=== PATIENT | male | born 1980 | race Caucasian/White ===

== ENCOUNTER → 2016-10-23 | Outpatient (CLI) | payer MEDICARE, MEDICAID | LOC: OD 11:17 | PROVIDERS: ATTEND Preventive Medicine Undersea and Hyperbaric Medicine | DX: L97.522 Non-pressure chronic ulcer of other part of left foot with fat layer exposed (principal) ==

== ENCOUNTER → 2016-12-29 | Outpatient (CLI) | payer MEDICARE, MEDICAID | LOC: OD 16:25 | PROVIDERS: ATTEND Preventive Medicine Undersea and Hyperbaric Medicine | DX: E10.621 Type 1 diabetes mellitus with foot ulcer (principal); L97.522 Non-pressure chronic ulcer of other part of left foot with fat layer exposed ==

== ENCOUNTER → 2017-01-15 | Outpatient (CLI) | payer MEDICARE, MEDICAID ==
--- NOTE | 2017-01-15 14:25 | RADIOLOGY REPORT (SQ) ---
EXAM DESCRIPTION: MRI LT LOWER EXTREMITY COMBO COMPLETED DATE/TIME: 01/15/2017 1:55 pm REASON FOR STUDY: NON-PRS CHRONIC ULCER OTH PRT LEFT FOOT W FAT LAYER EXPOSED (L97.522) L97.522 NON -PRS CHRONIC ULCER OTH PRT LEFT FOOT W FAT LAYER COMPARISON: None. TECHNIQUE: Multiplanar imaging of the left foot to include T1-weighted, postcontrast T1-weighted, an d T2-weighted images. CONTRAST TYPE AND DOSE: 20 ML Prohance. RENAL FUNCTION: GFR > 60. LIMITATIONS: None. FINDINGS: BONE MARROW: No marrow signal alteration. Specifically no marrow replacement or marrow ed maddison. No evidence for osteomyelitis. No cortical break through. SOFT TISSUES: Skin ulcer at the level of the medial cuneiform 1st metatarsal joint. There is adjacen t inflammation superficial to the flexor tendon. No organized gas fluid collection. OTHER: No other significant finding. IMPRESSION: Cellulitis. No evidence of osteomyelitis. TECHNICAL DOCUMENTATION: JOB ID: [id number] [employer]- All Rights Reserved
== END ==
LOC: RAD 12:34
PROVIDERS: ATTEND Preventive Medicine Undersea and Hyperbaric Medicine
DX: L97.522 Non-pressure chronic ulcer of other part of left foot with fat layer exposed (principal)
CPT/HCPCS: 73720; A9576

== ENCOUNTER → 2018-04-08 | Outpatient (CLI) | payer MEDICARE, MEDICAID ==
--- NOTE | 2018-04-08 11:23 | RADIOLOGY REPORT (SQ) ---
EXAM DESCRIPTION: LUMBAR SPINE COMPLETE COMPLETED DATE/TIME: 04/08/2018 11:08 am REASON FOR STUDY: LOW BACK PAIN M54.5 LOW BACK PAIN COMPARISON: None. NUMBER OF VIEWS: Five views including obliques. TECHNIQUE: AP, lateral, oblique, and sacral radiographic images acquired of the lumbar spine. LIMITATIONS: None. FINDINGS: MINERALIZATION: Normal. SEGMENTATION: Normal. No transitional anatomy. ALIGNMENT: Normal. VERTEBRAE: Maintained height. No fracture or worrisome bone lesion. DISCS: Preserved height. No significant osteophytes or end plate irregularity. POSTERIOR ELEMENTS: Pedicles and facets are intact. No pars defect or posterior arch defects. Mild b ilateral facet arthropathy at L4-5 and L5-S1. HARDWARE: None in the spine. PARASPINAL SOFT TISSUES: Normal. PELVIS: Intact as visualized. No fractures or worrisome bone lesions. SI joints intact. OTHER: No other significant finding. IMPRESSION: Mild bilateral facet arthropathy at L4-5 and L5-S1 TECHNICAL DOCUMENTATION: JOB ID: [id number] [employer]- All Rights Reserved Reading location - IP/workstation name: [email or web address]
== END ==
LOC: OD 10:41
PROVIDERS: ATTEND Nurse Practitioner Family
DX: M54.5 Low back pain (principal)
CPT/HCPCS: 72110

== ENCOUNTER → 2018-09-13 | Outpatient (CLI) | payer MEDICARE, MEDICAID ==
[2018-09-13 15:18] LABS: ABSOLUTE BASOPHILS # (AUTO) 0.1 10^3/uL (0.0-0.2); ABSOLUTE EOSINOPHILS # (AUTO) 0.2 10^3/uL (0.0-0.6); ABSOLUTE LYMPHOCYTES (AUTO) 1.7 10^3/uL (0.5-4.7); ABSOLUTE MONOCYTES (AUTO) 0.7 10^3/uL (0.1-1.4); ABSOLUTE NEUT (AUTO) 6.7 10^3/uL (1.7-8.2); BASOPHILS % (AUTO) 0.7 % (0-2); EOSINOPHILS % (AUTO) 1.8 % (0-6); HEMATOCRIT 39.8 % (37.9-51.0); HEMOGLOBIN 13.8 g/dL (13.5-17.0); LYMPHOCYTES % (AUTO) 18.2 % (13-45); MEAN CORPUSCULAR HEMOGLOBIN 29.6 pg (27.0-33.4); MEAN CORPUSCULAR HGB CONC 34.6 g/dL (32.0-36.0); MEAN CORPUSCULAR VOLUME 85 fl (80-97); MONOCYTES % (AUTO) 7.2 % (3-13); PLATELET COUNT 249 10^3/uL (150-450); RED BLOOD COUNT 4.66 10^6/uL (4.35-5.55); RED CELL DISTRIBUTION WIDTH 12.9 % (11.5-14.0); SEGMENTED NEUTROPHILS % (AUTO) 72.1 % (42-78); TOTAL CELLS COUNTED % (AUTO) 100 %; WHITE BLOOD COUNT 9.3 10^3/uL (4.0-10.5)
--- NOTE | 2018-09-13 15:33 | RADIOLOGY REPORT (SQ) ---
EXAM DESCRIPTION: FOOT LEFT COMPLETE COMPLETED DATE/TIME: 09/13/2018 2:58 pm REASON FOR STUDY: NON-PRS CHRONIC ULCER OTH PRT LEFT FOOT W FAT LAYER EXPOSED L97.522 NON-PRS CHRON IC ULCER OTH PRT LEFT FOOT W FAT LAYER E11.621 TYPE 2 DIABETES MELLITUS WITH FOOT ULCER COMPARISON: 12/29/2016. NUMBER OF VIEWS: Three views. TECHNIQUE: AP, lateral and oblique without weight bearing radiographic images acquired of the left f oot. LIMITATIONS: None. FINDINGS: MINERALIZATION: Normal. BONES: No acute fracture or dislocation. No worrisome bone lesions. No significant osteophytes. JOINTS: No erosions. No thu-articular osteopenia. No chondrocalcinosis. SOFT TISSUES: Medial and dorsal soft tissue swelling. No foreign body. No calcifications. OTHER: No other significant finding. IMPRESSION: SOFT TISSUE SWELLING. NO FOREIGN BODY. NO SIGNIFICANT BONY FINDINGS. TECHNICAL DOCUMENTATION: JOB ID: [id number] [employer]- All Rights Reserved Reading location - IP/workstation name: [email or web address]
[2018-09-13 15:36] LABS: ALANINE AMINOTRANSFERASE 46 U/L (21-72); ALBUMIN 3.8 g/dL (3.5-5.0); ALKALINE PHOSPHATASE 112 U/L (38-126); ANION GAP 8 (5-19); ASPARTATE AMINO TRANSFERASE 35 U/L (17-59); BILIRUBIN,DIRECT 0.1 mg/dL (0.0-0.4); BILIRUBIN,TOTAL 0.4 mg/dL (0.2-1.3); BLOOD UREA NITROGEN 23 mg/dL (7-20); C-REACTIVE PROTEIN 5.8 mg/L (<10.0); CALCIUM 9.3 mg/dL (8.4-10.2); CARBON DIOXIDE 27 mmol/L (22-30); CHLORIDE 102 mmol/L (98-107); GLUCOSE 241 mg/dL (75-110); POTASSIUM 4.8 mmol/L (3.6-5.0); SODIUM 137.3 mmol/L (137-145); TOTAL PROTEIN 6.2 g/dL (6.3-8.2)
[2018-09-13 15:55] LABS: ERYTHROCYTE SEDIMENTATION RATE 26 mm/hr (0-15)
== END ==
LOC: WC 14:28
PROVIDERS: ATTEND Preventive Medicine Undersea and Hyperbaric Medicine
DX: E11.621 Type 2 diabetes mellitus with foot ulcer (principal); L97.522 Non-pressure chronic ulcer of other part of left foot with fat layer exposed
CPT/HCPCS: 36415; 80053; 83036; 85025; 85652; 86140

== ENCOUNTER → 2018-09-16 | Outpatient (CLI) | payer MEDICARE, MEDICAID ==
--- NOTE | 2018-09-16 08:19 | RADIOLOGY REPORT (SQ) ---
EXAM DESCRIPTION: CHEST PA/LATERAL COMPLETED DATE/TIME: 09/16/2018 7:49 am REASON FOR STUDY: SHORTNESS OF BREATH COMPARISON: 12/06/2015 EXAM PARAMETERS: NUMBER OF VIEWS: two views TECHNIQUE: Digital Frontal and Lateral radiographic views of the chest acquired. RADIATION DOSE: NA LIMITATIONS: none FINDINGS: LUNGS AND PLEURA: Mild prominence of the interstitial markings in the lungs may be on the basis of edema or infiltrates. Linear subsegmental densities at the left lung base may be represent atelectasis or scar. Stable finding since the prior examination with slight increase. No pneumothor ax or pleural effusion. MEDIASTINUM AND HILAR STRUCTURES: No masses or contour abnormalities. HEART AND VASCULAR STRUCTURES: Heart normal size. No evidence for failure. BONES: No acute findings. HARDWARE: None in the chest. OTHER: No other significant finding. IMPRESSION: 1. Mild prominence of the interstitial markings in the lungs, may be on the basis of ed maddison or infiltrate. Correlation with history suggested. 2. Linear subsegmental densities at the left lung base, may represent scar or atelectasis. Stable f inding since the previous examination with slight increase. TECHNICAL DOCUMENTATION: JOB ID: [id number] [employer]- All Rights Reserved Reading location - IP/workstation name: [email or web address]
== END ==
LOC: OD 07:35
PROVIDERS: ATTEND Nurse Practitioner Family
DX: J98.4 Other disorders of lung (principal); R06.02 Shortness of breath
CPT/HCPCS: 71046

== ENCOUNTER → 2018-10-14 | Outpatient (CLI) | payer MEDICARE, MEDICAID ==
[2018-10-14 15:45] LABS: ABSOLUTE BASOPHILS # (AUTO) 0.1 10^3/uL (0.0-0.2); ABSOLUTE EOSINOPHILS # (AUTO) 0.2 10^3/uL (0.0-0.6); ABSOLUTE LYMPHOCYTES (AUTO) 1.7 10^3/uL (0.5-4.7); ABSOLUTE MONOCYTES (AUTO) 0.7 10^3/uL (0.1-1.4); ABSOLUTE NEUT (AUTO) 5.5 10^3/uL (1.7-8.2); BASOPHILS % (AUTO) 0.8 % (0-2); EOSINOPHILS % (AUTO) 2.1 % (0-6); HEMATOCRIT 34.7 % (37.9-51.0); HEMOGLOBIN 12.1 g/dL (13.5-17.0); LYMPHOCYTES % (AUTO) 20.9 % (13-45); MEAN CORPUSCULAR HEMOGLOBIN 29.4 pg (27.0-33.4); MEAN CORPUSCULAR HGB CONC 34.8 g/dL (32.0-36.0); MEAN CORPUSCULAR VOLUME 84 fl (80-97); MONOCYTES % (AUTO) 8.9 % (3-13); PLATELET COUNT 275 10^3/uL (150-450); RED BLOOD COUNT 4.11 10^6/uL (4.35-5.55); RED CELL DISTRIBUTION WIDTH 13.3 % (11.5-14.0); SEGMENTED NEUTROPHILS % (AUTO) 67.3 % (42-78); TOTAL CELLS COUNTED % (AUTO) 100 %; WHITE BLOOD COUNT 8.1 10^3/uL (4.0-10.5)
[2018-10-14 16:09] LABS: ALANINE AMINOTRANSFERASE 41 U/L (21-72); ALBUMIN 3.5 g/dL (3.5-5.0); ALKALINE PHOSPHATASE 104 U/L (38-126); ANION GAP 6 (5-19); ASPARTATE AMINO TRANSFERASE 25 U/L (17-59); BILIRUBIN,DIRECT 0.2 mg/dL (0.0-0.4); BILIRUBIN,TOTAL 0.3 mg/dL (0.2-1.3); BLOOD UREA NITROGEN 22 mg/dL (7-20); CALCIUM 9.2 mg/dL (8.4-10.2); CARBON DIOXIDE 30 mmol/L (22-30); CHLORIDE 101 mmol/L (98-107); GLUCOSE 262 mg/dL (75-110); POTASSIUM 4.8 mmol/L (3.6-5.0); SODIUM 137.3 mmol/L (137-145); TOTAL PROTEIN 6.4 g/dL (6.3-8.2)
[2018-10-14 16:12] LABS: C-REACTIVE PROTEIN < 5.0 mg/L (<10.0)
[2018-10-14 16:20] LABS: ERYTHROCYTE SEDIMENTATION RATE 40 mm/hr (0-15)
== END ==
LOC: OD 15:03
PROVIDERS: ATTEND Preventive Medicine Undersea and Hyperbaric Medicine
DX: L97.522 Non-pressure chronic ulcer of other part of left foot with fat layer exposed (principal)
CPT/HCPCS: 36415; 80053; 85025; 85652; 86140

== ENCOUNTER → 2018-11-04 | Outpatient (CLI) | payer MEDICARE, MEDICAID ==
--- NOTE | 2018-11-04 16:31 | RADIOLOGY REPORT (SQ) ---
EXAM DESCRIPTION: FOOT LEFT COMPLETE COMPLETED DATE/TIME: 11/04/2018 3:43 pm REASON FOR STUDY: NON-PRS CHRONIC ULCER OTH PRT LEFT FOOT W FAT LAYER EXPOSED L97.522 NON-PRS CHRON IC ULCER OTH PRT LEFT FOOT W FAT LAYER COMPARISON: None. NUMBER OF VIEWS: Three views. TECHNIQUE: AP, lateral and oblique radiographic images acquired of the left foot. LIMITATIONS: Boot artifact FINDINGS: MINERALIZATION: Normal. BONES: No fracture dislocation. No bone destruction is seen. JOINTS: No effusions. SOFT TISSUES: No soft tissue swelling. No foreign body. OTHER: No other significant finding. IMPRESSION: There is no evidence of osteomyelitis. TECHNICAL DOCUMENTATION: JOB ID: [id number] [employer]- All Rights Reserved Reading location - IP/workstation name: [email or web address]
== END ==
LOC: WC 15:26
PROVIDERS: ATTEND Preventive Medicine Undersea and Hyperbaric Medicine
DX: L97.522 Non-pressure chronic ulcer of other part of left foot with fat layer exposed (principal)

== ENCOUNTER 2018-11-23 07:59 | Emergency (ER) | payer MEDICARE, MEDICAID ==
[2018-11-23 10:01] LABS: ABSOLUTE BASOPHILS # (AUTO) 0.1 10^3/uL (0.0-0.2); ABSOLUTE EOSINOPHILS # (AUTO) 0.3 10^3/uL (0.0-0.6); ABSOLUTE LYMPHOCYTES (AUTO) 1.5 10^3/uL (0.5-4.7); ABSOLUTE MONOCYTES (AUTO) 0.9 10^3/uL (0.1-1.4); ABSOLUTE NEUT (AUTO) 6.6 10^3/uL (1.7-8.2); BASOPHILS % (AUTO) 0.9 % (0-2); EOSINOPHILS % (AUTO) 2.9 % (0-6); HEMATOCRIT 36.2 % (37.9-51.0); HEMOGLOBIN 12.3 g/dL (13.5-17.0); LYMPHOCYTES % (AUTO) 16.1 % (13-45); MEAN CORPUSCULAR HEMOGLOBIN 28.3 pg (27.0-33.4); MEAN CORPUSCULAR VOLUME 83 fl (80-97); MONOCYTES % (AUTO) 9.2 % (3-13); PLATELET COUNT 300 10^3/uL (150-450); RED BLOOD COUNT 4.35 10^6/uL (4.35-5.55); RED CELL DISTRIBUTION WIDTH 13.9 % (11.5-14.0); SEGMENTED NEUTROPHILS % (AUTO) 70.9 % (42-78); TOTAL CELLS COUNTED % (AUTO) 100 %; WHITE BLOOD COUNT 9.4 10^3/uL (4.0-10.5)
[2018-11-23] MEDS ORDERED: FUROSEMIDE INJ/PF 40 MG/4 ML SDV IV ONE (10:09)
--- NOTE | 2018-11-23 10:15 | EKG REPORT ---
SEVERITY:- BORDERLINE ECG - SINUS TACHYCARDIA BORDERLINE T ABNORMALITIES, INFERIOR LEADS : Confirmed by: Herminia Cardoza MD 23-Nov-2018 10:14:32
[2018-11-23 10:23] LABS: APPEARANCE,URINE CLEAR; BILIRUBIN,URINE NEGATIVE (NEGATIVE); COLOR,URINE YELLOW; GLUCOSE, URINE >=500 mg/dL (NEGATIVE); KETONES,URINE NEGATIVE (NEGATIVE); LEUKOCYTE ESTERASE,URINE NEGATIVE (NEGATIVE); NITRITE,URINE NEGATIVE (NEGATIVE); PROTEIN,URINE 100 mg/dL (NEGATIVE); URINE SPECIFIC GRAVITY 1.012; UROBILINOGEN,URINE NEGATIVE mg/dL (<2.0)
--- NOTE | 2018-11-23 10:30 | RADIOLOGY REPORT (SQ) ---
EXAM DESCRIPTION: CHEST SINGLE VIEW COMPLETED DATE/TIME: 11/23/2018 10:21 am REASON FOR STUDY: SOB COMPARISON: 09/16/2018. EXAM PARAMETERS: NUMBER OF VIEWS: One view. TECHNIQUE: Single frontal radiographic view of the chest acquired. RADIATION DOSE: NA LIMITATIONS: None. FINDINGS: LUNGS AND PLEURA: No opacities, masses or pneumothorax. No pleural effusion. MEDIASTINUM AND HILAR STRUCTURES: No masses. Contour normal. HEART AND VASCULAR STRUCTURES: Heart upper limits of normal in size. Normal vasculature. BONES: No acute findings. HARDWARE: None in the chest. OTHER: No other significant finding. IMPRESSION: NO ACUTE RADIOGRAPHIC FINDING IN THE CHEST. TECHNICAL DOCUMENTATION: JOB ID: [id number] [employer]- All Rights Reserved Reading location - IP/workstation name: [email or web address]
[2018-11-23 10:37] LABS: ALANINE AMINOTRANSFERASE 39 U/L (21-72); ALBUMIN 3.2 g/dL (3.5-5.0); ALKALINE PHOSPHATASE 91 U/L (38-126); ANION GAP 5 (5-19); ASPARTATE AMINO TRANSFERASE 25 U/L (17-59); BILIRUBIN,DIRECT 0.3 mg/dL (0.0-0.4); BILIRUBIN,TOTAL 0.4 mg/dL (0.2-1.3); BLOOD UREA NITROGEN 22 mg/dL (7-20); CALCIUM 9.1 mg/dL (8.4-10.2); CARBON DIOXIDE 29 mmol/L (22-30); CHLORIDE 104 mmol/L (98-107); CREATINE KINASE 215 U/L (55-170); GLUCOSE 184 mg/dL (75-110); POTASSIUM 4.4 mmol/L (3.6-5.0); SODIUM 138.1 mmol/L (137-145); TOTAL PROTEIN 6.3 g/dL (6.3-8.2)
[2018-11-23 10:49] LABS: TROPONIN I 0.02 ng/mL
[2018-11-23] MEDS ORDERED: LIDOCAINE 2% VISCOUS SOLN 20 ML UDCUP PO ONE (14:34)
[2018-11-23] MEDS ORDERED: MAG HYDROX/AL HYDROX/SIMETH SUSP 30 ML UDCUP PO ONE (14:34)
--- NOTE | 2018-11-23 16:03 | ER Document Report ---
Entered by DEBO KERNS SCRIBE 11/23/18 1026 Acting as scribe for:TREVA MAYO MD ED General - General Chief Complaint: Shortness Of Breath Stated Complaint: SHORTNESS OF BREATH Time Seen by Provider: 11/23/18 09:44 Mode of Arrival: Ambulatory Information source: Patient Notes: 38-year-old male who presents to the emergency department today with complaints of a "60 pound weight gain in the last 2 months". Patient states that he had been on 20 mg of Lasix once a day and when he noticed a weight gain, talked to his performance consultant who doubled the dosage to 40 mg of Lasix once a day. Patient states he has not noticed much change despite increasing his Lasix. TRAVEL OUTSIDE OF THE [place] IN LAST 30 DAYS: No - HPI Onset: Other - x2 months - Related Data Allergies/Adverse Reactions: No Known Allergies Allergy (Verified 11/23/18 08:04) Past Medical History - General Information source: Patient - Social History Smoking Status: Former Smoker Cigarette use (# per day): No Frequency of alcohol use: Rare Drug Abuse: None Family History: Reviewed & Not Pertinent Patient has suicidal ideation: No Patient has homicidal ideation: No - Past Medical History Cardiac Medical History: Reports: Hx Hypercholesterolemia, Hx Hypertension Pulmonary Medical History: Reports: Hx Pneumonia Neurological Medical History: Reports: Hx Migraine Endocrine Medical History: Reports: Hx Diabetes Mellitus Type 1 GI Medical History: Reports: Hx Gastroesophageal Reflux Disease Psychiatric Medical History: Reports: Hx Depression Past Surgical History: Reports: Hx Orthopedic Surgery - left foot surgery from wound - Immunizations Hx Diphtheria, Pertussis, Tetanus Vaccination: Yes - 2006 Physical Exam - Vital signs Vitals: Temp Pulse Resp BP Pulse Ox 98.4 F 116 H 24 H 176/79 H 98 11/23/18 08:06 11/23/18 08:06 11/23/18 08:06 11/23/18 08:06 11/23/18 08:06 - Notes Notes: Physical Exam: General: Alert, appears well. HEENT: Normocephalic. Atraumatic. PERRL. Extraocular movements intact. Oropharynx clear. Neck: Supple. Non-tender. Respiratory: No respiratory distress. Clear and equal breath sounds bilaterally. Cardiovascular: Regular rate and rhythm. Abdominal: Obese, pitting edema of the scrotal area and lower abdominal pannus. No distension. Normal Bowel Sounds. Back: Non-tender. No deformity or step off. Extremities: Moves all four extremities. Upper extremities: Normal inspection. Normal ROM. Lower extremities: Surgical boot with wound dressing to lower left extremity. RLE has 2+ pitting edema. Neurological: Normal cognition. AAOx4. Normal speech. Psychological: Normal affect. Normal Mood. Skin: Warm. Dry. Redness across lower abdomen and scrotal area. Course - Re-evaluation Re-evalutation: 11/23/18 13:07 At this point the patient has urinated about 750 mL's. He states he feels like he could go again. He states his breathing feels fine. He was sound asleep consistent with a history of sleep apnea. His room air oxygen saturation runs 90%, and he is quite comfortable at that level. Of concern, his creatinine today is 1.43, on 10/14/2018 it was 1.35, on 09/13/2018 is 1.13. BUN is unchanged on those visits. He has not been back to see Dr. Washington in quite some time according to the patient. 11/23/18 18:10 Patient did have heartburn symptoms a little earlier this afternoon, he was given a GI cocktail and it resolved his symptoms almost immediately. He was allowed to walk without oxygen, his pulse actually went down, but his pulse ox dropped also. The PCT entered the values that were found during the walk and after sitting back down. I believe her initial oxygen saturation she recorded at 100% is an air, as I watched him for quite some time with a good waveform in the room and on the monitors from outside the room and he never went above 92% on room air. I suspect he was around 90-92% when he started his walk, did drop to 88% during the walk and returned to 90% when he sat down. Heart rate actually went down somewhat while he was walking. 11/23/18 21:17 Patient is over in the CT scanner at this time. I checked on him earlier and found him sound asleep snoring and appearing very much like he is in obstructive sleep apnea patient. When I woke him up, he told me he had urinated at least another liter. He also reported he could not tell any difference in his breathing after the nebulizer treatment, so I doubt reactive airways is part of his problem. - Vital Signs Vital signs: Temp Pulse Resp BP Pulse Ox 98.4 F 116 H 24 H 174/90 H 87 L 11/23/18 08:06 11/23/18 08:06 11/23/18 18:07 11/23/18 18:07 11/23/18 18:07 - Laboratory Result Diagrams: 11/23/18 09:43 11/23/18 09:43 Laboratory results interpreted by me: 11/23/18 11/23/18 11/23/18 09:43 09:43 09:43 Hgb 12.3 L Hct 36.2 L D-Dimer BUN 22 H Creatinine 1.43 H Est GFR (Non-Af Amer) 55 L Glucose 184 H POC Glucose Creatine Kinase 215 H NT-Pro-B Natriuret Pep 232 H Albumin 3.2 L Urine Protein Urine Glucose (UA) Urine Blood 11/23/18 11/23/18 11/23/18 09:43 18:20 19:07 Hgb Hct D-Dimer 1.36 H BUN Creatinine Est GFR (Non-Af Amer) Glucose POC Glucose 154 H Creatine Kinase NT-Pro-B Natriuret Pep Albumin Urine Protein 100 H Urine Glucose (UA) >=500 H Urine Blood MODERATE H - Diagnostic Test Radiology reviewed: Image reviewed, Reports reviewed - Chest x-ray does not show an acute process. CTA chest does not show any acute abnormalities. - EKG Interpretation by Me EKG shows normal: Sinus rhythm, [place], Intervals, QRS Complexes. abnormal: ST-T Waves - Borderline inferior T abnormalities Rate: Tachycardia - 106 When compared to previous EKG there are: No significant change Discharge - Discharge Clinical Impression: Body fluid retention, Obstructive sleep apnea, IDDM (insulin dependent diabetes mellitus) Hypertension Qualifiers: Hypertension type: essential hypertension Qualified Code(s): I10 - Essential (primary) hypertension Dyspnea Qualifiers: Dyspnea type: unspecified Qualified Code(s): R06.00 - Dyspnea, unspecified Condition: Stable Disposition: HOME, SELF-CARE Additional Instructions: Your fluid retention is probably due to your decreased kidney function, and consuming too much sodium in your diet. Your lab work today does show that your kidney function has been deteriorating over the past several months. Your exam suggest that you do have obstructive sleep apnea. There was no evidence of congestive heart failure, pulmonary edema, blood clots, or reactive airways disease today. You should continue your regular medications. Elevate your feet frequently to help reduce the swelling. Try to eliminate sodium from your diet. You should drink plenty of water this evening to help clear the contrast dye from your system. Follow-up with your primary care provider and ask her to refer you to a kidney specialist. RETURN TO THE EMERGENCY ROOM IF ANY NEW OR WORSENING SYMPTOMS. Scribe Attestation: 11/23/18 10:57 I personally performed the services described in the documentation, reviewed and edited the documentation which was dictated to the scribe in my presence, and it accurately records my words and actions. I personally performed the services described in the documentation, reviewed and edited the documentation which was dictated to the scribe in my presence, and it accurately records my words and actions.
[2018-11-23 17:57] LABS: ARTERIAL BLOOD BASE EXCESS -1.3 mmol/L; ARTERIAL BLOOD FIO2 ROOM AIR; ARTERIAL BLOOD H2CO3 1.14 mmol/L (1.05-1.35); ARTERIAL BLOOD O2 SATURATION 96.5 % (94-98); ARTERIAL BLOOD PCO2 37.8 mmHg (35-45); ARTERIAL BLOOD PO2 85.3 mmHg (80-100); ARTERIAL BLOOD TOTAL CO2 24.2 mmol/L (23-27)
[2018-11-23] MEDS ORDERED: IPRATROPIUM/ALBUTEROL 0.5-2.5 MG/3 ML AMPUL NEB ONE (18:09)
--- NOTE | 2018-11-23 22:17 | RADIOLOGY REPORT (SQ) ---
EXAM DESCRIPTION: CLINICAL HISTORY: 38 years, Male, Dyspnea, hypoxemia, elevated d-dimer COMPARISON: Chest x-ray from today TECHNIQUE: Axial images through the chest were performed after the administration of intravenous contrast using a pulmonary embolus protocol. MIPS were performed. This exam was performed according to our departmental dose-optimization program which includes use of Automated Exposure Control, adjustment of the mA and/or kV according to patient size and/or use of iterative reconstruction technique. FINDINGS: No evidence for pulmonary hypertension or central pulmonary embolus. Suboptimal evaluation of the peripheral vessels. Aorta is unremarkable. Small mediastinal lymph nodes. Mild enlargement of the left ventricle of the heart. No evidence for pericardial effusion. Small hiatal hernia. Minimal atelectatic changes in the left lower lobe. No definite infiltrate. There is motion artifact. Limited images of the upper abdomen are unremarkable. IMPRESSION: 1. No evidence for pulmonary hypertension or central PE. Peripheral vessels not optimally evaluated due to motion artifact. 2. Nonspecific small mediastinal lymph nodes statistically more likely benign. 3. Mild enlargement of the left ventricle of the heart. Aorta is not dilated. 4. Question minimal atelectasis left lower lobe. Motion artifact. No significant infiltrate. 5. Small hiatal hernia.
[2018-11-23 23:00] VITALS: BP 165/78
== END 2018-11-23 23:17 | disposition home or self-care (01) ==
LOC: ER 07:59
DX: R60.9 Edema, unspecified (principal); Z79.899 Other long term (current) drug therapy; G47.33 Obstructive sleep apnea (adult) (pediatric); R00.0 Tachycardia, unspecified; R63.5 Abnormal weight gain; R06.02 Shortness of breath; I10 Essential (primary) hypertension; E10.9 Type 1 diabetes mellitus without complications; Z87.891 Personal history of nicotine dependence
CPT/HCPCS: 93005; 94640; 99285; 96374; 36415; 82962; 82803; 82550; 83735; 85025; 80053; 81001; 84484; 85379; 83880; 71045; 71275; 93010; 36600; J1940; J3490; A9270; J7620

== ENCOUNTER → 2018-12-02 | Outpatient (CLI) | payer MEDICARE, MEDICAID ==
--- NOTE | 2018-12-02 20:02 | XCELERA REPORT ---
[address] [address] Transthoracic Echocardiogram Report Name: PEE DOUGHERTY Age: 38 yrs Gender: Male : 1980 Patient Status: Outpatient Patient Location: RAD Study Date: 12/02/2018 11:09 AM Height: 72 in Weight: 314 lb BSA: 2.6 m2 Reason For Study: SHORTNESS OF BREATH Ordering Physician: ROGERS SEYMOUR Performed By: Alexis Sebastian Interpretation Summary Very poor images obtained hellen in apical views, and no apical 2 chamber view obtained. Unable to dx biplane LVEF. probably normal with no LV enlargement. Moderate asymmetric hypertrophy. PW 18 mm IVS 13 mm. AV probably 3 cusps, sl thickened no and no AR. Mod Mitral annular calcification,no MS, mild MR, mild LA enlargement. RH poorly visualized, RV appears enlarged, No TR sampled, unable to derive RVSP to r/o pulm hypertension. MMode/2D Measurements & Calculations RVDd: 3.9 cm LVIDd: 4.9 cm FS: 35.5 % Ao root diam: 2.9 cm IVSd: 0.96 cm LVIDs: 3.2 cm EDV(Teich): 112.5 ml LVPWd: 1.2 cm ESV(Teich): 39.6 ml Ao root area: 6.8 cm2 LA dimension: 4.2 cm EF(Teich): 64.7 % Doppler Measurements & Calculations MV E max candido: MV P1/2t max candido: Ao V2 max: LV V1 max P.9 cm/sec 163.7 cm/sec 169.7 cm/sec 6.5 mmHg MV P1/2t: 58.0 msec Ao max PG: LV V1 max: MVA(P1/2t): 3.8 cm2 11.5 mmHg 127.8 cm/sec MV dec slope: 826.1 cm/sec2 MV dec time: 0.18 sec PA V2 max: MV P1/2t-pr_phl: 126.1 cm/sec 58.0 msec PA max P.4 mmHg Left Ventricle The left ventricle is grossly normal size. There is moderate concentric left ventricular hypertrophy. There is moderate asymmetric left ventricular hypertrophy. IVS 13 mm PW 18mm. The left ventricular ejection fraction is normal. no Biplane LVEF. Doppler measurements suggest normal left ventricular diastolic function. Regional wall motion abnormalities cannot be excluded due to limited visualization. Poor apical 4 chamber view, no biplane LVEF done. apical 2 chamber view not obtained only apical long axis view, Incomplete LV segmental analysis and LVEFV probably normal, with no LV enlargement. There is no thrombus. Right Ventricle The right ventricle is moderately dilated. Atria The right atrium is normal. The left atrium is mildly dilated. Interarterial septum not well visualized and not well dopplered. Cannot comment on ASD/PFO presence. Mitral Valve The mitral valve leaflets are sclerotic and show some degree of functional abnormality. There is moderate mitral annular calcification. There is no evidence of mitral valve prolapse. There is no mitral valve stenosis. There is a mild amount of mitral regurgitation. Aortic Valve The aortic valve is trileaflet. The aortic valve opens well. Cannot exclude aortic valvular vegetation. There is no aortic valve stenosis. No aortic regurgitation is present. Tricuspid Valve The tricuspid valve is not well visualized, but is grossly normal. There is a mild amount of tricuspid regurgitation. Pulmonic Valve The pulmonic valve is not well visualized. There is a mild amount of pulmonic regurgitation. Great Vessels The aortic root is not well visualized. Effusions Minimal pericardial effusion. I WMSI = 1.00 % Normal = 100 Segments Size X - Cannot 2 - 4 - 1-2 small Interpret 1 - Normal Hypokinetic 3 - AkineticDyskinetic 3-5 moderate 5 - 6-14 large Aneurysmal 15-16 diffuse : ROGERS SEYMOUR > Luis E Gibson
== END ==
LOC: RAD 10:36
PROVIDERS: ATTEND Nurse Practitioner Family
DX: R06.02 Shortness of breath (principal)
CPT/HCPCS: 93306

== ENCOUNTER → 2018-12-13 | Outpatient (CLI) | payer MEDICARE, MEDICAID ==
--- NOTE | 2018-12-13 16:43 | RADIOLOGY REPORT (SQ) ---
EXAM DESCRIPTION: FOOT LEFT COMPLETE COMPLETED DATE/TIME: 12/13/2018 4:20 pm REASON FOR STUDY: NON-PRESSURE CHRONIC ULCER OF LEFT CALF W FAT LAYER EXPOSED L97.222 NON-PRESSURE CHRONIC ULCER OF LEFT CALF W FAT LAYER COMPARISON: 11/04/2018 NUMBER OF VIEWS: Three views. TECHNIQUE: AP, lateral and oblique radiographic images acquired of the left foot. LIMITATIONS: None. FINDINGS: MINERALIZATION: Normal. BONES: Stable post surgical changes mid distal fourth toe. Sclerotic changes distal interphalangeal joint of the left great toe, stable findings. There are new lucent changes at the distal phalanx gr eat toe since the prior study. No acute fracture. JOINTS: No effusions. SOFT TISSUES: Interval removal of cast slight dressing. Replacement with external bandage dressing. Soft tissue swelling has decreased except at the great toe where there has been an increase in swel ling. OTHER: No other significant finding. IMPRESSION: 1. Soft tissue swelling has decreased except at the great toe where the has been an inc rease in swelling. 2. Since the prior study dated 11/04/2018, new finding of lucent areas at the distal interphalangeal j oint of the great toe. Diffuse sclerotic appearance to the distal phalanx of the great toe, stable f inding. These findings raise the question of possible osteomyelitis. TECHNICAL DOCUMENTATION: JOB ID: [id number] [employer]- All Rights Reserved Reading location - IP/workstation name: [email or web address]
== END ==
LOC: WC 15:52
PROVIDERS: ATTEND Preventive Medicine Undersea and Hyperbaric Medicine
DX: L97.222 Non-pressure chronic ulcer of left calf with fat layer exposed (principal)

== ENCOUNTER → 2018-12-30 | Outpatient (CLI) | payer MEDICARE, MEDICAID ==
--- NOTE | 2018-12-30 09:01 | RADIOLOGY REPORT (SQ) ---
EXAM DESCRIPTION: CT ABD/PELVIS NO ORAL OR IV COMPLETED DATE/TIME: 12/30/2018 8:06 am REASON FOR STUDY: LYMPHEDEMA, NEC (I89.0) I89.0 LYMPHEDEMA, NOT ELSEWHERE CLASSIFIED R60.9 EDEMA, UNSPECIFIED COMPARISON: None. TECHNIQUE: CT scan of the abdomen and pelvis performed without intravenous or oral contrast. Images reviewed with lung, soft tissue, and bone windows. Reconstructed coronal and sagittal MPR images revi ewed. All images stored on PACS. All CT scanners at this facility use dose modulation, iterative reconstruction, and/or weight based d osing when appropriate to reduce radiation dose to as low as reasonably achievable (ALARA). [facility]: Dose Right [facility]: CareDose [facility]: Dose Right [facility]: Teradose 4D [facility]: Smart [employer] RADIATION DOSE: CT Rad equipment meets quality standard of care and radiation dose reduction techniq ues were employed. CTDIvol: 29.3 mGy. DLP: 1666 mGy-cm.mGy. LIMITATIONS: None. FINDINGS: LOWER CHEST: Atelectasis or infiltrate left base increased since the recent CT scan the est on 11/23/2018. NON-CONTRASTED LIVER, SPLEEN, ADRENALS: Evaluation limited by lack of IV contrast. No identified sign ificant masses. PANCREAS: No masses. No peripancreatic inflammatory changes. GALLBLADDER: No identified stones by CT criteria. No inflammatory changes to suggest cholecystitis. RIGHT KIDNEY AND URETER: No suspicious masses. Assessment limited by lack of IV contrast. No signif icant calcifications. No hydronephrosis or hydroureter. LEFT KIDNEY AND URETER: No suspicious masses. Assessment limited by lack of IV contrast. No signifi cant calcifications. No hydronephrosis or hydroureter. AORTA AND RETROPERITONEUM: No aneurysm. No retroperitoneal masses or adenopathy. BOWEL AND PERITONEAL CAVITY: No obvious masses or inflammatory changes. No free fluid. APPENDIX: Normal. PELVIS, BLADDER, AND ABDOMINAL WALL:Extensive circumferential cutaneous edema lower anterior abdomina l wall and posteriorly. BONES: No significant findings. OTHER: Symmetrical bilateral calcification of the vas deferens. IMPRESSION: Extensive circumferential cutaneous edema lower anterior abdominal wall and posteriorly. Incidental finding of symmetrical bilateral calcification of the vas deferens. Etiology unclear. May be seen with diabetes. COMMENT: Quality ID # [id number]: Final reports with documentation of one or more dose reduction techniques (e.g., Automated exposure control, adjustment of the mA and/or kV according to patient size, use of iterative reconstruction technique) TECHNICAL DOCUMENTATION: JOB ID: [id number] [employer]- All Rights Reserved Reading location - IP/workstation name: [email or web address]
--- NOTE | 2018-12-30 11:12 | RADIOLOGY REPORT (SQ) ---
EXAM DESCRIPTION: VENOUS BILATERAL LOWER COMPLETED DATE/TIME: 12/30/2018 10:59 am REASON FOR STUDY: EDEMA I89.0 LYMPHEDEMA, NOT ELSEWHERE CLASSIFIED R60.9 EDEMA, UNSPECIFIED COMPARISON: None. TECHNIQUE: Dynamic and static monge scale and color images acquired of both lower extremity venous sy stems. Selected spectral images acquired with additional compression and augmentation maneuvers. Imag es stored on PACS. LIMITATIONS: Body habitus. FINDINGS: RIGHT LEG COMMON FEMORAL AND FEMORAL: Normal phasicity, compression and augmentation. No visualized echogenic m aterial on monge scale. No defects on color images. POPLITEAL: Normal compression and augmentation. No visualized echogenic material on monge scale. No de fects on color images. CALF VESSELS: Normal compression and augmentation. No visualized echogenic material on monge scale. No defects on color image. GSV AND SSV: Normal compression. No visualized echogenic material on monge scale. No defects on color images. ANY DEEP VENOUS INSUFFICIENCY: Not evaluated. ANY EVIDENCE OF POPLITEAL CYST: No. OTHER: No other significant finding. LEFT LEG COMMON FEMORAL AND FEMORAL: Normal phasicity, compression and augmentation. No visualized echogenic m aterial on monge scale. No defects on color images. POPLITEAL: Normal compression and augmentation. No visualized echogenic material on monge scale. No de fects on color images. CALF VESSELS: Normal compression and augmentation. No visualized echogenic material on monge scale. No defects on color images. GSV AND SSV: Normal compression. No visualized echogenic material on monge scale. No defects on color images. ANY DEEP VENOUS INSUFFICIENCY: Not evaluated. ANY EVIDENCE POPLITEAL CYST: No. OTHER: No other significant finding. IMPRESSION: NO EVIDENCE DVT OR SVT IN EITHER LEG. TECHNICAL DOCUMENTATION: JOB ID: [id number] [employer]- All Rights Reserved Reading location - IP/workstation name: [email or web address]
== END ==
LOC: RAD 07:47
PROVIDERS: ATTEND Nurse Practitioner Family
DX: I89.0 Lymphedema, not elsewhere classified (principal); R60.9 Edema, unspecified
CPT/HCPCS: 74176; 93970

== ENCOUNTER → 2019-02-17 | Outpatient (CLI) | payer MEDICARE, MEDICAID ==
[2019-02-17 13:28] LABS: ABSOLUTE BASOPHILS # (AUTO) 0.1 10^3/uL (0.0-0.2); ABSOLUTE EOSINOPHILS # (AUTO) 0.3 10^3/uL (0.0-0.6); ABSOLUTE LYMPHOCYTES (AUTO) 1.1 10^3/uL (0.5-4.7); ABSOLUTE MONOCYTES (AUTO) 0.5 10^3/uL (0.1-1.4); ABSOLUTE NEUT (AUTO) 6.6 10^3/uL (1.7-8.2); EOSINOPHILS % (AUTO) 3.6 % (0-6); HEMATOCRIT 30.9 % (37.9-51.0); HEMOGLOBIN 10.2 g/dL (13.5-17.0); LYMPHOCYTES % (AUTO) 13.4 % (13-45); MEAN CORPUSCULAR HEMOGLOBIN 26.1 pg (27.0-33.4); MEAN CORPUSCULAR HGB CONC 32.9 g/dL (32.0-36.0); MEAN CORPUSCULAR VOLUME 79 fl (80-97); MONOCYTES % (AUTO) 5.6 % (3-13); PLATELET COUNT 423 10^3/uL (150-450); RED CELL DISTRIBUTION WIDTH 15.6 % (11.5-14.0); SEGMENTED NEUTROPHILS % (AUTO) 76.4 % (42-78); TOTAL CELLS COUNTED % (AUTO) 100 %; WHITE BLOOD COUNT 8.6 10^3/uL (4.0-10.5)
[2019-02-17 13:59] LABS: ALANINE AMINOTRANSFERASE 29 U/L (21-72); ALBUMIN 3.1 g/dL (3.5-5.0); ALKALINE PHOSPHATASE 145 U/L (38-126); ANION GAP 6 (5-19); ASPARTATE AMINO TRANSFERASE 23 U/L (17-59); BILIRUBIN,DIRECT 0.2 mg/dL (0.0-0.4); BILIRUBIN,TOTAL 0.3 mg/dL (0.2-1.3); BLOOD UREA NITROGEN 21 mg/dL (7-20); C-REACTIVE PROTEIN 36.5 mg/L (<10.0); CALCIUM 8.6 mg/dL (8.4-10.2); CARBON DIOXIDE 29 mmol/L (22-30); CHLORIDE 103 mmol/L (98-107); GLUCOSE 192 mg/dL (75-110); SODIUM 137.7 mmol/L (137-145); TOTAL PROTEIN 6.3 g/dL (6.3-8.2)
--- NOTE | 2019-02-17 14:03 | RADIOLOGY REPORT (SQ) ---
EXAM DESCRIPTION: FOOT LEFT COMPLETE COMPLETED DATE/TIME: 02/17/2019 1:50 pm REASON FOR STUDY: NON-PRS CHRONIC ULCER OTH PRT LEFT FOOT W FAT LAYER EXPOSED E11.621 TYPE 2 DIABET ES MELLITUS WITH FOOT ULCER L97.522 NON-PRS CHRONIC ULCER OTH PRT LEFT FOOT W FAT LAYER L97.512 NO N-PRS CHRONIC ULCER OTH PRT RIGHT FOOT W FAT LAYER COMPARISON: None. NUMBER OF VIEWS: Three views. TECHNIQUE: AP, lateral and oblique without weight bearing radiographic images acquired of the left f oot. LIMITATIONS: None. FINDINGS: MINERALIZATION: Normal. BONES: No acute fracture or dislocation. No worrisome bone lesions. No significant osteophytes. JOINTS: No erosions. No thu-articular osteopenia. No chondrocalcinosis. SOFT TISSUES: There is diffuse soft tissue swelling. OTHER: No other significant finding. IMPRESSION: Soft tissue swelling. No conventional radiographic evidence of osteomyelitis. TECHNICAL DOCUMENTATION: JOB ID: [id number] [employer]- All Rights Reserved Reading location - IP/workstation name: [email or web address]
--- NOTE | 2019-02-17 14:04 | RADIOLOGY REPORT (SQ) ---
EXAM DESCRIPTION: FOOT RIGHT COMPLETE COMPLETED DATE/TIME: 02/17/2019 1:50 pm REASON FOR STUDY: NON-PRS CHRONIC ULCER OTH PRT RIGHT FOOT W FAT LAYER EXPOSED E11.621 TYPE 2 DIABE TRACEE MELLITUS WITH FOOT ULCER L97.522 NON-PRS CHRONIC ULCER OTH PRT LEFT FOOT W FAT LAYER L97.512 N ON-PRS CHRONIC ULCER OTH PRT RIGHT FOOT W FAT LAYER COMPARISON: None. NUMBER OF VIEWS: Three views. TECHNIQUE: AP, lateral and oblique radiographic images acquired of the right foot. LIMITATIONS: None. FINDINGS: MINERALIZATION: Normal. BONES: There is a fracture of the navicular bone. This is probably chronic with probable secondary a vascular necrosis. There is widening of the joint space between the navicular and cuboid. There is no conventional radiographic evidence of osteomyelitis. JOINTS: No effusions. SOFT TISSUES: There is diffuse soft tissue swelling. OTHER: No other significant finding. IMPRESSION: 1. 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 There is a fracture of the navicu lar bone which appears chronic. Clinical correlation is needed. 2. Diffuse soft tissue swelling. No conventional radiographic evidence of osteomyelitis. TECHNICAL DOCUMENTATION: JOB ID: [id number] [employer]- All Rights Reserved Reading location - IP/workstation name: [email or web address]
[2019-02-17 14:08] LABS: ERYTHROCYTE SEDIMENTATION RATE 94 mm/hr (0-15)
== END ==
LOC: WC 12:58
PROVIDERS: ATTEND Preventive Medicine Undersea and Hyperbaric Medicine
DX: E11.621 Type 2 diabetes mellitus with foot ulcer (principal); L97.522 Non-pressure chronic ulcer of other part of left foot with fat layer exposed; L97.512 Non-pressure chronic ulcer of other part of right foot with fat layer exposed; M84.474D Pathological fracture, right foot, subsequent encounter for fracture with routine healing
CPT/HCPCS: 36415; 80053; 83036; 85025; 85652; 86140

== ENCOUNTER → 2019-07-25 | Outpatient (CLI) | payer MEDICARE, MEDICAID ==
--- NOTE | 2019-07-25 18:26 | RADIOLOGY REPORT (SQ) ---
EXAM DESCRIPTION: VENOUS UNILATERAL LOWER COMPLETED DATE/TIME: 07/25/2019 6:02 pm REASON FOR STUDY: RLE PAIN M79.604 PAIN IN RIGHT LEG COMPARISON: None. TECHNIQUE: Dynamic and static monge scale and color images acquired of the right leg venous system. S elected spectral images acquired with additional compression and augmentation maneuvers. The contrala teral common femoral vein and saphenofemoral junction were also imaged. Images stored on PACS. LIMITATIONS: None. FINDINGS: COMMON FEMORAL: Normal phasicity, compression and augmentation. No visualized echogenic ma terial on monge scale. No defects on color images. FEMORAL: Normal compression and augmentation. No visualized echogenic material on monge scale. No defe cts on color images. POPLITEAL: Normal compression, augmentation. No visualized echogenic material on monge scale. No defec ts on color images. CALF VESSELS: Normal compression, augmentation. No visualized echogenic material on monge scale. No de fects on color images. GSV and SSV: Normal compression, augmentation. No visualized echogenic material on monge scale. No def ects on color images. ANY DEEP VENOUS INSUFFICIENCY: Not evaluated. ANY EVIDENCE OF POPLITEAL CYST: No. OTHER: No other significant finding. CONTRALATERAL COMMON FEMORAL VEIN AND SAPHENOFEMORAL JUNCTION: Normal phasicity, compression and augmentation. No visualized echogenic material on monge scale. No de fects on color images. IMPRESSION: NO EVIDENCE DVT OR SVT IN THE RIGHT LEG. TECHNICAL DOCUMENTATION: JOB ID: [id number] [employer]- All Rights Reserved Reading location - IP/workstation name: [email or web address]
== END ==
LOC: SP 16:07
PROVIDERS: ATTEND Physician Assistant
DX: M79.604 Pain in right leg (principal)
CPT/HCPCS: 93971

== ENCOUNTER 2019-08-10 17:30 | Inpatient (IN) | payer MEDICARE, MEDICAID ==
[2019-08-10] MEDS ORDERED: NORMAL SALINE 1000 ML 1,000 ML IV ONE (17:40)
[2019-08-10] MEDS ORDERED: PANTOPRAZOLE SODIUM 40 MG VIAL IV ONE (17:40)
[2019-08-10] MEDS ORDERED: ONDANSETRON HCL INJ/PF 4 MG/2 ML SDV IV ONE ×2 (17:40→21:20)
[2019-08-10] MEDS ORDERED: MORPHINE SULFATE 10 MG/ML INJ IV ONE ×2 (17:41→21:20)
[2019-08-10 17:55] LABS: VENOUS BLOOD BASE EXCESS 0.2 mmol/L; VENOUS BLOOD HCO3 26.3 mmol/L (20-32); VENOUS BLOOD PCO2 48.2 mmHg (35-63); VENOUS BLOOD PH 7.36 (7.30-7.42)
[2019-08-10 18:08] LABS: ALBUMIN 3.8 g/dL (3.5-5.0); ALKALINE PHOSPHATASE 164 U/L (38-126); ANION GAP 13 (5-19); ASPARTATE AMINO TRANSFERASE 41 U/L (17-59); BILIRUBIN,DIRECT 0.2 mg/dL (0.0-0.4); BILIRUBIN,TOTAL 0.8 mg/dL (0.2-1.3); BLOOD UREA NITROGEN 22 mg/dL (7-20); CALCIUM 9.4 mg/dL (8.4-10.2); CARBON DIOXIDE 27 mmol/L (22-30); CHLORIDE 94 mmol/L (98-107); GLUCOSE 242 mg/dL (75-110); POTASSIUM 4.5 mmol/L (3.6-5.0); TOTAL PROTEIN 6.8 g/dL (6.3-8.2)
[2019-08-10 18:10] LABS: ALCOHOL < 10 mg/dL (NONE DETECTED)
[2019-08-10 18:11] LABS: INTERNATIONAL RATION (INR) 0.91; PARTIAL THROMBOPLASTIN TIME 24.7 SEC (23.5-35.8); PROTHROMBIN TIME 12.3 SEC (11.4-15.4)
[2019-08-10 18:17] LABS: HEMATOCRIT 40.9 % (37.9-51.0); HEMOGLOBIN 13.9 g/dL (13.5-17.0); MEAN CORPUSCULAR HEMOGLOBIN 28.9 pg (27.0-33.4); MEAN CORPUSCULAR HGB CONC 33.9 g/dL (32.0-36.0); MEAN CORPUSCULAR VOLUME 85 fl (80-97); PLATELET COUNT 280 10^3/uL (150-450); RED BLOOD COUNT 4.81 10^6/uL (4.35-5.55); RED CELL DISTRIBUTION WIDTH 14.2 % (11.5-14.0); WHITE BLOOD COUNT 19.7 10^3/uL (4.0-10.5)
--- NOTE | 2019-08-10 18:20 | RADIOLOGY REPORT (SQ) ---
EXAM DESCRIPTION: CHEST SINGLE VIEW COMPLETED DATE/TIME: 08/10/2019 6:05 pm REASON FOR STUDY: altered mental status COMPARISON: None. NUMBER OF VIEWS: One view. TECHNIQUE: Single frontal radiographic view of the chest acquired. LIMITATIONS: None. FINDINGS: LUNGS AND PLEURA: Low lung volumes accentuate markings. Even allowing for this, however, there appears to be mild vascular congestion. MEDIASTINUM AND HILAR STRUCTURES: Upper mediastinal widening, likely related to low lung volumes and portable technique. PA and lateral chest films would help to better evaluate. HEART AND VASCULAR STRUCTURES: Heart size accentuated, again likely due to low lung volumes. BONES: No acute findings. HARDWARE: None in the chest. OTHER: No other significant finding. IMPRESSION: 1. Limited by portable technique and low lung volumes. Consider further evaluation with PA and later al chest films if possible. There is upper mediastinal widening which is suspected to be artifact. Mild vascular congestion. TECHNICAL DOCUMENTATION: JOB ID: [id number] [employer]- All Rights Reserved Reading location - IP/workstation name: [email or web address]
[2019-08-10 18:31] LABS: APPEARANCE,URINE CLEAR; BILIRUBIN,URINE NEGATIVE (NEGATIVE); COLOR,URINE YELLOW; GLUCOSE, URINE >=500 mg/dL (NEGATIVE); KETONES,URINE TRACE mg/dL (NEGATIVE); LEUKOCYTE ESTERASE,URINE NEGATIVE (NEGATIVE); NITRITE,URINE NEGATIVE (NEGATIVE); PROTEIN,URINE >=500 mg/dL (NEGATIVE); URINE SPECIFIC GRAVITY 1.022; UROBILINOGEN,URINE NEGATIVE mg/dL (<2.0)
[2019-08-10] MEDS ORDERED: LABETALOL HCL INJ 20 MG/4 ML DISP.SYRIN IV ONE (18:33)
--- NOTE | 2019-08-10 18:40 | EKG REPORT ---
SEVERITY:- ABNORMAL ECG - SINUS TACHYCARDIA ABNORMAL T, CONSIDER ISCHEMIA, INFERIOR LEADS BORDERLINE PROLONGED QT INTERVAL : Confirmed by: Luis E Gibson MD 10-Aug-2019 18:39:08
[2019-08-10 18:41] LABS: URINE AMPHETAMINES SCREEN NEGATIVE; URINE BARBITURATES SCREEN NEGATIVE; URINE BENZODIAZEPINES SCREEN NEGATIVE; URINE COCAINE SCREEN NEGATIVE; URINE MARIJUANA (THC) SCREEN NEGATIVE; URINE METHADONE SCREEN NEGATIVE; URINE PHENCYCLIDINE SCREEN NEGATIVE
[2019-08-10 18:47] LABS: ABSOLUTE MONOCYTES # (MANUAL) 0.6 10^3/uL (0.1-1.4); BAND NEUTROPHILS % (MANUAL) 1 % (3-5); BASOPHILS % (MANUAL) 0 % (0-2); EOSINOPHILS % (MANUAL) 0 % (0-6); LYMPHOCYTES % (MANUAL) 5 % (13-45); MONOCYTES % (MANUAL) 3 % (3-13); SEGMENTED NEUTROPHILS % (MAN) 91 % (42-78); TOTAL CELLS COUNTED 100
[2019-08-10 18:48] LABS: ANISOCYTOSIS SLIGHT; PLATELET COMMENT ADEQUATE
--- NOTE | 2019-08-10 19:12 | ER Document Report ---
ED General - General Chief Complaint: GI Bleeding Stated Complaint: POSSIBLE GI BLEED Time Seen by Provider: 08/10/19 17:38 Primary Care Provider: AUDREY BRIDGES PA-C [Primary Care Provider] - Follow up as needed TRAVEL OUTSIDE OF THE [place] IN LAST 30 DAYS: No - HPI Notes: Patient is a 39-year-old male brought into the emergency department for evaluation by EMS. History was eventually pieced together via EMS and . Patient's states that at around 630 this morning he had an episode of emesis, had a headache. It is not abnormal for him to have headaches with emesis. She states she left for work, they texted back and forth. Later on in the day, the patient was not responding to text. [id number] was sent to check on him. At that point he was found nude, laying on the couch, with multiple episodes of emesis. At that point, a second family member was called, then EMS was called. According to , the patient has had a similar episode in the past, was diagnosed with a TIA. He spent several weeks at [facility] in April with this diagnosis. - Related Data Allergies/Adverse Reactions: No Known Allergies Allergy (Verified 08/10/19 18:53) Home Medications: cymbalta, prevacid, ferrous sulfate, lipitor, metoprolol, sildenafil, losartan, lyrica, lasix Past Medical History - General Information source: Relative - Social History Smoking Status: Never Smoker Chew tobacco use (# tins/day): No Frequency of alcohol use: Rare Drug Abuse: None Family History: Reviewed & Not Pertinent Patient has suicidal ideation: No Patient has homicidal ideation: No - Past Medical History Cardiac Medical History: Reports: Hx Hypercholesterolemia, Hx Hypertension Denies: Hx Heart Attack Pulmonary Medical History: Reports: Hx Pneumonia Denies: Hx Asthma Neurological Medical History: Reports: Hx Migraine, Other - TIA. Denies: Hx Cerebrovascular Accident, Hx Seizures Endocrine Medical History: Reports: Hx Diabetes Mellitus Type 1 Renal/ Medical History: Denies: Hx Peritoneal Dialysis GI Medical History: Reports: Hx Gastroesophageal Reflux Disease - Hematemesis in the past, but no ulcer on EGD performed in April 2019. Denies: Hx Hepatitis, Hx Hiatal Hernia, Hx Ulcer Psychiatric Medical History: Reports: Hx Depression Infectious Medical History: Denies: Hx Hepatitis Past Surgical History: Reports: Hx Orthopedic Surgery - left foot surgery from wound. Denies: Hx Open Heart Surgery, Hx Pacemaker - Immunizations Hx Diphtheria, Pertussis, Tetanus Vaccination: Yes - 2006 Review of Systems - Review of Systems -: Yes ROS unobtainable due to patient's medical condition Physical Exam - Vital signs Vitals: Pulse Ox 99 08/10/19 17:30 - Notes Notes: This is a 39-year-old male who appears his stated age. He is moderately distressed, agitated. GCS 11. He will open his eyes in response to pain, he is confused. Patient moves all 4 extremities spontaneously, but will not follow commands. Vital signs reviewed, please refer to chart. Head is normocephalic, atraumatic. Pupils equal round, reactive to light. Neck is supple without meningismus. Heart is regular rate and rhythm. Lungs are clear to auscultation bilaterally. Abdomen is obese, moderately tender in the suprapubic region without rebound or guarding. Extremities without cyanosis, clubbing. Posterior calves are nontender. Peripheral pulses are equal. Skin is warm and dry. Patient is drowsy. No gross facial asymmetry. He moves all 4 extremities spontaneously. Sensation appears to be intact to all 4 extremities. He will not follow commands for further neurological evaluation. Course - Re-evaluation Re-evalutation: 08/10/19 19:12 Patient presents emergency department for evaluation. He was brought in here for altered mental status. Laboratory investigations were obtained. He did have large brown emesis which was found to be heme positive. His rectal, performed by myself, was negative for occult blood. He was given IV Protonix. He was given IV fluids. He had laboratory investigations as ordered. Type and screen and coags were ordered as well. Blackmon catheter was placed. He had a large amount of urine output. Eventually, his came to the department. She reports that this was similar to his TIA in the past. Given this information, CT scan of the head was ordered. Patient is currently stable. His blood pressure was markedly elevated upon arrival, likely secondary to not being able to keep down his metoprolol. He was treated with IV labetalol. His heart rate is currently 98, his blood pressure currently 168/100, which is an improvement. We will continue to monitor. 08/10/19 23:39 Patient remained stable but still altered throughout the course of his stay. I did go back and evaluate the patient multiple times. His blood pressure is much more controlled at this time. He is not had any further emesis. Serial abdominal exams were mildly tender but nonsurgical. CT scan of the abdomen pelvis was ordered as well as a result. CT scan revealed left lower lobe infi ltrate. He was already covered with cefepime, given IV fluids. Again I spoke at length with . She states this is very similar to the presentation that he had back in April, for which she stayed in [facility] for several weeks. She states that no clear answer was found at that point either. I spoke with Dr. Tam in regards to this admission. He requested that we obtain records from [facility], consent was obtained from the . This was faxed along to [facility]. Patient will be admitted for further care. - Vital Signs Vital signs: Temp Pulse Resp BP Pulse Ox 97.8 F 16 130/66 H 100 08/10/19 23:01 08/10/19 23:01 08/10/19 23:01 08/10/19 23:01 - Laboratory Result Diagrams: 08/10/19 17:30 08/10/19 17:30 Laboratory results interpreted by me: 08/10/19 08/10/19 08/10/19 17:30 17:30 17:36 WBC 19.7 H RDW 14.2 H Seg Neuts % (Manual) 91 H Band Neutrophils % 1 L Lymphocytes % (Manual) 5 L Abs Neuts (Manual) 18.1 H Sodium 134.1 L Chloride 94 L BUN 22 H Glucose 242 H POC Glucose Lactic Acid 2.4 H Alkaline Phosphatase 164 H Urine Protein Urine Glucose (UA) Urine Ketones Urine Blood 08/10/19 08/10/19 17:37 18:01 WBC RDW Seg Neuts % (Manual) Band Neutrophils % Lymphocytes % (Manual) Abs Neuts (Manual) Sodium Chloride BUN Glucose POC Glucose 251 H Lactic Acid Alkaline Phosphatase Urine Protein >=500 H Urine Glucose (UA) >=500 H Urine Ketones TRACE H Urine Blood SMALL H - Diagnostic Test Radiology reviewed: Image reviewed, Reports reviewed Radiology results interpreted by me: 08/10/19 23:40 Chest X-Ray 08/10/19 17:39 IMPRESSION: 1. Limited by portable technique and low lung volumes. Consider further evaluation with PA and lateral chest films if possible. There is upper mediastinal widening which is suspected to be artifact. Mild vascular congestion. Head CT 08/10/19 18:31 IMPRESSION: NORMAL BRAIN CT WITHOUT CONTRAST. EVIDENCE OF ACUTE STROKE: NO. Abdomen/Pelvis CT 08/10/19 21:22 IMPRESSION: Alveolar infiltrate in the left lower lobe concerning for pneumonia No acute intra-abdominal abnormality is identified. - EKG Interpretation by Me Additional EKG results interpreted by me: 08/10/19 19:13 Sinus tachycardia with rate 111 bpm. Normal axis. Borderline prolonged QT interval. Nonspecific ST changes, including some inferior T wave inversions. No acute ST changes concerning for acute infarction. No significant change compared to prior study of November 23, 2018. Discharge - Discharge Clinical Impression: Altered mental status Sepsis Qualifiers: Sepsis type: sepsis due to unspecified organism Sepsis acute organ dysfunction status: with acute organ dysfunction Pneumonia Qualifiers: Laterality: left Lung location: lower lobe of lung Hematemesis Qualifiers: Nausea presence: with nausea Qualified Code(s): K92.0 - Hematemesis Condition: Stable Disposition: ADMITTED INPATIENT Admitting Provider: Yonatan (Hospitalist) Unit Admitted: IMCU Referrals: AUDREY BRIDGES PA-C [Primary Care Provider] - Follow up as needed
--- NOTE | 2019-08-10 19:43 | RADIOLOGY REPORT (SQ) ---
EXAM DESCRIPTION: CT HEAD WITHOUT COMPLETED DATE/TIME: 08/10/2019 7:33 pm REASON FOR STUDY: altered mental status COMPARISON: None. TECHNIQUE: Axial images acquired through the brain without intravenous contrast. Images reviewed wi th bone, brain and subdural windows. Additional sagittal and coronal reconstructions were generated. Images stored on PACS. All CT scanners at this facility use dose modulation, iterative reconstruction, and/or weight based d osing when appropriate to reduce radiation dose to as low as reasonably achievable (ALARA). [facility]: Dose Right [facility]: CareDose [facility]: Dose Right [facility]: Teradose 4D [facility]: Smart Sports[employer]edge RADIATION DOSE: CT Rad equipment meets quality standard of care and radiation dose reduction techniq ues were employed. CTDIvol: 55.2 mGy. DLP: 1167 mGy-cm. mGy. LIMITATIONS: None. FINDINGS: VENTRICLES: Normal size and contour. CEREBRUM: No masses. No hemorrhage. No midline shift. No evidence for acute infarction. Normal gra y/white matter differentiation. No areas of low density in the white matter. CEREBELLUM: No masses. No hemorrhage. No alteration of density. No evidence for acute infarction. EXTRAAXIAL SPACES: No fluid collections. No masses. ORBITS AND GLOBE: No intra- or extraconal masses. Normal contour of globe without masses. CALVARIUM: No fracture. PARANASAL SINUSES: No fluid or mucosal thickening. SOFT TISSUES: No mass or hematoma. OTHER: No other significant finding. IMPRESSION: NORMAL BRAIN CT WITHOUT CONTRAST. EVIDENCE OF ACUTE STROKE: NO. COMMENT: Quality ID # [id number]: Final reports with documentation of one or more dose reduction techniques (e.g., Automated exposure control, adjustment of the mA and/or kV according to patient size, use of iterative reconstruction technique) TECHNICAL DOCUMENTATION: JOB ID: [id number] [employer]- All Rights Reserved Reading location - IP/workstation name: [email or web address]
[2019-08-10 21:05] LABS: A TYPE INFLUENZA AG NEGATIVE (NEGATIVE); B INFLUENZA AG NEGATIVE (NEGATIVE)
[2019-08-10] MEDS ORDERED: CEFEPIME 2 GM/D5W RTU 2 GM/50 ML RTUPB IV ONE (21:21)
--- NOTE | 2019-08-10 22:56 | RADIOLOGY REPORT (SQ) ---
EXAM DESCRIPTION: CT ABDOMEN PELVIS WITHOUT IV CONTRAST COMPLETED DATE/TME: 08/10/2019 21:22 CLINICAL HISTORY: 39 years Male Altered mental status, abdominal pain and tenderness COMPARISON: None. TECHNIQUE: Contiguous axial images obtained through the abdomen and pelvis without IV contrast. Reformatted images obtained. This exam was performed according to our department optimization program which includes automated exposure control, adjustment of the mA and/or kv according to patient size and/or use of iterative reconstruction technique. FINDINGS: Patchy alveolar infiltrate in the left lower lobe concerning for pneumonia. The liver appears unremarkable. The spleen and pancreas appear unremarkable. No adrenal masses. The kidneys appear unremarkable. No hydronephrosis or definite ureteral calculi. The gallbladder is visualized. No aneurysmal dilatation of the aorta. No bowel obstruction. Unremarkable appendix. Skin thickening and stranding over the patient's pannus. Blackmon catheter in the decompressed urinary bladder. No free pelvic fluid. IMPRESSION: Alveolar infiltrate in the left lower lobe concerning for pneumonia No acute intra-abdominal abnormality is identified.
[2019-08-10] MEDS: NORMAL SALINE 1000 ML 1,000 ML IV PRN ×2 (23:19→23:52)
[2019-08-10] MEDS ORDERED: IPRATROPIUM/ALBUTEROL 0.5-2.5 MG/3 ML AMPUL NEB PRN (23:45)
[2019-08-10] MEDS ORDERED: DEXTROSE 50%-WATER 25 GM/50 ML DISP.SYRIN IV PRN ×2 (23:45)
[2019-08-10] MEDS ORDERED: DEXTROSE 40% GEL 15 GM TUBE PO PRN ×2 (23:45)
[2019-08-10] MEDS ORDERED: GLUCAGON,HUMAN RECOMB 1 MG INJ IM PRN (23:45)
[2019-08-10] MEDS ORDERED: ACETAMINOPHEN 325 MG TABLET PO PRN (23:45)
[2019-08-10] MEDS ORDERED: VANCOMYCIN HCL 0 MG in DEXTROSE 5%-WATER 250 ML IV NR (23:45)
[2019-08-10] MEDS ORDERED: VANCOMYCIN HCL INJ 1000 MG VIAL IV PRN (23:52)
[2019-08-11] MEDS ORDERED: VANCOMYCIN HCL 1,500 MG in DEXTROSE 5%-WATER 250 ML IV ONE (00:30)
[2019-08-11] MEDS: FLUTICASONE NASAL SPRAY 50 MCG/SPRY 120 SPRAY/16 GM NASL SCH ×3 (00:49→22:05)
[2019-08-11] MEDS: IPRATROPIUM/ALBUTEROL 0.5-2.5 MG/3 ML AMPUL NEB SCH ×4 (00:50→16:50)
[2019-08-11] MEDS ORDERED: LORAZEPAM INJ 2 MG/1 ML VIAL IV ONE (03:22)
--- NOTE | 2019-08-11 05:18 | PDOC H&P ---
History of Present Illness Admission Date/PCP: 08/11/19 00:25 AUDREY BRIDGES PA-C Patient complains of: Confusion History of Present Illness: PEE DOUGHERTY is a 39 year old male with history of diabetes, Charcot right foot, morbid obesity, obstructive sleep apnea, benzodiazepine and Lyrica dependent anxiety and restless legs. Patient's history of present illness is obtained by the record as he is unable to provide history. Presents with hematemesis and bizarre behavior with confusion. He had a similar presentation to [facility]. Records pending. He is otherwise found to have hypertensive urgency, pneumonia by CT but without fever or nuchal rigidity. He receives antihypertensive regiment, empiric antibiotics and morphine for combative behavior. He is referred to the hospitalist for admission. Past Medical History Cardiac Medical History: Reports: Hyperlipidema, Hypertension Denies: Myocardial Infarction Pulmonary Medical History: Reports: Pneumonia Denies: Asthma Neurological Medical History: Reports: Migraine, Other - TIA Denies: Seizures Endocrine Medical History: Reports: Diabetes Mellitus Type 1 GI Medical History: Reports: Gastroesophageal Reflux Disease - Hematemesis in the past, but no ulcer on EGD performed in April 2019 Denies: Hepatitis, Hiatal Hernia Psychiatric Medical History: Reports: Depression, General Anxiety Disorder Hematology: Denies: Anemia, Sickle Cell Disease Past Surgical History Past Surgical History: Reports: Orthopedic Surgery - left foot surgery from wound Denies: Pacemaker Social History Information Source: Emergency Med Personnel, [facility] Records Lives with: Family Smoking Status: Never Smoker Electronic Cigarette use?: No Frequency of Alcohol Use: None Hx Recreational Drug Use: No Hx Prescription Drug Abuse: No - Advance Directive Resuscitation Status: Full Code Family History Family History: Other - Unobtainable Parental Family History Reviewed: No - Unobtainable Children Family History Reviewed: No - Unobtainable Sibling(s) Family History Reviewed.: No - Unobtainable Medication/Allergy Home Medications: Gabapentin [Neurontin 300 mg Capsule] 300 mg PO DAILY 12/20/12 Insulin Aspart [Novolog Insulin (Aspart) 100 unit/mL] 0 unit SUBCUT .SLD SCALE 12/20/12 Tamsulosin HCl [Flomax 0.4 mg Cap.sr] 0.4 mg PO PCSUPPER #30 cap.sr.24h 09/10/15 Alprazolam [Xanax 0.5 mg Tablet] 0.5 mg PO Q6HP PRN 04/03/16 Esomeprazole Mag Trihydrate [Nexium] 22.3 mg PO DAILY 04/03/16 Hydrochlorothiazide [Hydrodiuril 12.5 mg Capsule] 12.5 mg PO QAM 04/03/16 Insulin Glargine,Hum.rec.anlog [Lantus] 55 unit SQ DAILY 04/03/16 Pregabalin [Lyrica 50 mg Capsule] 1 cap PO DAILY 04/03/16 Sertraline HCl 25 mg PO DAILY 04/03/16 Allergies/Adverse Reactions: No Known Allergies Allergy (Verified 08/10/19 18:53) Review of Systems ROS unobtainable: Due to mental status - Unobtainable Physical Exam Vital Signs: Temp Pulse Resp BP Pulse Ox 97.6 F 12 183/84 H 100 08/10/19 23:31 08/11/19 04:12 08/11/19 04:12 08/11/19 03:01 Intake & Output 08/09/19 08/10/19 08/11/19 11:59 11:59 11:59 Intake Total 2849 Output Total 1470 Balance 1379 Weight 130.5 kg General appearance: PRESENT: disheveled, mild distress, morbidly obese, well- developed, well-nourished Head exam: PRESENT: atraumatic, normocephalic Eye exam: PRESENT: conjunctiva pink, EOMI, PERRLA. ABSENT: scleral icterus Ear exam: PRESENT: normal external ear exam Mouth exam: PRESENT: dry mucosa, other - Dried blood about the mouth Neck exam: ABSENT: carotid bruit, JVD, lymphadenopathy, thyromegaly Respiratory exam: PRESENT: accessory muscle use, prolonged expiratory phas, retraction, rhonchi, symmetrical Cardiovascular exam: PRESENT: RRR. ABSENT: diastolic murmur, rubs, systolic murmur Pulses: PRESENT: normal dorsalis pedis pul Vascular exam: PRESENT: normal capillary refill GI/Abdominal exam: PRESENT: normal bowel sounds, soft. ABSENT: distended, guarding, mass, organolmegaly, rebound, tenderness Rectal exam: PRESENT: deferred Extremities exam: PRESENT: full ROM, other - Right foot Charcot deformity no erythema or ulcer. ABSENT: calf tenderness, clubbing, pedal edema Neurological exam: PRESENT: alert, altered, awake, oriented to person, CN II-XII grossly intact. ABSENT: motor sensory deficit Psychiatric exam: PRESENT: agitated, unusual affect Skin exam: PRESENT: dry, intact, warm. ABSENT: cyanosis, rash Results Laboratory Results: 08/10/19 17:30 08/10/19 17:30 08/10/19 08/10/19 08/10/19 17:30 17:30 17:30 WBC 19.7 H RBC 4.81 Hgb 13.9 Hct 40.9 MCV 85 MCH 28.9 MCHC 33.9 RDW 14.2 H Plt Count 280 Seg Neutrophils % Not Reportable VBG pH 7.36 VBG pCO2 48.2 VBG HCO3 26.3 VBG Base Excess 0.2 Sodium 134.1 L Potassium 4.5 Chloride 94 L Carbon Dioxide 27 Anion Gap 13 BUN 22 H Creatinine 1.17 Est GFR ( Amer) > 60 Glucose 242 H Lactic Acid Calcium 9.4 Magnesium 1.7 Total Bilirubin 0.8 AST 41 Alkaline Phosphatase 164 H Total Protein 6.8 Albumin 3.8 Urine Color Urine Appearance Urine pH Ur Specific [place] Urine Protein Urine Glucose (UA) Urine Ketones Urine Blood Urine Nitrite Ur Leukocyte Esterase Urine WBC (Auto) Urine RBC (Auto) Blood Type Antibody Screen 08/10/19 08/10/19 08/10/19 17:30 17:36 18:01 WBC RBC Hgb Hct MCV MCH MCHC RDW Plt Count Seg Neutrophils % VBG pH VBG pCO2 VBG HCO3 VBG Base Excess Sodium Potassium Chloride Carbon Dioxide Anion Gap BUN Creatinine Est GFR ( Amer) Glucose Lactic Acid 2.4 H Calcium Magnesium Total Bilirubin AST Alkaline Phosphatase Total Protein Albumin Urine Color YELLOW Urine Appearance CLEAR Urine pH 7.0 Ur Specific [place] 1.022 Urine Protein >=500 H Urine Glucose (UA) >=500 H Urine Ketones TRACE H Urine Blood SMALL H Urine Nitrite NEGATIVE Ur Leukocyte Esterase NEGATIVE Urine WBC (Auto) 3 Urine RBC (Auto) 11 Blood Type O POSITIVE Antibody Screen NEGATIVE 08/11/19 00:10 WBC RBC Hgb Hct MCV MCH MCHC RDW Plt Count Seg Neutrophils % VBG pH VBG pCO2 VBG HCO3 VBG Base Excess Sodium Potassium Chloride Carbon Dioxide Anion Gap BUN Creatinine Est GFR ( Amer) Glucose Lactic Acid 1.0 Calcium Magnesium Total Bilirubin AST Alkaline Phosphatase Total Protein Albumin Urine Color Urine Appearance Urine pH Ur Specific [place] Urine Protein Urine Glucose (UA) Urine Ketones Urine Blood Urine Nitrite Ur Leukocyte Esterase Urine WBC (Auto) Urine RBC (Auto) Blood Type Antibody Screen Impressions: Chest X-Ray 08/10/19 17:39 IMPRESSION: 1. Limited by portable technique and low lung volumes. Consider further evaluation with PA and lateral chest films if possible. There is upper mediastinal widening which is suspected to be artifact. Mild vascular congestion. Head CT 08/10/19 18:31 IMPRESSION: NORMAL BRAIN CT WITHOUT CONTRAST. EVIDENCE OF ACUTE STROKE: NO. Abdomen/Pelvis CT 08/10/19 21:22 IMPRESSION: Alveolar infiltrate in the left lower lobe concerning for pneumonia No acute intra-abdominal abnormality is identified. Assessment and Plan - Diagnosis (1) Upper GI bleed Is this a current diagnosis for this admission?: Yes Plan: Normal hemoglobin, no coagulopathy, IV Protonix, follow-up CBC, surgical consult for possible endoscopy (2) Encephalopathy acute Is this a current diagnosis for this admission?: Yes Plan: Occurring similarly on previous hospitalizations. Likely secondary to be nzodiazepine or Lyrica withdrawal, supportive care follow-up medical records from [facility]. (3) Obstructive sleep apnea Is this a current diagnosis for this admission?: Yes Plan: BiPAP (4) Pneumonia Qualifiers: Laterality: left Lung location: lower lobe of lung Is this a current diagnosis for this admission?: Yes Plan: Empiric antibiotics, follow-up CBC and blood culture (5) IDDM (insulin dependent diabetes mellitus) Is this a current diagnosis for this admission?: Yes Plan: Humalog sliding scale every 6 hours - Time Time Spent with patient: 35 or more minutes - Inpatient Certification Medical Necessity: Need Close Monitoring Due to Risk of Patient Decompensation
[2019-08-11 06:10] LABS: ABSOLUTE LYMPHOCYTES (AUTO) 1.1 10^3/uL (0.5-4.7); ABSOLUTE MONOCYTES (AUTO) 0.9 10^3/uL (0.1-1.4); BASOPHILS % (AUTO) 0.2 % (0-2); EOSINOPHILS % (AUTO) 0.2 % (0-6); HEMATOCRIT 37.1 % (37.9-51.0); HEMOGLOBIN 12.6 g/dL (13.5-17.0); LYMPHOCYTES % (AUTO) 9.1 % (13-45); MEAN CORPUSCULAR HEMOGLOBIN 29.1 pg (27.0-33.4); MEAN CORPUSCULAR VOLUME 86 fl (80-97); MONOCYTES % (AUTO) 7.3 % (3-13); PLATELET COUNT 260 10^3/uL (150-450); RED BLOOD COUNT 4.32 10^6/uL (4.35-5.55); RED CELL DISTRIBUTION WIDTH 14.5 % (11.5-14.0); SEGMENTED NEUTROPHILS % (AUTO) 83.2 % (42-78); TOTAL CELLS COUNTED % (AUTO) 100 %
[2019-08-11] MEDS: HEPARIN SOD (PORCINE) 5,000 UNIT/ML 1 ML VIAL SUBCUT SCH ×3 (06:31→22:52)
[2019-08-11 06:32] LABS: ANION GAP 10 (5-19); BLOOD UREA NITROGEN 19 mg/dL (7-20); CALCIUM 8.3 mg/dL (8.4-10.2); CARBON DIOXIDE 26 mmol/L (22-30); CHLORIDE 100 mmol/L (98-107); GLUCOSE 241 mg/dL (75-110)
[2019-08-11] MEDS: INSULIN LISPRO 100 UNIT/ML 3 ML VIAL SUBCUT SCH ×3 (08:47→17:32)
[2019-08-11] MEDS ORDERED: PANTOPRAZOLE SODIUM 40 MG VIAL IV ONE (09:15)
[2019-08-11] MEDS ORDERED: PHARMACY COMMUNICATION ORDER MC SCH (09:45)
[2019-08-11] MEDS: VANCOMYCIN HCL 1,250 MG in DEXTROSE 5%-WATER 250 ML IV SCH ×2 (09:45→18:51)
[2019-08-11] MEDS: NORMAL SALINE 100 ML with PANTOPRAZOLE SODIUM 80 MG IV PRN ×4 (10:06→18:51)
[2019-08-11] MEDS ORDERED: LORAZEPAM 0.5 MG TABLET PO PRN (12:09)
[2019-08-11] MEDS ORDERED: METOCLOPRAMIDE HCL ORAL SOLN 10 MG/10 ML UDCUP PO ONE (12:30)
[2019-08-11] MEDS ORDERED: LIDOCAINE 2% VISCOUS SOLN 15 ML UDCUP PO ONE (12:30)
[2019-08-11] MEDS ORDERED: MAG HYDROX/AL HYDROX/SIMETH SUSP 30 ML UDCUP PO ONE (12:30)
[2019-08-11] MEDS: GABAPENTIN 300 MG CAPSULE PO SCH (13:01)
[2019-08-11] MEDS ORDERED: INFLUENZA QUAD (6MOS+) 2019-20 VAC 0.5 ML SYR IM ONE (18:15)
--- NOTE | 2019-08-11 19:03 | PDOC PROGRESS REPORT ---
Subjective Progress Note for:: 08/11/19 Subjective:: PEE DOUGHERTY is a 39 year old male with history of diabetes, Charcot right foot, morbid obesity, obstructive sleep apnea, benzodiazepine and Lyrica dependent anxiety and restless legs. Patient's history of present illness is obtained by the record as he is unable to provide history. Presents with hematemesis and bizarre behavior with confusion. He had a similar presentation to [facility]. Records pending. He is otherwise found to have hypertensive urgency, pneumonia by CT but without fever or nuchal rigidity. He receives antihypertensive regiment, empiric antibiotics and morphine for combative behavior. He is referred to the hospitalist for admission. 08/11/2019. Saw patient twice in ED today and one episode of vomiting, I was told that the patient keeps moaning and expressing pain but unfortunately does not communicate much, when I went to examine patient he was quieter, alert, unfortunately does not communicate much, his responses very unintelligible. No baseline history available. Patient does follow command. Moves all extremiti es, moves his neck in all planes without any apparent distress, neck is supple and there is no rigidity. Patient was started on a GI cocktail however he refused to take it. Reason For Visit: AMS HTN URGENCY [facility] DEP PNEUMONIA Physical Exam Vital Signs: Temp Pulse Resp BP Pulse Ox 98.3 F 114 H 20 166/65 H 93 08/11/19 18:14 08/11/19 18:14 08/11/19 18:14 08/11/19 18:14 08/11/19 18:14 Intake & Output 08/10/19 08/11/19 08/12/19 06:59 06:59 06:59 Intake Total 2849 338 Output Total 1470 Balance 1379 338 Weight 130.5 kg 128 kg General appearance: PRESENT: morbidly obese, other - Moaning. Head exam: PRESENT: atraumatic, normocephalic Neck exam: PRESENT: full ROM. ABSENT: carotid bruit, JVD, lymphadenopathy, thyromegaly Respiratory exam: PRESENT: clear to auscultation aleja. ABSENT: rales, rhonchi, wheezes Cardiovascular exam: PRESENT: RRR. ABSENT: diastolic murmur, rubs, systolic murmur GI/Abdominal exam: PRESENT: normal bowel sounds, soft. ABSENT: distended, guarding, mass, organolmegaly, rebound, tenderness Neurological exam: PRESENT: alert, altered, awake, CN II-XII grossly intact, other - Patient follows command unfortunately his communication is not inte lligible. No baseline available.. ABSENT: motor sensory deficit Results Laboratory Results: 08/11/19 06:02 08/11/19 06:02 08/10/19 08/11/19 08/11/19 17:36 00:10 06:02 WBC 12.0 H RBC 4.32 L Hgb 12.6 L Hct 37.1 L MCV 86 MCH 29.1 MCHC 34.0 RDW 14.5 H Plt Count 260 Seg Neutrophils % 83.2 H Sodium Potassium Chloride Carbon Dioxide Anion Gap BUN Creatinine Est GFR ( Amer) Glucose Lactic Acid 2.4 H 1.0 Calcium Ammonia 08/11/19 08/11/19 08/11/19 06:02 15:57 16:24 WBC RBC Hgb Hct MCV MCH MCHC RDW Plt Count Seg Neutrophils % Sodium 135.5 L Potassium 4.0 Chloride 100 Carbon Dioxide 26 Anion Gap 10 BUN 19 Creatinine 1.09 Est GFR ( Amer) > 60 Glucose 241 H Lactic Acid Calcium 8.3 L Ammonia Cancelled < 8.7 L Impressions: Chest X-Ray 08/10/19 17:39 IMPRESSION: 1. Limited by portable technique and low lung volumes. Consider further evaluation with PA and lateral chest films if possible. There is upper mediastinal widening which is suspected to be artifact. Mild vascular congestion. Head CT 08/10/19 18:31 IMPRESSION: NORMAL BRAIN CT WITHOUT CONTRAST. EVIDENCE OF ACUTE STROKE: NO. Abdomen/Pelvis CT 08/10/19 21:22 IMPRESSION: Alveolar infiltrate in the left lower lobe concerning for pneumonia No acute intra-abdominal abnormality is identified. Assessment and Plan - Diagnosis (1) Encephalopathy acute Is this a current diagnosis for this admission?: Yes Plan: Similar to previous evaluation. Likely due to Likely secondary to benzodiazepine or Lyrica withdrawal. Continue supportive measures. Monitor, monitor for seizure, fall, aspiration precautions. (2) IDDM (insulin dependent diabetes mellitus) Is this a current diagnosis for this admission?: Yes Plan: Diabetic diet. Basal, prandial, correctional insulin. Accu-Chek. Hypoglycemic protocol. (3) Obstructive sleep apnea Is this a current diagnosis for this admission?: Yes Plan: Nocturnal CPAP. (4) Pneumonia Qualifiers: Laterality: left Lung location: lower lobe of lung Is this a current diagnosis for this admission?: Yes Plan: Empiric IV antibiotics. Sputum and blood culture. (5) Upper GI bleed Is this a current diagnosis for this admission?: Yes Plan: Normal hemoglobin, no coagulopathy, IV Protonix. Monitor H&H. Surgery consult for possible endoscopy.
--- NOTE | 2019-08-11 20:38 | PDOC CONSULTATION ---
Consultation Consult Date: 08/11/19 Provider Consulted: EVA STARKEY Consult reason:: EGD History of Present Illness Admission Date/PCP: 08/11/19 00:25 AUDREY BRIDGES PA-C History of Present Illness: PEE DOUGHERTY is a 39 year old male diabetic admitted yesterday for episodes of vomiting coffee-ground material positive for Hemoccult and also for change in mental status. Apparently patient had the same episode in April when he was admitted to [facility] according to his who is at bedside. Unfortunately patient in the time noted to have CVA the patient and MRI of the brain. Also had esophagitis and gastritis on endoscopy. Past Medical History Cardiac Medical History: Reports: Hyperlipidema, Hypertension Denies: Myocardial Infarction Pulmonary Medical History: Reports: Pneumonia Denies: Asthma Neurological Medical History: Reports: Migraine, Other - TIA Denies: Seizures Endocrine Medical History: Reports: Diabetes Mellitus Type 1 GI Medical History: Reports: Gastroesophageal Reflux Disease - Hematemesis in the past, but no ulcer on EGD performed in April 2019 Denies: Hepatitis, Hiatal Hernia Psychiatric Medical History: Reports: Depression, General Anxiety Disorder Hematology: Denies: Anemia, Sickle Cell Disease Past Surgical History Past Surgical History: Reports: Orthopedic Surgery - left foot surgery from wound Denies: Pacemaker Social History Lives with: Family Smoking Status: Unknown if Ever Smoked Electronic Cigarette use?: No Frequency of Alcohol Use: None Hx Recreational Drug Use: No Drugs: None Hx Prescription Drug Abuse: No - Advance Directive Resuscitation Status: Full Code Family History Family History: Other - Unobtainable Parental Family History Reviewed: Yes Children Family History Reviewed: No Sibling(s) Family History Reviewed.: No Medication/Allergy Home Medications: Pregabalin [Lyrica 50 mg Capsule] 1 cap PO DAILY 04/03/16 Atorvastatin Calcium [Lipitor 40 mg Tablet] 40 mg PO QHS 08/11/19 Duloxetine HCl [Cymbalta] 60 mg PO DAILY 08/11/19 Hydroxyzine HCl [Atarax 25 mg Tablet] 1 tab PO BIDP PRN 08/11/19 Lansoprazole 30 mg PO DAILY 08/11/19 Metoprolol Tartrate [Lopressor 100 mg Tablet] 100 mg PO Q12 08/11/19 Allergies/Adverse Reactions: No Known Allergies Allergy (Verified 08/10/19 18:53) Review of Systems ROS unobtainable: Due to mental status Physical Exam Vital Signs: Temp Pulse Resp BP Pulse Ox 98.3 F 114 H 20 166/65 H 93 08/11/19 18:14 08/11/19 18:14 08/11/19 18:14 08/11/19 18:14 08/11/19 18:14 Intake & Output 08/10/19 08/11/19 08/12/19 06:59 06:59 06:59 Intake Total 2849 338 Output Total 1470 Balance 1379 338 Weight 130.5 kg 128 kg Exam: Patient is nonresponsive and noncommunicative. Patient is just turning his head and side to side with his eyes closed and unable to respond when his name is called. His is at the bedside when I examined the patient and she could not even get any word from her . His abdomen is soft and nontender. Results Laboratory Results: 08/11/19 06:02 08/11/19 06:02 08/11/19 08/11/19 08/11/19 00:10 06:02 06:02 WBC 12.0 H RBC 4.32 L Hgb 12.6 L Hct 37.1 L MCV 86 MCH 29.1 MCHC 34.0 RDW 14.5 H Plt Count 260 Seg Neutrophils % 83.2 H Sodium 135.5 L Potassium 4.0 Chloride 100 Carbon Dioxide 26 Anion Gap 10 BUN 19 Creatinine 1.09 Est GFR ( Amer) > 60 Glucose 241 H Lactic Acid 1.0 Calcium 8.3 L Ammonia 08/11/19 08/11/19 15:57 16:24 WBC RBC Hgb Hct MCV MCH MCHC RDW Plt Count Seg Neutrophils % Sodium Potassium Chloride Carbon Dioxide Anion Gap BUN Creatinine Est GFR ( Amer) Glucose Lactic Acid Calcium Ammonia Cancelled < 8.7 L Impressions: Chest X-Ray 08/10/19 17:39 IMPRESSION: 1. Limited by portable technique and low lung volumes. Consider further evaluation with PA and lateral chest films if possible. There is upper mediastinal widening which is suspected to be artifact. Mild vascular conge stion. Head CT 08/10/19 18:31 IMPRESSION: NORMAL BRAIN CT WITHOUT CONTRAST. EVIDENCE OF ACUTE STROKE: NO. Abdomen/Pelvis CT 08/10/19 21:22 IMPRESSION: Alveolar infiltrate in the left lower lobe concerning for pneumonia No acute intra-abdominal abnormality is identified. Assessment & Plan - Diagnosis (1) Altered mental status Is this a current diagnosis for this admission?: Yes (2) Encephalopathy acute Is this a current diagnosis for this admission?: Yes (3) Hematemesis Qualifiers: Nausea presence: with nausea Qualified Code(s): K92.0 - Hematemesis Is this a current diagnosis for this admission?: Yes (4) IDDM (insulin dependent diabetes mellitus) Is this a current diagnosis for this admission?: Yes - Time Time Spent: 30 to 50 Minutes - Plan Summary Plan Summary: 39-year-old diabetic male with episodes of vomiting coffee-ground material positive for Hemoccult was admitted yesterday for altered mental status. His hemoglobin has been stable since yesterday around 12. He is not taking any anticoagulant other than baby aspirin. He remains unresponsive. Plans: At present since his hemoglobin is stable and not a good candidate to have any procedure done, we would like to hold off doing any EGD at this time. Continue monitoring H&H and antiulcer regimen Call us when patient is suitable for endoscopy.
[2019-08-11] MEDS: CEFTRIAXONE 1 GM/D5W RTU 1 GM/50 ML RTUPB IV SCH (22:04)
[2019-08-11] MEDS ORDERED: INSULIN REG, HUMAN 100 UNIT/ML 3 ML VIAL (PYX) IV ONE (22:45)
[2019-08-11] MEDS: HYDRALAZINE HCL INJ/PF 20 MG/1 ML SDV IV PRN (22:53)
[2019-08-12] MEDS: IPRATROPIUM/ALBUTEROL 0.5-2.5 MG/3 ML AMPUL NEB SCH ×3 (00:46→15:39)
[2019-08-12] MEDS: VANCOMYCIN HCL 1,250 MG in DEXTROSE 5%-WATER 250 ML IV SCH ×2 (02:46→12:00)
[2019-08-12] MEDS: HYDRALAZINE HCL INJ/PF 20 MG/1 ML SDV IV PRN (05:04)
[2019-08-12 05:21] LABS: ALBUMIN 3.4 g/dL (3.5-5.0); ALKALINE PHOSPHATASE 133 U/L (38-126); ANION GAP 10 (5-19); ASPARTATE AMINO TRANSFERASE 33 U/L (17-59); BILIRUBIN,DIRECT 0.2 mg/dL (0.0-0.4); BILIRUBIN,TOTAL 0.7 mg/dL (0.2-1.3); BLOOD UREA NITROGEN 17 mg/dL (7-20); CALCIUM 8.6 mg/dL (8.4-10.2); CARBON DIOXIDE 25 mmol/L (22-30); CHLORIDE 101 mmol/L (98-107); GLUCOSE 234 mg/dL (75-110); POTASSIUM 3.9 mmol/L (3.6-5.0); TOTAL PROTEIN 6.6 g/dL (6.3-8.2)
[2019-08-12 05:27] LABS: ABSOLUTE BASOPHILS # (AUTO) 0.1 10^3/uL (0.0-0.2); ABSOLUTE EOSINOPHILS # (AUTO) 0.1 10^3/uL (0.0-0.6); ABSOLUTE LYMPHOCYTES (AUTO) 1.2 10^3/uL (0.5-4.7); ABSOLUTE MONOCYTES (AUTO) 0.8 10^3/uL (0.1-1.4); ABSOLUTE NEUT (AUTO) 7.7 10^3/uL (1.7-8.2); BASOPHILS % (AUTO) 0.8 % (0-2); EOSINOPHILS % (AUTO) 0.5 % (0-6); HEMATOCRIT 38.2 % (37.9-51.0); HEMOGLOBIN 13.3 g/dL (13.5-17.0); MEAN CORPUSCULAR HEMOGLOBIN 29.9 pg (27.0-33.4); MEAN CORPUSCULAR HGB CONC 34.8 g/dL (32.0-36.0); MEAN CORPUSCULAR VOLUME 86 fl (80-97); MONOCYTES % (AUTO) 8.4 % (3-13); PLATELET COUNT 260 10^3/uL (150-450); RED BLOOD COUNT 4.45 10^6/uL (4.35-5.55); RED CELL DISTRIBUTION WIDTH 14.6 % (11.5-14.0); SEGMENTED NEUTROPHILS % (AUTO) 78.3 % (42-78); TOTAL CELLS COUNTED % (AUTO) 100 %; WHITE BLOOD COUNT 9.9 10^3/uL (4.0-10.5)
[2019-08-12] MEDS: HEPARIN SOD (PORCINE) 5,000 UNIT/ML 1 ML VIAL SUBCUT SCH ×3 (05:50→22:46)
[2019-08-12] MEDS: NORMAL SALINE 100 ML with PANTOPRAZOLE SODIUM 80 MG IV PRN ×2 (05:50)
[2019-08-12] MEDS ORDERED: (PENDING PHARMACY ID) (Hydroxyzine Hcl [Atarax 25 Mg Tablet] 1 TAB) PO PRN (07:29)
[2019-08-12] MEDS ORDERED: HYDROXYZINE HCL 10 MG TABLET PO PRN (07:48)
--- NOTE | 2019-08-12 09:50 | PDOC PROGRESS REPORT ---
Subjective Progress Note for:: 08/12/19 Subjective:: 39 year old male with history of diabetes, Charcot right foot, morbid obesity, obstructive sleep apnea, benzodiazepine and Lyrica dependent anxiety and restless legs. Patient's history of present illness is obtained by the record as he is unable to provide history. Presents with hematemesis and bizarre behavior with confusion. He had a similar presentation to [facility]. Records pending. He is otherwise found to have hypertensive urgency, pneumonia by CT but without fever or nuchal rigidity. He receives antihypertensive regiment, empiric antibiotics and morphine for combative behavior. He is referred to the hospitalist for admission. 08/11/2019. Saw patient twice in ED today and one episode of vomiting, I was told that the patient keeps moaning and expressing pain but unfortunately does not communicate much, when I went to examine patient he was quieter, alert, unfortunately does not communicate much, his responses very unintelligible. No baseline history available. Patient does follow command. Moves all extremities, moves his neck in all planes without any apparent distress, neck is supple and there is no rigidity. Patient was started on a GI cocktail however he refused to take it. [id number] male with multiple medical problems admitted for altered mental status. This morning is alert and awake oriented able to drink the liquids without any problem. CT head was negative. No focal neurologic deficits present. Surgical consult was done for hematemesis conservative management is recommended. Hemoglobin 13.3 stable. Reason For Visit: AMS HTN URGENCY [place] DIABETES BENZO DEP PNEUMONIA Physical Exam Vital Signs: Temp Pulse Resp BP Pulse Ox 98.3 F 119 H 18 154/67 H 97 08/12/19 07:34 08/12/19 07:34 08/12/19 07:34 08/12/19 07:34 08/12/19 07:34 Intake & Output 08/11/19 08/12/19 08/13/19 06:59 06:59 06:59 Intake Total 2849 988 Output Total 1470 850 Balance 1379 138 Weight 130.5 kg 127.7 kg General appearance: PRESENT: no acute distress, morbidly obese Head exam: PRESENT: atraumatic Eye exam: PRESENT: PERRLA Mouth exam: PRESENT: dry mucosa Teeth exam: PRESENT: poor dentation Neck exam: ABSENT: carotid bruit, JVD, lymphadenopathy, thyromegaly Respiratory exam: PRESENT: decreased breath sounds Cardiovascular exam: PRESENT: RRR. ABSENT: diastolic murmur, rubs, systolic murmur Vascular exam: PRESENT: normal capillary refill GI/Abdominal exam: PRESENT: normal bowel sounds, soft. ABSENT: distended, guarding, mass, organolmegaly, rebound, tenderness Rectal exam: PRESENT: deferred Extremities exam: PRESENT: full ROM. ABSENT: calf tenderness, clubbing, pedal edema Neurological exam: PRESENT: alert, awake, oriented to person, oriented to place, oriented to time, oriented to situation, CN II-XII grossly intact. ABSENT: motor sensory deficit Psychiatric exam: PRESENT: appropriate affect, normal mood. ABSENT: homicidal ideation, suicidal ideation Results Laboratory Results: 08/12/19 04:21 08/12/19 04:21 08/11/19 08/11/19 08/12/19 15:57 16:24 04:21 WBC 9.9 RBC 4.45 Hgb 13.3 L Hct 38.2 MCV 86 MCH 29.9 MCHC 34.8 RDW 14.6 H Plt Count 260 Seg Neutrophils % 78.3 H Sodium Potassium Chloride Carbon Dioxide Anion Gap BUN Creatinine Est GFR ( Amer) Glucose Calcium Magnesium Total Bilirubin AST Alkaline Phosphatase Ammonia Cancelled < 8.7 L Total Protein Albumin 08/12/19 04:21 WBC RBC Hgb Hct MCV MCH MCHC RDW Plt Count Seg Neutrophils % Sodium 135.8 L Potassium 3.9 Chloride 101 Carbon Dioxide 25 Anion Gap 10 BUN 17 Creatinine 1.15 Est GFR ( Amer) > 60 Glucose 234 H Calcium 8.6 Magnesium 2.2 Total Bilirubin 0.7 AST 33 Alkaline Phosphatase 133 H Ammonia Total Protein 6.6 Albumin 3.4 L 08/10/19 17:36 Blood Blood Culture (PCR) - Final Staphylococcus Species 08/10/19 18:01 Blackmon Catheter Urine Culture - Final NO GROWTH 2 DAYS Impressions: Chest X-Ray 08/10/19 17:39 IMPRESSION: 1. Limited by portable technique and low lung volumes. Consider further evaluation with PA and lateral chest films if possible. There is upper mediastinal widening which is suspected to be artifact. Mild vascular congestion. Head CT 08/10/19 18:31 IMPRESSION: NORMAL BRAIN CT WITHOUT CONTRAST. EVIDENCE OF ACUTE STROKE: NO. Abdomen/Pelvis CT 08/10/19 21:22 IMPRESSION: Alveolar infiltrate in the left lower lobe concerning for pneumonia No acute intra-abdominal abnormality is identified. Assessment and Plan - Diagnosis (1) Altered mental status Is this a current diagnosis for this admission?: Yes Plan: Occurring similarly on previous hospitalizations. Likely secondary to benzodiazepine or Lyrica withdrawal, supportive care follow-up medical records from [facility]. 08/12/2019 patient was admitted for altered mental status which was resolved. Most likely secondary to medication overdose. on exam this Morning alert awake communicating well following the commands. Focal neurological deficits. (2) IDDM (insulin dependent diabetes mellitus) Is this a current diagnosis for this admission?: Yes Plan: Humalog sliding scale every 6 hours 08/12/2019-plan is to change blood sugar monitoring to before meals and at bedtime. To restart on diabetic diet. Diet exercise weight loss lifestyle modifications discussed with the patient. (3) Obstructive sleep apnea Is this a current diagnosis for this admission?: Yes Plan: BiPAP 08/12/2019-patient has history of obstructive sleep apnea secondary to morbid o besity. Plan is to continue BiPAP during sleep. (4) Pneumonia Qualifiers: Laterality: left Lung location: lower lobe of lung Is this a current diagnosis for this admission?: Yes Plan: Empiric antibiotics, follow-up CBC and blood culture 08/12/2019-chest x-ray indicated left lower lobe pneumonia presently on ceftriaxone and vancomycin. Blood cultures are pending. Plan is to continue the present management at this time. (5) Hematemesis Qualifiers: Nausea presence: with nausea Qualified Code(s): K92.0 - Hematemesis Is this a current diagnosis for this admission?: Yes Plan: IV Protonix, 08/12/2019-patient came in with complaints of hematemesis hemoglobin is 13.3 surgical consult was done recommendation is conservative management at this time. (6) Morbid obesity with BMI of 40.0-44.9, adult Is this a current diagnosis for this admission?: No Plan: 08/12/2019-patient's BMI is more than 41 diet exercise weight loss lifestyle modifications discussed with the patient. dietery consult will be requested.
[2019-08-12] MEDS ORDERED: GLUCAGON,HUMAN RECOMB 1 MG INJ IM PRN (09:53)
[2019-08-12] MEDS ORDERED: DEXTROSE 50%-WATER 25 GM/50 ML DISP.SYRIN IV PRN ×2 (09:53)
[2019-08-12] MEDS ORDERED: DEXTROSE 40% GEL 15 GM TUBE PO PRN ×2 (09:53)
[2019-08-12] MEDS ORDERED: (PENDING PHARMACY ID) (Lansoprazole [Lansoprazole] 30 MG) PO SCH (10:00)
[2019-08-12] MEDS: INSULIN LISPRO 100 UNIT/ML 3 ML VIAL SUBCUT SCH (10:24)
[2019-08-12] MEDS: LOSARTAN POTASSIUM 50 MG TABLET PO SCH (10:31)
[2019-08-12] MEDS: GABAPENTIN 300 MG CAPSULE PO SCH (10:31)
[2019-08-12] MEDS: ASPIRIN 81 MG TABLET, ENT COATED PO SCH (10:31)
[2019-08-12] MEDS: METOPROLOL TARTRATE 100 MG TABLET PO SCH ×2 (10:32→22:45)
[2019-08-12] MEDS: FLUTICASONE NASAL SPRAY 50 MCG/SPRY 120 SPRAY/16 GM NASL SCH ×2 (10:32→22:49)
[2019-08-12] MEDS: DULOXETINE HCL 30 MG CAPSULE.DR PO SCH (10:32)
[2019-08-12] MEDS: PANTOPRAZOLE SODIUM 40 MG TABLET.DR PO SCH (10:32)
[2019-08-12] MEDS: PREGABALIN 50 MG CAPSULE PO SCH (10:32)
[2019-08-12 10:39] LABS: VANCOMYCIN,TROUGH 20.1 ug/mL (5.0-20.0)
[2019-08-12] MEDS: INSULIN REG, HUMAN 100 UNIT/ML 3 ML VIAL (PYX) SUBCUT SCH ×3 (11:59→22:48)
[2019-08-12] MEDS: VANCOMYCIN HCL 1,500 MG in DEXTROSE 5%-WATER 250 ML IV SCH (14:17)
[2019-08-12] MEDS ORDERED: ATORVASTATIN CALCIUM 40 MG TABLET PO SCH (22:00)
[2019-08-12] MEDS: CEFTRIAXONE 1 GM/D5W RTU 1 GM/50 ML RTUPB IV SCH (22:48)
[2019-08-13] MEDS: IPRATROPIUM/ALBUTEROL 0.5-2.5 MG/3 ML AMPUL NEB SCH ×2 (00:54→07:53)
[2019-08-13] MEDS: VANCOMYCIN HCL 1,500 MG in DEXTROSE 5%-WATER 250 ML IV SCH (02:02)
[2019-08-13 05:28] LABS: ABSOLUTE BASOPHILS # (AUTO) 0.1 10^3/uL (0.0-0.2); ABSOLUTE EOSINOPHILS # (AUTO) 0.1 10^3/uL (0.0-0.6); ABSOLUTE LYMPHOCYTES (AUTO) 1.2 10^3/uL (0.5-4.7); ABSOLUTE NEUT (AUTO) 9.3 10^3/uL (1.7-8.2); BASOPHILS % (AUTO) 0.8 % (0-2); EOSINOPHILS % (AUTO) 1.2 % (0-6); HEMATOCRIT 38.5 % (37.9-51.0); HEMOGLOBIN 13.2 g/dL (13.5-17.0); LYMPHOCYTES % (AUTO) 10.5 % (13-45); MEAN CORPUSCULAR HEMOGLOBIN 29.3 pg (27.0-33.4); MEAN CORPUSCULAR HGB CONC 34.2 g/dL (32.0-36.0); MEAN CORPUSCULAR VOLUME 86 fl (80-97); MONOCYTES % (AUTO) 8.3 % (3-13); PLATELET COUNT 276 10^3/uL (150-450); RED CELL DISTRIBUTION WIDTH 14.5 % (11.5-14.0); SEGMENTED NEUTROPHILS % (AUTO) 79.2 % (42-78); TOTAL CELLS COUNTED % (AUTO) 100 %; WHITE BLOOD COUNT 11.8 10^3/uL (4.0-10.5)
[2019-08-13] MEDS: HEPARIN SOD (PORCINE) 5,000 UNIT/ML 1 ML VIAL SUBCUT SCH (05:45)
[2019-08-13 05:50] LABS: ALBUMIN 3.2 g/dL (3.5-5.0); ALKALINE PHOSPHATASE 135 U/L (38-126); ANION GAP 8 (5-19); ASPARTATE AMINO TRANSFERASE 29 U/L (17-59); BILIRUBIN,DIRECT 0.2 mg/dL (0.0-0.4); BILIRUBIN,TOTAL 0.6 mg/dL (0.2-1.3); BLOOD UREA NITROGEN 18 mg/dL (7-20); CALCIUM 8.8 mg/dL (8.4-10.2); CARBON DIOXIDE 26 mmol/L (22-30); CHLORIDE 100 mmol/L (98-107); GLUCOSE 213 mg/dL (75-110); POTASSIUM 4.3 mmol/L (3.6-5.0); TOTAL PROTEIN 6.1 g/dL (6.3-8.2)
[2019-08-13] MEDS: INSULIN REG, HUMAN 100 UNIT/ML 3 ML VIAL (PYX) SUBCUT SCH (08:27)
[2019-08-13] MEDS: ASPIRIN 81 MG TABLET, ENT COATED PO SCH (09:35)
[2019-08-13] MEDS: LOSARTAN POTASSIUM 50 MG TABLET PO SCH (09:35)
[2019-08-13] MEDS: DULOXETINE HCL 30 MG CAPSULE.DR PO SCH (09:35)
[2019-08-13] MEDS: FLUTICASONE NASAL SPRAY 50 MCG/SPRY 120 SPRAY/16 GM NASL SCH (09:36)
[2019-08-13] MEDS: PREGABALIN 50 MG CAPSULE PO SCH (09:36)
[2019-08-13] MEDS: METOPROLOL TARTRATE 100 MG TABLET PO SCH (09:36)
[2019-08-13] MEDS: GABAPENTIN 300 MG CAPSULE PO SCH (09:36)
[2019-08-13] MEDS: PANTOPRAZOLE SODIUM 40 MG TABLET.DR PO SCH (09:36)
[2019-08-13 10:24] VITALS: BP 180/84
--- NOTE | 2019-08-13 11:19 | PDOC DISCHARGE SUMMARY ---
Impression - Admit/DC Date/PCP Admission Date/Primary Care Provider: 08/11/19 00:25 AUDREY BRIDGES PA-C Discharge Date: 08/13/19 - Discharge Diagnosis (1) Altered mental status Is this a current diagnosis for this admission?: Yes (2) IDDM (insulin dependent diabetes mellitus) Is this a current diagnosis for this admission?: Yes (3) Obstructive sleep apnea Is this a current diagnosis for this admission?: Yes (4) Pneumonia Is this a current diagnosis for this admission?: Yes (5) Hematemesis Is this a current diagnosis for this admission?: Yes (6) Morbid obesity with BMI of 40.0-44.9, adult Is this a current diagnosis for this admission?: No - Additional Information Resuscitation Status: Full Code Discharge Diet: Diabetic Discharge Activity: Activity As Tolerated Referrals: AUDREY BRIDGES PA-C [Primary Care Provider] - Follow up as needed Home Medications: Pregabalin [Lyrica 50 mg Capsule] 1 cap PO DAILY 04/03/16 Aspirin [Adult Low Dose Aspirin EC] 81 mg PO DAILY 08/11/19 Duloxetine HCl [Cymbalta] 60 mg PO DAILY 08/11/19 Hydroxyzine HCl [Atarax 25 mg Tablet] 1 tab PO BIDP PRN 08/11/19 Lansoprazole 30 mg PO DAILY 08/11/19 Metoprolol Tartrate [Lopressor 100 mg Tablet] 100 mg PO Q12 08/11/19 Insulin Aspart [Novolog Flexpen] 10 unit SUBCUT AC 08/12/19 Insulin Aspart [Novolog] 0 units PUMP .CONTINUOUS 08/12/19 Insulin Degludec [Tresiba Flextouch U-100] 75 unit SQ DAILY 08/12/19 Atorvastatin Calcium [Lipitor 40 mg Tablet] 40 mg PO QHS tablet 08/13/19 Fluticasone Propionate [Flonase Nasal Pep 50 Mcg/Pep 16 gm] 2 spray NASL Q12 spray.pump 08/13/19 Gabapentin [Neurontin 300 mg Capsule] 300 mg PO DAILY capsule 08/13/19 Insulin Regular, Human [Humulin R (Reg) Insulin 100 unit/mL] 0 - 12 unit SUBCUT ACHS unit 08/13/19 Losartan Potassium [Cozaar 50 mg Tablet] 50 mg PO DAILY tablet 08/13/19 History of Present Illiness History of Present Illness: PEE DOUGHERTY is a 39 year old male 39 year old male with history of diabetes, Charcot right foot, morbid obesity, obstructive sleep apnea, benzodiazepine and Lyrica dependent anxiety and restless legs. Patient's history of present illness is obtained by the record as he is unable to provide history. Presents with hematemesis and bizarre behavior with confusion. He had a similar presentation to [facility]. Records pending. He is otherwise found to have hypertensive urgency, pneumonia by CT but without fever or nuchal rigidity. He receives antihypertensive regiment, empiric antibiotics and morphine for combative behavior. He is referred to the hospitalist for admission. Hospital Course Hospital Course: 39 year old male with history of diabetes, Charcot right foot, morbid obesity, obstructive sleep apnea, benzodiazepine and Lyrica dependent anxiety and restless legs. Patient's history of present illness is obtained by the record as he is unable to provide history. Presents with hematemesis and bizarre behavior with confusion. He had a similar presentation to [facility]. Records pending. He is otherwise found to have hypertensive urgency, pneumonia by CT but without fever or nuchal rigidity. He receives antihypertensive regiment, empiric antibiotics and morphine for combative behavior. He is referred to the hospitalist for admission. 08/11/2019. Saw patient twice in ED today and one episode of vomiting, I was told that the patient keeps moaning and expressing pain but unfortunately does not communicate much, when I went to examine patient he was quieter, alert, unfortunately does not communicate much, his responses very unintelligible. No baseline history available. Patient does follow command. Moves all extremities, moves his neck in all planes without any apparent distress, neck is supple and there is no rigidity. Patient was started on a GI cocktail however he refused to take it. 08/12/[id number] male with multiple medical problems admitted for altered mental status. This morning is alert and awake oriented able to drink the liquids without any problem. CT head was negative. No focal neurologic deficits present. Surgical consult was done for hematemesis conservative management is recommended. Hemoglobin 13.3 stable. 08/13/2019 on examination this morning comfortably in the bed communicating well. Not in distress. Alert awake communicating well. Labs came back okay. Patient is expressing desire to go home today. Denies any abdominal pains nausea vomiting's. Hemoglobin is stable. Patient is strongly advised to follow-up with c.o.d. clerk in [place] in 1 week time and also with primary care physician in few days time. Patient agreed and verbalized response. No acute events during the hospital stay. CT head was negative. Physical Exam Vital Signs: Temp Pulse Resp BP Pulse Ox 97.8 F 82 18 180/84 H 95 08/13/19 10:23 08/13/19 10:23 08/13/19 10:23 08/13/19 10:23 08/13/19 10:23 Intake & Output 08/12/19 08/13/19 08/14/19 06:59 06:59 06:59 Intake Total 988 1072 320 Output Total 850 1800 475 Balance 138 -728 -155 Weight 127.7 kg 127.4 kg General appearance: PRESENT: no acute distress, morbidly obese Head exam: PRESENT: atraumatic Eye exam: PRESENT: PERRLA Ear exam: PRESENT: normal external ear exam Mouth exam: PRESENT: moist Teeth exam: PRESENT: poor dentation Neck exam: ABSENT: carotid bruit, JVD, lymphadenopathy, thyromegaly Respiratory exam: PRESENT: clear to auscultation aleja. ABSENT: rales, rhonchi, wheezes Cardiovascular exam: PRESENT: RRR. ABSENT: diastolic murmur, rubs, systolic murmur GI/Abdominal exam: PRESENT: normal bowel sounds, soft. ABSENT: distended, guarding, mass, organolmegaly, rebound, tenderness Neurological exam: PRESENT: alert, awake, oriented to person, oriented to place, oriented to time, oriented to situation, CN II-XII grossly intact. ABSENT: motor sensory deficit Psychiatric exam: PRESENT: appropriate affect, normal mood. ABSENT: homicidal ideation, suicidal ideation Skin exam: PRESENT: dry, intact, warm. ABSENT: cyanosis, rash Results Laboratory Results: WBC 11.8 10^3/uL (4.0-10.5) H 08/13/19 04:43 RBC 4.50 10^6/uL (4.35-5.55) 08/13/19 04:43 Hgb 13.2 g/dL (13.5-17.0) L 08/13/19 04:43 Hct 38.5 % (37.9-51.0) 08/13/19 04:43 MCV 86 fl (80-97) 08/13/19 04:43 MCH 29.3 pg (27.0-33.4) 08/13/19 04:43 MCHC 34.2 g/dL (32.0-36.0) 08/13/19 04:43 RDW 14.5 % (11.5-14.0) H 08/13/19 04:43 Plt Count 276 10^3/uL (150-450) 08/13/19 04:43 Lymph % (Auto) 10.5 % (13-45) L 08/13/19 04:43 [place] % (Auto) 8.3 % (3-13) 08/13/19 04:43 Eos % (Auto) 1.2 % (0-6) 08/13/19 04:43 Baso % (Auto) 0.8 % (0-2) 08/13/19 04:43 Absolute Neuts (auto) 9.3 10^3/uL (1.7-8.2) H 08/13/19 04:43 Absolute Lymphs (auto) 1.2 10^3/uL (0.5-4.7) 08/13/19 04:43 Absolute Monos (auto) 1.0 10^3/uL (0.1-1.4) 08/13/19 04:43 Absolute Eos (auto) 0.1 10^3/uL (0.0-0.6) 08/13/19 04:43 Absolute Basos (auto) 0.1 10^3/uL (0.0-0.2) 08/13/19 04:43 Total Counted 100 08/10/19 17:30 Seg Neutrophils % 79.2 % (42-78) H 08/13/19 04:43 Seg Neuts % (Manual) 91 % (42-78) H 08/10/19 17:30 Band Neutrophils % 1 % (3-5) L 08/10/19 17:30 Lymphocytes % (Manual) 5 % (13-45) L 08/10/19 17:30 Monocytes % (Manual) 3 % (3-13) 08/10/19 17:30 Eosinophils % (Manual) 0 % (0-6) 08/10/19 17:30 Basophils % (Manual) 0 % (0-2) 08/10/19 17:30 Abs Neuts (Manual) 18.1 10^3/uL (1.7-8.2) H 08/10/19 17:30 Abs Lymphs (Manual) 1.0 10^3/uL (0.5-4.7) 08/10/19 17:30 Abs Monocytes (Manual) 0.6 10^3/uL (0.1-1.4) 08/10/19 17:30 Absolute Eos (Manual) 0.0 10^3/uL (0.0-0.6) 08/10/19 17:30 Abs Basophils (Manual) 0.0 10^3/uL (0.0-0.2) 08/10/19 17:30 Platelet Comment ADEQUATE 08/10/19 17:30 Anisocytosis SLIGHT 08/10/19 17:30 PT 12.3 SEC (11.4-15.4) 08/10/19 17:30 INR 0.91 08/10/19 17:30 APTT 24.7 SEC (23.5-35.8) 08/10/19 17:30 VBG pH 7.36 (7.30-7.42) 08/10/19 17:30 VBG pCO2 48.2 mmHg (35-63) 08/10/19 17:30 VBG HCO3 26.3 mmol/L (20-32) 08/10/19 17:30 VBG Base Excess 0.2 mmol/L 08/10/19 17:30 Sodium 134.3 mmol/L (137-145) L 08/13/19 04:43 Potassium 4.3 mmol/L (3.6-5.0) 08/13/19 04:43 Chloride 100 mmol/L (98-107) 08/13/19 04:43 Carbon Dioxide 26 mmol/L (22-30) 08/13/19 04:43 Anion Gap 8 (5-19) 08/13/19 04:43 BUN 18 mg/dL (7-20) 08/13/19 04:43 Creatinine 1.15 mg/dL (0.52-1.25) 08/13/19 04:43 Est GFR ( Amer) > 60 (>60) 08/13/19 04:43 Est GFR (MDRD) Non-Af > 60 (>60) 08/13/19 04:43 Glucose 213 mg/dL (75-110) H 08/13/19 04:43 POC Glucose 200 mg/dL (70-110) H 08/13/19 07:41 Hemoglobin A1c % 10.1 % (4.7-6.0) H 08/13/19 04:43 Lactic Acid 1.0 mmol/L (0.7-2.1) 08/11/19 00:10 Calcium 8.8 mg/dL (8.4-10.2) 08/13/19 04:43 Magnesium 2.1 mg/dL (1.6-2.3) 08/13/19 04:43 Total Bilirubin 0.6 mg/dL (0.2-1.3) 08/13/19 04:43 Direct Bilirubin 0.2 mg/dL (0.0-0.4) 08/13/19 04:43 Neonat Total Bilirubin Not Reportable 08/13/19 04:43 Neonat Direct Bilirubin Not Reportable 08/13/19 04:43 Neonat Indirect Bili Not Reportable 08/13/19 04:43 AST 29 U/L (17-59) 08/13/19 04:43 ALT 26 U/L (<50) 08/13/19 04:43 Alkaline Phosphatase 135 U/L (38-126) H 08/13/19 04:43 Ammonia < 8.7 umol/L (9-33) L 08/11/19 16:24 Total Protein 6.1 g/dL (6.3-8.2) L 08/13/19 04:43 Albumin 3.2 g/dL (3.5-5.0) L 08/13/19 04:43 Urine Color YELLOW 08/10/19 18:01 Urine Appearance CLEAR 08/10/19 18:01 Urine pH 7.0 (5.0-9.0) 08/10/19 18:01 Ur Specific [place] 1.022 08/10/19 18:01 Urine Protein >=500 mg/dL (NEGATIVE) H 08/10/19 18:01 Urine Glucose (UA) >=500 mg/dL (NEGATIVE) H 08/10/19 18:01 Urine Ketones TRACE mg/dL (NEGATIVE) H 08/10/19 18:01 Urine Blood SMALL (NEGATIVE) H 08/10/19 18:01 Urine Nitrite NEGATIVE (NEGATIVE) 08/10/19 18:01 Urine Bilirubin NEGATIVE (NEGATIVE) 08/10/19 18:01 Urine Urobilinogen NEGATIVE mg/dL (<2.0) 08/10/19 18:01 Ur Leukocyte Esterase NEGATIVE (NEGATIVE) 08/10/19 18:01 Urine WBC (Auto) 3 /HPF 08/10/19 18:01 Urine RBC (Auto) 11 /HPF 08/10/19 18:01 U Hyaline Cast (Auto) 3 /LPF 08/10/19 18:01 Urine Mucus (Auto) RARE /LPF 08/10/19 18:01 Urine Ascorbic Acid NEGATIVE (NEGATIVE) 08/10/19 18:01 POC Gastric Occult Bld POSITIVE (NEGATIVE) 08/10/19 18:00 POC Stool Occult Blood NEGATIVE (NEGATIVE) 08/10/19 17:52 Time Trough Drawn 1000 08/12/19 10:00 Vancomycin Trough 20.1 ug/mL (5.0-20.0) H 08/12/19 10:00 Urine Opiates Screen NEGATIVE 08/10/19 18:01 Urine Methadone Screen NEGATIVE 08/10/19 18:01 Ur Barbiturates Screen NEGATIVE 08/10/19 18:01 Ur Phencyclidine Scrn NEGATIVE 08/10/19 18:01 Ur Amphetamines Screen NEGATIVE 08/10/19 18:01 U Benzodiazepines Scrn NEGATIVE 08/10/19 18:01 Urine Cocaine Screen NEGATIVE 08/10/19 18:01 U Marijuana (THC) Screen NEGATIVE 08/10/19 18:01 Serum Alcohol < 10 mg/dL (NONE DETECTED) 08/10/19 17:30 Influenza A (Rapid) NEGATIVE (NEGATIVE) 08/10/19 20:35 Influenza B (Rapid) NEGATIVE (NEGATIVE) 08/10/19 20:35 Blood Type O POSITIVE 08/10/19 17:30 Antibody Screen NEGATIVE 08/10/19 17:30 Impressions: Chest X-Ray 08/10/19 17:39 IMPRESSION: 1. Limited by portable technique and low lung volumes. Consider further evaluation with PA and lateral chest films if possible. There is upper mediastinal widening which is suspected to be artifact. Mild vascular congestion. Head CT 08/10/19 18:31 IMPRESSION: NORMAL BRAIN CT WITHOUT CONTRAST. EVIDENCE OF ACUTE STROKE: NO. Abdomen/Pelvis CT 08/10/19 21:22 IMPRESSION: Alveolar infiltrate in the left lower lobe concerning for pneumonia No acute intra-abdominal abnormality is identified. Plan Plan of Treatment: Plan is to discharge him today and advised him to follow-up with primary care physician in 5 to 7 days and also with his c.o.d. clerk for better management of blood sugars in 1 week time. Patient agreed and verbalized response. Diet exercise weight loss lifestyle modifications discussed with the patient. Time Spent: Greater than 30 Minutes Stroke Is this a Stroke Patient?: No Acute Heart Failure - Is this a Heart Failure Patient?: No
== END 2019-08-13 10:31 | disposition home or self-care (01) | DRG 91 ==
LOC: ER 17:30 → EH 08-11 00:25 → 3N 08-11 18:02
PROVIDERS: ADMIT Internal Medicine; ATTEND Internal Medicine
DX: G92 Toxic encephalopathy (principal); J18.9 Pneumonia, unspecified organism; R40.2122 Coma scale, eyes open, to pain, at arrival to emergency department; R40.2312 Coma scale, best motor response, none, at arrival to emergency department; F13.239 Sedative, hypnotic or anxiolytic dependence with withdrawal, unspecified; K92.0 Hematemesis; Z68.41 Body mass index [BMI] 40.0-44.9, adult; F13.20 Sedative, hypnotic or anxiolytic dependence, uncomplicated; T42.4X5A Adverse effect of benzodiazepines, initial encounter; I16.0 Hypertensive urgency; E10.9 Type 1 diabetes mellitus without complications; F41.1 Generalized anxiety disorder; G47.33 Obstructive sleep apnea (adult) (pediatric); G25.81 Restless legs syndrome; E66.01 Morbid (severe) obesity due to excess calories; Z79.82 Long term (current) use of aspirin; Z79.4 Long term (current) use of insulin; Z79.899 Other long term (current) drug therapy; Z86.73 Personal history of transient ischemic attack (TIA), and cerebral infarction without residual deficits; E78.5 Hyperlipidemia, unspecified; Z23 Encounter for immunization
CPT/HCPCS: 36415; 51702; 70450; 71045; 74176; 80048; 80053; 80202; 80307; 81001; 82140; 82565; 82803; 82962; 83036; 83605; 83735; 85025; 85610; 85730; 86850; 86900; 86901; 87040; 87077; 87086; 87150; 87186; 87804; 90686; 93005; 93010; 94660; 96361; 96365; 96366; 96367; 96375; 96376; 99285; C9113; J0360; J0692; J0696; J1644; J1815; J2060; J2270; J2405; J3370; J3490; J7030; J7050; J7060; J7620

== ENCOUNTER 2019-08-15 18:23 | Emergency (ER) | payer MEDICARE, MEDICAID ==
[2019-08-15] MEDS ORDERED: NORMAL SALINE 1000 ML 1,000 ML IV ONE (19:06)
[2019-08-15] MEDS ORDERED: ONDANSETRON HCL INJ/PF 4 MG/2 ML SDV IV ONE (19:06)
--- NOTE | 2019-08-15 19:09 | ER Document Report ---
ED Medical Screen (RME) - General Chief Complaint: Headache Stated Complaint: HEADACHE/NAUSEA Time Seen by Provider: 08/15/19 18:58 Primary Care Provider: AUDREY BRIDGES PA-C [Primary Care Provider] - Follow up as needed Mode of Arrival: Wheelchair Information source: Patient Notes: 39-year-old male patient presented to the emergency department chief complaint of headache and altered mental status. Patient was discharged in this facility just a few days ago for similar symptoms. Nursing staff who is familiar with the patient states that he is actually improved from when he was admitted a few days ago however he still seems to be having some mental fogginess. He denies any fevers. Patient reports onset of headache approximately 90 minutes prior to arrival, he states it was in a somewhat abrupt onset however he states this is typical for his usual migraines. He is reports associated nausea, vomiting, light sensitivity and noise sensitivity. Exam: Patient appears sleepy, he is answering all questions appropriately, no slurred speech noted. I have greeted and performed a rapid initial assessment of this patient. A comprehensive ED assessment and evaluation of the patient, analysis of test results and completion of the medical decision making process will be conducted by additional ED providers. I have specifically instructed the patient or fam rgiffin members with the patient to immediately return to any nursing staff should anything change in the patient's condition or with their chief complaint. TRAVEL OUTSIDE OF THE [place] IN LAST 30 DAYS: No - Related Data Allergies/Adverse Reactions: No Known Allergies Allergy (Verified 08/10/19 18:53) Past Medical History - Past Medical History Cardiac Medical History: Reports: Hx Hypercholesterolemia, Hx Hypertension Denies: Hx Heart Attack Pulmonary Medical History: Reports: Hx Pneumonia Denies: Hx Asthma Neurological Medical History: Reports: Hx Migraine. Denies: Hx Cerebrovascular Accident, Hx Seizures Endocrine Medical History: Reports: Hx Diabetes Mellitus Type 1 Renal/ Medical History: Denies: Hx Peritoneal Dialysis GI Medical History: Reports: Hx Gastroesophageal Reflux Disease - Hematemesis in the past, but no ulcer on EGD performed in April 2019. Denies: Hx Hepatitis, Hx Hiatal Hernia, Hx Ulcer Psychiatric Medical History: Reports: Hx Depression Infectious Medical History: Denies: Hx Hepatitis Past Surgical History: Reports: Hx Orthopedic Surgery - left foot surgery from wound. Denies: Hx Open Heart Surgery, Hx Pacemaker - Immunizations Hx Diphtheria, Pertussis, Tetanus Vaccination: Yes - 2006 Physical Exam - Vital signs Vitals: Temp Pulse Resp BP Pulse Ox 97.4 F 79 16 172/93 H 94 08/15/19 19:02 08/15/19 19:02 08/15/19 19:02 08/15/19 19:02 08/15/19 19:02 Course - Vital Signs Vital signs: Temp Pulse Resp BP Pulse Ox 97.4 F 79 16 172/93 H 94 08/15/19 19:02 08/15/19 19:02 08/15/19 19:02 08/15/19 19:02 08/15/19 19:02 Doctor's Discharge - Discharge Referrals: AUDREY BRIDGES PA-C [Primary Care Provider] - Follow up as needed
--- NOTE | 2019-08-15 19:36 | RADIOLOGY REPORT (SQ) ---
EXAM DESCRIPTION: CT HEAD WITHOUT COMPLETED DATE/TIME: 08/15/2019 7:23 pm REASON FOR STUDY: mental confusion COMPARISON: None. TECHNIQUE: Axial images acquired through the brain without intravenous contrast. Images reviewed wi th bone, brain and subdural windows. Images stored on PACS. All CT scanners at this facility use dose modulation, iterative reconstruction, and/or weight based d osing when appropriate to reduce radiation dose to as low as reasonably achievable (ALARA). [facility]: Dose Right [facility]: CareDose [facility]: Dose Right [facility]: Teradose 4D [facility]: Qu[place]by RADIATION DOSE: CT Rad equipment meets quality standard of care and radiation dose reduction techniq ues were employed. CTDIvol: 53.2 mGy. DLP: 964 mGy-cm. mGy. LIMITATIONS: None. FINDINGS: VENTRICLES: Normal size and contour. CEREBRUM: No masses. No hemorrhage. No midline shift. No evidence for acute infarction. Normal gra y/white matter differentiation. No areas of low density in the white matter. CEREBELLUM: No masses. No hemorrhage. No alteration of density. No evidence for acute infarction. EXTRAAXIAL SPACES: No fluid collections. No masses. ORBITS AND GLOBE: No intra- or extraconal masses. Normal contour of globe without masses. CALVARIUM: No fracture. PARANASAL SINUSES: No fluid or mucosal thickening. SOFT TISSUES: No mass or hematoma. OTHER: No other significant finding. IMPRESSION: NORMAL BRAIN CT WITHOUT CONTRAST. EVIDENCE OF ACUTE STROKE: NO. COMMENT: Quality ID # [id number]: Final reports with documentation of one or more dose reduction techniques (e.g., Automated exposure control, adjustment of the mA and/or kV according to patient size, use of iterative reconstruction technique) TECHNICAL DOCUMENTATION: JOB ID: [id number] [employer]- All Rights Reserved Reading location - IP/workstation name: [email or web address]
[2019-08-15 20:05] LABS: ABSOLUTE BASOPHILS # (AUTO) 0.1 10^3/uL (0.0-0.2); ABSOLUTE EOSINOPHILS # (AUTO) 0.2 10^3/uL (0.0-0.6); ABSOLUTE MONOCYTES (AUTO) 0.7 10^3/uL (0.1-1.4); ABSOLUTE NEUT (AUTO) 8.1 10^3/uL (1.7-8.2); BASOPHILS % (AUTO) 0.7 % (0-2); EOSINOPHILS % (AUTO) 1.8 % (0-6); HEMATOCRIT 40.2 % (37.9-51.0); LYMPHOCYTES % (AUTO) 10.1 % (13-45); MEAN CORPUSCULAR HEMOGLOBIN 29.8 pg (27.0-33.4); MEAN CORPUSCULAR HGB CONC 34.8 g/dL (32.0-36.0); MEAN CORPUSCULAR VOLUME 86 fl (80-97); MONOCYTES % (AUTO) 7.4 % (3-13); PLATELET COUNT 282 10^3/uL (150-450); RED CELL DISTRIBUTION WIDTH 14.5 % (11.5-14.0); TOTAL CELLS COUNTED % (AUTO) 100 %; WHITE BLOOD COUNT 10.1 10^3/uL (4.0-10.5)
[2019-08-15 20:29] LABS: ALBUMIN 3.6 g/dL (3.5-5.0); ALKALINE PHOSPHATASE 147 U/L (38-126); ANION GAP 9 (5-19); ASPARTATE AMINO TRANSFERASE 27 U/L (17-59); BILIRUBIN,DIRECT 0.3 mg/dL (0.0-0.4); BILIRUBIN,TOTAL 0.6 mg/dL (0.2-1.3); BLOOD UREA NITROGEN 21 mg/dL (7-20); CALCIUM 9.3 mg/dL (8.4-10.2); CARBON DIOXIDE 30 mmol/L (22-30); CHLORIDE 97 mmol/L (98-107); GLUCOSE 273 mg/dL (75-110); POTASSIUM 4.2 mmol/L (3.6-5.0); TOTAL PROTEIN 6.8 g/dL (6.3-8.2)
--- NOTE | 2019-08-15 20:39 | ER Document Report ---
ED General - General Chief Complaint: Headache <24 hrs old Stated Complaint: HEADACHE/NAUSEA Time Seen by Provider: 08/15/19 18:58 Primary Care Provider: AUDREY BRIDGES PA-C [Primary Care Provider] - Follow up as needed Mode of Arrival: Wheelchair TRAVEL OUTSIDE OF THE [place] IN LAST 30 DAYS: No - HPI Patient complains to provider of: facial numbness Onset: This morning Onset/Duration: Gradual Quality of pain: Achy Severity: Moderate Pain Level: 1 Context: 39 year old right handed male arrives with with concerns over mental status changes and facial weakness. He has a h/o CVA in 04/2019 with hospital and rehab stay at [facility] for about 3 weeks. Recently (08/10) admitted here with diagnosis of altered mental status, htn encephalopathy and pneumonia. He has DM and [place]. Charcot joints in both feet and chronic headaches as well. was at work and concerned over facial weakness. No fever and no focal weakness. Associated symptoms: Headache - Related Data Allergies/Adverse Reactions: No Known Allergies Allergy (Verified 08/10/19 18:53) Home Medications: no change since d/c 4 days ago from this facility. Past Medical History - General Information source: Patient - Social History Smoking Status: Unknown if Ever Smoked Chew tobacco use (# tins/day): No Frequency of alcohol use: None Drug Abuse: None Family History: Other - Unobtainable Patient has suicidal ideation: No Patient has homicidal ideation: No - Past Medical History Cardiac Medical History: Reports: Hx Hypercholesterolemia, Hx Hypertension Denies: Hx Heart Attack Pulmonary Medical History: Reports: Hx Pneumonia Denies: Hx Asthma Neurological Medical History: Reports: Hx Migraine. Denies: Hx Cerebrovascular Accident, Hx Seizures Endocrine Medical History: Reports: Hx Diabetes Mellitus Type 1 Renal/ Medical History: Denies: Hx Peritoneal Dialysis GI Medical History: Reports: Hx Gastroesophageal Reflux Disease - Hematemesis in the past, but no ulcer on EGD performed in April 2019. Denies: Hx Hepatitis, Hx Hiatal Hernia, Hx Ulcer Psychiatric Medical History: Reports: Hx Depression Infectious Medical History: Denies: Hx Hepatitis Past Surgical History: Reports: Hx Orthopedic Surgery - left foot surgery from wound. Denies: Hx Open Heart Surgery, Hx Pacemaker - Immunizations Hx Diphtheria, Pertussis, Tetanus Vaccination: Yes - 2006 Review of Systems - Review of Systems Constitutional: No symptoms reported EENT: No symptoms reported Cardiovascular: No symptoms reported Respiratory: No symptoms reported Gastrointestinal: No symptoms reported Genitourinary: No symptoms reported Male Genitourinary: No symptoms reported Musculoskeletal: No symptoms reported Skin: No symptoms reported Hematologic/Lymphatic: No symptoms reported Neurological/Psychological: No symptoms reported Physical Exam - Vital signs Vitals: Temp Pulse Resp BP Pulse Ox 97.4 F 79 16 172/93 H 94 08/15/19 19:02 08/15/19 19:02 08/15/19 19:02 08/15/19 19:02 08/15/19 19:02 Interpretation: Normal - General General appearance: Appears well, Alert - HEENT Head: Normocephalic, Atraumatic Eyes: Normal Pupils: PERRL - Respiratory Respiratory status: No respiratory distress Chest status: Nontender Breath sounds: Normal Chest palpation: Normal - Cardiovascular Rhythm: Regular Heart sounds: Normal auscultation Murmur: No - Abdominal Inspection: Normal Distension: No distension Bowel sounds: Normal Tenderness: Nontender Organomegaly: No organomegaly - Back Back: Normal, Nontender - Extremities General upper extremity: Normal inspection, Nontender, Normal color, Normal ROM, Normal temperature General lower extremity: Normal inspection, Nontender, Normal color, Normal ROM, Normal temperature, Normal weight bearing. No: Shania's sign - Neurological Neuro grossly intact: Yes Cognition: Normal Orientation: AAOx4 [place] Coma Scale Eye Opening: Spontaneous [place] Coma Scale Verbal: Oriented [place] Coma Scale Motor: Obeys Commands Vienna Coma Scale Total: 15 Speech: Normal Motor strength normal: LUE, RUE, LLE, RLE Sensory: Normal - Psychological Associated symptoms: Normal affect, Normal mood - Skin Skin Temperature: Warm Skin Moisture: Dry Skin Color: Normal Course - Re-evaluation Re-evalutation: 08/16/19 01:47 Complex gentlaman wiht multiple medical problems. Facial numbness earlier but no speech difficulty or focal weakness. Headache a bit which is not unusual for him. No rash or tick bite. No chest pain and no sob. No fever. Ct and MRI were done here as he had a somewhat simlar presentation at [facility] in 04/28 and that chart is reviewed. At that time he had a subcortical parietal infarct diagnosed by MRI. He had pretty much completely recovered from that. Mobility is limited by Charcot feet and morbid obesity. Lives with [place] and htn, dm. A bit dry here, but treated with IVF. I see no reason for admission at this time. Reviewed studies with pt and and they expressed understanding regarding results and follow up. - Vital Signs Vital signs: Temp Pulse Resp BP Pulse Ox 97.4 F 79 14 185/108 H 96 08/15/19 19:02 08/15/19 19:02 08/16/19 01:01 08/16/19 01:01 08/16/19 01:01 - Laboratory Result Diagrams: 08/15/19 19:47 08/15/19 19:47 Laboratory results interpreted by me: 08/15/19 08/15/19 08/15/19 19:47 19:47 23:45 RDW 14.5 H Lymph % (Auto) 10.1 L Seg Neutrophils % 80.0 H Sodium 135.5 L Chloride 97 L BUN 21 H Creatinine 1.46 H Est GFR (MDRD) Non-Af 53 L Glucose 273 H Alkaline Phosphatase 147 H Urine Protein >=500 H Urine Glucose (UA) >=500 H Urine Ketones 20 H Urine Blood SMALL H - Diagnostic Test Radiology reviewed: Reports reviewed Critical Care Note - Critical Care Note Total time excluding time spent on procedures (mins): 30 Discharge - Discharge Clinical Impression: Obstructive sleep apnea, Dehydration Headache Qualifiers: Headache type: unspecified Headache chronicity pattern: acute headache Intractability: not intractable Qualified Code(s): R51 - Headache Condition: Good Disposition: HOME, SELF-CARE Instructions: Headache ([facility]), Antinausea Medication ([facility]) Additional Instructions: Your blood pressure was elevated here. Be sure and have it rechecked. Take your medicines as directed. Call your doctor today to arrange follow up. Please return here for any problems or any concerns. Forms: Elevated Blood Pressure Referrals: AUDREY BRIDGES PA-C [Primary Care Provider] - Follow up as needed
--- NOTE | 2019-08-15 21:57 | RADIOLOGY REPORT (SQ) ---
EXAM DESCRIPTION: [facility]: MR BRAIN WITHOUT IV CONTRAST CLINICAL HISTORY: 39 years Male; ? CVA TECHNIQUE: Routine noncontrast MRI brain protocol COMPARISON: CT 08/15/2019 FINDINGS: Motion artifact somewhat degrades the quality of this exam. No diffusion restriction. Varela matter, white matter, ventricles, and cisterns are normal. No midline shift or mass-effect. No hemosiderin deposition. Calvarial marrow is normal. Chronic mucosal thickening is again noted in the right maxillary sinus. No sinus air-fluid levels. No mastoid effusion. The Normal flow-voids are seen in the major intracranial arteries. IMPRESSION: 1. No acute infarct or other acute intracranial findings.
[2019-08-15] MEDS ORDERED: LABETALOL HCL INJ 20 MG/4 ML DISP.SYRIN IV ONE (22:48)
[2019-08-15] MEDS ORDERED: ASPIRIN 325 MG TABLET, ENT COATED PO ONE (22:56)
[2019-08-16 00:01] LABS: APPEARANCE,URINE CLEAR; BILIRUBIN,URINE NEGATIVE (NEGATIVE); COLOR,URINE YELLOW; GLUCOSE, URINE >=500 mg/dL (NEGATIVE); KETONES,URINE 20 mg/dL (NEGATIVE); LEUKOCYTE ESTERASE,URINE NEGATIVE (NEGATIVE); NITRITE,URINE NEGATIVE (NEGATIVE); PROTEIN,URINE >=500 mg/dL (NEGATIVE); URINE SPECIFIC GRAVITY 1.018; UROBILINOGEN,URINE NEGATIVE mg/dL (<2.0)
[2019-08-16 01:57] VITALS: BP 196/97
== END 2019-08-16 02:09 | disposition home or self-care (01) ==
LOC: ER 18:23
DX: R51 Headache (principal); E86.0 Dehydration; G47.33 Obstructive sleep apnea (adult) (pediatric); R20.0 Anesthesia of skin; E10.9 Type 1 diabetes mellitus without complications; I10 Essential (primary) hypertension; E66.01 Morbid (severe) obesity due to excess calories; A52.16 Charcot's arthropathy (tabetic); Z86.73 Personal history of transient ischemic attack (TIA), and cerebral infarction without residual deficits
CPT/HCPCS: 99291; 96361; 96374; 96375; 36415; 87040; 83605; 85025; 86140; 80053; 81001; 70551; 70450; A9270; J3490; J2405; J7030

== ENCOUNTER 2019-12-20 19:30 | Inpatient (IN) | payer MEDICARE, MEDICAID ==
--- NOTE | 2019-12-20 22:25 | ER Document Report ---
ED General - General Chief Complaint: Other Stated Complaint: FEVER Time Seen by Provider: 12/20/19 20:05 Primary Care Provider: RADHA SALAMANCA DPM [Primary Care Provider] - Follow up as needed TRAVEL OUTSIDE OF THE [place] IN LAST 30 DAYS: No - HPI Notes: Chief complaint: Fever HPI: 39-year-old male with history of hypertension, diabetes mellitus type I on insulin and chronic wound infection of left foot being followed by Dr. Cole Salamanca has been referred here for evaluation for low-grade fever. Random blood sugar was 340 this morning by fingerstick at home. Patient's primary physician told him that he is at increased risk of COVID and recommended that he get COVID test in the ED. He is also concerned that the fever could potentially be coming from the chronic wound infection of the left foot. Patient has been going to wound care with this. Currently not on any antibiotics. He was scheduled for an MRI tomorrow but this was canceled because of the fever. He has chronically diminished sensation of both feet due to diabetic peripheral neuropathy. Patient says he is been in relative isolation at home for several weeks and he has had no known exposure to COVID. He does have some intermittent nonproductive cough. He denies any disturbance of his sense of taste or smell. He has had no travel outside the area. - Related Data Allergies/Adverse Reactions: No Known Allergies Allergy (Verified 12/20/19 20:11) Home Medications: atorovastatin, gabapentin, furosemide, losartan, metoprolol, carafate, hydralizine, spitin. Past Medical History - General Information source: Patient, [facility] Records - Social History Smoking Status: Never Smoker Frequency of alcohol use: None Drug Abuse: None Family History: Other - Unobtainable Patient has homicidal ideation: No - Past Medical History Cardiac Medical History: Reports: Hx Hypercholesterolemia, Hx Hypertension Denies: Hx Heart Attack Pulmonary Medical History: Reports: Hx Pneumonia Denies: Hx Asthma Neurological Medical History: Reports: Hx Migraine. Denies: Hx Cerebrovascular Accident, Hx Seizures Endocrine Medical History: Reports: Hx Diabetes Mellitus Type 1 Renal/ Medical History: Denies: Hx Peritoneal Dialysis GI Medical History: Reports: Hx Gastroesophageal Reflux Disease - Hematemesis in the past, but no ulcer on EGD performed in April 2019. Denies: Hx Hepatitis, Hx Hiatal Hernia, Hx Ulcer Psychiatric Medical History: Reports: Hx Depression Infectious Medical History: Denies: Hx Hepatitis Past Surgical History: Reports: Hx Orthopedic Surgery - left foot surgery from wound. Denies: Hx Open Heart Surgery, Hx Pacemaker - Immunizations Hx Diphtheria, Pertussis, Tetanus Vaccination: Yes - 2006 Review of Systems - Review of Systems Notes: Constitutional: As per HPI. HENT: Negative for sore throat. Eyes: Negative for visual changes. Cardiovascular: Negative for chest pain. Respiratory: As per HPI. No dyspnea reported. Gastrointestinal: Negative for abdominal pain, vomiting or diarrhea. Genitourinary: Negative for dysuria. Musculoskeletal: Negative for back pain. Skin: Negative for rash. Neurological: Negative for headaches, focal weakness. Chronic peripheral neuropathy of both lower extremities. 10 point ROS negative except as marked above and in HPI. Physical Exam - Vital signs Vitals: Temp Pulse Resp BP Pulse Ox 99.1 F 86 18 134/67 H 100 12/20/19 19:40 12/20/19 19:40 12/20/19 19:40 12/20/19 19:40 12/20/19 19:40 - Notes Notes: Remote Exam Using Telemedicine System for COVID-19 risk mitigation GENERAL: Well-developed well-nourished appearing in no acute distress. Does not appear toxic. SKIN: no rashes. HEAD: Normocephalic atraumatic. EYES: PERRL. EOMI. Conjunctivae and sclerae clear. NOSE: CLEAR. MOUTH: Moist mucosa. Good dentition. No stridor or edema. No drooling. NECK: Full ROM. No visible masses or thyromegaly. No JVD. BACK: Symmetrical. CHEST: Respirations unlabored. Expands symmetrical. ABDOMEN: Non-distended. GENITALIA: Deferred. EXTREMITIES: Patient has a bulky splint on the left lower leg and foot applied at wound care. NEUROLOGICAL: GCS 15. Alert and oriented x3. Fluent speech. Cranial nerves II through XII intact. Motor and cerebellar normal. PSYCHIATRIC: Appropriate affect. Course - Re-evaluation Re-evalutation: 12/21/19 01:55 Patient has a diabetic foot infection. His blood sugars are somewhat elevated but he is not in DKA. Telephone consultation with Dr. Hill from surgery. He requests that we admit patient to medicine and he will consult for further surgical management. Patient is received IV Zosyn. Case discussed with on-call hospitalist Dr. Victor Hugo Keys who is excepted for admission. - Vital Signs Vital signs: Temp Pulse Resp BP Pulse Ox 99.7 F 101 H 20 145/59 H 94 12/20/19 22:26 12/20/19 22:26 12/20/19 22:26 12/20/19 22:26 12/20/19 22:26 - Laboratory Result Diagrams: 12/20/19 23:46 12/20/19 23:46 Laboratory results interpreted by me: 12/20/19 12/20/19 12/20/19 22:18 23:16 23:46 WBC 13.8 H RBC 3.77 L Hgb 10.9 L Hct 31.5 L RDW 14.1 H Lymph % (Auto) 6.1 L Absolute Neuts (auto) 11.9 H Seg Neutrophils % 85.8 H Sodium BUN Creatinine Est GFR ( Amer) Est GFR (MDRD) Non-Af Glucose POC Glucose 245 H Alkaline Phosphatase Albumin Urine Protein 100 H Urine Glucose (UA) >=1000 H 12/20/19 23:46 WBC RBC Hgb Hct RDW Lymph % (Auto) Absolute Neuts (auto) Seg Neutrophils % Sodium 130.0 L BUN 29 H Creatinine 1.75 H Est GFR ( Amer) 52 L Est GFR (MDRD) Non-Af 43 L Glucose 267 H POC Glucose Alkaline Phosphatase 203 H Albumin 3.2 L Urine Protein Urine Glucose (UA) Discharge - Discharge Clinical Impression: Diabetic foot infection, Diabetes mellitus type 1, Diabetic peripheral salma ropathy Condition: Fair Disposition: ADMITTED INPATIENT Admitting Provider: Massimo (Hospitalist) Referrals: RADHA SALAMANCA DPM [Primary Care Provider] - Follow up as needed
--- NOTE | 2019-12-20 23:09 | RADIOLOGY REPORT (SQ) ---
EXAM DESCRIPTION: XR FOOT 3 OR MORE VIEWS COMPLETED DATE/TME: 12/20/2019 22:12 CLINICAL HISTORY: 39 years, Male, wound, fever COMPARISON: 02/17/2019 left foot NUMBER OF VIEWS: 3 TECHNIQUE: 3 views left foot LIMITATIONS: None. FINDINGS: Extensive soft tissue swelling along the medial aspect of the foot with soft tissue gas which could reflect abscess and/or gas-forming organism. No david bony destructive process or acute fracture. Osteopenia. Degenerative changes of the foot. Vascular calcifications. IMPRESSION: Extensive soft tissue swelling and soft tissue gas medially. No radiographic evidence for acute osseous abnormality. copyright 2010 [employer]- All Rights Reserved
--- NOTE | 2019-12-20 23:12 | RADIOLOGY REPORT (SQ) ---
EXAM DESCRIPTION: AP portable view of the chest CLINICAL HISTORY: 39 years Male, cough, fever COMPARISON: Portable view of the chest 08/10/2019 FINDINGS: Lungs: Lung volumes and aeration have improved when compared to the previous examination. No focal consolidation. No pneumothorax or pleural effusion. Mediastinum: Heart size is enlarged. The mediastinum is widened. This is improved when compared to the previous exam. Bones: Osseous structures are normal. IMPRESSION: Overall improvement in lung volumes and aeration. No pneumonia or edema.
[2019-12-20 23:16] LABS: APPEARANCE,URINE CLEAR; COLOR,URINE YELLOW
[2019-12-20 23:17] LABS: BILIRUBIN,URINE NEGATIVE (NEGATIVE); GLUCOSE, URINE >=1000 mg/dL (NEGATIVE); KETONES,URINE NEGATIVE (NEGATIVE); PROTEIN,URINE 100 mg/dL (NEGATIVE); URINE SPECIFIC GRAVITY 1.016; UROBILINOGEN,URINE NEGATIVE mg/dL (<2.0)
[2019-12-20 23:18] LABS: BACTERIA,URINE TRACE /HPF
[2019-12-20 23:52] LABS: A TYPE INFLUENZA AG NEGATIVE (NEGATIVE); B INFLUENZA AG NEGATIVE (NEGATIVE)
[2019-12-21 00:03] LABS: ABSOLUTE LYMPHOCYTES (AUTO) 0.8 10^3/uL (0.5-4.7); ABSOLUTE NEUT (AUTO) 11.9 10^3/uL (1.7-8.2); BASOPHILS % (AUTO) 0.3 % (0-2); EOSINOPHILS % (AUTO) 0.3 % (0-6); HEMATOCRIT 31.5 % (37.9-51.0); HEMOGLOBIN 10.9 g/dL (13.5-17.0); LYMPHOCYTES % (AUTO) 6.1 % (13-45); MEAN CORPUSCULAR HEMOGLOBIN 28.9 pg (27.0-33.4); MEAN CORPUSCULAR HGB CONC 34.6 g/dL (32.0-36.0); MEAN CORPUSCULAR VOLUME 84 fl (80-97); MONOCYTES % (AUTO) 7.5 % (3-13); PLATELET COUNT 300 10^3/uL (150-450); RED BLOOD COUNT 3.77 10^6/uL (4.35-5.55); RED CELL DISTRIBUTION WIDTH 14.1 % (11.5-14.0); SEGMENTED NEUTROPHILS % (AUTO) 85.8 % (42-78); TOTAL CELLS COUNTED % (AUTO) 100 %; WHITE BLOOD COUNT 13.8 10^3/uL (4.0-10.5)
[2019-12-21 00:15] LABS: ALBUMIN 3.2 g/dL (3.5-5.0); ALKALINE PHOSPHATASE 203 U/L (38-126); ANION GAP 7 (5-19); ASPARTATE AMINO TRANSFERASE 26 U/L (17-59); BILIRUBIN,DIRECT 0.2 mg/dL (0.0-0.4); BILIRUBIN,TOTAL 0.9 mg/dL (0.2-1.3); BLOOD UREA NITROGEN 29 mg/dL (7-20); CALCIUM 8.8 mg/dL (8.4-10.2); CARBON DIOXIDE 25 mmol/L (22-30); CHLORIDE 98 mmol/L (98-107); GLUCOSE 267 mg/dL (75-110); POTASSIUM 4.3 mmol/L (3.6-5.0); TOTAL PROTEIN 6.4 g/dL (6.3-8.2)
[2019-12-21] MEDS ORDERED: PIPERACILLIN/TAZOBACTAM 3.375 GM VIAL IV ONE ×2 (01:01→05:42)
[2019-12-21] MEDS ORDERED: MAGNESIUM HYDROXIDE SUSP 30 ML UDCUP PO PRN (03:09)
[2019-12-21] MEDS ORDERED: PROMETHAZINE HCL INJ 25 MG/1 ML VIAL IV PRN (03:09)
[2019-12-21] MEDS ORDERED: GLUCAGON,HUMAN RECOMB 1 MG INJ IM PRN (03:15)
[2019-12-21] MEDS ORDERED: DEXTROSE 50%-WATER 25 GM/50 ML DISP.SYRIN IV PRN (03:15)
[2019-12-21] MEDS ORDERED: DEXTROSE 40% GEL 15 GM TUBE PO PRN ×2 (03:15)
[2019-12-21] MEDS ORDERED: GUAIFENESIN SYRP 200 MG/10 ML UDC PO PRN (03:16)
[2019-12-21] MEDS ORDERED: LORAZEPAM INJ 2 MG/1 ML VIAL IV PRN (03:16)
[2019-12-21] MEDS ORDERED: ACETAMINOPHEN 650 MG SUPP.RECT PR PRN (03:16)
[2019-12-21] MEDS ORDERED: MORPHINE SULFATE 10 MG/ML INJ IV PRN ×3 (03:16)
[2019-12-21] MEDS ORDERED: VANCOMYCIN HCL INJ 1000 MG VIAL INJ PRN (04:35)
[2019-12-21] MEDS ORDERED: VANCOMYCIN HCL 2,000 MG in DEXTROSE 5%-WATER 500 ML IV ONE (04:45)
[2019-12-21] MEDS ORDERED: PIPERACILLIN/TAZOBACTAM 3.375 GM VIAL IV PRN (05:30)
[2019-12-21] MEDS ORDERED: VANCOMYCIN HCL INJ 1000 MG VIAL ONE (05:42)
[2019-12-21] MEDS ORDERED: PIPERACILLIN SODIUM/TAZOBACTAM 3.375 GM in NORMAL SALINE 100 ML IV SCH (06:00)
--- NOTE | 2019-12-21 06:14 | PDOC H&P ---
History of Present Illness Admission Date/PCP: 12/21/19 02:20 RADHA SALAMANCA DPM Patient complains of: Fever History of Present Illness: PEE DOUGHERTY is a 39 year old male who presented to the emergency room with a 3 day history of fever. He admits a persistent low-grade fever at home for the last 3 days and being instructed by Dr. Salamanca from the wound care clinic to come the emergency room for further evaluation. His fever has been accompanied by intermittent moderate nausea. He further admits a chronic left foot nonpressure ulcer/wound which is being managed at the wound care clinic. He denies other associated or accompanying signs and symptoms. He has not identified any aggravating or ameliorating factors for his low-grade fever. He admits prior similar episodes related to wound infections. In the emergency room he was found to have a modestly elevated white blood count with a foot x-ray showing soft tissues of the medial aspect of the left foot with swelling and possible gas formation. Patient was started on empiric antibiotic therapy in the emergency room and the emergency room physician consulted with the general surgeon Dr. Hill who requested that the hospitalist service admit the patient and consult him for care. Patient was subsequently admitted to the hospital for further evaluation and treatment. Blood and wound cultures are pending. Past Medical History Cardiac Medical History: Reports: Hyperlipidema, Hypertension, Peripheral Vascular Disease Denies: Atrial Fibrillation, Coronary Artery Disease, DVT, Myocardial Infarction, Pulmonary Embolism Pulmonary Medical History: Reports: Pneumonia Denies: Asthma, Chronic Obstructive Pulmonary Disease (COPD) EENT Medical History: Denies: Cataracts, Ears - Hearing aids Neurological Medical History: Reports: Ischemic CVA, Migraine, Other - Diabetic peripheral neuropathy Denies: Hemorrhagic CVA, Seizures Endocrine Medical History: Reports: Diabetes Mellitus Type 1, Obesity Denies: Hyperthyroidism, Hypothyroidism Renal/ Medical History: Reports: Chronic Kidney Disease Denies: Nephrolithiasis Malignancy Medical History: Reports: None GI Medical History: Reports: Gastroesophageal Reflux Disease, Other - Upper GI hemorrhage Denies: Cirrhosis, Crohn's Disease, Hepatitis, Hiatal Hernia, Ulcerative Colitis Musculoskeltal Medical History: Reports: Other - Charcot foot bilaterally Denies: Arthritis, Gout Skin Medical History: Reports: Other - Lymphedema of the bilateral lower extremities Denies: Eczema, Psoriasis Psychiatric Medical History: Reports: Depression Denies: Alcohol Dependency, Substance Abuse, Tobacco Dependency Traumatic Medical History: Reports: None Hematology: Denies: Anemia, Bleeding Tendencies Infectious Medical History: Reports: None Past Surgical History Past Surgical History: Reports: Orthopedic Surgery - left foot surgery for wound care, Other - EGD Social History Information Source: Patient Lives with: Spouse/Significant other Smoking Status: Never Smoker Electronic Cigarette use?: No Frequency of Alcohol Use: None Hx Recreational Drug Use: No Drugs: None Hx Prescription Drug Abuse: No - Advance Directive Resuscitation Status: Full Code Surrogate healthcare decision maker:: Leah Swain Family History Family History: DM - Grandmother with type 2 diabetes, Hypertension - Father. denies: CAD, Malignancy Parental Family History Reviewed: Yes Children Family History Reviewed: No Sibling(s) Family History Reviewed.: Yes Medication/Allergy Home Medications: Pregabalin [Lyrica 50 mg Capsule] 1 cap PO DAILY 04/03/16 Aspirin [Adult Low Dose Aspirin EC] 81 mg PO DAILY 08/11/19 Duloxetine HCl [Cymbalta] 60 mg PO DAILY 08/11/19 Hydroxyzine HCl [Atarax 25 mg Tablet] 1 tab PO BIDP PRN 08/11/19 Lansoprazole 30 mg PO DAILY 08/11/19 Metoprolol Tartrate [Lopressor 100 mg Tablet] 100 mg PO Q12 08/11/19 Insulin Aspart [Novolog Flexpen] 10 unit SUBCUT AC 08/12/19 Insulin Aspart [Novolog] 0 units PUMP .CONTINUOUS 08/12/19 Insulin Degludec [Tresiba Flextouch U-100] 75 unit SQ DAILY 08/12/19 Atorvastatin Calcium [Lipitor 40 mg Tablet] 40 mg PO QHS tablet 08/13/19 Fluticasone Propionate [Flonase Nasal [place] 50 Mcg/[place] 16 gm] 2 spray NASL Q12 spray.pump 08/13/19 Gabapentin [Neurontin 300 mg Capsule] 300 mg PO DAILY capsule 08/13/19 Insulin Regular, Human [Humulin R (Reg) Insulin 100 unit/mL] 0 - 12 unit SUBCUT ACHS unit 08/13/19 Losartan Potassium [Cozaar 50 mg Tablet] 50 mg PO DAILY tablet 08/13/19 Allergies/Adverse Reactions: No Known Allergies Allergy (Verified 12/20/19 20:11) Review of Systems Constitutional: PRESENT: as per HPI, fever(s) - Low-grade. ABSENT: chills Eyes: ABSENT: visual disturbances, other - Eye pain Ears: ABSENT: hearing changes, other - Ear pain Nose, Mouth, and Throat: ABSENT: headache(s), sore throat Cardiovascular: ABSENT: chest pain, palpitations Respiratory: PRESENT: cough - Occasional. ABSENT: dyspnea Gastrointestinal: ABSENT: abdominal pain, constipation, diarrhea, nausea, vomiting Genitourinary: ABSENT: dysuria, hematuria Musculoskeletal: PRESENT: other - Bilateral Charcot foot. ABSENT: back pain, joint swelling Integumentary: PRESENT: as per HPI, wounds - Chronic left foot wound. ABSENT: pruritus, rash Neurological: PRESENT: other - Decreased sensation bilateral lower extremities secondary to diabetic peripheral neuropathy. ABSENT: confusion, convulsions, focal weakness, memory loss Psychiatric: ABSENT: anxiety, depression Endocrine: ABSENT: cold intolerance, heat intolerance, polydipsia, polyphagia, polyuria Hematologic/Lymphatic: ABSENT: easy bleeding, easy bruising Allergic/Immunologic: ABSENT: seasonal rhinorrhea Physical Exam Vital Signs: Temp Pulse Resp BP Pulse Ox 98.6 F 97 20 147/69 H 95 12/21/19 02:21 12/21/19 02:21 12/21/19 02:21 12/21/19 02:21 12/21/19 02:21 Intake & Output 12/19/19 12/20/19 12/21/19 23:59 23:59 23:59 Weight 136.078 kg General appearance: PRESENT: no acute distress, cooperative Head exam: PRESENT: atraumatic, normocephalic Eye exam: PRESENT: conjunctiva pink. ABSENT: conjunctival injection, scleral icterus Ear exam: PRESENT: normal external ear exam. ABSENT: bleeding, drainage Mouth exam: PRESENT: dry mucosa, neck supple Neck exam: ABSENT: thyromegaly, tracheal deviation Respiratory exam: PRESENT: clear to auscultation aleja, symmetrical, unlabored Cardiovascular exam: PRESENT: RRR. ABSENT: clicks, gallop, rubs Pulses: PRESENT: normal carotid pulses, normal radial pulses Vascular exam: PRESENT: normal capillary refill. ABSENT: pallor GI/Abdominal exam: PRESENT: normal bowel sounds, soft Rectal exam: PRESENT: deferred Extremities exam: PRESENT: pedal edema - Bilateral, +2 edema - 2+ pretibial edema bilaterally, other - Left lower leg and foot in a wound dressing which is not removed for examination.. ABSENT: joint swelling Musculoskeletal exam: PRESENT: other - Bilateral Charcot foot deformity. ABSENT: deformity, dislocation Neurological exam: PRESENT: alert, oriented to person, oriented to place, oriented to time, oriented to situation, CN II-XII grossly intact, motor sensory deficit - Decreased light touch and superficial pain sensation of the bilateral lower extremities Psychiatric exam: PRESENT: appropriate affect, normal mood Skin exam: PRESENT: dry, warm, other - Left foot wound currently in surgical dressings. ABSENT: jaundice, rash, urticaria Results Laboratory Results: 12/20/19 23:46 12/20/19 23:46 12/20/19 12/20/19 12/20/19 22:18 23:46 23:46 WBC 13.8 H RBC 3.77 L Hgb 10.9 L Hct 31.5 L MCV 84 MCH 28.9 MCHC 34.6 RDW 14.1 H Plt Count 300 Seg Neutrophils % 85.8 H Sodium 130.0 L Potassium 4.3 Chloride 98 Carbon Dioxide 25 Anion Gap 7 BUN 29 H Creatinine 1.75 H Est GFR ( Amer) 52 L Glucose 267 H Lactic Acid Calcium 8.8 Magnesium 2.0 Total Bilirubin 0.9 AST 26 Alkaline Phosphatase 203 H Total Protein 6.4 Albumin 3.2 L Urine Color YELLOW Urine Appearance CLEAR Urine pH 5.0 Ur Specific [place] 1.016 Urine Protein 100 H Urine Glucose (UA) >=1000 H Urine Ketones NEGATIVE Urine Blood NEGATIVE 12/20/19 23:46 WBC RBC Hgb Hct MCV MCH MCHC RDW Plt Count Seg Neutrophils % Sodium Potassium Chloride Carbon Dioxide Anion Gap BUN Creatinine Est GFR ( Amer) Glucose Lactic Acid 0.7 Calcium Magnesium Total Bilirubin AST Alkaline Phosphatase Total Protein Albumin Urine Color Urine Appearance Urine pH Ur Specific [place] Urine Protein Urine Glucose (UA) Urine Ketones Urine Blood Impressions: Chest X-Ray 12/20/19 22:11 IMPRESSION: Overall improvement in lung volumes and aeration. No pneumonia or edema. Foot X-Ray 12/20/19 22:12 IMPRESSION: Extensive soft tissue swelling and soft tissue gas medially. No radiographic evidence for acute osseous abnormality. copyright 2010 [employer]- All Rights Reserved Assessment and Plan - Diagnosis (1) Gas gangrene Is this a current diagnosis for this admission?: Yes (2) Diabetic foot ulcer Qualifiers: Diabetic foot ulcer location: midfoot Diabetes mellitus type: type 1 Laterality: left Non-pressure ulcer stage: unspecified non-pressure ulcer stage Qualified Code(s): E10.621 - Type 1 diabetes mellitus with foot ulcer; L97.429 - Non-pressure chronic ulcer of left heel and midfoot with unspecified severity Is this a current diagnosis for this admission?: Yes (3) Type 1 diabetes mellitus with morbid obesity Is this a current diagnosis for this admission?: Yes (4) Leukocytosis Qualifiers: Leukocytosis type: unspecified Qualified Code(s): D72.829 - Elevated white blood cell count, unspecified Is this a current diagnosis for this admission?: Yes (5) Morbid obesity with BMI of 40.0-44.9, adult Is this a current diagnosis for this admission?: Yes - Plan Summary Summary: Patient will be admitted to the medical floor where he received routine supportive and symptomatic cares. He will be started on IV vancomycin in addition to the IV Zosyn which he received in the emergency room. Blood and wound cultures are pending. Dr. Hill will be consulted for surgical management per his specific request. Patient will receive morphine sulfate 2 to 4 mg IV every 2 hours as needed for pain control using a sliding pain scale for dosing. Patient received Ativan 1 mg IV every 4 hours as needed for anxiety or restlessness. Before meals and at bedtime Accu-Cheks to be performed with sliding scale insulin used for hyperglycemia and a hypoglycemic protocol in place. Patient will be continued on his usual medications from home as appropriate as soon as his medication list has been verified and reconciled. - Time Time Spent with patient: 15-24 minutes Medications reviewed and adjusted accordingly: Yes Anticipated discharge: Acute Rehab - Inpatient Certification Based on my medical assessment, after consideration of the patient's comorbidities, presenting symptoms, or acuity I expect that the services needed warrant INPATIENT care.: Yes I certify that my determination is in accordance with my understanding of Medicare's requirements for reasonable and necessary INPATIENT services [42 CFR 412.3e].: Yes Medical Necessity: Failure to Improve With Outpatient Therapy, Significant Comorbidiites Make Outpatient Treatment Too Risky, Need Close Monitoring Due to Risk of Patient Decompensation, Need for IV Antibiotics, Need for Surgery
[2019-12-21] MEDS: HEPARIN SOD (PORCINE) 5,000 UNIT/ML 1 ML VIAL SUBCUT SCH ×3 (06:36→22:10)
[2019-12-21] MEDS: DOCUSATE SODIUM 100 MG CAPSULE PO SCH ×2 (09:42→17:01)
[2019-12-21] MEDS: PIPERACILLIN SODIUM/TAZOBACTAM 3.375 GM in NORMAL SALINE 100 ML IV SCH ×3 (09:42→20:14)
[2019-12-21] MEDS: RINGERS SOLUTION,LACTATED 1,000 ML IV PRN (09:42)
[2019-12-21] MEDS ORDERED: FAMOTIDINE 20 MG TABLET PO SCH (10:00)
[2019-12-21] MEDS ORDERED: (PENDING PHARMACY ID) (Hydroxyzine Hcl [Atarax 25 Mg Tablet] 1 TAB) PO PRN (10:36)
--- NOTE | 2019-12-21 10:40 | PDOC CONSULTATION ---
Consultation Consult Date: 12/21/19 Provider Consulted: SURGICAL SURGICALIST Consult reason:: Diabetic foot infection History of Present Illness Admission Date/PCP: 12/21/19 02:20 RADHA VELEZ DPM Patient complains of: Left foot pain History of Present Illness: PEE DOUGHERTY is a 39 year old male seen in consultation at the request of the hospitalist service. This patient is an uncontrolled type I diabetic with a long history of a Charcot foot. The patient has seen a specialist at [facility] for his Charcot foot, where he refused surgical intervention. The patient has been seeing the wound care clinic. They have been caring for his large proximal midfoot plantar ulcer on the left. The patient reports increasing redness, swelling, and pain over the last several days involving his left foot. He rates his pain as 6 out of 10. It is throbbing in nature. It does not radiate. The patient denies chest pain, shortness of breath, nausea, vomiting, headache, dizz iness, orthostasis. He has reported subjective fevers and chills. Past Medical History Cardiac Medical History: Reports: Hyperlipidema, Hypertension, Peripheral Vascular Disease Denies: Atrial Fibrillation, Coronary Artery Disease, DVT, Myocardial Infarction, Pulmonary Embolism Pulmonary Medical History: Reports: Pneumonia Denies: Asthma, Chronic Obstructive Pulmonary Disease (COPD) EENT Medical History: Denies: Cataracts, Ears - Hearing aids Neurological Medical History: Reports: Ischemic CVA, Migraine, Other - Diabetic peripheral neuropathy Denies: Hemorrhagic CVA, Seizures Endocrine Medical History: Reports: Diabetes Mellitus Type 1, Obesity, Other - Episodes of DKA Denies: Hyperthyroidism, Hypothyroidism Renal/ Medical History: Reports: Chronic Kidney Disease Denies: Nephrolithiasis Malignancy Medical History: Reports: None GI Medical History: Reports: Gastroesophageal Reflux Disease, Other - Upper GI hemorrhage Denies: Cirrhosis, Crohn's Disease, Hepatitis, Hiatal Hernia, Peptic Ulcer Disease, Ulcerative Colitis Musculoskeltal Medical History: Reports: Other - Charcot foot bilaterally Denies: Arthritis, Gout Skin Medical History: Reports: Other - Lymphedema of the bilateral lower extremities Denies: Eczema, Psoriasis Psychiatric Medical History: Reports: Depression Denies: Alcohol Dependency, Substance Abuse, Tobacco Dependency Traumatic Medical History: Reports: None Hematology: Denies: Anemia, Sickle Cell Disease, Bleeding Tendencies Infectious Medical History: Reports: None Past Surgical History Past Surgical History: Reports: Orthopedic Surgery - left foot surgery for wound care, Other - EGD Denies: Pacemaker Social History Lives with: Spouse/Significant other Smoking Status: Never Smoker Electronic Cigarette use?: No Frequency of Alcohol Use: None Hx Recreational Drug Use: No Drugs: None Hx Prescription Drug Abuse: No - Advance Directive Resuscitation Status: Full Code Family History Family History: DM - Grandmother with type 2 diabetes, Hypertension - Father. denies: CAD, Malignancy Parental Family History Reviewed: Yes Children Family History Reviewed: Yes Sibling(s) Family History Reviewed.: Yes Medication/Allergy Home Medications: Aspirin [Adult Low Dose Aspirin EC] 81 mg PO DAILY 08/11/19 Duloxetine HCl [Cymbalta] 60 mg PO DAILY 08/11/19 Hydroxyzine HCl [Atarax 25 mg Tablet] 1 tab PO BIDP PRN 08/11/19 Metoprolol Tartrate [Lopressor 100 mg Tablet] 100 mg PO Q12 08/11/19 Insulin Aspart [Novolog Flexpen] 16 unit SUBCUT AC 08/12/19 Insulin Aspart [Novolog] 0 units PUMP .CONTINUOUS 08/12/19 Insulin Degludec [Tresiba Flextouch U-100] 94 unit SQ DAILY 08/12/19 Atorvastatin Calcium [Lipitor 40 mg Tablet] 40 mg PO QHS tablet 08/13/19 Famotidine [Pepcid 20 mg Tablet] 20 mg PO DAILY 12/21/19 Furosemide [Lasix 40 mg Tablet] 40 mg PO DAILY 12/21/19 Gabapentin [Neurontin 300 mg Capsule] 300 mg PO TID 12/21/19 Hydralazine HCl [Apresoline 50 mg Tablet] 50 mg PO TID 12/21/19 Ibuprofen [Advil Liqui-Gels] 400 mg PO BIDP PRN 12/21/19 Losartan Potassium [Cozaar 50 mg Tablet] 25 mg PO DAILY 12/21/19 Allergies/Adverse Reactions: No Known Allergies Allergy (Verified 12/20/19 20:11) Review of Systems Constitutional: PRESENT: chills, fatigue, fever(s). ABSENT: anorexia, headache(s), weakness Eyes: ABSENT: visual disturbances Ears: ABSENT: hearing changes Nose, Mouth, and Throat: ABSENT: sore throat Cardiovascular: ABSENT: chest pain Respiratory: ABSENT: cough, dyspnea Gastrointestinal: ABSENT: abdominal pain Genitourinary: ABSENT: dysuria Musculoskeletal: ABSENT: back pain Integumentary: PRESENT: erythema Neurological: PRESENT: other - Diabetic neuropathy of bilateral feet Psychiatric: ABSENT: anxiety, depression Endocrine: ABSENT: cold intolerance, heat intolerance Hematologic/Lymphatic: ABSENT: easy bleeding, easy bruising Physical Exam Vital Signs: Temp Pulse Resp BP Pulse Ox 97.9 F 112 H 18 166/65 H 92 12/21/19 07:12 12/21/19 07:12 12/21/19 07:12 12/21/19 07:12 12/21/19 07:12 Intake & Output 12/20/19 12/21/19 12/22/19 06:59 06:59 06:59 Intake Total 500 Balance 500 Weight 39.2 kg General appearance: PRESENT: no acute distress, disheveled Head exam: PRESENT: atraumatic, normocephalic Eye exam: PRESENT: EOMI, PERRLA. ABSENT: scleral icterus Mouth exam: PRESENT: moist, neck supple Neck exam: ABSENT: meningismus, tenderness, thyromegaly, tracheal deviation Respiratory exam: PRESENT: unlabored. ABSENT: tachypnea, wheezes Cardiovascular exam: PRESENT: tachycardia - mild Vascular exam: PRESENT: normal capillary refill GI/Abdominal exam: PRESENT: soft. ABSENT: distended, tenderness Rectal exam: PRESENT: deferred Extremities exam: ABSENT: clubbing Musculoskeletal exam: PRESENT: deformity - Charcot foot bilaterally Neurological exam: PRESENT: alert, awake, oriented to person, oriented to place, oriented to time, oriented to situation, CN II-XII grossly intact. ABSENT: motor sensory deficit Psychiatric exam: ABSENT: agitated, anxious Focused psych exam: ABSENT: delusional Skin exam: PRESENT: erythema. ABSENT: cyanosis, jaundice Results Laboratory Results: 12/20/19 23:46 12/20/19 23:46 12/20/19 12/20/19 12/20/19 22:18 23:46 23:46 WBC 13.8 H RBC 3.77 L Hgb 10.9 L Hct 31.5 L MCV 84 MCH 28.9 MCHC 34.6 RDW 14.1 H Plt Count 300 Seg Neutrophils % 85.8 H Sodium 130.0 L Potassium 4.3 Chloride 98 Carbon Dioxide 25 Anion Gap 7 BUN 29 H Creatinine 1.75 H Est GFR ( Amer) 52 L Glucose 267 H Lactic Acid Calcium 8.8 Magnesium 2.0 Total Bilirubin 0.9 AST 26 Alkaline Phosphatase 203 H Total Protein 6.4 Albumin 3.2 L Urine Color YELLOW Urine Appearance CLEAR Urine pH 5.0 Ur Specific [place] 1.016 Urine Protein 100 H Urine Glucose (UA) >=1000 H Urine Ketones NEGATIVE Urine Blood NEGATIVE 12/20/19 23:46 WBC RBC Hgb Hct MCV MCH MCHC RDW Plt Count Seg Neutrophils % Sodium Potassium Chloride Carbon Dioxide Anion Gap BUN Creatinine Est GFR ( Amer) Glucose Lactic Acid 0.7 Calcium Magnesium Total Bilirubin AST Alkaline Phosphatase Total Protein Albumin Urine Color Urine Appearance Urine pH Ur Specific [place] Urine Protein Urine Glucose (UA) Urine Ketones Urine Blood Impressions: Chest X-Ray 12/20/19 22:11 IMPRESSION: Overall improvement in lung volumes and aeration. No pneumonia or edema. Foot X-Ray 12/20/19 22:12 IMPRESSION: Extensive soft tissue swelling and soft tissue gas medially. No radiographic evidence for acute osseous abnormality. copyright 2010 [employer]- All Rights Reserved Assessment & Plan - Diagnosis (1) Charcot foot due to diabetes mellitus Is this a current diagnosis for this admission?: Yes (2) Diabetic foot infection Is this a current diagnosis for this admission?: Yes - Plan Summary Plan Summary: This is a 39-year-old male with a longstanding history of Charcot foot. The patient has increasing redness, swelling, and pain of the left foot. The patient has a leukocytosis, and physical exam evidence of ongoing infection. The patient's wound is located in the proximal plantar midfoot. He has severe Charcot deformity. I believe he has ongoing, deep-seated infection. Clinically, I do not believe that his foot is salvageable. I have recommended below-knee amputation, but the patient has refused. I do not believe that his Charcot foot is reconstructable in its current state (and Charcot foot reconstruction is not offered at [facility]). The patient wishes to speak with his Charcot technical support specialist at [facility]. I have relayed this to the patient's attending physician personally. Surgery will sign off at this time, as we have nothing further to offer. If the patient changes his mind, and wishes to undergo below-knee amputation, please renotify us and we will be happy to assist.
[2019-12-21] MEDS ORDERED: HYDROXYZINE HCL 10 MG TABLET PO PRN (10:45)
[2019-12-21] MEDS ORDERED: INSULIN ASPART 16 UNIT SUBCUT SCH (11:00)
[2019-12-21 11:12] LABS: ANION GAP 12 (5-19); BLOOD UREA NITROGEN 29 mg/dL (7-20); CARBON DIOXIDE 22 mmol/L (22-30); CHLORIDE 99 mmol/L (98-107); GLUCOSE 304 mg/dL (75-110); POTASSIUM 4.6 mmol/L (3.6-5.0)
[2019-12-21] MEDS: HYDRALAZINE HCL INJ/PF 20 MG/1 ML SDV IV PRN (11:24)
[2019-12-21] MEDS: DULOXETINE HCL 30 MG CAPSULE.DR PO SCH (13:17)
[2019-12-21] MEDS: HYDRALAZINE HCL 50 MG TABLET PO SCH ×2 (14:00→22:11)
[2019-12-21] MEDS: GABAPENTIN 300 MG CAPSULE PO SCH ×2 (14:00→22:11)
--- NOTE | 2019-12-21 16:12 | Progress Note ---
Provider Note Provider Note: Dr. Hill recommended amputation. Patient declined. I discussed with Dr. Hill over the phone. I called Dr. Jairo warren from [facility] who discussed with their orthopedic surgery service and declined the transfer. He requested that the patient is evaluated by orthopedic surgery at [facility] . I spoke with Dr. Pham over the phone who graciously will come see the patient either later today or tomorrow morning. Continue current antibiotics.
[2019-12-21] MEDS: INSULIN LISPRO 100 UNIT/ML 3 ML VIAL SUBCUT SCH (17:01)
[2019-12-21] MEDS ORDERED: VANCOMYCIN HCL INJ 1000 MG VIAL IV SCH (18:00)
[2019-12-21] MEDS: METOPROLOL TARTRATE 100 MG TABLET PO SCH (22:11)
[2019-12-21] MEDS: ATORVASTATIN CALCIUM 40 MG TABLET PO SCH (22:11)
[2019-12-21] MEDS: VANCOMYCIN HCL 1,500 MG in DEXTROSE 5%-WATER 250 ML IV SCH (22:11)
[2019-12-22] MEDS: PIPERACILLIN SODIUM/TAZOBACTAM 3.375 GM in NORMAL SALINE 100 ML IV SCH ×4 (02:32→20:49)
[2019-12-22] MEDS: HYDRALAZINE HCL INJ/PF 20 MG/1 ML SDV IV PRN (03:55)
[2019-12-22] MEDS: HYDRALAZINE HCL 50 MG TABLET PO SCH ×3 (05:01→21:27)
[2019-12-22] MEDS: HEPARIN SOD (PORCINE) 5,000 UNIT/ML 1 ML VIAL SUBCUT SCH ×3 (05:01→21:28)
[2019-12-22] MEDS: GABAPENTIN 300 MG CAPSULE PO SCH ×3 (05:02→21:27)
[2019-12-22] MEDS: RINGERS SOLUTION,LACTATED 1,000 ML IV PRN (06:24)
[2019-12-22 06:49] LABS: HEMATOCRIT 29.7 % (37.9-51.0); HEMOGLOBIN 10.5 g/dL (13.5-17.0); MEAN CORPUSCULAR HEMOGLOBIN 29.8 pg (27.0-33.4); MEAN CORPUSCULAR HGB CONC 35.2 g/dL (32.0-36.0); MEAN CORPUSCULAR VOLUME 85 fl (80-97); PLATELET COUNT 327 10^3/uL (150-450); RED BLOOD COUNT 3.51 10^6/uL (4.35-5.55); RED CELL DISTRIBUTION WIDTH 14.3 % (11.5-14.0); WHITE BLOOD COUNT 10.9 10^3/uL (4.0-10.5)
[2019-12-22 07:14] LABS: ANION GAP 11 (5-19); BLOOD UREA NITROGEN 33 mg/dL (7-20); CALCIUM 8.6 mg/dL (8.4-10.2); CARBON DIOXIDE 23 mmol/L (22-30); CHLORIDE 100 mmol/L (98-107); GLUCOSE 326 mg/dL (75-110); POTASSIUM 4.3 mmol/L (3.6-5.0)
[2019-12-22] MEDS: INSULIN LISPRO 100 UNIT/ML 3 ML VIAL SUBCUT SCH ×3 (08:22→16:48)
[2019-12-22] MEDS: VANCOMYCIN HCL 1,500 MG in DEXTROSE 5%-WATER 250 ML IV SCH ×2 (09:46→21:27)
[2019-12-22] MEDS: METOPROLOL TARTRATE 100 MG TABLET PO SCH ×2 (09:48→21:27)
[2019-12-22] MEDS: ASPIRIN 81 MG TABLET, ENT COATED PO SCH ×2 (09:49→13:49)
--- NOTE | 2019-12-22 09:49 | PDOC CONSULTATION ---
Consultation Consult Date: 12/22/19 Attending physician:: ANITRA BLAKE Provider Consulted: DANISH JEFF Consult reason:: Infected diabetic, Charcot foot: Amputation versus limb salvage History of Present Illness Admission Date/PCP: 12/21/19 02:20 BYRON SALAMANCA DPM Patient complains of: Infected diabetic Charcot foot History of Present Illness: PEE DOUGHERTY is a 39 year old male admitted to the hospitalist service with an infected, diabetic Charcot foot. The patient has a long history of diabetic, Charcot foot. He states that he was evaluated 2 years ago at [facility] for possible surgical treatment of the Charcot foot. He states that surgery was not pursued at that time due to his poorly controlled diabetes. He has been treated for this problem by a cutter first at [facility]: Byron Salamanca D.P.M. The patient reports that he has been experiencing increasing swelling, drainage, and erythema in the midfoot region for several weeks. His understanding is that his cutter first had wanted to obtain vascular studies and an MRI of the foot. He was sent to the emergency room at [facility] by his general medical doctor due to a worsening infection and signs of progressive septicemia. Patient was evaluated yesterday by Dr. Hill who recommended amputation. The patient did not wish to pursue amputation of the extremity and requested a second opinion evaluation. Past Medical History Cardiac Medical History: Reports: Hyperlipidema, Hypertension, Peripheral Vascular Disease Denies: Atrial Fibrillation, Coronary Artery Disease, DVT, Myocardial Infarction, Pulmonary Embolism Pulmonary Medical History: Reports: Pneumonia Denies: Asthma, Chronic Obstructive Pulmonary Disease (COPD) EENT Medical History: Denies: Cataracts, Ears - Hearing aids Neurological Medical History: Reports: Ischemic CVA, Migraine, Other - Diabetic peripheral neuropathy Denies: Hemorrhagic CVA, Seizures Endocrine Medical History: Reports: Diabetes Mellitus Type 1, Obesity, Other - Episodes of DKA Denies: Hyperthyroidism, Hypothyroidism Renal/ Medical History: Reports: Chronic Kidney Disease Denies: Nephrolithiasis Malignancy Medical History: Reports: None GI Medical History: Reports: Gastroesophageal Reflux Disease, Other - Upper GI hemorrhage Denies: Cirrhosis, Crohn's Disease, Hepatitis, Hiatal Hernia, Peptic Ulcer Disease, Ulcerative Colitis Musculoskeltal Medical History: Reports: Other - Charcot foot bilaterally Denies: Arthritis, Gout Skin Medical History: Reports: Other - Lymphedema of the bilateral lower extre mities Denies: Eczema, Psoriasis Psychiatric Medical History: Reports: Depression Denies: Alcohol Dependency, Substance Abuse, Tobacco Dependency Traumatic Medical History: Reports: None Hematology: Denies: Anemia, Sickle Cell Disease, Bleeding Tendencies Infectious Medical History: Reports: None Past Surgical History Past Surgical History: Reports: Orthopedic Surgery - left foot surgery for wound care, Other - EGD Denies: Pacemaker Social History Lives with: Spouse/Significant other Smoking Status: Never Smoker Electronic Cigarette use?: No Frequency of Alcohol Use: None Hx Recreational Drug Use: No Drugs: None Hx Prescription Drug Abuse: No - Advance Directive Resuscitation Status: Full Code Family History Family History: DM - Grandmother with type 2 diabetes, Hypertension - Father. denies: CAD, Malignancy Parental Family History Reviewed: Yes Children Family History Reviewed: No Sibling(s) Family History Reviewed.: No Medication/Allergy Home Medications: Aspirin [Adult Low Dose Aspirin EC] 81 mg PO DAILY 08/11/19 Duloxetine HCl [Cymbalta] 60 mg PO DAILY 08/11/19 Hydroxyzine HCl [Atarax 25 mg Tablet] 1 tab PO BIDP PRN 08/11/19 Metoprolol Tartrate [Lopressor 100 mg Tablet] 100 mg PO Q12 08/11/19 Insulin Aspart [Novolog Flexpen] 16 unit SUBCUT AC 08/12/19 Insulin Aspart [Novolog] 0 units PUMP .CONTINUOUS 08/12/19 Insulin Degludec [Tresiba Flextouch U-100] 94 unit SQ DAILY 08/12/19 Atorvastatin Calcium [Lipitor 40 mg Tablet] 40 mg PO QHS tablet 08/13/19 Famotidine [Pepcid 20 mg Tablet] 20 mg PO DAILY 12/21/19 Furosemide [Lasix 40 mg Tablet] 40 mg PO DAILY 12/21/19 Gabapentin [Neurontin 300 mg Capsule] 300 mg PO TID 12/21/19 Hydralazine HCl [Apresoline 50 mg Tablet] 50 mg PO TID 12/21/19 Ibuprofen [Advil Liqui-Gels] 400 mg PO BIDP PRN 12/21/19 Losartan Potassium [Cozaar 50 mg Tablet] 25 mg PO DAILY 12/21/19 Allergies/Adverse Reactions: No Known Allergies Allergy (Verified 12/20/19 20:11) Review of Systems Constitutional: PRESENT: chills, fatigue, fever(s) Eyes: ABSENT: as per HPI, visual disturbances, other Ears: ABSENT: as per HPI, hearing changes, other Nose, Mouth, and Throat: ABSENT: as per HPI, headache(s), mouth pain, sore throat, vertigo, other Cardiovascular: ABSENT: as per HPI, chest pain, dyspnea on exertion, edema, orthropnea, palpitations, other Respiratory: PRESENT: cough Gastrointestinal: ABSENT: as per HPI, abdominal pain, bloating, coffee ground emesis, constipation, diarrhea, dysphagia, heartburn, hematemesis, hematochezia, melena, nausea, vomiting, other Genitourinary: ABSENT: as per HPI, difficulty urinating, dysuria, hematuria, nocturia, other Musculoskeletal: PRESENT: as per HPI Neurological: PRESENT: as per HPI Psychiatric: PRESENT: depression Endocrine: PRESENT: as per HPI Physical Exam Vital Signs: Temp Pulse Resp BP Pulse Ox 98.2 F 97 24 H 146/69 H 95 12/22/19 07:30 12/22/19 07:30 12/22/19 07:30 12/22/19 07:30 12/22/19 07:30 Intake & Output 12/21/19 12/22/19 12/23/19 06:59 06:59 06:59 Intake Total 2150 Output Total 2275 Balance -125 Weight 39.2 kg 139 kg General appearance: PRESENT: no acute distress Head exam: PRESENT: atraumatic, normocephalic Eye exam: PRESENT: conjunctiva pink, EOMI, PERRLA. ABSENT: scleral icterus Neck exam: PRESENT: full ROM Respiratory exam: PRESENT: unlabored Cardiovascular exam: PRESENT: RRR Pulses: PRESENT: +2 pedal pulses bilateral Rectal exam: PRESENT: deferred Musculoskeletal exam: PRESENT: other - Examination of the left foot: There is a large 8 x 8 cm soft tissue abscess on the medial aspect of the midfoot. There is a draining ulceration at the inferior border of this abscess which is draining brown fluid. There is a clinical Charcot foot deformity with loss of the arch of the foot. The tendo Achilles is contracted with poor passive do rsiflexion of the foot. Vascular flow to the foot appears reasonable with normal pulses in the popliteal fossa and 2+ DP and PT pulses present. Sensation on both the dorsal and plantar aspect of the foot is poor. Neurological exam: PRESENT: alert, awake, oriented to person, oriented to place, oriented to time, oriented to situation, CN II-XII grossly intact. ABSENT: mot or sensory deficit Psychiatric exam: PRESENT: appropriate affect, normal mood. ABSENT: homicidal ideation, suicidal ideation Results Laboratory Results: 12/22/19 06:38 12/22/19 06:38 12/21/19 12/21/19 12/22/19 10:27 14:55 06:38 WBC 10.9 H RBC 3.51 L Hgb 10.5 L Hct 29.7 L MCV 85 MCH 29.8 MCHC 35.2 RDW 14.3 H Plt Count 327 Sodium 133.4 L Potassium 4.6 Chloride 99 Carbon Dioxide 22 Anion Gap 12 BUN 29 H Creatinine 1.59 H Est GFR ( Amer) 59 L Glucose 304 H Calcium 9.0 Magnesium C-Reactive Protein 383.2 H 12/22/19 06:38 WBC RBC Hgb Hct MCV MCH MCHC RDW Plt Count Sodium 133.8 L Potassium 4.3 Chloride 100 Carbon Dioxide 23 Anion Gap 11 BUN 33 H Creatinine 1.79 H Est GFR ( Amer) 51 L Glucose 326 H Calcium 8.6 Magnesium 2.1 C-Reactive Protein Impressions: Chest X-Ray 12/20/19 22:11 IMPRESSION: Overall improvement in lung volumes and aeration. No pneumonia or edema. Foot X-Ray 12/20/19 22:12 IMPRESSION: Extensive soft tissue swelling and soft tissue gas medially. No radiographic evidence for acute osseous abnormality. copyright 2010 [employer]- All Rights Reserved Status: Image reviewed by me - Radiographs of the left foot were independently reviewed. There is no evidence of osteomyelitis. There is no significance bone destruction evident. Assessment & Plan - Diagnosis (1) Charcot foot due to diabetes mellitus Is this a current diagnosis for this admission?: Yes (2) Diabetic foot infection Is this a current diagnosis for this admission?: Yes - Plan Summary Plan Summary: The patient has a significant infection of the midfoot associated with diabetic arthropathy and Charcot foot. We have had a long discussion regarding treatment alternatives. Dr. Hill had recommended a below-knee amputation. I have discussed with the patient that this is certainly a reasonable option for treatment of this problem. I have discussed with the patient that long-term he will almost certainly require an amputation of the foot. At the present time, however; the patient may be a candidate for limb salvage with aggressive specialized treatment by a foot surgeon with specialty in diabetic arthropathy and Charcot foot. This conclusion is based on the clinically well-maintained vascularity of the foot which may be able to support wound healing following aggressive debridement. I discussed with the patient that he would require aggressive debridement of the foot and long-term wound care. I also discussed with the patient that even in a specialized center, he may require an amputation of the extremity based on surgical findings at the time of debridement. In addition, we have discussed that despite aggressive debridement and wound care, he still may end up with an amputation if the debrided wound fails to heal effectively. Following this david discussion of treatment options I asked the patient if he would prefer amputation as definitive treatment or transfer to a tertiary center for care with a diabetic behavior management specialist. His response was that he wished to discuss these alternatives with his .
[2019-12-22] MEDS: DOCUSATE SODIUM 100 MG CAPSULE PO SCH ×2 (09:52→17:01)
[2019-12-22] MEDS: DULOXETINE HCL 30 MG CAPSULE.DR PO SCH (09:52)
[2019-12-22] MEDS: FAMOTIDINE 20 MG TABLET PO SCH (09:52)
[2019-12-22] MEDS ORDERED: LOSARTAN POTASSIUM 50 MG TABLET PO SCH (10:00)
[2019-12-22] MEDS ORDERED: INSULIN DEGLUDEC SUBCUT SCH (10:00)
--- NOTE | 2019-12-22 11:45 | PDOC PROGRESS REPORT ---
Subjective Progress Note for:: 12/22/19 Subjective:: Patient complains of: Fever History of Present Illness: PEE DOUGHERTY is a 39 year old male who presented to the emergency room with a 3 day history of fever. He admits a persistent low-grade fever at home for the l ast 3 days and being instructed by Dr. Salamanca from the wound care clinic to come the emergency room for further evaluation. His fever has been accompanied by intermittent moderate nausea. He further admits a chronic left foot nonpressure ulcer/wound which is being managed at the wound care clinic. He denies other associated or accompanying signs and symptoms. He has not identified any aggravating or ameliorating factors for his low-grade fever. He admits prior similar episodes related to wound infections. In the emergency room he was found to have a modestly elevated white blood count with a foot x-ray showing soft tissues of the medial aspect of the left foot with swelling and possible gas formation. Patient was started on empiric antibiotic therapy in the emergency room and the emergency room physician consulted with the general surgeon Dr. Hill who requested that the hospitalist service admit the patient and consult him for care. Patient was subsequently admitted to the hospital for further evaluation and treatment. Blood and wound cultures are pending. Interval history: 12/22/2019: Patient was seen and examined. His white count improved. He is tolerating diet. He was evaluated by Dr. Hill and Dr. Pham. Patient was offered the option of amputation versus transfer to [facility]. He is asking to discuss with his before making a decision. Reason For Visit: DIABETIC FOOT INJECTION,DIABETES MELLITUS TYPE 1, Physical Exam Vital Signs: Temp Pulse Resp BP Pulse Ox 98.2 F 97 24 H 146/69 H 95 12/22/19 07:30 12/22/19 07:30 12/22/19 07:30 12/22/19 07:30 12/22/19 07:30 Intake & Output 12/21/19 12/22/19 12/23/19 06:59 06:59 06:59 Intake Total 2150 100 Output Total 2275 Balance -125 100 Weight 86 lb 6.739 oz 306 lb 7.08 oz General appearance: PRESENT: no acute distress, cooperative, morbidly obese Eye exam: PRESENT: EOMI, PERRLA Mouth exam: PRESENT: neck supple, tongue midline Neck exam: ABSENT: meningismus, tenderness, tracheostomy Respiratory exam: PRESENT: clear to auscultation aleja. ABSENT: accessory muscle use Cardiovascular exam: PRESENT: RRR, +S1, +S2 GI/Abdominal exam: PRESENT: normal bowel sounds. ABSENT: tenderness Rectal exam: PRESENT: deferred Extremities exam: PRESENT: +2 edema, other - Left Charcot foot Neurological exam: PRESENT: alert, awake, oriented to person, oriented to place, oriented to time, oriented to situation Psychiatric exam: PRESENT: appropriate affect, normal mood Results Laboratory Results: 12/22/19 06:38 12/22/19 06:38 12/21/19 12/22/19 12/22/19 14:55 06:38 06:38 WBC 10.9 H RBC 3.51 L Hgb 10.5 L Hct 29.7 L MCV 85 MCH 29.8 MCHC 35.2 RDW 14.3 H Plt Count 327 Sodium 133.8 L Potassium 4.3 Chloride 100 Carbon Dioxide 23 Anion Gap 11 BUN 33 H Creatinine 1.79 H Est GFR ( Amer) 51 L Glucose 326 H Calcium 8.6 Magnesium 2.1 C-Reactive Protein 383.2 H 12/21/19 01:50 Foot - Diabetic Ulcer Gram Stain - Final Impressions: Chest X-Ray 12/20/19 22:11 IMPRESSION: Overall improvement in lung volumes and aeration. No pneumonia or edema. Foot X-Ray 12/20/19 22:12 IMPRESSION: Extensive soft tissue swelling and soft tissue gas medially. No radiographic evidence for acute osseous abnormality. copyright 2010 [employer]- All Rights Reserved Assessment and Plan - Diagnosis (1) Diabetic foot infection Is this a current diagnosis for this admission?: Yes Plan: Continue current antibiotics. Appreciate evaluation from Dr. Hill and Dr. Pham. Patient is deciding whether to go ahead with amputation versus transfer to [facility]. (2) Gas gangrene Is this a current diagnosis for this admission?: Yes Plan: Antibiotics as above. (3) Leukocytosis Qualifiers: Leukocytosis type: unspecified Qualified Code(s): D72.829 - Elevated white blood cell count, unspecified Is this a current diagnosis for this admission?: Yes Plan: Improved (4) Type 1 diabetes mellitus with morbid obesity Is this a current diagnosis for this admission?: Yes Plan: Continue current insulin regimen. Monitor glucose levels. (5) Morbid obesity with BMI of 40.0-44.9, adult Is this a current diagnosis for this admission?: Yes Plan: Patient was counseled - Plan Summary Summary: Patient will be admitted to the medical floor where he received routine supportive and symptomatic cares. He will be started on IV vancomycin in addition to the IV Zosyn which he received in the emergency room. Blood and wound cultures are pending. Dr. Hill will be consulted for surgical management per his specific request. Patient will receive morphine sulfate 2 to 4 mg IV every 2 hours as needed for pain control using a sliding pain scale for dosing. Patient received Ativan 1 mg IV every 4 hours as needed for anxiety or restlessness. Before meals and at bedtime Accu-Cheks to be performed with sliding scale insulin used for hyperglycemia and a hypoglycemic protocol in place. Patient will be continued on his usual medications from home as appropriate as soon as his medication list has been verified and reconciled.
[2019-12-22] MEDS: NORMAL SALINE 1000 ML 1,000 ML IV PRN (13:50)
--- NOTE | 2019-12-22 14:28 | RADIOLOGY REPORT (SQ) ---
EXAM DESCRIPTION: MRI LT LOWER EXTREMITY COMBO IMAGES COMPLETED DATE/TIME: 12/22/2019 2:09 pm REASON FOR STUDY: foot infection COMPARISON: None. TECHNIQUE: Multiplanar imaging of the left forefoot to include T1-weighted, postcontrast T1-weighted , and T2-weighted images. CONTRAST TYPE AND DOSE: 15 mL Prohance. RENAL FUNCTION: Not indicated. ACR Type II contrast agent associated with few, if any, unconfounded cases of NSF LIMITATIONS: Excessive motion. FINDINGS: BONE MARROW: Normal. No cortical breakthrough. SOFT TISSUES: No soft tissue abscess or swelling. OTHER: Soft tissue mass along the plantar aspect base of the 1st metatarsal. Gas within the soft tis sues. IMPRESSION: NO EVIDENCE FOR OSTEOMYELITIS. TECHNICAL DOCUMENTATION: JOB ID: [id number] 2010 [employer]- All Rights Reserved Reading location - IP/workstation name: [email or web address]
[2019-12-22] MEDS: ACETAMINOPHEN 325 MG TABLET PO PRN (16:47)
[2019-12-22] MEDS: ATORVASTATIN CALCIUM 40 MG TABLET PO SCH (21:27)
[2019-12-23] MEDS: PIPERACILLIN SODIUM/TAZOBACTAM 3.375 GM in NORMAL SALINE 100 ML IV SCH ×2 (03:20→09:54)
[2019-12-23] MEDS: NORMAL SALINE 1000 ML 1,000 ML IV PRN ×3 (03:21→22:00)
[2019-12-23 04:51] LABS: HEMOGLOBIN 9.8 g/dL (13.5-17.0); MEAN CORPUSCULAR HEMOGLOBIN 28.5 pg (27.0-33.4); MEAN CORPUSCULAR HGB CONC 33.7 g/dL (32.0-36.0); MEAN CORPUSCULAR VOLUME 85 fl (80-97); PLATELET COUNT 307 10^3/uL (150-450); RED BLOOD COUNT 3.43 10^6/uL (4.35-5.55); RED CELL DISTRIBUTION WIDTH 14.2 % (11.5-14.0); WHITE BLOOD COUNT 7.6 10^3/uL (4.0-10.5)
[2019-12-23 05:08] LABS: ANION GAP 11 (5-19); BLOOD UREA NITROGEN 46 mg/dL (7-20); CALCIUM 8.1 mg/dL (8.4-10.2); CARBON DIOXIDE 20 mmol/L (22-30); CHLORIDE 98 mmol/L (98-107); POTASSIUM 4.6 mmol/L (3.6-5.0)
[2019-12-23 05:20] LABS: GLUCOSE 434 mg/dL (75-110)
[2019-12-23] MEDS ORDERED: INSULIN LISPRO 100 UNIT/ML 3 ML VIAL SUBCUT ONE ×2 (06:00→12:00)
[2019-12-23] MEDS: HYDRALAZINE HCL 50 MG TABLET PO SCH ×3 (06:03→22:02)
[2019-12-23] MEDS: HEPARIN SOD (PORCINE) 5,000 UNIT/ML 1 ML VIAL SUBCUT SCH ×3 (06:03→22:03)
[2019-12-23] MEDS: GABAPENTIN 300 MG CAPSULE PO SCH ×3 (06:03→22:02)
[2019-12-23] MEDS: INSULIN LISPRO 100 UNIT/ML 3 ML VIAL SUBCUT SCH ×7 (08:34→22:01)
[2019-12-23] MEDS: METOPROLOL TARTRATE 100 MG TABLET PO SCH ×2 (09:54→22:02)
[2019-12-23] MEDS: DOCUSATE SODIUM 100 MG CAPSULE PO SCH ×2 (09:55→17:48)
[2019-12-23] MEDS: DULOXETINE HCL 30 MG CAPSULE.DR PO SCH (09:55)
[2019-12-23] MEDS: ASPIRIN 81 MG TABLET, ENT COATED PO SCH (09:55)
[2019-12-23] MEDS: FAMOTIDINE 20 MG TABLET PO SCH (09:55)
[2019-12-23] MEDS ORDERED: INSULIN GLARGINE,HUM.REC.ANLOG 1,000 UNIT/10 ML VIAL SUBCUT SCH ×2 (10:00)
--- NOTE | 2019-12-23 10:04 | PDOC PROGRESS REPORT ---
Subjective Progress Note for:: 12/23/19 Subjective:: The patient is resting in bed. He does not appear to be in acute distress. I have spoken with the nurses on this morning regarding his markedly high serum glucose levels (greater than 400). Reason For Visit: DIABETIC FOOT INJECTION,DIABETES MELLITUS TYPE 1, Physical Exam Vital Signs: Temp Pulse Resp BP Pulse Ox 99.2 F 81 19 133/83 H 90 L 12/23/19 04:22 12/23/19 04:22 12/23/19 04:22 12/23/19 04:22 12/23/19 04:22 Intake & Output 12/22/19 12/23/19 12/24/19 06:59 06:59 06:59 Intake Total 2150 4888 658 Output Total 2275 925 Balance -125 3963 658 Weight 139 kg 136.6 kg General appearance: PRESENT: no acute distress, cooperative, morbidly obese, well-developed Head exam: PRESENT: atraumatic, normocephalic Eye exam: PRESENT: conjunctiva pink. ABSENT: scleral icterus Ear exam: PRESENT: normal external ear exam. ABSENT: bleeding, drainage Mouth exam: PRESENT: moist, tongue midline Respiratory exam: PRESENT: clear to auscultation aleja, symmetrical, unlabored. ABSENT: prolonged expiratory phas, rales, rhonchi, tachypnea, wheezes Cardiovascular exam: PRESENT: RRR, +S1, +S2. ABSENT: diastolic murmur, systolic murmur GI/Abdominal exam: PRESENT: distended, normal bowel sounds, soft. ABSENT: guarding, tenderness Rectal exam: PRESENT: deferred Extremities exam: PRESENT: pedal edema Musculoskeletal exam: PRESENT: deformity - charcot deformity of the right foot. The left foot has a bulky dressing but it is currently remarkably larger than the right foot. There is evidence of some drainage on the gauze dressing as well. Neurological exam: PRESENT: alert, awake, oriented to person, oriented to place, oriented to time, oriented to situation, CN II-XII grossly intact, motor sensory deficit - Decreased sensation in left foot due to neuropathy. ABSENT: altered Psychiatric exam: PRESENT: appropriate affect. ABSENT: agitated, anxious Focused psych exam: ABSENT: delusional, paranoid, restlessness Skin exam: PRESENT: erythema - Left foot, other - Chronic pigment deposition bilateral lower extremities Results Laboratory Results: 12/23/19 04:42 12/23/19 04:42 12/23/19 12/23/19 04:42 04:42 WBC 7.6 RBC 3.43 L Hgb 9.8 L Hct 29.0 L MCV 85 MCH 28.5 MCHC 33.7 RDW 14.2 H Plt Count 307 Sodium 128.7 L Potassium 4.6 Chloride 98 Carbon Dioxide 20 L Anion Gap 11 BUN 46 H Creatinine 2.54 H Est GFR ( Amer) 34 L Glucose 434 H* Calcium 8.1 L Magnesium 2.2 12/21/19 01:50 Foot - Diabetic Ulcer Gram Stain - Final Impressions: Chest X-Ray 12/20/19 22:11 IMPRESSION: Overall improvement in lung volumes and aeration. No pneumonia or edema. Foot X-Ray 12/20/19 22:12 IMPRESSION: Extensive soft tissue swelling and soft tissue gas medially. No radiographic evidence for acute osseous abnormality. copyright 2010 [employer]- All Rights Reserved Lower Extremity MRI 12/22/19 00:00 IMPRESSION: NO EVIDENCE FOR OSTEOMYELITIS. Assessment and Plan - Diagnosis (1) Charcot foot due to diabetes mellitus Is this a current diagnosis for this admission?: Yes (2) Abscess of left foot Is this a current diagnosis for this admission?: Yes (3) Hyperglycemia due to type 1 diabetes mellitus Is this a current diagnosis for this admission?: Yes (4) Diabetic foot infection Is this a current diagnosis for this admission?: Yes (5) Leukocytosis Qualifiers: Leukocytosis type: unspecified Qualified Code(s): D72.829 - Elevated white blood cell count, unspecified Is this a current diagnosis for this admission?: Yes (6) Type 1 diabetes mellitus with morbid obesity Is this a current diagnosis for this admission?: Yes (7) Morbid obesity with BMI of 40.0-44.9, adult Is this a current diagnosis for this admission?: Yes (8) Hypertension Qualifiers: Hypertension type: essential hypertension Qualified Code(s): I10 - Essential (primary) hypertension Is this a current diagnosis for this admission?: Yes (9) Acute kidney injury Is this a current diagnosis for this admission?: Yes - Plan Summary Summary: Patient will be admitted to the medical floor where he received routine supportive and symptomatic cares. He will be started on IV vancomycin in addition to the IV Zosyn which he received in the emergency room. Blood and wound cultures are pending. Dr. Hill will be consulted for surgical management per his specific request. Patient will receive morphine sulfate 2 to 4 mg IV every 2 hours as needed for pain control using a sliding pain scale for dosing. Patient received Ativan 1 mg IV every 4 hours as needed for anxiety or restlessness. Before meals and at bedtime Accu-Cheks to be performed with sli ding scale insulin used for hyperglycemia and a hypoglycemic protocol in place. Patient will be continued on his usual medications from home as appropriate as soon as his medication list has been verified and reconciled. 12/23/2019 The patient's glucose was greater than 400 today. And multiple changes will be made with his insulin regimen. His hemoglobin A1c was 9.8 reflecting very poor control. His white blood cell count has improved with antibiotic therapy. The culture from the foot revealed Proteus, group B strep and multiple anaerobic organisms. Infectious disease is consulting. Currently on Zosyn which will cover the current bacterial gideon. We will continue his antihypertensive medications. He has serum creatinine is elevated due to an acute kidney injury. This is most likely due to his infection. We will continue his IV fluids and monitor his renal function. Continue antihypertensive medications and monitor blood pressure I spent 60 minutes with the patient. More than half of that time was dedicated to discussion regarding his intervention options. I explained that his physicians have been working on this with for 3 years and it is only gotten worse. I explained that in my experience with wound care and hyperbaric therapy as well as long-term acute care hospital care the patient will need an amputation at some point. I pointed out that with amputation at this time he will not lose the next 1 to 2 years struggling to try and get the foot better when it will only go to the amputation eventually. Hyperbaric oxygen therapy is not an option with the active infection. We reviewed the MRI scan showing no bony destruction of the foot as well. The patient feels that the majority of his questions are answered. I told him we will review this at the next visit. At this point I believe the amputation is the best course of therapy for this patient. He will then be able to focus on significantly improving daily his regimen for diabetes and to try and prevent or slow the progression of the right Charcot foot. - Time Time Spent with patient: 35 or more minutes Medications reviewed and adjusted accordingly: Yes
[2019-12-23 11:11] LABS: VANCOMYCIN,TROUGH 28.9 ug/mL (5.0-20.0)
--- NOTE | 2019-12-23 13:43 | Progress Note ---
Provider Note Provider Note: [facility] ID Telephone Advice Consultation Chart reviewed. Patient is a 39-year-old man with severe Charcot foot deformity due to uncontrolled DM, history of hypertension, admitted due to worsening foot wound. He has been evaluated by surgery which recommended below knee amputation. Ortho surgery evaluation offered salvage of the limb with aggressive debridement and antibiotic therapy. However, this would have to be done on a tertiary center. Initial attempt to transfer to [facility] was unsuccessful. Patient is deciding if he wants an amputation or if further debridement with specialists in Charcot foot. He has been on broad spectrum antibiotics. MRI of the foot did not show evidence of osteomyelitis, but there is a large defect in the midfoot due to severe infection. ID consulted for recommendations. Allergies: No Known Allergies Allergy (Verified 12/20/19 20:11) Medications: Aspirin [Adult Low Dose Aspirin EC] 81 mg PO DAILY 08/11/19 Duloxetine HCl [Cymbalta] 60 mg PO DAILY 08/11/19 Hydroxyzine HCl [Atarax 25 mg Tablet] 1 tab PO BIDP PRN 08/11/19 Metoprolol Tartrate [Lopressor 100 mg Tablet] 100 mg PO Q12 08/11/19 Insulin Aspart [Novolog Flexpen] 16 unit SUBCUT AC 08/12/19 Insulin Aspart [Novolog] 0 units PUMP .CONTINUOUS 08/12/19 Insulin Degludec [Tresiba Flextouch U-100] 94 unit SQ DAILY 08/12/19 Famotidine [Pepcid 20 mg Tablet] 20 mg PO DAILY 12/21/19 Furosemide [Lasix 40 mg Tablet] 40 mg PO DAILY 12/21/19 Gabapentin [Neurontin 300 mg Capsule] 300 mg PO TID 12/21/19 Hydralazine HCl [Apresoline 50 mg Tablet] 50 mg PO TID 12/21/19 Ibuprofen [Advil Liqui-Gels] 400 mg PO BIDP PRN 12/21/19 Losartan Potassium [Cozaar 50 mg Tablet] 25 mg PO DAILY 12/21/19 Vital Signs: Temp Pulse Resp BP Pulse Ox 99.2 F 81 19 133/83 H 90 L 12/23/19 04:22 12/23/19 04:22 12/23/19 04:22 12/23/19 04:22 12/23/19 04:22 Intake & Output 12/22/19 12/23/1912/23/20 06:59 06:59 06:59 Intake Total 3681 4888 658 Output Total 5724 925 Balance -125 3963 658 Weight 139 kg 136.6 kg Weight/Height Weight 136.6 kg Height 6 ft Laboratories: 12/23/19 04:42 12/23/19 04:42 MCV 85 fl (80-97) 12/23/19 04:42 MCH 28.5 pg (27.0-33.4) 12/23/19 04:42 MCHC 33.7 g/dL (32.0-36.0) 12/23/19 04:42 RDW 14.2 % (11.5-14.0) H 12/23/19 04:42 Seg Neutrophils % 85.8 % (42-78) H 12/20/19 23:46 Chloride 98 mmol/L (98-107) 12/23/19 04:42 Carbon Dioxide 20 mmol/L (22-30) L 12/23/19 04:42 Anion Gap 11 (5-19) 12/23/19 04:42 Est GFR ( Amer) 34 (>60) L 12/23/19 04:42 Glucose 434 mg/dL (75-110) H* 12/23/19 04:42 Lactic Acid 0.7 mmol/L (0.7-2.1) 12/20/19 23:46 Calcium 8.1 mg/dL (8.4-10.2) L 12/23/19 04:42 Magnesium 2.2 mg/dL (1.6-2.3) 12/23/19 04:42 Total Bilirubin 0.9 mg/dL (0.2-1.3) 12/20/19 23:46 AST 26 U/L (17-59) 12/20/19 23:46 Alkaline Phosphatase 203 U/L (38-126) H 12/20/19 23:46 C-Reactive Protein 383.2 mg/L (<10.0) H 12/21/19 14:55 Total Protein 6.4 g/dL (6.3-8.2) 12/20/19 23:46 Albumin 3.2 g/dL (3.5-5.0) L 12/20/19 23:46 Urine Color YELLOW 05/12/20 22:18 Urine Appearance CLEAR 12/20/19 22:18 Urine pH 5.0 (5.0-9.0) 12/20/19 22:18 Ur Specific [place] 1.016 12/20/19 22:18 Urine Protein 100 mg/dL (NEGATIVE) H 12/20/19 22:18 Urine Glucose (UA) >=1000 mg/dL (NEGATIVE) H 12/20/19 22:18 Urine Ketones NEGATIVE mg/dL (NEGATIVE) 12/20/19 22:18 Urine Blood NEGATIVE (NEGATIVE) 12/20/19 22:18 12/21/19 01:50 Foot - Diabetic Ulcer Gram Stain - Final Microbiology: Blood culture 12/19 Negative Wound culture 12/20 Proteus spp, GBS Radiology: Chest X-Ray 12/20/19 22:11 IMPRESSION: Overall improvement in lung volumes and aeration. No pneumonia or edema. Foot X-Ray 12/20/19 22:12 IMPRESSION: Extensive soft tissue swelling and soft tissue gas medially. No radiographic evidence for acute osseous abnormality. Lower Extremity MRI 12/22/19 00:00 IMPRESSION: NO EVIDENCE FOR OSTEOMYELITIS. Assessment and Recommendations: Patient evaluated for severe infection of the midfoot in the setting of Charcot deformity and uncontrolled Diabetes mellitus. Even though the definitive treatment option of this infection would be BKA, patient is considering salvage of the foot with aggressive debridement and antibiotic therapy, which would have to be done at a tertiary center. Blood cultures are negative. Wound cultures are positive for Proteus mirabilis and GBS with a mixture of anaerobes. MRI negative for osteomyelitis. If patient will try salvage of the limb with debridement, ceftriaxone 2g iv daily with metronidazole 500 mg bid or ertapenem 2g iv daily would be adequate. He is on zosyn, but no pseudomonal coverage needed. MRSA was not isolated, no need for vancomycin. Duration of therapy will depend on the extent of the infection. If suspected bone involvement with osteomyelitis, 6 weeks of therapy recommended. If soft tissue infection, 2 weeks recommended. I believe that considering the severity of the infection, a 6 week course would offer a better chance of salvaging the limb combining it with aggressive debridement. There is no guarantee that this approach will salvage the limb, therapy can still fail and patient may ultimately require an amputation. While on therapy, please monitor CBC, CMP, ESR and CRP. Please remove PICC line at completion of therapy. If patient decides to have a BKA, only 5 days postoperatively are recommended. Please call if any questions. Letty Pete MD [facility] ID [phone]
[2019-12-23] MEDS: CEFTRIAXONE 2 GM/D5W RTU 2 GM/50 ML RTUPB IV SCH (17:48)
[2019-12-23] MEDS: ACETAMINOPHEN 325 MG TABLET PO PRN (17:55)
[2019-12-23] MEDS: METRONIDAZOLE 500 MG/NS RTU 500 MG/100 ML RTUPB IV SCH (22:01)
[2019-12-23] MEDS: INSULIN GLARGINE,HUM.REC.ANLOG 1,000 UNIT/10 ML VIAL SUBCUT SCH (22:02)
[2019-12-23] MEDS: ATORVASTATIN CALCIUM 40 MG TABLET PO SCH (22:02)
[2019-12-24] MEDS: ACETAMINOPHEN 325 MG TABLET PO PRN (02:32)
[2019-12-24] MEDS: GABAPENTIN 300 MG CAPSULE PO SCH ×3 (05:26→21:29)
[2019-12-24] MEDS: HYDRALAZINE HCL 50 MG TABLET PO SCH ×3 (05:26→21:29)
[2019-12-24] MEDS: HEPARIN SOD (PORCINE) 5,000 UNIT/ML 1 ML VIAL SUBCUT SCH ×3 (05:30→21:30)
[2019-12-24 06:32] LABS: HEMATOCRIT 27.7 % (37.9-51.0); HEMOGLOBIN 9.6 g/dL (13.5-17.0); MEAN CORPUSCULAR HEMOGLOBIN 29.3 pg (27.0-33.4); MEAN CORPUSCULAR HGB CONC 34.7 g/dL (32.0-36.0); MEAN CORPUSCULAR VOLUME 84 fl (80-97); PLATELET COUNT 315 10^3/uL (150-450); RED BLOOD COUNT 3.28 10^6/uL (4.35-5.55); RED CELL DISTRIBUTION WIDTH 13.8 % (11.5-14.0); WHITE BLOOD COUNT 8.3 10^3/uL (4.0-10.5)
[2019-12-24 06:57] LABS: ANION GAP 12 (5-19); BLOOD UREA NITROGEN 53 mg/dL (7-20); CARBON DIOXIDE 18 mmol/L (22-30); CHLORIDE 99 mmol/L (98-107); GLUCOSE 276 mg/dL (75-110); POTASSIUM 4.1 mmol/L (3.6-5.0)
[2019-12-24] MEDS: INSULIN LISPRO 100 UNIT/ML 3 ML VIAL SUBCUT SCH ×7 (07:38→21:30)
[2019-12-24] MEDS: HYDRALAZINE HCL INJ/PF 20 MG/1 ML SDV IV PRN ×2 (08:31→15:33)
[2019-12-24] MEDS: NORMAL SALINE 1000 ML 1,000 ML IV PRN ×3 (08:33→18:29)
[2019-12-24] MEDS: DOCUSATE SODIUM 100 MG CAPSULE PO SCH ×2 (09:21→17:07)
[2019-12-24] MEDS: METOPROLOL TARTRATE 100 MG TABLET PO SCH ×2 (09:21→21:29)
[2019-12-24] MEDS: FAMOTIDINE 20 MG TABLET PO SCH (09:22)
[2019-12-24] MEDS: DULOXETINE HCL 30 MG CAPSULE.DR PO SCH (09:22)
[2019-12-24] MEDS: INSULIN GLARGINE,HUM.REC.ANLOG 1,000 UNIT/10 ML VIAL SUBCUT SCH ×2 (09:22→21:29)
[2019-12-24] MEDS: METRONIDAZOLE 500 MG/NS RTU 500 MG/100 ML RTUPB IV SCH ×2 (09:22→21:28)
[2019-12-24] MEDS: ASPIRIN 81 MG TABLET, ENT COATED PO SCH (09:22)
--- NOTE | 2019-12-24 11:16 | PDOC PROGRESS REPORT ---
Subjective Progress Note for:: 12/24/19 Subjective:: The patient has thought heart overnight and discussed it with his and father and several relatives and has decided to move forward with the below-knee amputation of his left leg. Unfortunately his serum creatinine continues to rise. Reason For Visit: DIABETIC FOOT INJECTION,DIABETES MELLITUS TYPE 1, Physical Exam Vital Signs: Temp Pulse Resp BP Pulse Ox 98.0 F 79 16 178/68 H 93 12/24/19 07:11 12/24/19 07:11 12/24/19 07:11 12/24/19 07:11 12/24/19 08:19 Intake & Output 12/23/19 12/24/19 12/25/19 06:59 06:59 06:59 Intake Total 4888 3341 1100 Output Total 925 575 Balance 3963 2766 1100 Weight 136.6 kg 136.6 kg General appearance: PRESENT: no acute distress, cooperative, morbidly obese, well-developed Head exam: PRESENT: atraumatic, normocephalic Eye exam: PRESENT: conjunctiva pale, EOMI. ABSENT: scleral icterus Ear exam: PRESENT: normal external ear exam. ABSENT: bleeding, drainage Mouth exam: PRESENT: moist, tongue midline Respiratory exam: PRESENT: clear to auscultation aleja, symmetrical, unlabored. ABSENT: rales, rhonchi, tachypnea, wheezes Cardiovascular exam: PRESENT: RRR, +S1, +S2. ABSENT: diastolic murmur, irregular rhythm, systolic murmur GI/Abdominal exam: PRESENT: distended, normal bowel sounds, soft, other - Protuberant abdomen. ABSENT: guarding, tenderness Rectal exam: PRESENT: deferred Gentrourinary exam: PRESENT: indwelling catheter Extremities exam: PRESENT: +1 edema Musculoskeletal exam: PRESENT: deformity - Charcot foot on the right, Charcot foot on the left with massive medial abscess Neurological exam: PRESENT: alert, awake, oriented to person, oriented to place, oriented to time, oriented to situation, CN II-XII grossly intact. ABSENT: altered Psychiatric exam: PRESENT: appropriate affect. ABSENT: agitated, anxious Focused psych exam: ABSENT: delusional, paranoid, restlessness Skin exam: PRESENT: dry, warm, other - Chronic pigment deposition lower legs distally. ABSENT: rash Results Laboratory Results: 12/24/19 06:24 12/24/19 06:24 12/24/19 12/24/19 06:24 06:24 WBC 8.3 RBC 3.28 L Hgb 9.6 L Hct 27.7 L MCV 84 MCH 29.3 MCHC 34.7 RDW 13.8 Plt Count 315 Sodium 129.4 L Potassium 4.1 Chloride 99 Carbon Dioxide 18 L Anion Gap 12 BUN 53 H Creatinine 3.63 H Est GFR ( Amer) 23 L Glucose 276 H Calcium 8.0 L Magnesium 2.0 12/21/19 01:50 Foot - Diabetic Ulcer Gram Stain - Final Impressions: Chest X-Ray 12/20/19 22:11 IMPRESSION: Overall improvement in lung volumes and aeration. No pneumonia or edema. Foot X-Ray 12/20/19 22:12 IMPRESSION: Extensive soft tissue swelling and soft tissue gas medially. No radiographic evidence for acute osseous abnormality. copyright 2010 [employer]- All Rights Reserved Lower Extremity MRI 12/22/19 00:00 IMPRESSION: NO EVIDENCE FOR OSTEOMYELITIS. Assessment and Plan - Diagnosis (1) Charcot foot due to diabetes mellitus Is this a current diagnosis for this admission?: Yes (2) Abscess of left foot Is this a current diagnosis for this admission?: Yes (3) Hyperglycemia due to type 1 diabetes mellitus Is this a current diagnosis for this admission?: Yes (4) Diabetic foot infection Is this a current diagnosis for this admission?: Yes (5) Leukocytosis Qualifiers: Leukocytosis type: unspecified Qualified Code(s): D72.829 - Elevated white blood cell count, unspecified Is this a current diagnosis for this admission?: Yes (6) Type 1 diabetes mellitus with morbid obesity Is this a current diagnosis for this admission?: Yes (7) Morbid obesity with BMI of 40.0-44.9, adult Is this a current diagnosis for this admission?: Yes (8) Hypertension Qualifiers: Hypertension type: essential hypertension Qualified Code(s): I10 - Essential (primary) hypertension Is this a current diagnosis for this admission?: Yes (9) Acute kidney injury Is this a current diagnosis for this admission?: Yes - Plan Summary Summary: Patient will be admitted to the medical floor where he received routine supportive and symptomatic cares. He will be started on IV vancomycin in addition to the IV Zosyn which he received in the emergency room. Blood and wound cultures are pending. Dr. Hill will be consulted for surgical management per his specific request. Patient will receive morphine sulfate 2 to 4 mg IV every 2 hours as needed for pain control using a sliding pain scale for dosing. Patient received Ativan 1 mg IV every 4 hours as needed for anxiety or restlessness. Before meals and at bedtime Accu-Cheks to be performed with sliding scale insulin used for hyperglycemia and a hypoglycemic protocol in place. Patient will be continued on his usual medications from home as appropriate as soon as his medication list has been verified and reconciled. 12/23/2019 The patient's glucose was greater than 400 today. And multiple changes will be made with his insulin regimen. His hemoglobin A1c was 9.8 reflecting very poor control. His white blood cell count has improved with antibiotic therapy. The culture from the foot revealed Proteus, group B strep and multiple anaerobic organisms. Infectious disease is consulting. Currently on Zosyn which will cover the current bacterial gideon. We will continue his antihypertensive medications. He has serum creatinine is elevated due to an acute kidney injury. This is most likely due to his infection. We will continue his IV fluids and monitor his renal function. Continue antihypertensive medications and monitor blood pressure I spent 60 minutes with the patient. More than half of that time was dedicated to discussion regarding his intervention options. I explained that his physicians have been working on this with for 3 years and it is only gotten worse. I explained that in my experience with wound care and hyperbaric therapy as well as long-term acute care hospital care the patient will need an amputation at some point. I pointed out that with amputation at this time he will not lose the next 1 to 2 years struggling to try and get the foot better when it will only go to the amputation eventually. Hyperbaric oxygen therapy is not an option with the active infection. We reviewed the MRI scan showing no bony destruction of the foot as well. The patient feels that the majority of his questions are answered. I told him we will review this at the next visit. At this point I believe the amputation is the best course of therapy for this patient. He will then be able to focus on significantly improving daily his regimen for diabetes and to try and prevent or slow the progression of the right Charcot foot. 12/24/2019 The patient has had a significant amount of discussion with multiple family members including his and father. He wishes to proceed with the left below-knee amputation. Dr. Hill will revisit the patient today to initiate the process. His sugars are still poorly controlled but much better than the 400s that he was exhibiting yesterday. We will continue to slowly increase his regimen but try to avoid hypoglycemia His serum creatinine is increased again. I believe this could be related to the supratherapeutic vancomycin level. Vancomycin has been discontinued. We will continue fluids. We will check laboratory studies tomorrow. He is still hyponatremic. He is on normal saline. I will reassess postoperatively and make adjustments to his regimen. I still believe that is related to the kidney injury. The remainder of his regimen will continue unchanged. - Time Time Spent with patient: 15-24 minutes Medications reviewed and adjusted accordingly: Yes
[2019-12-24] MEDS ORDERED: FUROSEMIDE INJ/PF 20 MG/2 ML SDV IV ONE (12:00)
[2019-12-24] MEDS: AMLODIPINE BESYLATE 5 MG TABLET PO SCH (12:11)
--- NOTE | 2019-12-24 13:55 | PDOC PROGRESS REPORT ---
Subjective Progress Note for:: 12/24/19 Subjective:: 39-year-old male with a diabetic foot infection related to a Charcot foot. Patient denies chest pain, shortness of breath, fevers, chills, nausea, vomiting, headache, dizziness, orthostasis, blurry vision. He does continue to complain of pain in the foot. I was asked to reevaluate him regarding amputation of the foot. Reason For Visit: DIABETIC FOOT INJECTION,DIABETES MELLITUS TYPE 1, Physical Exam Vital Signs: Temp Pulse Resp BP Pulse Ox 97.8 F 88 16 172/77 H 93 12/24/19 11:00 12/24/19 11:00 12/24/19 11:00 12/24/19 11:00 12/24/19 11:00 Intake & Output 12/23/19 12/24/19 12/25/19 06:59 06:59 06:59 Intake Total 4888 3341 2400 Output Total 925 575 475 Balance 3963 2766 1925 Weight 136.6 kg 136.6 kg General appearance: PRESENT: no acute distress, morbidly obese Head exam: PRESENT: atraumatic, normocephalic Eye exam: PRESENT: EOMI, PERRLA. ABSENT: scleral icterus Mouth exam: PRESENT: moist, neck supple Neck exam: ABSENT: meningismus, tenderness, thyromegaly, tracheal deviation Respiratory exam: PRESENT: unlabored. ABSENT: chest wall tenderness, tachypnea, wheezes Cardiovascular exam: ABSENT: tachycardia GI/Abdominal exam: PRESENT: soft. ABSENT: distended, guarding, tenderness Rectal exam: PRESENT: deferred Extremities exam: PRESENT: other - Bilateral Charcot foot. Large amount of erythema, ulceration, and deformity of the left foot. Musculoskeletal exam: PRESENT: deformity - see extremity exam Neurological exam: PRESENT: alert, awake, oriented to person, oriented to place, oriented to time, oriented to situation Psychiatric exam: ABSENT: agitated, anxious, depressed Focused psych exam: ABSENT: delusional Skin exam: PRESENT: erythema - see extremity exam. ABSENT: cyanosis, jaundice Results Laboratory Results: 12/24/19 06:24 12/24/19 06:24 12/24/19 12/24/19 06:24 06:24 WBC 8.3 RBC 3.28 L Hgb 9.6 L Hct 27.7 L MCV 84 MCH 29.3 MCHC 34.7 RDW 13.8 Plt Count 315 Sodium 129.4 L Potassium 4.1 Chloride 99 Carbon Dioxide 18 L Anion Gap 12 BUN 53 H Creatinine 3.63 H Est GFR ( Amer) 23 L Glucose 276 H Calcium 8.0 L Magnesium 2.0 12/21/19 01:50 Foot - Diabetic Ulcer Gram Stain - Final Impressions: Chest X-Ray 12/20/19 22:11 IMPRESSION: Overall improvement in lung volumes and aeration. No pneumonia or edema. Foot X-Ray 12/20/19 22:12 IMPRESSION: Extensive soft tissue swelling and soft tissue gas medially. No radiographic evidence for acute osseous abnormality. copyright 2010 [employer]- All Rights Reserved Lower Extremity MRI 12/22/19 00:00 IMPRESSION: NO EVIDENCE FOR OSTEOMYELITIS. Assessment & Plan - Diagnosis (1) Charcot foot due to diabetes mellitus Is this a current diagnosis for this admission?: Yes (2) Diabetic foot infection Is this a current diagnosis for this admission?: Yes - Plan Summary Plan Summary: This is a 39-year-old male with a Charcot foot, and evidence of infection on the left. I previously discussed treatment at [facility] for his diabetic foot infection/Charcot foot. I offered him below-knee amputation, which he refused. He has discussed the case with Dr. Pham (orthopedic surgery) and Dr. Hernandez (internal medicine). He is also had the opportunity to discuss his care with his . He is now requesting that left below-knee amputation be performed, has definitive surgical care for his ongoing, longstanding left foot problems. I have again discussed the risks and benefits of this course of action. The patient has agreed to surgery. Informed consent obtained. All questions answered.
[2019-12-24] MEDS: CEFTRIAXONE 2 GM/D5W RTU 2 GM/50 ML RTUPB IV SCH (17:07)
[2019-12-24] MEDS: ATORVASTATIN CALCIUM 40 MG TABLET PO SCH (21:29)
[2019-12-25] MEDS: NORMAL SALINE 1000 ML 1,000 ML IV PRN (00:33)
[2019-12-25] MEDS: HYDRALAZINE HCL 50 MG TABLET PO SCH ×3 (05:38→21:53)
[2019-12-25] MEDS: GABAPENTIN 300 MG CAPSULE PO SCH ×3 (05:39→21:53)
[2019-12-25] MEDS: HEPARIN SOD (PORCINE) 5,000 UNIT/ML 1 ML VIAL SUBCUT SCH ×3 (05:39→21:53)
[2019-12-25 06:21] LABS: HEMATOCRIT 31.4 % (37.9-51.0); MEAN CORPUSCULAR HEMOGLOBIN 29.2 pg (27.0-33.4); MEAN CORPUSCULAR VOLUME 83 fl (80-97); PLATELET COUNT 357 10^3/uL (150-450); RED BLOOD COUNT 3.77 10^6/uL (4.35-5.55); RED CELL DISTRIBUTION WIDTH 14.1 % (11.5-14.0); WHITE BLOOD COUNT 8.7 10^3/uL (4.0-10.5)
[2019-12-25 06:46] LABS: ANION GAP 11 (5-19); BLOOD UREA NITROGEN 47 mg/dL (7-20); CALCIUM 8.8 mg/dL (8.4-10.2); CARBON DIOXIDE 20 mmol/L (22-30); CHLORIDE 106 mmol/L (98-107); GLUCOSE 147 mg/dL (75-110); PHOSPHORUS 5.5 mg/dL (2.5-4.5); POTASSIUM 4.5 mmol/L (3.6-5.0)
[2019-12-25 06:54] LABS: ABSOLUTE LYMPHOCYTES# (MANUAL) 1.2 10^3/uL (0.5-4.7); ABSOLUTE MONOCYTES # (MANUAL) 0.4 10^3/uL (0.1-1.4); BASOPHILS % (MANUAL) 0 % (0-2); EOSINOPHILS % (MANUAL) 2 % (0-6); LYMPHOCYTES % (MANUAL) 14 % (13-45); METAMYELOCYTES % (MANUAL) 1 % (0-1); MONOCYTES % (MANUAL) 5 % (3-13); SEGMENTED NEUTROPHILS % (MAN) 78 % (42-78); TOTAL CELLS COUNTED 100
[2019-12-25 06:55] LABS: ANISOCYTOSIS SLIGHT; PLATELET COMMENT ADEQUATE; POLYCHROMASIA SLIGHT
--- NOTE | 2019-12-25 08:29 | PDOC PROGRESS REPORT ---
Subjective Progress Note for:: 12/25/19 Subjective:: 39-year-old male with a diabetic foot infection related to a Charcot foot. Patient denies chest pain, shortness of breath, fevers, chills, nausea, vomiting, headache, dizziness, orthostasis, blurry vision. He does continue to complain of pain in the foot. Reason For Visit: DIABETIC FOOT INJECTION,DIABETES MELLITUS TYPE 1, Physical Exam Vital Signs: Temp Pulse Resp BP Pulse Ox 98.0 F 87 20 141/65 H 88 L 12/25/19 07:12 12/25/19 07:12 12/25/19 07:12 12/25/19 07:12 12/25/19 07:12 Intake & Output 12/24/19 12/25/19 12/26/19 06:59 06:59 06:59 Intake Total 3341 5290 Output Total 575 4350 Balance 2766 940 Weight 136.6 kg 138.9 kg Exam: General appearance: PRESENT: no acute distress, morbidly obese Head exam: PRESENT: atraumatic, normocephalic Eye exam: PRESENT: EOMI, PERRLA. ABSENT: scleral icterus Mouth exam: PRESENT: moist, neck supple Neck exam: ABSENT: meningismus, tenderness, thyromegaly, tracheal deviation Respiratory exam: PRESENT: unlabored. ABSENT: chest wall tenderness, tachypnea, wheezes Cardiovascular exam: ABSENT: tachycardia GI/Abdominal exam: PRESENT: soft. ABSENT: distended, guarding, tenderness Rectal exam: PRESENT: deferred Extremities exam: PRESENT: other - Bilateral Charcot foot. Large amount of erythema, ulceration, and deformity of the left foot. Musculoskeletal exam: PRESENT: deformity - see extremity exam Neurological exam: PRESENT: alert, awake, oriented to person, oriented to place, oriented to time, oriented to situation Psychiatric exam: ABSENT: agitated, anxious, depressed Focused psych exam: ABSENT: delusional Skin exam: PRESENT: erythema - see extremity exam. ABSENT: cyanosis, jaundice Results Laboratory Results: 12/25/19 05:43 12/25/19 05:43 12/25/19 12/25/19 05:43 05:43 WBC 8.7 RBC 3.77 L Hgb 11.0 L Hct 31.4 L MCV 83 MCH 29.2 MCHC 35.0 RDW 14.1 H Plt Count 357 Seg Neutrophils % Not Reportable Sodium 136.7 L Potassium 4.5 Chloride 106 Carbon Dioxide 20 L Anion Gap 11 BUN 47 H Creatinine 3.04 H Est GFR ( Amer) 28 L Glucose 147 H Calcium 8.8 Phosphorus 5.5 H Magnesium 2.0 Albumin 3.0 L 12/21/19 01:50 Foot - Diabetic Ulcer Gram Stain - Final Impressions: Chest X-Ray 12/20/19 22:11 IMPRESSION: Overall improvement in lung volumes and aeration. No pneumonia or edema. Foot X-Ray 12/20/19 22:12 IMPRESSION: Extensive soft tissue swelling and soft tissue gas medially. No radiographic evidence for acute osseous abnormality. copyright 2010 [employer]- All Rights Reserved Lower Extremity MRI 12/22/19 00:00 IMPRESSION: NO EVIDENCE FOR OSTEOMYELITIS. Assessment & Plan - Diagnosis (1) Charcot foot due to diabetes mellitus Is this a current diagnosis for this admission?: Yes (2) Diabetic foot infection Is this a current diagnosis for this admission?: Yes - Plan Summary Plan Summary: This is a 39-year-old male with a Charcot foot, and evidence of infection on the left. He is now requesting that left below-knee amputation be performed, as definitive surgical care for his ongoing, longstanding left foot problems. I have again discussed the risks and benefits of this course of action. The patient has agreed to surgery. Informed consent obtained. All questions answered.
[2019-12-25] MEDS: INSULIN LISPRO 100 UNIT/ML 3 ML VIAL SUBCUT SCH ×7 (08:41→22:10)
[2019-12-25] MEDS: INSULIN GLARGINE,HUM.REC.ANLOG 1,000 UNIT/10 ML VIAL SUBCUT SCH ×2 (09:13→21:52)
[2019-12-25] MEDS: METOPROLOL TARTRATE 100 MG TABLET PO SCH ×2 (09:13→21:53)
[2019-12-25] MEDS: DULOXETINE HCL 30 MG CAPSULE.DR PO SCH (09:13)
[2019-12-25] MEDS: DOCUSATE SODIUM 100 MG CAPSULE PO SCH ×2 (09:13→18:03)
[2019-12-25] MEDS: ASPIRIN 81 MG TABLET, ENT COATED PO SCH (09:13)
[2019-12-25] MEDS: AMLODIPINE BESYLATE 5 MG TABLET PO SCH (09:14)
[2019-12-25] MEDS: FAMOTIDINE 20 MG TABLET PO SCH (09:14)
[2019-12-25] MEDS: METRONIDAZOLE 500 MG/NS RTU 500 MG/100 ML RTUPB IV SCH ×2 (09:26→21:51)
--- NOTE | 2019-12-25 11:40 | PDOC PROGRESS REPORT ---
Subjective Progress Note for:: 12/25/19 Subjective:: The patient is sleepy this afternoon. He has slid down in bed and is snoring. He may likely have not worn his CPAP last night. He is awaiting surgery on his left leg. Reason For Visit: DIABETIC FOOT INJECTION,DIABETES MELLITUS TYPE 1, Physical Exam Vital Signs: Temp Pulse Resp BP Pulse Ox 97.8 F 92 24 H 161/70 H 93 12/25/19 11:26 12/25/19 11:26 12/25/19 11:26 12/25/19 11:26 12/25/19 11:26 Intake & Output 12/24/19 12/25/19 12/26/19 06:59 06:59 06:59 Intake Total 3341 5290 700 Output Total 575 4350 Balance 2766 940 700 Weight 136.6 kg 138.9 kg General appearance: PRESENT: morbidly obese, other - Somnolent Head exam: PRESENT: atraumatic, normocephalic Ear exam: PRESENT: normal external ear exam. ABSENT: bleeding, drainage Respiratory exam: PRESENT: clear to auscultation aleja - Anteriorly, symmetrical, unlabored. ABSENT: rales, rhonchi, tachypnea, wheezes Cardiovascular exam: PRESENT: RRR, +S1, +S2. ABSENT: diastolic murmur, irregular rhythm, systolic murmur GI/Abdominal exam: PRESENT: distended, normal bowel sounds, soft, other - Protuberant abdomen. ABSENT: guarding, tenderness Rectal exam: PRESENT: deferred Gentrourinary exam: PRESENT: indwelling catheter Extremities exam: PRESENT: pedal edema Musculoskeletal exam: PRESENT: deformity - Charcot feet with large abscess medial aspect left foot Neurological exam: PRESENT: awake, other - He kept falling asleep consistent with an obstructive sleep apnea patient not wearing their CPAP.. ABSENT: alert Results Laboratory Results: 12/25/19 05:43 12/25/19 05:43 12/25/19 12/25/19 05:43 05:43 WBC 8.7 RBC 3.77 L Hgb 11.0 L Hct 31.4 L MCV 83 MCH 29.2 MCHC 35.0 RDW 14.1 H Plt Count 357 Seg Neutrophils % Not Reportable Sodium 136.7 L Potassium 4.5 Chloride 106 Carbon Dioxide 20 L Anion Gap 11 BUN 47 H Creatinine 3.04 H Est GFR ( Amer) 28 L Glucose 147 H Calcium 8.8 Phosphorus 5.5 H Magnesium 2.0 Albumin 3.0 L 12/21/19 01:50 Foot - Diabetic Ulcer Gram Stain - Final Impressions: Chest X-Ray 12/20/19 22:11 IMPRESSION: Overall improvement in lung volumes and aeration. No pneumonia or edema. Foot X-Ray 12/20/19 22:12 IMPRESSION: Extensive soft tissue swelling and soft tissue gas medially. No radiographic evidence for acute osseous abnormality. copyright 2011 [employer]- All Rights Reserved Lower Extremity MRI 12/22/19 00:00 IMPRESSION: NO EVIDENCE FOR OSTEOMYELITIS. Assessment and Plan - Diagnosis (1) Charcot foot due to diabetes mellitus Is this a current diagnosis for this admission?: Yes (2) Abscess of left foot Is this a current diagnosis for this admission?: Yes (3) Hyperglycemia due to type 1 diabetes mellitus Is this a current diagnosis for this admission?: Yes (4) Diabetic foot infection Is this a current diagnosis for this admission?: Yes (5) Leukocytosis Qualifiers: Leukocytosis type: unspecified Qualified Code(s): D72.829 - Elevated white blood cell count, unspecified Is this a current diagnosis for this admission?: Yes (6) Type 1 diabetes mellitus with morbid obesity Is this a current diagnosis for this admission?: Yes (7) Morbid obesity with BMI of 40.0-44.9, adult Is this a current diagnosis for this admission?: Yes (8) Hypertension Qualifiers: Hypertension type: essential hypertension Qualified Code(s): I10 - Essential (primary) hypertension Is this a current diagnosis for this admission?: Yes (9) Acute kidney injury Is this a current diagnosis for this admission?: Yes - Plan Summary Summary: Patient will be admitted to the medical floor where he received routine support harriett and symptomatic cares. He will be started on IV vancomycin in addition to the IV Zosyn which he received in the emergency room. Blood and wound cultures are pending. Dr. Hill will be consulted for surgical management per his specific request. Patient will receive morphine sulfate 2 to 4 mg IV every 2 hours as needed for pain control using a sliding pain scale for dosing. Patient received Ativan 1 mg IV every 4 hours as needed for anxiety or restlessness. Before meals and at bedtime Accu-Cheks to be performed with sliding scale insulin used for hyperglycemia and a hypoglycemic protocol in place. Patient will be continued on his usual medications from home as appropriate as soon as his medication list has been verified and reconciled. 12/23/2019 The patient's glucose was greater than 400 today. And multiple changes will be made with his insulin regimen. His hemoglobin A1c was 9.8 reflecting very poor control. His white blood cell count has improved with antibiotic therapy. The culture from the foot revealed Proteus, group B strep and multiple anaerobic organisms. Infectious disease is consulting. Currently on Zosyn which will cover the current bacterial gideon. We will continue his antihypertensive medications. He has serum creatinine is elevated due to an acute kidney injury. This is most likely due to his infection. We will continue his IV fluids and monitor his renal function. Continue antihypertensive medications and monitor blood pressure I spent 60 minutes with the patient. More than half of that time was dedicated to discussion regarding his intervention options. I explained that his physicians have been working on this with for 3 years and it is only gotten worse. I explained that in my experience with wound care and hyperbaric therapy as well as long-term acute care hospital care the patient will need an amputation at some point. I pointed out that with amputation at this time he will not lose the next 1 to 2 years struggling to try and get the foot better when it will only go to the amputation eventually. Hyperbaric oxygen therapy is not an option with the active infection. We reviewed the MRI scan showing no bony destruction of the foot as well. The patient feels that the majority of his questions are answered. I told him we will review this at the next visit. At this point I believe the amputation is the best course of therapy for this patient. He will then be able to focus on significantly improving daily his regimen for diabetes and to try and prevent or slow the progression of the right Charcot foot. 12/24/2019 The patient has had a significant amount of discussion with multiple family members including his and father. He wishes to proceed with the left below-knee amputation. Dr. Hill will revisit the patient today to initiate the process. His sugars are still poorly controlled but much better than the 400s that he was exhibiting yesterday. We will continue to slowly increase his regimen but try to avoid hypoglycemia His serum creatinine is increased again. I believe this could be related to the supratherapeutic vancomycin level. Vancomycin has been discontinued. We will continue fluids. We will check laboratory studies tomorrow. He is still hyponatremic. He is on normal saline. I will reassess postoperatively and make adjustments to his regimen. I still believe that is related to the kidney injury. The remainder of his regimen will continue unchanged. 12/25/2019 Patient is somewhat somnolent. This was a difficult decision to proceed with surgery. We did not have slept well last night. He is n.p.o. for surgery later today. His renal function continues to improve slowly. With aggressive hydration to help correct renal function I believe he may have gotten slightly fluid overloaded. We will administer a single dose of furosemide and assess the results. We will review his diabetic regimen postoperatively as the physiologic stress may cause worsening glucose levels. We will likely need to increase the Lantus tomorrow Continue to monitor electrolytes and CBC. Encourage consistent CPAP use at night. - Time Time Spent with patient: Less than 15 minutes Medications reviewed and adjusted accordingly: Yes Anticipated discharge: SNF - Rehab for amputation
[2019-12-25] MEDS ORDERED: MIDAZOLAM 2 MG/2 ML INJ ONE (13:54)
[2019-12-25] MEDS ORDERED: LIDOCAINE 2% INJ-PF (20 MG/ML) 10 ML AMPUL ONE (13:54)
[2019-12-25] MEDS ORDERED: PROPOFOL INJ 200 MG/20 ML VIAL IV ONE (13:54)
[2019-12-25] MEDS ORDERED: BUPIVACAINE HCL 0.25 % INJ/PF (2.5 MG/1 ML) 30 ML VIAL ONE (14:04)
[2019-12-25] MEDS ORDERED: LIDOCAINE 1% INJ-PF (10 MG/ML) 30 ML SDV ONE (14:04)
[2019-12-25] MEDS ORDERED: DIPHENHYDRAMINE HCL 50 MG/ML VIAL IV PRN (15:09)
[2019-12-25] MEDS ORDERED: PROMETHAZINE HCL INJ 25 MG/1 ML VIAL IV PRN (15:09)
[2019-12-25] MEDS ORDERED: FENTANYL CITRATE INJ/PF 100 MCG/2 ML AMPUL IV PRN ×2 (15:09)
--- NOTE | 2019-12-25 17:25 | Operative Report ---
Nonrecallable Operative Report DATE OF SURGERY: 12/25/19 PREOPERATIVE DIAGNOSIS: 1. Charcot foot. 2. Severe diabetic foot infection. POSTOPERATIVE DIAGNOSIS: Same as above. OPERATION: Left below-knee amputation SURGEON: FRANCISCA MEYER ANESTHESIA: Spinal TISSUE REMOVED OR ALTERED: Left foot and lower leg COMPLICATIONS: None apparent ESTIMATED BLOOD LOSS: 200 cc. PROCEDURE: Drains/implants: 15 Monegasque round Geovany drain. Procedure in detail: After informed consent was obtained, the patient was brought to the operating room and laid in the supine position. The area of the left lower extremity was prepped and draped in a normal sterile fashion. The lower leg was then marked. The anterior marking was approximately 4 fingerbreadths below the tibial tuberosity. The posterior flap was marked at 9 fingerbreadths below the tibial tuberosity. An incision was then created through the skin and soft tissue down to the fascia using a 10 blade scalpel. Next, the fascia was incised using electrocautery. Anteriorly the muscles were divided using electrocautery. The anterior compartment was divided, so that the tibia could be cleaned. The tibia was divided using a powered reciprocating saw. A 45 degree notch was cut out of the front of the tibia. Once the tibia was divided, the fibula was addressed. Soft tissues were cleared away from the fibula using electrocautery. The fibula was then divided approximately 3 cm superior to the tibia cut, using the large bone cutters. The tibia and fibula were then rotated medially. The muscles were divided on the posterior aspect of the bones of the leg. This was taken all the way down to, and through, the posterior flap. The lower leg was then completely removed from the upper leg, passed off the field, and sent to pathology. Next, the neurovascular bundle was clamped. The nerve was divided as proximal as was feasible. The artery and vein were ligated using 0 Vicryl suture ligatures. The patient had a large gastrocnemius muscle, and some of the muscular bulk was debrided away using electrocautery. Hemostasis was achieved using electrocautery and suture ligation on the muscle belly. Next, the posterior flap was brought to an anterior position. The posterior fascia was sutured to the anterior fascia using 0 Vicryl suture in simple interrupted fashion. Prior to complete closure, a 15 Monegasque round Geovany drain was placed into the muscular flap. It was pulled out through separate stab incision and sutured to the skin using 2-0 nylon. The subcutaneous tissues were then closed using 2-0 Vicryl suture in simple interrupted subcuticular fashion. The skin was closed using skin eric. A dressing was placed, and the procedure was concluded. All sponge, instrument, and needle counts were correct x2. Condition: Stable.
[2019-12-25] MEDS: CEFTRIAXONE 2 GM/D5W RTU 2 GM/50 ML RTUPB IV SCH (18:03)
[2019-12-25] MEDS: HYDRALAZINE HCL INJ/PF 20 MG/1 ML SDV IV PRN (18:07)
[2019-12-25] MEDS: MORPHINE SULFATE 10 MG/ML INJ IV PRN (19:41)
[2019-12-25] MEDS: OXYCODONE HCL IR 5 MG TABLET PO PRN (21:53)
[2019-12-25] MEDS: ATORVASTATIN CALCIUM 40 MG TABLET PO SCH (21:54)
[2019-12-25] MEDS: ACETAMINOPHEN 1,000 MG/100 ML RTUPB IV SCH (22:17)
[2019-12-26] MEDS: MORPHINE SULFATE 10 MG/ML INJ IV PRN ×4 (01:50→16:48)
[2019-12-26] MEDS: HEPARIN SOD (PORCINE) 5,000 UNIT/ML 1 ML VIAL SUBCUT SCH ×3 (06:20→22:00)
[2019-12-26] MEDS: GABAPENTIN 300 MG CAPSULE PO SCH ×3 (06:22→21:59)
[2019-12-26] MEDS: HYDRALAZINE HCL 50 MG TABLET PO SCH ×3 (06:22→21:58)
[2019-12-26] MEDS: ACETAMINOPHEN 1,000 MG/100 ML RTUPB IV SCH ×3 (06:27→21:57)
[2019-12-26] MEDS: INSULIN LISPRO 100 UNIT/ML 3 ML VIAL SUBCUT SCH ×7 (07:58→22:06)
--- NOTE | 2019-12-26 07:59 | PDOC PROGRESS REPORT ---
Subjective Progress Note for:: 12/26/19 Subjective:: feels ok, min pain Reason For Visit: DIABETIC FOOT INJECTION,DIABETES MELLITUS TYPE 1, Physical Exam Vital Signs: Temp Pulse Resp BP Pulse Ox 97.4 F 72 18 122/52 L 92 12/26/19 00:30 12/26/19 00:30 12/26/19 00:30 12/26/19 00:30 12/26/19 00:30 Intake & Output 12/25/19 12/26/19 12/27/19 06:59 06:59 06:59 Intake Total 5290 3300 Output Total 4350 4610 Balance 940 -1310 Weight 138.9 kg 138.9 kg General appearance: PRESENT: no acute distress Head exam: PRESENT: normocephalic Eye exam: PRESENT: EOMI Ear exam: PRESENT: normal external ear exam Mouth exam: PRESENT: moist Teeth exam: PRESENT: poor dentation Neck exam: PRESENT: full ROM Respiratory exam: PRESENT: clear to auscultation aleja Cardiovascular exam: PRESENT: RRR Vascular exam: PRESENT: normal capillary refill Breast: PRESENT: Normal GI/Abdominal exam: PRESENT: soft Rectal exam: PRESENT: deferred Extremities exam: PRESENT: other - left bka dressing intack eliezer iwth min op Musculoskeletal exam: PRESENT: deformity, full ROM Neurological exam: PRESENT: oriented to person Psychiatric exam: PRESENT: appropriate affect Skin exam: PRESENT: dry Results Laboratory Results: 12/25/19 05:43 12/25/19 05:43 12/21/19 03:11 Blood Blood Culture - Final NO GROWTH IN 5 DAYS 12/20/19 23:46 Blood Blood Culture - Final NO GROWTH IN 5 DAYS 12/21/19 01:50 Foot - Diabetic Ulcer Gram Stain - Final Impressions: Chest X-Ray 12/20/19 22:11 IMPRESSION: Overall improvement in lung volumes and aeration. No pneumonia or edema. Foot X-Ray 12/20/19 22:12 IMPRESSION: Extensive soft tissue swelling and soft tissue gas medially. No radiographic evidence for acute osseous abnormality. copyright 2011 [employer]- All Rights Reserved Lower Extremity MRI 12/22/19 00:00 IMPRESSION: NO EVIDENCE FOR OSTEOMYELITIS. Assessment & Plan - Plan Summary Plan Summary: s/p left bka dressing intact iwth min eliezer output will order pt for pivot training.
[2019-12-26] MEDS: OXYCODONE HCL IR 5 MG TABLET PO PRN (08:28)
[2019-12-26 09:05] LABS: HEMATOCRIT 23.1 % (37.9-51.0); MEAN CORPUSCULAR HEMOGLOBIN 29.6 pg (27.0-33.4); MEAN CORPUSCULAR HGB CONC 35.1 g/dL (32.0-36.0); MEAN CORPUSCULAR VOLUME 84 fl (80-97); PLATELET COUNT 369 10^3/uL (150-450); RED BLOOD COUNT 2.74 10^6/uL (4.35-5.55); RED CELL DISTRIBUTION WIDTH 14.5 % (11.5-14.0); WHITE BLOOD COUNT 10.2 10^3/uL (4.0-10.5)
[2019-12-26 09:19] LABS: ALBUMIN 2.7 g/dL (3.5-5.0); ANION GAP 9 (5-19); BLOOD UREA NITROGEN 36 mg/dL (7-20); CALCIUM 8.1 mg/dL (8.4-10.2); CARBON DIOXIDE 21 mmol/L (22-30); CHLORIDE 105 mmol/L (98-107); GLUCOSE 171 mg/dL (75-110); PHOSPHORUS 4.9 mg/dL (2.5-4.5)
[2019-12-26 09:21] LABS: HEMOGLOBIN 8.1 g/dL (13.5-17.0)
[2019-12-26 09:50] LABS: ABSOLUTE LYMPHOCYTES# (MANUAL) 1.7 10^3/uL (0.5-4.7); ABSOLUTE MONOCYTES # (MANUAL) 0.5 10^3/uL (0.1-1.4); BAND NEUTROPHILS % (MANUAL) 2 % (3-5); BASOPHILS % (MANUAL) 0 % (0-2); EOSINOPHILS % (MANUAL) 3 % (0-6); LYMPHOCYTES % (MANUAL) 17 % (13-45); MONOCYTES % (MANUAL) 5 % (3-13); SEGMENTED NEUTROPHILS % (MAN) 73 % (42-78); TOTAL CELLS COUNTED 100
[2019-12-26 09:52] LABS: PLATELET COMMENT ADEQUATE
[2019-12-26 09:54] LABS: RBC MORPHOLOGY COMMENT NORMO-CYTIC/CHROMIC
[2019-12-26] MEDS: DOCUSATE SODIUM 100 MG CAPSULE PO SCH ×2 (10:43→17:45)
[2019-12-26] MEDS: FUROSEMIDE INJ/PF 20 MG/2 ML SDV IV SCH (10:44)
[2019-12-26] MEDS: FAMOTIDINE 20 MG TABLET PO SCH (10:44)
[2019-12-26] MEDS: ASPIRIN 81 MG TABLET, ENT COATED PO SCH (10:44)
[2019-12-26] MEDS: METOPROLOL TARTRATE 100 MG TABLET PO SCH ×2 (10:44→22:00)
[2019-12-26] MEDS: DULOXETINE HCL 30 MG CAPSULE.DR PO SCH (10:44)
[2019-12-26] MEDS: AMLODIPINE BESYLATE 5 MG TABLET PO SCH (10:44)
[2019-12-26] MEDS: INSULIN GLARGINE,HUM.REC.ANLOG 1,000 UNIT/10 ML VIAL SUBCUT SCH ×2 (10:45→22:10)
[2019-12-26] MEDS: METRONIDAZOLE 500 MG/NS RTU 500 MG/100 ML RTUPB IV SCH ×2 (10:45→21:58)
--- NOTE | 2019-12-26 14:37 | PDOC PROGRESS REPORT ---
Subjective Progress Note for:: 12/26/19 Subjective:: Patient is very sleepy again today. His is at the bedside. He has been using his CPAP consistently. We will review his analgesia medication schedule. Reason For Visit: DIABETIC FOOT INJECTION,DIABETES MELLITUS TYPE 1, Physical Exam Vital Signs: Temp Pulse Resp BP Pulse Ox 98.4 F 92 16 123/54 L 94 12/26/19 11:24 12/26/19 11:24 12/26/19 11:24 12/26/19 11:24 12/26/19 11:24 Intake & Output 12/25/19 12/26/19 12/27/19 06:59 06:59 06:59 Intake Total 5290 3300 476 Output Total 4350 4640 610 Balance 940 -1340 -134 Weight 138.9 kg 138.9 kg General appearance: PRESENT: cooperative - Somnolent, mild distress, morbidly obese Head exam: PRESENT: atraumatic, normocephalic Eye exam: PRESENT: conjunctiva pink. ABSENT: scleral icterus Ear exam: PRESENT: normal external ear exam. ABSENT: bleeding, drainage Respiratory exam: PRESENT: clear to auscultation aleja - Limited inspiratory phase due to somnolence, symmetrical, unlabored. ABSENT: rales, rhonchi, tachypnea, wheezes Cardiovascular exam: PRESENT: irregular rhythm, RRR, +S1, +S2, systolic murmur - 2/6. ABSENT: diastolic murmur GI/Abdominal exam: PRESENT: distended, normal bowel sounds, soft. ABSENT: tenderness Rectal exam: PRESENT: deferred Extremities exam: PRESENT: other - New left below-knee amputation Musculoskeletal exam: PRESENT: deformity Neurological exam: PRESENT: awake, oriented to person, oriented to place, oriented to situation, CN II-XII grossly intact. ABSENT: alert Psychiatric exam: PRESENT: other - Somnolent. ABSENT: agitated, anxious Skin exam: PRESENT: other - Surgical drain left stump. Bulky dressing covering the surgical site. Results Laboratory Results: 12/26/19 08:50 12/26/19 08:50 12/26/19 12/26/19 08:50 08:50 WBC 10.2 RBC 2.74 L Hgb 8.1 L D Hct 23.1 L MCV 84 MCH 29.6 MCHC 35.1 RDW 14.5 H Plt Count 369 Seg Neutrophils % Not Reportable Sodium 134.8 L Potassium 4.0 Chloride 105 Carbon Dioxide 21 L Anion Gap 9 BUN 36 H Creatinine 2.34 H Est GFR ( Amer) 38 L Glucose 171 H Calcium 8.1 L Phosphorus 4.9 H Magnesium 1.9 Albumin 2.7 L 12/21/19 01:50 Foot - Diabetic Ulcer Gram Stain - Final 12/21/19 01:50 Foot - Diabetic Ulcer Wound Culture - Final Proteus Mirabilis Group B Beta Streptococcus Staphylococcus Aureus 12/21/19 03:11 Blood Blood Culture - Final NO GROWTH IN 5 DAYS 12/20/19 23:46 Blood Blood Culture - Final NO GROWTH IN 5 DAYS Impressions: Chest X-Ray 12/20/19 22:11 IMPRESSION: Overall improvement in lung volumes and aeration. No pneumonia or edema. Foot X-Ray 12/20/19 22:12 IMPRESSION: Extensive soft tissue swelling and soft tissue gas medially. No radiographic evidence for acute osseous abnormality. copyright 2010 [employer]- All Rights Reserved Lower Extremity MRI 12/22/19 00:00 IMPRESSION: NO EVIDENCE FOR OSTEOMYELITIS. Assessment and Plan - Diagnosis (1) Charcot foot due to diabetes mellitus Is this a current diagnosis for this admission?: Yes (2) Abscess of left foot Is this a current diagnosis for this admission?: Yes (3) Hyperglycemia due to type 1 diabetes mellitus Is this a current diagnosis for this admission?: Yes (4) Diabetic foot infection Is this a current diagnosis for this admission?: Yes (5) Leukocytosis Qualifiers: Leukocytosis type: unspecified Qualified Code(s): D72.829 - Elevated white blood cell count, unspecified Is this a current diagnosis for this admission?: Yes (6) Type 1 diabetes mellitus with morbid obesity Is this a current diagnosis for this admission?: Yes (7) Morbid obesity with BMI of 40.0-44.9, adult Is this a current diagnosis for this admission?: Yes (8) Hypertension Qualifiers: Hypertension type: essential hypertension Qualified Code(s): I10 - Essential (primary) hypertension Is this a current diagnosis for this admission?: Yes (9) Acute kidney injury Is this a current diagnosis for this admission?: Yes - Plan Summary Summary: Patient will be admitted to the medical floor where he received routine s upportive and symptomatic cares. He will be started on IV vancomycin in addition to the IV Zosyn which he received in the emergency room. Blood and wound cultures are pending. Dr. Hill will be consulted for surgical management per his specific request. Patient will receive morphine sulfate 2 to 4 mg IV every 2 hours as needed for pain control using a sliding pain scale for dosing. Patient received Ativan 1 mg IV every 4 hours as needed for anxiety or restlessness. Before meals and at bedtime Accu-Cheks to be performed with sliding scale insulin used for hyperglycemia and a hypoglycemic protocol in place. Patient will be continued on his usual medications from home as appropriate as soon as his medication list has been verified and reconciled. 12/23/2019 The patient's glucose was greater than 400 today. And multiple changes will be made with his insulin regimen. His hemoglobin A1c was 9.8 reflecting very poor control. His white blood cell count has improved with antibiotic therapy. The culture from the foot revealed Proteus, group B strep and multiple anaerobic organisms. Infectious disease is consulting. Currently on Zosyn which will cover the current bacterial gideon. We will continue his antihypertensive medications. He has serum creatinine is elevated due to an acute kidney injury. This is most likely due to his infection. We will continue his IV fluids and monitor his renal function. Continue antihypertensive medications and monitor blood pressure I spent 60 minutes with the patient. More than half of that time was dedicated to discussion regarding his intervention options. I explained that his physicians have been working on this with for 3 years and it is only gotten worse. I explained that in my experience with wound care and hyperbaric therapy as well as long-term acute care hospital care the patient will need an amputation at some point. I pointed out that with amputation at this time he will not lose the next 1 to 2 years struggling to try and get the foot better when it will only go to the amputation eventually. Hyperbaric oxygen therapy is not an option with the active infection. We reviewed the MRI scan showing no bony destruction of the foot as well. The patient feels that the majority of his questions are answered. I told him we will review this at the next visit. At this point I believe the amputation is the best course of therapy for this patient. He will then be able to focus on significantly improving daily his regimen for diabetes and to try and prevent or slow the progression of the right Charcot foot. 12/24/2019 The patient has had a significant amount of discussion with multiple family members including his and father. He wishes to proceed with the left below-knee amputation. Dr. Hill will revisit the patient today to initiate the process. His sugars are still poorly controlled but much better than the 400s that he was exhibiting yesterday. We will continue to slowly increase his regimen but try to avoid hypoglycemia His serum creatinine is increased again. I believe this could be related to the supratherapeutic vancomycin level. Vancomycin has been discontinued. We will continue fluids. We will check laboratory studies tomorrow. He is still hyponatremic. He is on normal saline. I will reassess postoperatively and make adjustments to his regimen. I still believe that is related to the kidney injury. The remainder of his regimen will continue unchanged. 12/25/2019 Patient is somewhat somnolent. This was a difficult decision to proceed with surgery. We did not have slept well last night. He is n.p.o. for surgery later today. His renal function continues to improve slowly. With aggressive hydration to help correct renal function I believe he may have gotten slightly fluid overloaded. We will administer a single dose of furosemide and assess the results. We will review his diabetic regimen postoperatively as the physiologic stress may cause worsening glucose levels. We will likely need to increase the Lantus tomorrow Continue to monitor electrolytes and CBC. Encourage consistent CPAP use at night. 12/26/2019 The patient's is at the bedside. He is still quite somnolent. They confirm that he is compliant with his CPAP. Left below-knee amputation surgery went well. Patient will need 5 days after surgery before completing antibiotic therapy. The patient has been in the [facility] acute rehab [facility] in the past. With his new amputation and his right Charcot foot this will be a significant adjustment. PT and OT have seen the patient. We will make a referral. They should initiate the process for acquiring his prosthetic. We did suggest that his let the plant and maintenance technician know that he had the amputation since he already has an established relationship with acquiring his orthotic shoes. The orthotic for his right foot will likely need to be updated as well. Continue to monitor laboratory studies and Accu-Cheks. Continue current medication regimen - Time Time Spent with patient: 15-24 minutes Medications reviewed and adjusted accordingly: Yes Anticipated discharge: Other - Most likely acute rehab
[2019-12-26] MEDS: HYDROXYZINE PAMOATE 25 MG CAPSULE PO PRN (17:03)
[2019-12-26] MEDS: CEFTRIAXONE 2 GM/D5W RTU 2 GM/50 ML RTUPB IV SCH (17:50)
[2019-12-26] MEDS: ATORVASTATIN CALCIUM 40 MG TABLET PO SCH (21:59)
[2019-12-27] MEDS: OXYCODONE HCL IR 5 MG TABLET PO PRN ×3 (05:45→22:40)
[2019-12-27] MEDS: HYDRALAZINE HCL 50 MG TABLET PO SCH ×3 (05:56→22:37)
[2019-12-27] MEDS: GABAPENTIN 300 MG CAPSULE PO SCH ×3 (05:57→22:37)
[2019-12-27] MEDS: HEPARIN SOD (PORCINE) 5,000 UNIT/ML 1 ML VIAL SUBCUT SCH ×3 (05:57→22:38)
[2019-12-27] MEDS: ACETAMINOPHEN 1,000 MG/100 ML RTUPB IV SCH (05:58)
[2019-12-27] MEDS: INSULIN LISPRO 100 UNIT/ML 3 ML VIAL SUBCUT SCH ×7 (09:15→22:44)
--- NOTE | 2019-12-27 10:08 | PDOC PROGRESS REPORT ---
Subjective Progress Note for:: 12/27/19 Reason For Visit: DIABETIC FOOT INJECTION,DIABETES MELLITUS TYPE 1, Physical Exam Vital Signs: Temp Pulse Resp BP Pulse Ox 97.3 F 83 18 154/56 H 97 12/27/19 07:12 12/27/19 07:12 12/27/19 07:12 12/27/19 07:12 12/27/19 07:12 Intake & Output 12/26/19 12/27/19 12/28/19 06:59 06:59 06:59 Intake Total 3300 1902 Output Total 4640 1735 Balance -1340 167 Weight 138.9 kg 153.1 kg Results Laboratory Results: 12/26/19 08:50 12/26/19 08:50 12/21/19 01:50 Foot - Diabetic Ulcer Gram Stain - Final 12/21/19 01:50 Foot - Diabetic Ulcer Wound Culture - Final Proteus Mirabilis Group B Beta Streptococcus Staphylococcus Aureus Impressions: Chest X-Ray 12/20/19 22:11 IMPRESSION: Overall improvement in lung volumes and aeration. No pneumonia or edema. Foot X-Ray 12/20/19 22:12 IMPRESSION: Extensive soft tissue swelling and soft tissue gas medially. No radiographic evidence for acute osseous abnormality. copyright 2011 [employer]- All Rights Reserved Lower Extremity MRI 12/22/19 00:00 IMPRESSION: NO EVIDENCE FOR OSTEOMYELITIS. Assessment & Plan - Diagnosis (1) Charcot foot due to diabetes mellitus Is this a current diagnosis for this admission?: Yes (2) Diabetic foot infection Is this a current diagnosis for this admission?: Yes - Plan Summary Plan Summary: 39-year-old male status post left below-knee amputation. The patient reports that his pain control is acceptable. His PORTIA drain is productive of serosanguineous fluid. He is wearing his knee immobilizer. Okay to start physical therapy, to work on mobilization and transfers. Will consult social se rvices for home wheelchair and wheelchair ramp. He will also need outpatient physical therapy/rehab. Surgery will continue to follow this patient closely with you. Maintain sterile stump dressing for now. Plan to open stump dressing and examine the wound in another 1 to 2 days.
[2019-12-27] MEDS: DULOXETINE HCL 30 MG CAPSULE.DR PO SCH (11:49)
[2019-12-27] MEDS: DOCUSATE SODIUM 100 MG CAPSULE PO SCH ×2 (11:49→17:15)
[2019-12-27] MEDS: METOPROLOL TARTRATE 100 MG TABLET PO SCH ×2 (11:49→22:37)
[2019-12-27] MEDS: ASPIRIN 81 MG TABLET, ENT COATED PO SCH (11:49)
[2019-12-27] MEDS: ACETAMINOPHEN 325 MG TABLET PO SCH ×4 (11:50→22:37)
[2019-12-27] MEDS: FAMOTIDINE 20 MG TABLET PO SCH (11:50)
[2019-12-27] MEDS: AMLODIPINE BESYLATE 5 MG TABLET PO SCH (11:51)
[2019-12-27] MEDS: FUROSEMIDE INJ/PF 20 MG/2 ML SDV IV SCH (11:52)
[2019-12-27] MEDS: MORPHINE SULFATE 10 MG/ML INJ IV PRN (11:52)
[2019-12-27] MEDS: INSULIN GLARGINE,HUM.REC.ANLOG 1,000 UNIT/10 ML VIAL SUBCUT SCH ×2 (12:40→22:43)
[2019-12-27] MEDS: METRONIDAZOLE 500 MG/NS RTU 500 MG/100 ML RTUPB IV SCH ×2 (12:43→22:37)
[2019-12-27] MEDS: CEFTRIAXONE 2 GM/D5W RTU 2 GM/50 ML RTUPB IV SCH (17:17)
[2019-12-27] MEDS: HYDROXYZINE PAMOATE 25 MG CAPSULE PO PRN (17:28)
--- NOTE | 2019-12-27 19:18 | PDOC PROGRESS REPORT ---
Subjective Progress Note for:: 12/27/19 Subjective:: Patient still very sleepy. Wonders if he can take the splint off of the left leg. He reports that surgery stated that it should be worn at night but could be taken off during the day. Reason For Visit: DIABETIC FOOT INJECTION,DIABETES MELLITUS TYPE 1, Physical Exam Vital Signs: Temp Pulse Resp BP Pulse Ox 98.4 F 95 19 159/73 H 89 L 12/27/19 15:24 12/27/19 15:24 12/27/19 15:24 12/27/19 15:24 12/27/19 15:24 Intake & Output 12/26/19 12/27/19 12/28/19 06:59 06:59 06:59 Intake Total 3300 1902 1872 Output Total 4640 1735 1500 Balance -1340 167 372 Weight 138.9 kg 153.1 kg General appearance: PRESENT: no acute distress, cooperative, morbidly obese, well-developed, well-nourished Head exam: PRESENT: atraumatic, normocephalic Eye exam: PRESENT: conjunctiva pale. ABSENT: scleral icterus Respiratory exam: PRESENT: clear to auscultation aleja - Anteriorly, symmetrical, unlabored. ABSENT: rales, rhonchi, tachypnea, wheezes Cardiovascular exam: PRESENT: RRR, +S1, +S2 GI/Abdominal exam: PRESENT: normal bowel sounds, soft, other - Protuberant abdomen. ABSENT: tenderness Rectal exam: PRESENT: deferred Musculoskeletal exam: PRESENT: deformity - New left BKA Neurological exam: PRESENT: awake, oriented to person, oriented to place, oriented to situation, CN II-XII grossly intact. ABSENT: alert - Still very sleepy Psychiatric exam: ABSENT: agitated, anxious Focused psych exam: PRESENT: other - Somnolent Results Laboratory Results: 12/26/19 08:50 12/26/19 08:50 Impressions: Chest X-Ray 12/20/19 22:11 IMPRESSION: Overall improvement in lung volumes and aeration. No pneumonia or edema. Foot X-Ray 12/20/19 22:12 IMPRESSION: Extensive soft tissue swelling and soft tissue gas medially. No radiographic evidence for acute osseous abnormality. copyright 2011 [employer]- All Rights Reserved Lower Extremity MRI 12/22/19 00:00 IMPRESSION: NO EVIDENCE FOR OSTEOMYELITIS. Assessment and Plan - Diagnosis (1) Amputation of left lower extremity below knee Is this a current diagnosis for this admission?: Yes Plan: 12/27/2019 The patient is doing well. He has no significant complaints about the a mputation. We are referring to [facility] acute rehab. The patient has been there before. With the amputation he will require aggressive rehab in an inpatient rehab facility. This is a significant adjustment for the patient and we would like to maximize his recovery. (2) Charcot foot due to diabetes mellitus Is this a current diagnosis for this admission?: Yes (3) Abscess of left foot Is this a current diagnosis for this admission?: Yes (4) Hyperglycemia due to type 1 diabetes mellitus Is this a current diagnosis for this admission?: Yes (5) Diabetic foot infection Is this a current diagnosis for this admission?: Yes (6) Leukocytosis Qualifiers: Leukocytosis type: unspecified Qualified Code(s): D72.829 - Elevated white blood cell count, unspecified Is this a current diagnosis for this admission?: Yes (7) Type 1 diabetes mellitus with morbid obesity Is this a current diagnosis for this admission?: Yes (8) Morbid obesity with BMI of 40.0-44.9, adult Is this a current diagnosis for this admission?: Yes (9) Hypertension Qualifiers: Hypertension type: essential hypertension Qualified Code(s): I10 - Essential (primary) hypertension Is this a current diagnosis for this admission?: Yes (10) Acute kidney injury Is this a current diagnosis for this admission?: Yes (11) Acute postoperative anemia due to expected blood loss Is this a current diagnosis for this admission?: Yes Plan: 12/27/2019 Recheck hemoglobin tomorrow. If any lower transfuse packed red blood cells. (12) Somnolence, daytime Is this a current diagnosis for this admission?: Yes Plan: 12/27/2019 The patient does report compliance with CPAP. I will check a TSH. It could be related to the anemia. As noted above we will transfuse if his hemoglobin slightly lower. - Plan Summary Summary: Patient will be admitted to the medical floor where he received routine supportive and symptomatic cares. He will be started on IV vancomycin in addit ion to the IV Zosyn which he received in the emergency room. Blood and wound cultures are pending. Dr. Hill will be consulted for surgical management per his specific request. Patient will receive morphine sulfate 2 to 4 mg IV every 2 hours as needed for pain control using a sliding pain scale for dosing. Patient received Ativan 1 mg IV every 4 hours as needed for anxiety or restlessness. Before meals and at bedtime Accu-Cheks to be performed with sliding scale insulin used for hyperglycemia and a hypoglycemic protocol in place. Patient will be continued on his usual medications from home as appropriate as soon as his medication list has been verified and reconciled. 12/23/2019 The patient's glucose was greater than 400 today. And multiple changes will be made with his insulin regimen. His hemoglobin A1c was 9.8 reflecting very poor control. His white blood cell count has improved with antibiotic therapy. The culture from the foot revealed Proteus, group B strep and multiple anaerobic organisms. Infectious disease is consulting. Currently on Zosyn which will cover the current bacterial gideon. We will continue his antihypertensive medications. He has serum creatinine is elevated due to an acute kidney injury. This is most likely due to his infection. We will continue his IV fluids and monitor his renal function. Continue antihypertensive medications and monitor blood pressure I spent 60 minutes with the patient. More than half of that time was dedicated to discussion regarding his intervention options. I explained that his physicians have been working on this with for 3 years and it is only gotten worse. I explained that in my experience with wound care and hyperbaric therapy as well as long-term acute care hospital care the patient will need an amputa tion at some point. I pointed out that with amputation at this time he will not lose the next 1 to 2 years struggling to try and get the foot better when it will only go to the amputation eventually. Hyperbaric oxygen therapy is not an option with the active infection. We reviewed the MRI scan showing no bony destruction of the foot as well. The patient feels that the majority of his questions are answered. I told him we will review this at the next visit. At this point I believe the amputation is the best course of therapy for this patient. He will then be able to focus on significantly improving daily his regimen for diabetes and to try and prevent or slow the progression of the right Charcot foot. 12/24/2019 The patient has had a significant amount of discussion with multiple family members including his and father. He wishes to proceed with the left below-knee amputation. Dr. Hill will revisit the patient today to initiate the process. His sugars are still poorly controlled but much better than the 400s that he was exhibiting yesterday. We will continue to slowly increase his regimen but try to avoid hypoglycemia His serum creatinine is increased again. I believe this could be related to the supratherapeutic vancomycin level. Vancomycin has been discontinued. We will continue fluids. We will check laboratory studies tomorrow. He is still hyponatremic. He is on normal saline. I will reassess postoperatively and make adjustments to his regimen. I still believe that is related to the kidney injury. The remainder of his regimen will continue unchanged. 12/25/2019 Patient is somewhat somnolent. This was a difficult decision to proceed with surgery. We did not have slept well last night. He is n.p.o. for surgery later today. His renal function continues to improve slowly. With aggressive hydration to help correct renal function I believe he may have gotten slightly fluid overloaded. We will administer a single dose of furosemide and assess the results. We will review his diabetic regimen postoperatively as the physiologic stress may cause worsening glucose levels. We will likely need to increase the Lantus tomorrow Continue to monitor electrolytes and CBC. Encourage consistent CPAP use at night. 12/26/2019 The patient's is at the bedside. He is still quite somnolent. They confirm that he is compliant with his CPAP. Left below-knee amputation surgery went well. Patient will need 5 days after surgery before completing antibiotic therapy. The patient has been in the [facility] acute rehab unit in the past. With his new amputation and his right Charcot foot this will be a significant adjustment. PT and OT have seen the patient. We will make a referral. They should initiate the process for acquiring his prosthetic. We did suggest that his let the inspector salvage know that he had the amputation since he already has an established relationship with acquiring his orthotic shoes. The orthotic for his right foot will likely need to be updated as well. Continue to monitor laboratory studies and Accu-Cheks. Continue current medication regimen 12/27/2019 Patient is status post left below-knee amputation. His hemoglobin is only 8.1 yesterday. We will check again tomorrow. We will likely need to add an oral ir on supplement. This could be contributing to his somnolence however it does more resemble an obstructive sleep apnea pattern. He has no history of COPD and therefore hypercapnia is not likely. He will need aggressive rehab. He has been at the rehab facility up with [place] in the past and will benefit greatly from returning. We are starting to get better control of his glucose. His renal function continues to improve.
[2019-12-27] MEDS: ATORVASTATIN CALCIUM 40 MG TABLET PO SCH (22:37)
[2019-12-28] MEDS: ACETAMINOPHEN 325 MG TABLET PO SCH ×6 (02:46→21:43)
[2019-12-28] MEDS ORDERED: LORAZEPAM INJ 2 MG/1 ML VIAL IV PRN (03:16)
[2019-12-28] MEDS: OXYCODONE HCL IR 5 MG TABLET PO PRN ×2 (05:29→21:41)
[2019-12-28] MEDS: HEPARIN SOD (PORCINE) 5,000 UNIT/ML 1 ML VIAL SUBCUT SCH ×3 (05:29→21:42)
[2019-12-28] MEDS: GABAPENTIN 300 MG CAPSULE PO SCH ×3 (05:29→21:41)
[2019-12-28] MEDS: HYDROXYZINE PAMOATE 25 MG CAPSULE PO PRN ×2 (05:29→21:41)
[2019-12-28] MEDS: HYDRALAZINE HCL 50 MG TABLET PO SCH ×3 (05:30→21:40)
[2019-12-28 05:58] LABS: HEMATOCRIT 23.2 % (37.9-51.0); MEAN CORPUSCULAR HEMOGLOBIN 28.9 pg (27.0-33.4); MEAN CORPUSCULAR HGB CONC 34.3 g/dL (32.0-36.0); MEAN CORPUSCULAR VOLUME 84 fl (80-97); PLATELET COUNT 443 10^3/uL (150-450); RED BLOOD COUNT 2.75 10^6/uL (4.35-5.55); RED CELL DISTRIBUTION WIDTH 14.7 % (11.5-14.0); WHITE BLOOD COUNT 11.4 10^3/uL (4.0-10.5)
[2019-12-28 06:21] LABS: ANION GAP 7 (5-19); BLOOD UREA NITROGEN 31 mg/dL (7-20); CALCIUM 8.8 mg/dL (8.4-10.2); CARBON DIOXIDE 23 mmol/L (22-30); CHLORIDE 104 mmol/L (98-107); GLUCOSE 140 mg/dL (75-110); POTASSIUM 4.6 mmol/L (3.6-5.0)
[2019-12-28] MEDS: FERROUS SULFATE 325 MG TABLET PO SCH ×3 (07:53→17:11)
[2019-12-28] MEDS: INSULIN LISPRO 100 UNIT/ML 3 ML VIAL SUBCUT SCH ×7 (07:54→21:41)
[2019-12-28] MEDS: AMLODIPINE BESYLATE 5 MG TABLET PO SCH (09:17)
[2019-12-28] MEDS: ASPIRIN 81 MG TABLET, ENT COATED PO SCH (09:18)
[2019-12-28] MEDS: FAMOTIDINE 20 MG TABLET PO SCH (09:18)
[2019-12-28] MEDS: METOPROLOL TARTRATE 100 MG TABLET PO SCH ×2 (09:18→21:41)
[2019-12-28] MEDS: DULOXETINE HCL 30 MG CAPSULE.DR PO SCH (09:18)
[2019-12-28] MEDS: DOCUSATE SODIUM 100 MG CAPSULE PO SCH ×2 (09:18→17:12)
[2019-12-28] MEDS: INSULIN GLARGINE,HUM.REC.ANLOG 1,000 UNIT/10 ML VIAL SUBCUT SCH ×2 (09:19→21:42)
[2019-12-28] MEDS: METRONIDAZOLE 500 MG/NS RTU 500 MG/100 ML RTUPB IV SCH ×2 (09:19→21:40)
[2019-12-28] MEDS: FUROSEMIDE INJ/PF 20 MG/2 ML SDV IV SCH (09:19)
--- NOTE | 2019-12-28 11:01 | PDOC PROGRESS REPORT ---
Subjective Progress Note for:: 12/28/19 Subjective:: Patient was sleeping without his CPAP. I think he does this more often than not. He otherwise is wondering about his left leg brace. Reason For Visit: DIABETIC FOOT INJECTION,DIABETES MELLITUS TYPE 1, Physical Exam Vital Signs: Temp Pulse Resp BP Pulse Ox 97.6 F 80 17 140/63 H 94 12/28/19 07:25 12/28/19 07:25 12/28/19 07:25 12/28/19 07:25 12/28/19 07:25 Intake & Output 12/27/19 12/28/19 12/29/19 06:59 06:59 06:59 Intake Total 1902 2122 100 Output Total 1735 3100 Balance 167 -978 100 Weight 153.1 kg 153.1 kg General appearance: PRESENT: no acute distress, morbidly obese, well-developed, well-nourished Head exam: PRESENT: atraumatic, normocephalic Respiratory exam: PRESENT: clear to auscultation aleja, symmetrical, unlabored. ABSENT: rales, rhonchi, tachypnea, wheezes Cardiovascular exam: PRESENT: RRR, +S1, +S2. ABSENT: diastolic murmur, irregular rhythm, systolic murmur GI/Abdominal exam: PRESENT: normal bowel sounds, soft, other - Protuberant abdomen. ABSENT: guarding, tenderness Musculoskeletal exam: PRESENT: deformity - New left below-knee amputation Neurological exam: PRESENT: alert - More alert this morning, awake, oriented to person, oriented to place, oriented to time, oriented to situation, CN II-XII grossly intact Psychiatric exam: PRESENT: appropriate affect. ABSENT: agitated, anxious Results Laboratory Results: 12/28/19 05:24 12/28/19 05:24 12/28/19 12/28/19 12/28/19 05:24 05:24 05:24 WBC 11.4 H RBC 2.75 L Hgb 8.0 L Hct 23.2 L MCV 84 MCH 28.9 MCHC 34.3 RDW 14.7 H Plt Count 443 Sodium 134.1 L Potassium 4.6 Chloride 104 Carbon Dioxide 23 Anion Gap 7 BUN 31 H Creatinine 2.20 H Est GFR ( Amer) 40 L Glucose 140 H Calcium 8.8 Magnesium 2.0 TSH 2.09 Impressions: Chest X-Ray 12/20/19 22:11 IMPRESSION: Overall improvement in lung volumes and aeration. No pneumonia or edema. Foot X-Ray 12/20/19 22:12 IMPRESSION: Extensive soft tissue swelling and soft tissue gas medially. No radiographic evidence for acute osseous abnormality. copyright 2010 [employer]- All Rights Reserved Lower Extremity MRI 12/22/19 00:00 IMPRESSION: NO EVIDENCE FOR OSTEOMYELITIS. Assessment and Plan - Diagnosis (1) Amputation of left lower extremity below knee Is this a current diagnosis for this admission?: Yes (2) Charcot foot due to diabetes mellitus Is this a current diagnosis for this admission?: Yes (3) Abscess of left foot Is this a current diagnosis for this admission?: Yes (4) Hyperglycemia due to type 1 diabetes mellitus Is this a current diagnosis for this admission?: Yes (5) Diabetic foot infection Is this a current diagnosis for this admission?: Yes (6) Leukocytosis Qualifiers: Leukocytosis type: unspecified Qualified Code(s): D72.829 - Elevated white blood cell count, unspecified Is this a current diagnosis for this admission?: Yes (7) Type 1 diabetes mellitus with morbid obesity Is this a current diagnosis for this admission?: Yes (8) Morbid obesity with BMI of 40.0-44.9, adult Is this a current diagnosis for this admission?: Yes (9) Hypertension Qualifiers: Hypertension type: essential hypertension Qualified Code(s): I10 - Essential (primary) hypertension Is this a current diagnosis for this admission?: Yes (10) Acute kidney injury Is this a current diagnosis for this admission?: Yes (11) Acute postoperative anemia due to expected blood loss Is this a current diagnosis for this admission?: Yes (12) Somnolence, daytime Is this a current diagnosis for this admission?: Yes - Plan Summary Summary: Patient will be admitted to the medical floor where he received routine supporti ve and symptomatic cares. He will be started on IV vancomycin in addition to the IV Zosyn which he received in the emergency room. Blood and wound cultures are pending. Dr. Hill will be consulted for surgical management per his specific request. Patient will receive morphine sulfate 2 to 4 mg IV every 2 hours as needed for pain control using a sliding pain scale for dosing. Patient received Ativan 1 mg IV every 4 hours as needed for anxiety or restlessness. Before meals and at bedtime Accu-Cheks to be performed with sliding scale insulin used for hyperglycemia and a hypoglycemic protocol in place. Patient will be continued on his usual medications from home as appropriate as soon as his medication list has been verified and reconciled. 12/23/2019 The patient's glucose was greater than 400 today. And multiple changes will be made with his insulin regimen. His hemoglobin A1c was 9.8 reflecting very poor control. His white blood cell count has improved with antibiotic therapy. The culture from the foot revealed Proteus, group B strep and multiple anaerobic organisms. Infectious disease is consulting. Currently on Zosyn which will cover the current bacterial gideon. We will continue his antihypertensive medications. He has serum creatinine is elevated due to an acute kidney injury. This is most likely due to his infection. We will continue his IV fluids and monitor his renal function. Continue antihypertensive medications and monitor blood pressure I spent 60 minutes with the patient. More than half of that time was dedicated to discussion regarding his intervention options. I explained that his physicians have been working on this with for 3 years and it is only gotten worse. I explained that in my experience with wound care and hyperbaric therapy as well as long-term acute care hospital care the patient will need an amputation at some point. I pointed out that with amputation at this time he will not lose the next 1 to 2 years struggling to try and get the foot better when it will only go to the amputation eventually. Hyperbaric oxygen therapy is not an option with the active infection. We reviewed the MRI scan showing no bony destruction of the foot as well. The patient feels that the majority of his questions are answered. I told him we will review this at the next visit. At this point I believe the amputation is the best course of therapy for this patient. He will then be able to focus on significantly improving daily his regimen for diabetes and to try and prevent or slow the progression of the right Charcot foot. 12/24/2019 The patient has had a significant amount of discussion with multiple family members including his and father. He wishes to proceed with the left below-knee amputation. Dr. Hill will revisit the patient today to initiate the process. His sugars are still poorly controlled but much better than the 400s that he was exhibiting yesterday. We will continue to slowly increase his regimen but try to avoid hypoglycemia His serum creatinine is increased again. I believe this could be related to the supratherapeutic vancomycin level. Vancomycin has been discontinued. We will continue fluids. We will check laboratory studies tomorrow. He is still hyponatremic. He is on normal saline. I will reassess postoperatively and make adjustments to his regimen. I still believe that is related to the kidney injury. The remainder of his regimen will continue unchanged. 12/25/2019 Patient is somewhat somnolent. This was a difficult decision to proceed with surgery. We did not have slept well last night. He is n.p.o. for surgery later today. His renal function continues to improve slowly. With aggressive hydration to help correct renal function I believe he may have gotten slightly fluid overloaded. We will administer a single dose of furosemide and assess the results. We will review his diabetic regimen postoperatively as the physiologic stress may cause worsening glucose levels. We will likely need to increase the Lantus tomorrow Continue to monitor electrolytes and CBC. Encourage consistent CPAP use at night. 12/26/2019 The patient's is at the bedside. He is still quite somnolent. They confirm that he is compliant with his CPAP. Left below-knee amputation surgery went well. Patient will need 5 days after surgery before completing antibiotic therapy. The patient has been in the [facility] acute rehab unit in the past. With his new amputation and his right Charcot foot this will be a significant adjustment. PT and OT have seen the patient. We will make a referral. They should initiate the process for acquiring his prosthetic. We did suggest that his let the molder helper know that he had the amputation since he already has an established relationship with acquiring his orthotic shoes. The orthotic for his right foot will likely need to be updated as well. Continue to monitor laboratory studies and Accu-Cheks. Continue current medication regimen 12/27/2019 Patient is status post left below-knee amputation. His hemoglobin is only 8.1 yesterday. We will check again tomorrow. We will likely need to add an oral iron supplement. This could be contributing to his somnolence however it does more resemble an obstructive sleep apnea pattern. He has no history of COPD and therefore hypercapnia is not likely. He will need aggressive rehab. He has been at the rehab facility up with [place] in the past and will benefit greatly from returning. We are starting to get better control of his glucose. His renal function continues to improve. 01/05/2020 Renal function is now improving slowly. We will continue to monitor. The patient is still anemic with hemoglobin of 8.0. Will wait another day. If he continues to fall then consider transfusion. Supplemental iron has been started. The patient was sleeping and snoring when I entered the room. He did not have his CPAP on. He did wake up easily and was more alert than yesterday. I julianne cm there is less compliance to his CPAP than he reports. He is awaiting surgery's visit. He had approximately 5 mL of fluid out from drainage yesterday. If this continues the surgical drain may likely be removed. He also was asking about whether they can take the knee brace off during the day so that he can begin range of motion exercises with his knee. - Time Time Spent with patient: 15-24 minutes Medications reviewed and adjusted accordingly: Yes Anticipated discharge: Acute Rehab Within: within 48 hours
[2019-12-28] MEDS: CEFTRIAXONE 2 GM/D5W RTU 2 GM/50 ML RTUPB IV SCH (17:12)
[2019-12-28] MEDS: ATORVASTATIN CALCIUM 40 MG TABLET PO SCH (21:41)
[2019-12-28] MEDS ORDERED: ACETAMINOPHEN 1,000 MG/100 ML RTUPB IV SCH (22:00)
[2019-12-29 05:32] LABS: HEMATOCRIT 24.2 % (37.9-51.0); HEMOGLOBIN 8.3 g/dL (13.5-17.0); MEAN CORPUSCULAR HEMOGLOBIN 28.7 pg (27.0-33.4); MEAN CORPUSCULAR HGB CONC 34.2 g/dL (32.0-36.0); MEAN CORPUSCULAR VOLUME 84 fl (80-97); PLATELET COUNT 498 10^3/uL (150-450); RED BLOOD COUNT 2.88 10^6/uL (4.35-5.55); RED CELL DISTRIBUTION WIDTH 14.7 % (11.5-14.0); WHITE BLOOD COUNT 12.2 10^3/uL (4.0-10.5)
[2019-12-29 05:52] LABS: ANION GAP 10 (5-19); BLOOD UREA NITROGEN 30 mg/dL (7-20); CALCIUM 8.8 mg/dL (8.4-10.2); CARBON DIOXIDE 20 mmol/L (22-30); CHLORIDE 105 mmol/L (98-107); GLUCOSE 111 mg/dL (75-110)
[2019-12-29] MEDS: PROMETHAZINE HCL INJ 25 MG/1 ML VIAL IV PRN (06:02)
[2019-12-29] MEDS: HEPARIN SOD (PORCINE) 5,000 UNIT/ML 1 ML VIAL SUBCUT SCH ×3 (06:07→21:28)
[2019-12-29] MEDS: HYDRALAZINE HCL 50 MG TABLET PO SCH ×3 (06:07→21:27)
[2019-12-29] MEDS: GABAPENTIN 300 MG CAPSULE PO SCH ×3 (06:07→21:27)
[2019-12-29] MEDS: INSULIN LISPRO 100 UNIT/ML 3 ML VIAL SUBCUT SCH ×7 (07:49→21:27)
--- NOTE | 2019-12-29 07:54 | PDOC PROGRESS REPORT ---
Subjective Progress Note for:: 12/29/19 Subjective:: no complainats Reason For Visit: DIABETIC FOOT INJECTION,DIABETES MELLITUS TYPE 1, Physical Exam Vital Signs: Temp Pulse Resp BP Pulse Ox 99.2 F 97 17 158/56 H 100 12/29/19 00:04 12/29/19 00:04 12/29/19 00:04 12/29/19 00:04 12/29/19 00:04 Intake & Output 12/28/19 12/29/19 12/30/19 06:59 06:59 06:59 Intake Total 2122 1641 Output Total 3100 550 Balance -978 1091 Weight 153.1 kg 151.1 kg General appearance: PRESENT: no acute distress Head exam: PRESENT: atraumatic Eye exam: PRESENT: EOMI Teeth exam: PRESENT: poor dentation Neck exam: PRESENT: full ROM Respiratory exam: PRESENT: clear to auscultation aleja Cardiovascular exam: PRESENT: RRR Pulses: PRESENT: normal femoral pulses Vascular exam: PRESENT: normal capillary refill Breast: PRESENT: Normal GI/Abdominal exam: PRESENT: soft Rectal exam: PRESENT: deferred Gentrourinary exam: PRESENT: other - left bka stump healing well eliezer iwth min op no cellulitis Neurological exam: PRESENT: alert Psychiatric exam: PRESENT: appropriate affect Skin exam: PRESENT: dry Results Laboratory Results: 12/29/19 05:15 12/29/19 05:15 12/29/19 12/29/19 05:15 05:15 WBC 12.2 H RBC 2.88 L Hgb 8.3 L Hct 24.2 L MCV 84 MCH 28.7 MCHC 34.2 RDW 14.7 H Plt Count 498 H Sodium 134.9 L Potassium 5.0 Chloride 105 Carbon Dioxide 20 L Anion Gap 10 BUN 30 H Creatinine 2.01 H Est GFR ( Amer) 45 L Glucose 111 H Calcium 8.8 Magnesium 1.8 Impressions: Chest X-Ray 12/20/19 22:11 IMPRESSION: Overall improvement in lung volumes and aeration. No pneumonia or edema. Foot X-Ray 12/20/19 22:12 IMPRESSION: Extensive soft tissue swelling and soft tissue gas medially. No radiographic evidence for acute osseous abnormality. copyright 2011 [employer]- All Rights Reserved Lower Extremity MRI 12/22/19 00:00 IMPRESSION: NO EVIDENCE FOR OSTEOMYELITIS. Assessment & Plan - Plan Summary Plan Summary: s/p left bka wound examined today eliezer removed dressed with xeroform. pt ok for dc from surgical standpt needs f/u in 7-10 days for staple removal saroj will sign off at this time please reconsult if necessary.
[2019-12-29] MEDS: ASPIRIN 81 MG TABLET, ENT COATED PO SCH (09:16)
[2019-12-29] MEDS: FERROUS SULFATE 325 MG TABLET PO SCH ×3 (09:16→17:06)
[2019-12-29] MEDS: AMLODIPINE BESYLATE 5 MG TABLET PO SCH (09:17)
[2019-12-29] MEDS: INSULIN GLARGINE,HUM.REC.ANLOG 1,000 UNIT/10 ML VIAL SUBCUT SCH ×2 (09:17→21:28)
[2019-12-29] MEDS: FAMOTIDINE 20 MG TABLET PO SCH (09:17)
[2019-12-29] MEDS: METOPROLOL TARTRATE 100 MG TABLET PO SCH ×2 (09:17→21:27)
[2019-12-29] MEDS: DULOXETINE HCL 30 MG CAPSULE.DR PO SCH (09:17)
[2019-12-29] MEDS: METRONIDAZOLE 500 MG/NS RTU 500 MG/100 ML RTUPB IV SCH ×2 (09:17→21:26)
[2019-12-29] MEDS: FUROSEMIDE INJ/PF 20 MG/2 ML SDV IV SCH (09:17)
[2019-12-29] MEDS: DOCUSATE SODIUM 100 MG CAPSULE PO SCH ×2 (09:18→17:07)
--- NOTE | 2019-12-29 15:28 | RADIOLOGY REPORT (SQ) ---
EXAM DESCRIPTION: FOOT RIGHT 2 VIEWS IMAGES COMPLETED DATE/TIME: 12/29/2019 3:18 pm REASON FOR STUDY: fall, right foot pain COMPARISON: None. NUMBER OF VIEWS: Three views. TECHNIQUE: AP, lateral and oblique radiographic images acquired of the right foot. LIMITATIONS: None. FINDINGS: MINERALIZATION: Normal. BONES: Comminuted fracture of the distal tibia, not completely imaged. No acute fracture or dislocat ion in the foot. Chronic deformity of the navicular. Plantar calcaneal spur. JOINTS: No effusions. SOFT TISSUES: Soft tissue swelling. No foreign body. OTHER: No other significant finding. IMPRESSION: 1. COMMINUTED FRACTURE OF THE DISTAL TIBIA, NOT COMPLETELY IMAGED. 2. CHRONIC DEFORMITY OF THE NAVICULAR BONE. NO ACUTE FINDINGS IN THE FOOT. TECHNICAL DOCUMENTATION: JOB ID: [id number] 2010 [employer]- All Rights Reserved Reading location - IP/workstation name: [email or web address]
[2019-12-29] MEDS: CEFTRIAXONE 2 GM/D5W RTU 2 GM/50 ML RTUPB IV SCH (17:06)
--- NOTE | 2019-12-29 18:48 | PDOC PROGRESS REPORT ---
Subjective Progress Note for:: 12/29/19 Subjective:: No adverse events overnight. He told me today he wanted an x-ray of his right foot. He said whenever he was trying to pivot to the bedside commode he thought he heard a pop in his right foot. He has bad neuropathy so he is never had any pain with it. Examination of his foot revealed some swelling of the foot and ankle but he had no pain. He fell asleep on me while I was examining him. Reason For Visit: DIABETIC FOOT INJECTION,DIABETES MELLITUS TYPE 1, Physical Exam Vital Signs: Temp Pulse Resp BP Pulse Ox 98.1 F 85 20 155/64 H 94 12/29/19 15:35 12/29/19 15:35 12/29/19 15:35 12/29/19 15:35 12/29/19 15:35 Intake & Output 12/28/19 12/29/19 12/30/19 06:59 06:59 06:59 Intake Total 2122 1641 390 Output Total 3100 550 1500 Balance -978 1091 -1110 Weight 153.1 kg 151.1 kg General appearance: PRESENT: no acute distress, cooperative, disheveled, morbidly obese Respiratory exam: PRESENT: clear to auscultation aleja, symmetrical, unlabored. ABSENT: accessory muscle use, chest wall tenderness, prolonged expiratory phas, rales, rhonchi, tachypnea, wheezes Cardiovascular exam: PRESENT: RRR, +S1, +S2 Pulses: PRESENT: normal carotid pulses Vascular exam: PRESENT: normal capillary refill GI/Abdominal exam: PRESENT: normal bowel sounds, soft, other - Pendulous abdominal pannus. ABSENT: distended, guarding, rebound, tenderness Extremities exam: PRESENT: pedal edema, +1 edema, other - Charcot foot on right, left BKA Musculoskeletal exam: PRESENT: deformity - Right Charcot foot Neurological exam: PRESENT: awake, oriented to person, oriented to place, oriented to situation, motor sensory deficit - No sensation in his right lower extremity distal to the knee Psychiatric exam: PRESENT: appropriate affect, normal mood Skin exam: PRESENT: dry, warm Results Laboratory Results: 12/29/19 05:15 12/29/19 05:15 12/29/19 12/29/19 05:15 05:15 WBC 12.2 H RBC 2.88 L Hgb 8.3 L Hct 24.2 L MCV 84 MCH 28.7 MCHC 34.2 RDW 14.7 H Plt Count 498 H Sodium 134.9 L Potassium 5.0 Chloride 105 Carbon Dioxide 20 L Anion Gap 10 BUN 30 H Creatinine 2.01 H Est GFR ( Amer) 45 L Glucose 111 H Calcium 8.8 Magnesium 1.8 Impressions: Chest X-Ray 12/20/19 22:11 IMPRESSION: Overall improvement in lung volumes and aeration. No pneumonia or edema. Lower Extremity MRI 12/22/19 00:00 IMPRESSION: NO EVIDENCE FOR OSTEOMYELITIS. Foot X-Ray 12/29/19 00:00 IMPRESSION: 1. COMMINUTED FRACTURE OF THE DISTAL TIBIA, NOT COMPLETELY IMAGED. 2. CHRONIC DEFORMITY OF THE NAVICULAR BONE. NO ACUTE FINDINGS IN THE FOOT. Assessment and Plan - Diagnosis (1) Fracture of distal end of tibia Qualifiers: Encounter type: initial encounter Fracture type: closed Fracture morphology: unspecified fracture morphology Laterality: right Qualified Code(s): S82.301A - Unspecified fracture of lower end of right tibia, initial encounter for closed fracture Is this a current diagnosis for this admission?: Yes Plan: Consulted Dr. Pham. Nonweightbearing. We will get some films of the tibia. (2) Acute kidney injury Is this a current diagnosis for this admission?: Yes Plan: Improving with IV fluids antibiotics, and removal of the infected material. Continue to monitor electrolytes and urine output. (3) Acute postoperative anemia due to expected blood loss Is this a current diagnosis for this admission?: Yes Plan: Hemoglobin stable at 8.3, will continue to reassess for need for transfusion. (4) Amputation of left lower extremity below knee Is this a current diagnosis for this admission?: Yes Plan: Per surgery. He will have outpatient follow-up at their direction. (5) Charcot foot due to diabetes mellitus Is this a current diagnosis for this admission?: Yes (6) Gas gangrene Is this a current diagnosis for this admission?: Yes Plan: It is post left BKA (7) Hyperglycemia due to type 1 diabetes mellitus Is this a current diagnosis for this admission?: Yes Plan: Blood sugars are well controlled (8) Hypertension Qualifiers: Hypertension type: essential hypertension Qualified Code(s): I10 - Essential (primary) hypertension Is this a current diagnosis for this admission?: Yes Plan: He will likely require continued adjustment of his medications (9) Somnolence, daytime Is this a current diagnosis for this admission?: Yes Plan: Does have a history of sleep apnea uses CPAP. Some of this could be due to the metabolic strain from his acute illness and his surgery. (10) Type 1 diabetes mellitus with morbid obesity Is this a current diagnosis for this admission?: Yes Plan: We will strongly encourage lifestyle modification - Plan Summary Summary: Patient will be admitted to the medical floor where he received routine supportive and symptomatic cares. He will be started on IV vancomycin in addition to the IV Zosyn which he received in the emergency room. Blood and wound cultures are pending. Dr. Hill will be consulted for surgical management per his specific request. Patient will receive morphine sulfate 2 to 4 mg IV every 2 hours as needed for pain control using a sliding pain scale for dosing. Patient received Ativan 1 mg IV every 4 hours as needed for anxiety or restlessness. Before meals and at bedtime Accu-Cheks to be performed with sliding scale insulin used for hyperglycemia and a hypoglycemic protocol in place. Patient will be continued on his usual medications from home as appropriate as soon as his medication list has been verified and reconciled. 12/23/2019 The patient's glucose was greater than 400 today. And multiple changes will be made with his insulin regimen. His hemoglobin A1c was 9.8 reflecting very poor control. His white blood cell count has improved with antibiotic therapy. The culture from the foot revealed Proteus, group B strep and multiple anaerobic organisms. Infectious disease is consulting. Currently on Zosyn which will cover the current bacterial gideon. We will continue his antihypertensive medications. He has serum creatinine is elevated due to an acute kidney injury. This is most likely due to his infection. We will continue his IV fluids and monitor his renal function. Continue antihypertensive medications and monitor blood pressure I spent 60 minutes with the patient. More than half of that time was dedicated to discussion regarding his intervention options. I explained that his physicians have been working on this with for 3 years and it is only gotten worse. I explained that in my experience with wound care and hyperbaric therapy as well as long-term acute care hospital care the patient will need an amputation at some point. I pointed out that with amputation at this time he will not lose the next 1 to 2 years struggling to try and get the foot better when it will only go to the amputation eventually. Hyperbaric oxygen therapy is not an option with the active infection. We reviewed the MRI scan showing no bony destruction of the foot as well. The patient feels that the majority of his questions are answered. I told him we will review this at the next visit. At this point I believe the amputation is the best course of therapy for this patient. He will then be able to focus on significantly improving daily his regimen for diabetes and to try and prevent or slow the progression of the right Charcot foot. 12/24/2019 The patient has had a significant amount of discussion with multiple family members including his and father. He wishes to proceed with the left below-knee amputation. Dr. Hill will revisit the patient today to initiate the process. His sugars are still poorly controlled but much better than the 400s that he was exhibiting yesterday. We will continue to slowly increase his regimen but try to avoid hypoglycemia His serum creatinine is increased again. I believe this could be related to the supratherapeutic vancomycin level. Vancomycin has been discontinued. We will continue fluids. We will check laboratory studies tomorrow. He is still hyponatremic. He is on normal saline. I will reassess postoperatively and make adjustments to his regimen. I still believe that is related to the kidney injury. The remainder of his regimen will continue unchanged. 12/25/2019 Patient is somewhat somnolent. This was a difficult decision to proceed with surgery. We did not have slept well last night. He is n.p.o. for surgery later today. His renal function continues to improve slowly. With aggressive hydration to help correct renal function I believe he may have gotten slightly fluid overloaded. We will administer a single dose of furosemide and assess the results. We will review his diabetic regimen postoperatively as the physiologic stress may cause worsening glucose levels. We will likely need to increase the Lantus tomorrow Continue to monitor electrolytes and CBC. Encourage consistent CPAP use at night. 12/26/2019 The patient's is at the bedside. He is still quite somnolent. They confirm that he is compliant with his CPAP. Left below-knee amputation surgery went well. Patient will need 5 days after surgery before completing antibiotic therapy. The patient has been in the [facility] acute rehab unit in the past. With his new amputation and his right Charcot foot this will be a significant adjustment. PT and OT have seen the patient. We will make a referral. They should initiate the process for acquiring his prosthetic. We did suggest that his let the lasting machine operator bed know that he had the amputation since he already has an established relationship with acquiring his orthotic shoes. The orthotic for his right foot will likely need to be updated as well. Continue to monitor laboratory studies and Accu-Cheks. Continue current medication regimen 12/27/2019 Patient is status post left below-knee amputation. His hemoglobin is only 8.1 yesterday. We will check again tomorrow. We will likely need to add an oral iron supplement. This could be contributing to his somnolence however it does more resemble an obstructive sleep apnea pattern. He has no history of COPD and therefore hypercapnia is not likely. He will need aggressive rehab. He has been at the rehab facility up with [facility] in the past and will benefit greatly from returning. We are starting to get better control of his glucose. His renal function continues to improve. 01/05/2020 Renal function is now improving slowly. We will continue to monitor. The patient is still anemic with hemoglobin of 8.0. Will wait another day. If he continues to fall then consider transfusion. Supplemental iron has been started. The patient was sleeping and snoring when I entered the room. He did not have his CPAP on. He did wake up easily and was more alert than yesterday. I believe there is less compliance to his CPAP than he reports. He is awaiting surgery's visit. He had approximately 5 mL of fluid out from drainage yesterday. If this continues the surgical drain may likely be removed. He also was asking about whether they can take the knee brace off during the day so that he can begin range of motion exercises with his knee. - Time Time Spent with patient: 25-34 minutes
[2019-12-29] MEDS: ATORVASTATIN CALCIUM 40 MG TABLET PO SCH (21:27)
[2019-12-29] MEDS: OXYCODONE HCL IR 5 MG TABLET PO PRN (21:27)
--- NOTE | 2019-12-29 22:43 | RADIOLOGY REPORT (SQ) ---
EXAM DESCRIPTION: XR TIBIA FIBULA 2 VIEWS COMPLETED DATE/TME: 12/29/2019 00:00 CLINICAL HISTORY: 39 years, Male, distal tibia fracture COMPARISON: Prior study from 12/22/2019; 12/20/2019 NUMBER OF VIEWS: 4 TECHNIQUE: Frontal and lateral radiograph of the right tibia/fibula were acquired. LIMITATIONS: None. FINDINGS: Diffuse soft tissue swelling is noted about the visualized portions of the right thigh and lower leg. There is a highly comminuted fracture involving the distal tibia extending to the posterior malleolus as well as into the tibiotalar joint. Several of the distal fracture fragments are slightly medially displaced. There is also a comminuted fracture involving the distal fibula extending into the lateral malleolus. Associated adjacent soft tissue swelling is evident. There is an old healed fracture deformity involving the proximal fibular diaphysis. Degenerative changes are evident about the visualized portions of the midfoot. IMPRESSION: Highly comminuted fractures involving the distal tibia and fibula. The distal tibial fracture is intra-articular. Diffuse soft tissue swelling about the right lower extremity. copyright 2010 [employer]- All Rights Reserved
--- NOTE | 2019-12-30 00:53 | RADIOLOGY REPORT (SQ) ---
CT right tibia and fibula without contrast on 12/29/2019 at 7:57 PM CLINICAL INDICATION: Right distal tibia fracture TECHNIQUE: Multiple axial images are obtained from the right knee through the right ankle without the administration of contrast. Sagittal and coronal reformatted images are also performed and reviewed. This exam was performed according to our departmental dose-optimization program, which includes automated exposure control, adjustment of the mA and/or kV according to patient size and/or use of iterative reconstruction technique. Total DLP is 218.81 mGy*cm. COMPARISON: Right foot x-ray from 12/29/2019 FINDINGS: There is an old healed proximal fibula diaphysis fracture. Vascular calcifications are noted. Motion limits some of the exam. There is an acute, comminuted, mildly displaced and angulated distal fibula metadiaphysis fracture. There is mild medial and posterior displacement with medial and posterior angulation of the distal fracture fragment. There is an acute, comminuted, impacted distal tibia metadiaphysis fracture that extends into the medial and posterior malleolus. There is predominantly impaction of the main fracture fragments. Degenerative changes are noted in the midfoot. Significant subcutaneous edema is noted in the lower leg and ankle. There is no dislocation. No other bony or soft tissue abnormality is noted. IMPRESSION: Acute comminuted distal tibia and fibula fractures as above.
[2019-12-30] MEDS: DEXTROSE 50%-WATER 25 GM/50 ML DISP.SYRIN IV PRN ×2 (04:42→12:40)
[2019-12-30] MEDS: GABAPENTIN 300 MG CAPSULE PO SCH ×3 (06:38→23:43)
[2019-12-30] MEDS: HYDRALAZINE HCL 50 MG TABLET PO SCH ×3 (06:38→23:43)
[2019-12-30] MEDS: HEPARIN SOD (PORCINE) 5,000 UNIT/ML 1 ML VIAL SUBCUT SCH ×3 (06:40→23:44)
[2019-12-30] MEDS ORDERED: METOCLOPRAMIDE HCL INJ/PF 10 MG/2 ML SDV ONE (09:52)
[2019-12-30] MEDS ORDERED: ONDANSETRON HCL INJ/PF 4 MG/2 ML SDV ONE (09:52)
[2019-12-30] MEDS ORDERED: SUCCINYLCHOLINE CHLORIDE INJ 200 MG/10 ML VIAL ONE (09:52)
[2019-12-30] MEDS: INSULIN LISPRO 100 UNIT/ML 3 ML VIAL SUBCUT SCH ×7 (10:03→23:41)
[2019-12-30] MEDS: FERROUS SULFATE 325 MG TABLET PO SCH ×3 (10:03→17:53)
[2019-12-30] MEDS: DOCUSATE SODIUM 100 MG CAPSULE PO SCH ×2 (10:04→17:53)
[2019-12-30] MEDS: INSULIN GLARGINE,HUM.REC.ANLOG 1,000 UNIT/10 ML VIAL SUBCUT SCH (10:04)
[2019-12-30] MEDS: ASPIRIN 81 MG TABLET, ENT COATED PO SCH (10:19)
[2019-12-30] MEDS: DULOXETINE HCL 30 MG CAPSULE.DR PO SCH ×2 (10:21→10:33)
[2019-12-30] MEDS: AMLODIPINE BESYLATE 5 MG TABLET PO SCH (10:21)
[2019-12-30] MEDS: METRONIDAZOLE 500 MG/NS RTU 500 MG/100 ML RTUPB IV SCH ×2 (10:21→23:42)
[2019-12-30] MEDS: FUROSEMIDE INJ/PF 20 MG/2 ML SDV IV SCH (10:22)
[2019-12-30] MEDS: FAMOTIDINE 20 MG TABLET PO SCH (10:22)
[2019-12-30] MEDS: METOPROLOL TARTRATE 100 MG TABLET PO SCH ×2 (10:32→23:43)
[2019-12-30] MEDS: POTASSI CL 20 MEQ/D5-1/2NS 1L 1000 ML IV PRN ×2 (12:36→20:32)
[2019-12-30] MEDS ORDERED: PROPOFOL INJ 200 MG/20 ML VIAL IV ONE (13:19)
[2019-12-30] MEDS ORDERED: LIDOCAINE 2% INJ-PF (20 MG/ML) 10 ML AMPUL ONE (13:19)
[2019-12-30] MEDS ORDERED: DEXTROSE 50%-WATER 25 GM/50 ML DISP.SYRIN IV ONE (13:19)
[2019-12-30] MEDS ORDERED: MIDAZOLAM 2 MG/2 ML INJ ONE (13:19)
[2019-12-30] MEDS ORDERED: CEFAZOLIN INJ 1 GM VIAL ONE (13:51)
[2019-12-30] MEDS ORDERED: FENTANYL CITRATE INJ/PF 100 MCG/2 ML AMPUL ONE (14:04)
--- NOTE | 2019-12-30 14:07 | PDOC CONSULTATION ---
Consultation Consult Date: 12/30/19 Attending physician:: YAHIR AMEZQUITA Provider Consulted: DANISH JEFF Consult reason:: Right distal tibia articular fracture. Right comminuted fibular fracture History of Present Illness Admission Date/PCP: 12/21/19 02:20 Patient complains of: Right distal tibia and fibula fracture History of Present Illness: The patient is a 39-year-old man with poorly controlled diabetes. He is admitted to the medical service. He had undergone a left below-knee amputation last Thursday by Dr. Hill for an infected, Charcot left foot. The patient was working with therapy yesterday and while transferring with his right leg he felt a pop. Radiographs demonstrated a comminuted, articular fracture of the distal tibia with an associated comminuted fibular fracture. Past Medical History Cardiac Medical History: Reports: Hyperlipidema, Hypertension, Peripheral Vascular Disease Denies: Atrial Fibrillation, Coronary Artery Disease, DVT, Myocardial Infarction, Pulmonary Embolism Pulmonary Medical History: Reports: Pneumonia Denies: Asthma, Chronic Obstructive Pulmonary Disease (COPD) EENT Medical History: Denies: Cataracts, Ears - Hearing aids Neurological Medical History: Reports: Ischemic CVA, Migraine, Other - Diabetic peripheral neuropathy Denies: Hemorrhagic CVA, Seizures Endocrine Medical History: Reports: Diabetes Mellitus Type 1, Obesity, Other - Episodes of DKA Denies: Hyperthyroidism, Hypothyroidism Renal/ Medical History: Reports: Chronic Kidney Disease Denies: Nephrolithiasis Malignancy Medical History: Reports: None GI Medical History: Reports: Gastroesophageal Reflux Disease, Other - Upper GI hemorrhage Denies: Cirrhosis, Crohn's Disease, Hepatitis, Hiatal Hernia, Peptic Ulcer Disease, Ulcerative Colitis Musculoskeltal Medical History: Reports: Other - Charcot foot bilaterally Denies: Arthritis, Gout Skin Medical History: Reports: Other - Lymphedema of the bilateral lower extremities Denies: Eczema, Psoriasis Psychiatric Medical History: Reports: Depression Denies: Alcohol Dependency, Substance Abuse, Tobacco Dependency Traumatic Medical History: Reports: None Hematology: Denies: Anemia, Sickle Cell Disease, Bleeding Tendencies Infectious Medical History: Reports: None Past Surgical History Past Surgical History: Reports: Orthopedic Surgery - left foot surgery for wound care, Other - EGD, left BKA for infected charcot foot Denies: Pacemaker Social History Lives with: Spouse/Significant other Smoking Status: Never Smoker Electronic Cigarette use?: No Frequency of Alcohol Use: None Hx Recreational Drug Use: No Drugs: None Hx Prescription Drug Abuse: No - Advance Directive Resuscitation Status: Full Code Family History Family History: DM - Grandmother with type 2 diabetes, Hypertension - Father. denies: CAD, Malignancy Parental Family History Reviewed: Yes Children Family History Reviewed: Yes Sibling(s) Family History Reviewed.: Yes Medication/Allergy Home Medications: Aspirin [Adult Low Dose Aspirin EC] 81 mg PO DAILY 08/11/19 Duloxetine HCl [Cymbalta] 60 mg PO DAILY 08/11/19 Hydroxyzine HCl [Atarax 25 mg Tablet] 1 tab PO BIDP PRN 08/11/19 Metoprolol Tartrate [Lopressor 100 mg Tablet] 100 mg PO Q12 08/11/19 Insulin Aspart [Novolog Flexpen] 16 unit SUBCUT AC 08/12/19 Insulin Aspart [Novolog] 0 units PUMP .CONTINUOUS 08/12/19 Insulin Degludec [Tresiba Flextouch U-100] 94 unit SQ DAILY 08/12/19 Atorvastatin Calcium [Lipitor 40 mg Tablet] 40 mg PO QHS tablet 08/13/19 Famotidine [Pepcid 20 mg Tablet] 20 mg PO DAILY 12/21/19 Furosemide [Lasix 40 mg Tablet] 40 mg PO DAILY 12/21/19 Gabapentin [Neurontin 300 mg Capsule] 300 mg PO TID 12/21/19 Hydralazine HCl [Apresoline 50 mg Tablet] 50 mg PO TID 12/21/19 Ibuprofen [Advil Liqui-Gels] 400 mg PO BIDP PRN 12/21/19 Losartan Potassium [Cozaar 50 mg Tablet] 25 mg PO DAILY 12/21/19 Allergies/Adverse Reactions: No Known Allergies Allergy (Verified 12/20/19 20:11) Review of Systems All systems: reviewed and no additional remarkable complaints except as stated - as per HPI Musculoskeletal: PRESENT: other Physical Exam Vital Signs: Temp Pulse Resp BP Pulse Ox 99.3 F 109 H 20 165/71 H 94 12/30/19 08:00 12/30/19 08:00 12/30/19 08:00 12/30/19 08:00 12/30/19 08:00 Intake & Output 12/29/19 12/30/19 12/31/19 06:59 06:59 06:59 Intake Total 1641 970 100 Output Total 550 2800 Balance 1091 -1830 100 Weight 151.1 kg 151.1 kg General appearance: PRESENT: no acute distress Head exam: PRESENT: atraumatic Eye exam: PRESENT: EOMI Neck exam: PRESENT: full ROM Respiratory exam: PRESENT: chest wall tenderness Cardiovascular exam: PRESENT: RRR GI/Abdominal exam: PRESENT: soft Rectal exam: PRESENT: deferred Musculoskeletal exam: PRESENT: other - The patient is lying in bed with his right leg externally rotated. He does not feel pain when the fracture is palpated. There are normal pulses in the foot and good capillary refill present. He is able to actively dorsiflex and plantarflex the ankle. Results Laboratory Results: 12/29/19 05:15 12/29/19 05:15 Impressions: Chest X-Ray 12/20/19 22:11 IMPRESSION: Overall improvement in lung volumes and aeration. No pneumonia or edema. Lower Extremity MRI 12/22/19 00:00 IMPRESSION: NO EVIDENCE FOR OSTEOMYELITIS. Foot X-Ray 12/29/19 00:00 IMPRESSION: 1. COMMINUTED FRACTURE OF THE DISTAL TIBIA, NOT COMPLETELY IMAGED. 2. CHRONIC DEFORMITY OF THE NAVICULAR BONE. NO ACUTE FINDINGS IN THE FOOT. Lower Extremity CT 12/29/19 00:00 IMPRESSION: Acute comminuted distal tibia and fibula fractures as above. Tibia/Fibula X-Ray 12/29/19 00:00 IMPRESSION: Highly comminuted fractures involving the distal tibia and fibula. The distal tibial fracture is intra-articular. Diffuse soft tissue swelling about the right lower extremity. copyright 2010 [employer]- All Rights Reserved Assessment & Plan - Diagnosis (1) Charcot foot due to diabetes mellitus Is this a current diagnosis for this admission?: Yes (2) Diabetic foot infection Is this a current diagnosis for this admission?: Yes (4) Fracture of distal end of tibia Qualifiers: Encounter type: initial encounter Fracture type: closed Fracture morphology: unspecified fracture morphology Laterality: right Qualified Code (s): S82.301A - Unspecified fracture of lower end of right tibia, initial encounter for closed fracture Is this a current diagnosis for this admission?: Yes - Time Time Spent: 30 to 50 Minutes Anticipated discharge: SNF - Plan Summary Plan Summary: Patient is a 39-year-old man with poorly controlled diabetes and bilateral Charcot foot. He underwent left below-knee amputation for an infected Charcot foot. While attempting to transfer with therapy yesterday he twisted his leg resulting in a comminuted, intra-articular fracture of the right distal tibia with an associated comminuted fibular fracture. I have recommended application of an external fixator with possible open reduction and internal fixation of the fractures. Risks, benefits, and alternatives were discussed with the patient. In particular we discussed the risk of with anesthesia, we discussed the risk of infection, we discussed the risk of nerve and vessel injury, nonunion, and malunion. We did discuss that due to his poorly controlled diabetes and Charcot arthropathy, there is a relatively high risk for the need of limb amputation despite orthopedic intervention. We also discussed that if he walks on the limb following surgical intervention, this will almost certainly result in the need for an amputation of the extremity. An opportunity for questions was provided. All questions were answered to his satisfaction. The patient expressed understanding and wishes to proceed.
[2019-12-30] MEDS ORDERED: ONDANSETRON HCL INJ/PF 4 MG/2 ML SDV IV PRN (15:13)
[2019-12-30] MEDS ORDERED: FENTANYL CITRATE INJ/PF 100 MCG/2 ML AMPUL IV PRN ×2 (15:13)
--- NOTE | 2019-12-30 16:32 | PDOC PROGRESS REPORT ---
Subjective Progress Note for:: 12/30/19 Subjective:: No adverse events overnight. No new complaints. The nurses are having straight catheter every time he urinates because he says he cannot urinate while someone else was in the room and he needs help with the bedside urinal. Surprisingly, he is not complaining of any pain in his right leg. If he sits still for a few moments he falls asleep. Reason For Visit: DIABETIC FOOT INJECTION,DIABETES MELLITUS TYPE 1, Physical Exam Vital Signs: Temp Pulse Resp BP Pulse Ox 98.9 F 92 16 145/70 H 91 L 12/30/19 12:11 12/30/19 12:11 12/30/19 12:11 12/30/19 12:11 12/30/19 12:11 Intake & Output 12/29/19 12/30/19 12/31/19 06:59 06:59 06:59 Intake Total 1641 970 100 Output Total 550 2800 Balance 1091 -1830 100 Weight 151.1 kg 151.1 kg Results Laboratory Results: 12/29/19 05:15 12/29/19 05:15 Impressions: Chest X-Ray 12/20/19 22:11 IMPRESSION: Overall improvement in lung volumes and aeration. No pneumonia or edema. Lower Extremity MRI 12/22/19 00:00 IMPRESSION: NO EVIDENCE FOR OSTEOMYELITIS. Foot X-Ray 12/29/19 00:00 IMPRESSION: 1. COMMINUTED FRACTURE OF THE DISTAL TIBIA, NOT COMPLETELY IMAGED. 2. CHRONIC DEFORMITY OF THE NAVICULAR BONE. NO ACUTE FINDINGS IN THE FOOT. Lower Extremity CT 12/29/19 00:00 IMPRESSION: Acute comminuted distal tibia and fibula fractures as above. Tibia/Fibula X-Ray 12/29/19 00:00 IMPRESSION: Highly comminuted fractures involving the distal tibia and fibula. The distal tibial fracture is intra-articular. Diffuse soft tissue swelling about the right lower extremity. copyright 2011 [employer]- All Rights Reserved Assessment and Plan - Diagnosis (1) Fracture of distal end of tibia Qualifiers: Encounter type: initial encounter Fracture type: closed Fracture mor phology: unspecified fracture morphology Laterality: right Qualified Code(s): S82.301A - Unspecified fracture of lower end of right tibia, initial encounter for closed fracture Is this a current diagnosis for this admission?: Yes Plan: Dr. Pham was consulted. He is planning for operative repair, it looks like an external fixator with possible other intervention needed. This will of course alter his plans for disposition. (2) Acute kidney injury Is this a current diagnosis for this admission?: Yes Plan: Improving with IV fluids antibiotics, and removal of the infected material. Continue to monitor electrolytes and urine output. (3) Acute postoperative anemia due to expected blood loss Is this a current diagnosis for this admission?: Yes Plan: Hemoglobin stable, will continue to reassess for need for transfusion. (4) Amputation of left lower extremity below knee Is this a current diagnosis for this admission?: Yes Plan: Per surgery. He will have outpatient follow-up at their direction. (5) Charcot foot due to diabetes mellitus Is this a current diagnosis for this admission?: Yes (6) Gas gangrene Is this a current diagnosis for this admission?: Yes Plan: It is post left BKA (7) Hyperglycemia due to type 1 diabetes mellitus Is this a current diagnosis for this admission?: Yes Plan: Blood sugars are well controlled (8) Hypertension Qualifiers: Hypertension type: essential hypertension Qualified Code(s): I10 - Essential (primary) hypertension Is this a current diagnosis for this admission?: Yes Plan: He will likely require continued adjustment of his medications. Norvasc increased to 10 mg a day. (9) Somnolence, daytime Is this a current diagnosis for this admission?: Yes Plan: Does have a history of sleep apnea uses CPAP. Some of this could be due to the metabolic strain from his acute illness and his surgery. (10) Type 1 diabetes mellitus with morbid obesity Is this a current diagnosis for this admission?: Yes Plan: We will strongly encourage lifestyle modification - Plan Summary Summary: Patient will be admitted to the medical floor where he received routine supportive and symptomatic cares. He will be started on IV vancomycin in addition to the IV Zosyn which he received in the emergency room. Blood and wound cultures are pending. Dr. Hill will be consulted for surgical management per his specific request. Patient will receive morphine sulfate 2 to 4 mg IV every 2 hours as needed for pain control using a sliding pain scale for dosing. Patient received Ativan 1 mg IV every 4 hours as needed for anxiety or restlessness. Before meals and at bedtime Accu-Cheks to be performed with sliding scale insulin used for hyperglycemia and a hypoglycemic protocol in place. Patient will be continued on his usual medications from home as appropriate as soon as his medication list has been verified and reconciled. 12/23/2019 The patient's glucose was greater than 400 today. And multiple changes will be made with his insulin regimen. His hemoglobin A1c was 9.8 reflecting very poor control. His white blood cell count has improved with antibiotic therapy. The culture from the foot revealed Proteus, group B strep and multiple anaerobic organisms. Infectious disease is consulting. Currently on Zosyn which will cover the current bacterial gideon. We will continue his antihypertensive medications. He has serum creatinine is elevated due to an acute kidney injury. This is most likely due to his infection. We will continue his IV fluids and monitor his renal function. Continue antihypertensive medications and monitor blood pressure I spent 60 minutes with the patient. More than half of that time was dedicated to discussion regarding his intervention options. I explained that his physicians have been working on this with for 3 years and it is only gotten worse. I explained that in my experience with wound care and hyperbaric therapy as well as long-term acute care hospital care the patient will need an amputation at some point. I pointed out that with amputation at this time he will not lose the next 1 to 2 years struggling to try and get the foot better when it will only go to the amputation eventually. Hyperbaric oxygen therapy is not an option with the active infection. We reviewed the MRI scan showing no bony destruction of the foot as well. The patient feels that the majority of his questions are answered. I told him we will review this at the next visit. At this point I believe the amputation is the best course of therapy for this patient. He will then be able to focus on significantly improving daily his regimen for diabetes and to try and prevent or slow the progression of the right Charcot foot. 12/24/2019 The patient has had a significant amount of discussion with multiple family m embers including his and father. He wishes to proceed with the left below- knee amputation. Dr. Hill will revisit the patient today to initiate the process. His sugars are still poorly controlled but much better than the 400s that he was exhibiting yesterday. We will continue to slowly increase his regimen but try to avoid hypoglycemia His serum creatinine is increased again. I believe this could be related to the supratherapeutic vancomycin level. Vancomycin has been discontinued. We will continue fluids. We will check laboratory studies tomorrow. He is still hyponatremic. He is on normal saline. I will reassess postoperatively and make adjustments to his regimen. I still believe that is related to the kidney injury. The remainder of his regimen will continue unchanged. 12/25/2019 Patient is somewhat somnolent. This was a difficult decision to proceed with surgery. We did not have slept well last night. He is n.p.o. for surgery later today. His renal function continues to improve slowly. With aggressive hydration to help correct renal function I believe he may have gotten slightly fluid overloaded. We will administer a single dose of furosemide and assess the results. We will review his diabetic regimen postoperatively as the physiologic stress may cause worsening glucose levels. We will likely need to increase the Lantus tomorrow Continue to monitor electrolytes and CBC. Encourage consistent CPAP use at night. 12/26/2019 The patient's is at the bedside. He is still quite somnolent. They confirm that he is compliant with his CPAP. Left below-knee amputation surgery went well. Patient will need 5 days after surgery before completing antibiotic therapy. The patient has been in the [facility] acute rehab unit in the past. With his new amputation and his right Charcot foot this will be a significant adjustment. PT and OT have seen the patient. We will make a referral. They should initiate the process for acquiring his prosthetic. We did suggest that his let the risk advisor know that he had the amputation since he already has an established relationship with acquiring his orthotic shoes. The orthotic for his right foot will likely need to be updated as well. Continue to monitor laboratory studies and Accu-Cheks. Continue current medication regimen 12/27/2019 Patient is status post left below-knee amputation. His hemoglobin is only 8.1 yesterday. We will check again tomorrow. We will likely need to add an oral iron supplement. This could be contributing to his somnolence however it does more resemble an obstructive sleep apnea pattern. He has no history of COPD and therefore hypercapnia is not likely. He will need aggressive rehab. He has been at the rehab facility up with [place] in the past and will benefit greatly from returning. We are starting to get better control of his glucose. His renal function continues to improve. 01/05/2020 Renal function is now improving slowly. We will continue to monitor. The patient is still anemic with hemoglobin of 8.0. Will wait another day. If he continues to fall then consider transfusion. Supplemental iron has been started. The patient was sleeping and snoring when I entered the room. He did not have his CPAP on. He did wake up easily and was more alert than yesterday. I believe there is less compliance to his CPAP than he reports. He is awaiting surgery's visit. He had approximately 5 mL of fluid out from drainage yesterday. If this continues the surgical drain may likely be removed. He also was asking about whether they can take the knee brace off during the day so that he can begin range of motion exercises with his knee. - Time Time Spent with patient: 25-34 minutes
--- NOTE | 2019-12-30 17:57 | Operative Report ---
Operative Report DATE OF SURGERY: 12/30/19 PREOPERATIVE DIAGNOSIS: 1. Right distal tibia articular fracture. 2. Right l ateral malleolus fracture POSTOPERATIVE DIAGNOSIS: Same OPERATION: 1. Open reduction internal fixation right distal tibia (pilon) fracture. 2. Closed treatment of lateral malleolus fracture with manipulation. 3. Application of external fixator SURGEON: DANISH JEFF ANESTHESIA: GA COMPLICATIONS: None ESTIMATED BLOOD LOSS: 100 cc INTRAOPERATIVE FINDINGS: Same PROCEDURE: Indications for procedure: Mr. Orozco is a 39-year-old man with poorly controlled diabetes and Charcot foot. He had undergone amputation of his left leg 5 days ago due to infection of a Charcot foot. He was transferring on his right leg yesterday when he felt a pop. Radiographic examination demonstrated a comminuted articular fracture of the distal tibia with an associated comminuted fibula fracture. Description of procedure: Following the induction of a general anesthetic and administration of 2 g of Ancef, the patient was positioned supine on the operating room table. All bony prominences were padded. The right lower extremity was sterilely prepped with ChloraPrep and draped in standard fashion. At the beginning of the procedure due to how large the patient's leg is as well as the severe comminution of the tibia, it was decided to place an external fixator. Under intensification a wire was placed from medial to lateral in the calcaneus. 2 external fixator pins were then placed in the tibia. A simple delta frame was fabricated. Longitudinal traction was pulled and an attempt to reduce the fractures by ligamentotaxis. General alignment was improved; however, the articular surface still remains significantly displaced. It was therefore decided to perform a formal open reduction. Extensile approach to the distal tibia was performed. Incision began 1 cm lateral to the tibial crest and progressed distally crossing over to the anterior aspect of the mid medial malleolus in the metaphyseal region. Skin flaps were raised and the fracture was identified. There were multiple comminut ed fragments in the metaphyseal region. These were manipulated back into place and clamped into position. A separate clamp was placed from anterior to posterior reducing the posterior malleolar fragments. A medial plate from the [employer] articular system was first placed distally and affixed to the shaft proximally with a nonlocking screw. This was an 8 hole distal medial plate. Image intensification was brought in which confirmed reduction of the fracture. Multiple screws were placed in the distal segment. Bicortical locking screws were placed in the proximal segment. A single anterior to posterior lag screw was placed securing the posterior malleolar fragment. Image desiccation was brought in which demonstrated anatomic alignment of the articular surface with good samaritan of tibial alignment. The wound was then copiously irrigated. The subcutaneous tissue was closed with 2-0 Vicryl. The skin was reapproximated with 3-0 nylon. Intensification revealed that the fibula was well reduced with the external fixator in place. Given the patient's poorly controlled diabetes, it was decided to avoid an additional incision in the fibula will be left to heal in close fashion. It was also thought that the patient would otherwise be noncompliant with nonweightbearing. As such it was decided to leave the bridging external fixator in place until there was sufficient fracture consolidation for him to begin weightbearing.
--- NOTE | 2019-12-30 18:09 | RADIOLOGY REPORT (SQ) ---
EXAM DESCRIPTION: TIBIA FIBULA RIGHT; NO CHG FLUORO IMAGES COMPLETED DATE/TIME: 12/30/2019 5:50 pm REASON FOR STUDY: RIGHT TIBIA ORIF COMPARISON: None. FLUOROSCOPY TIME: 0.7 minutes 6 images saved to PACS. TECHNIQUE: Intra-operative images acquired during surgical procedure to evaluate progress. NUMBER OF IMAGES: 6 LIMITATIONS: None. FINDINGS: Images in fluoro document placement of a compression plate on the distal tibia with multip le screws. IMPRESSION: ORIF right tibia. Refer to operative note for further information. COMMENT: Quality ID 145: Final reports for procedures using fluoroscopy that document radiation exp osure indices, or exposure time and number of fluorographic images (if radiation exposure indices are not available) Please consult full operative report of the attending physician for description of the procedure. TECHNICAL DOCUMENTATION: JOB ID: [id number] 2010 [employer]- All Rights Reserved Reading location - IP/workstation name: [email or web address]
--- NOTE | 2019-12-30 18:09 | RADIOLOGY REPORT (SQ) ---
EXAM DESCRIPTION: TIBIA FIBULA RIGHT; NO CHG FLUORO IMAGES COMPLETED DATE/TIME: 12/30/2019 5:50 pm REASON FOR STUDY: RIGHT TIBIA ORIF COMPARISON: None. FLUOROSCOPY TIME: 0.7 minutes 6 images saved to PACS. TECHNIQUE: Intra-operative images acquired during surgical procedure to evaluate progress. NUMBER OF IMAGES: 6 LIMITATIONS: None. FINDINGS: Images in fluoro document placement of a compression plate on the distal tibia with multip le screws. IMPRESSION: ORIF right tibia. Refer to operative note for further information. COMMENT: Quality ID [id number]: Final reports for procedures using fluoroscopy that document radiation exp osure indices, or exposure time and number of fluorographic images (if radiation exposure indices are not available) Please consult full operative report of the attending physician for description of the procedure. TECHNICAL DOCUMENTATION: JOB ID: [id number] 2010 [employer]- All Rights Reserved Reading location - IP/workstation name: [email or web address]
[2019-12-30] MEDS: CEFTRIAXONE 2 GM/D5W RTU 2 GM/50 ML RTUPB IV SCH (18:51)
[2019-12-30] MEDS: MORPHINE SULFATE 10 MG/ML INJ IV PRN (20:28)
[2019-12-30] MEDS: OXYCODONE HCL IR 5 MG TABLET PO PRN (23:42)
[2019-12-30] MEDS: ATORVASTATIN CALCIUM 40 MG TABLET PO SCH (23:43)
[2019-12-31] MEDS: INSULIN GLARGINE,HUM.REC.ANLOG 1,000 UNIT/10 ML VIAL SUBCUT SCH ×3 (00:37→21:34)
[2019-12-31] MEDS: CEFAZOLIN SODIUM 2 GM in DEXTROSE 5%-WATER 100 ML IV SCH ×4 (00:40→19:03)
[2019-12-31] MEDS ORDERED: FLUTICASONE NASAL SPRAY 50 MCG/SPRY 120 SPRAY/16 GM NASL ONE (01:45)
[2019-12-31] MEDS ORDERED: IPRATROPIUM/ALBUTEROL 0.5-2.5 MG/3 ML AMPUL NEB SCH (04:00)
[2019-12-31] MEDS ORDERED: FLUTICASONE NASAL SPRAY 50 MCG/SPRY 120 SPRAY/16 GM ONE (04:32)
[2019-12-31] MEDS: MORPHINE SULFATE 10 MG/ML INJ IV PRN ×3 (05:31→23:50)
[2019-12-31] MEDS: HEPARIN SOD (PORCINE) 5,000 UNIT/ML 1 ML VIAL SUBCUT SCH ×3 (05:32→21:34)
[2019-12-31] MEDS: HYDRALAZINE HCL 50 MG TABLET PO SCH ×3 (05:32→21:33)
[2019-12-31] MEDS: GABAPENTIN 300 MG CAPSULE PO SCH ×3 (05:33→21:33)
[2019-12-31 05:58] LABS: HEMATOCRIT 19.6 % (37.9-51.0); MEAN CORPUSCULAR HEMOGLOBIN 29.3 pg (27.0-33.4); MEAN CORPUSCULAR HGB CONC 33.9 g/dL (32.0-36.0); MEAN CORPUSCULAR VOLUME 86 fl (80-97); PLATELET COUNT 524 10^3/uL (150-450); RED BLOOD COUNT 2.27 10^6/uL (4.35-5.55)
[2019-12-31 06:01] LABS: HEMOGLOBIN 6.6 g/dL (13.5-17.0)
[2019-12-31 06:14] LABS: ANION GAP 10 (5-19); BLOOD UREA NITROGEN 29 mg/dL (7-20); CALCIUM 8.2 mg/dL (8.4-10.2); CARBON DIOXIDE 20 mmol/L (22-30); CHLORIDE 100 mmol/L (98-107); GLUCOSE 367 mg/dL (75-110); POTASSIUM 5.2 mmol/L (3.6-5.0)
[2019-12-31] MEDS: INSULIN LISPRO 100 UNIT/ML 3 ML VIAL SUBCUT SCH ×7 (08:41→21:29)
[2019-12-31] MEDS: FERROUS SULFATE 325 MG TABLET PO SCH ×3 (08:42→17:26)
[2019-12-31] MEDS: IPRATROPIUM/ALBUTEROL 0.5-2.5 MG/3 ML AMPUL NEB SCH ×2 (08:47→16:47)
--- NOTE | 2019-12-31 08:54 | RADIOLOGY REPORT (SQ) ---
EXAM DESCRIPTION: ANKLE RIGHT AP/LATERAL IMAGES COMPLETED DATE/TIME: 12/31/2019 7:50 am REASON FOR STUDY: POST SURGERY COMPARISON: Fluoroscopy images 12/30/2019 Right lower extremity two views 12/29/2019 Right foot two views 12/29/2019 NUMBER OF VIEWS: Two views TECHNIQUE: AP and lateral radiographic images acquired of the right ankle. LIMITATIONS: None. FINDINGS: Post bilobar bypass comminuted distal right tibial fracture with medial fixation plate and multiple screws. External fixator is present through the calcaneus. Grossly anatomic alignment at the ankle mortise Tarsal bone fractures at the edge of the field of view are similar compared to foot films from 020. IMPRESSION: Post ORIF with external fixator. Alignment at the ankle joint is satisfactory TECHNICAL DOCUMENTATION: JOB ID: [id number] 2010 [employer]- All Rights Reserved Reading location - IP/workstation name: [email or web address]
[2019-12-31] MEDS ORDERED: NORMAL SALINE 250 ML IV PRN ×2 (09:41)
[2019-12-31] MEDS ORDERED: ACETAMINOPHEN 325 MG TABLET PO PRN (09:47)
[2019-12-31] MEDS: METRONIDAZOLE 500 MG/NS RTU 500 MG/100 ML RTUPB IV SCH (10:33)
[2019-12-31] MEDS: FLUTICASONE NASAL SPRAY 50 MCG/SPRY 120 SPRAY/16 GM NASL SCH ×2 (10:33→22:53)
[2019-12-31] MEDS: FAMOTIDINE 20 MG TABLET PO SCH (10:35)
[2019-12-31] MEDS: METOPROLOL TARTRATE 100 MG TABLET PO SCH ×2 (10:35→21:33)
[2019-12-31] MEDS: DOCUSATE SODIUM 100 MG CAPSULE PO SCH ×2 (10:35→17:26)
[2019-12-31] MEDS: DULOXETINE HCL 30 MG CAPSULE.DR PO SCH (10:35)
[2019-12-31] MEDS: AMLODIPINE BESYLATE 5 MG TABLET PO SCH (10:35)
[2019-12-31] MEDS: ASPIRIN 81 MG TABLET, ENT COATED PO SCH (10:36)
[2019-12-31] MEDS: MAG HYDROX/AL HYDROX/SIMETH SUSP 30 ML UDCUP PO PRN (12:02)
[2019-12-31] MEDS: PROMETHAZINE HCL INJ 25 MG/1 ML VIAL IV PRN (12:07)
[2019-12-31] MEDS ORDERED: CEFAZOLIN 2 GM/D5W RTU 2 GM/50 ML RTUPB IV SCH (16:00)
--- NOTE | 2019-12-31 16:07 | PDOC PROGRESS REPORT ---
Subjective Progress Note for:: 12/31/19 Subjective:: No adverse events overnight. This morning his hemoglobin was low, which would be anticipated after his surgery. His white blood cell count is up, which would also not be uncommon after surgery. He had 2 units of packed red blood cells ordered. 20 minutes after the blood started, he had a temperature of 101 Fahrenheit. Reason For Visit: DIABETIC FOOT INJECTION,DIABETES MELLITUS TYPE 1, Physical Exam Vital Signs: Temp Pulse Resp BP Pulse Ox 100 F 103 H 22 H 157/63 H 94 12/31/19 14:58 12/31/19 14:58 12/31/19 14:58 12/31/19 14:58 12/31/19 14:58 Intake & Output 12/30/19 12/31/19 01/01/20 06:59 06:59 06:59 Intake Total 970 2897 200 Output Total 2800 4500 Balance -1830 -1603 200 Weight 151.1 kg 151.1 kg General appearance: PRESENT: no acute distress, cooperative, disheveled, morbidly obese Respiratory exam: PRESENT: clear to auscultation aleja, symmetrical, unlabored. ABSENT: accessory muscle use, chest wall tenderness, prolonged expiratory phas, rales, rhonchi, tachypnea, wheezes Cardiovascular exam: PRESENT: RRR, +S1, +S2 Pulses: PRESENT: normal carotid pulses Vascular exam: PRESENT: normal capillary refill GI/Abdominal exam: PRESENT: normal bowel sounds, soft, other - Pendulous abdominal pannus. ABSENT: distended, guarding, rebound, tenderness Extremities exam: PRESENT: pedal edema, +1 edema, other - Charcot foot on right, left BKA Musculoskeletal exam: PRESENT: deformity - Right Charcot foot, external fixator right lower extremity below the knee Neurological exam: PRESENT: awake, oriented to person, oriented to place, oriented to situation, motor sensory deficit - No sensation in his right lower extremity distal to the knee Psychiatric exam: PRESENT: appropriate affect, normal mood Skin exam: PRESENT: dry, warm Results Laboratory Results: 12/31/19 05:09 12/31/19 05:09 12/31/19 12/31/19 12/31/19 05:09 05:09 10:07 WBC 15.0 H RBC 2.27 L Hgb 6.6 L Hct 19.6 L MCV 86 MCH 29.3 MCHC 33.9 RDW 15.0 H Plt Count 524 H Sodium 130.2 L Potassium 5.2 H Chloride 100 Carbon Dioxide 20 L Anion Gap 10 BUN 29 H Creatinine 2.20 H Est GFR ( Amer) 40 L Glucose 367 H Calcium 8.2 L Blood Type O POSITIVE Antibody Screen NEGATIVE Impressions: Chest X-Ray 12/20/19 22:11 IMPRESSION: Overall improvement in lung volumes and aeration. No pneumonia or edema. Lower Extremity MRI 12/22/19 00:00 IMPRESSION: NO EVIDENCE FOR OSTEOMYELITIS. Foot X-Ray 12/29/19 00:00 IMPRESSION: 1. COMMINUTED FRACTURE OF THE DISTAL TIBIA, NOT COMPLETELY IMAGED. 2. CHRONIC DEFORMITY OF THE NAVICULAR BONE. NO ACUTE FINDINGS IN THE FOOT. Lower Extremity CT 12/29/19 00:00 IMPRESSION: Acute comminuted distal tibia and fibula fractures as above. Fluoroscopy 12/30/19 00:00 IMPRESSION: ORIF right tibia. Refer to operative note for further information. Tibia/Fibula X-Ray 12/30/19 00:00 IMPRESSION: ORIF right tibia. Refer to operative note for further information. Ankle X-Ray 12/31/19 00:00 IMPRESSION: Post ORIF with external fixator. Alignment at the ankle joint is satisfactory Assessment and Plan - Diagnosis (1) Fracture of distal end of tibia Qualifiers: Encounter type: initial encounter Fracture type: closed Fracture morphology: unspecified fracture morphology Laterality: right Qualified Code(s): S82.301A - Unspecified fracture of lower end of right tibia, initial encounter for closed fracture Is this a current diagnosis for this admission?: Yes Plan: Status post surgical repair with placement of an external fixator. Management per orthopedics. (2) Acute kidney injury Is this a current diagnosis for this admission?: Yes Plan: Improving with IV fluids antibiotics, and removal of the infected material. Continue to monitor electrolytes and urine output. Of also ordered 2 units of packed red blood cells which should help with his renal perfusion. (3) Acute postoperative anemia due to expected blood loss Is this a current diagnosis for this admission?: Yes Plan: Hemoglobin low again this morning after his second surgery, transfused 2 units of packed red blood cells. His temperature was already a little bit elevated but he had a fever after the transfusion started. We ordered him some Tylenol continue to transfusion for now. Chest x-ray has also been ordered. (4) Amputation of left lower extremity below knee Is this a current diagnosis for this admission?: Yes Plan: Per surgery. He will have outpatient follow-up at their direction. (5) Charcot foot due to diabetes mellitus Is this a current diagnosis for this admission?: Yes (6) Gas gangrene Is this a current diagnosis for this admission?: Yes Plan: It is post left BKA. He was on Rocephin and Flagyl based on his cultures, but I switched him to Ancef based on final culture results. (7) Hyperglycemia due to type 1 diabetes mellitus Is this a current diagnosis for this admission?: Yes Plan: Blood sugars are well controlled (8) Hypertension Qualifiers: Hypertension type: essential hypertension Qualified Code(s): I10 - Essential (primary) hypertension Is this a current diagnosis for this admission?: Yes Plan: He will likely require continued adjustment of his medications. Norvasc increased to 10 mg a day. (9) Somnolence, daytime Is this a current diagnosis for this admission?: Yes Plan: Does have a history of sleep apnea uses CPAP. Some of this could be due to the metabolic strain from his acute illness and his surgery. (10) Type 1 diabetes mellitus with morbid obesity Is this a current diagnosis for this admission?: Yes Plan: We will strongly encourage lifestyle modification - Plan Summary Summary: Patient will be admitted to the medical floor where he received routine supportive and symptomatic cares. He will be started on IV vancomycin in addition to the IV Zosyn which he received in the emergency room. Blood and wound cultures are pending. Dr. Hill will be consulted for surgical management per his specific request. Patient will receive morphine sulfate 2 to 4 mg IV every 2 hours as needed for pain control using a sliding pain scale for dosing. Patient received Ativan 1 mg IV every 4 hours as needed for anxiety or restlessness. Before meals and at bedtime Accu-Cheks to be performed with sliding scale insulin used for hyperglycemia and a hypoglycemic protocol in place. Patient will be continued on his usual medications from home as appropriate as soon as his medication list has been verified and reconciled. 12/23/2019 The patient's glucose was greater than 400 today. And multiple changes will be made with his insulin regimen. His hemoglobin A1c was 9.8 reflecting very poor control. His white blood cell count has improved with antibiotic therapy. The culture from the foot revealed Proteus, group B strep and multiple anaerobic organisms. Infectious disease is consulting. Currently on Zosyn which will cover the current bacterial gideon. We will continue his antihypertensive medications. He has serum creatinine is elevated due to an acute kidney injury. This is most likely due to his infection. We will continue his IV fluids and monitor his renal function. Continue antihypertensive medications and monitor blood pressure I spent 60 minutes with the patient. More than half of that time was dedicated to discussion regarding his intervention options. I explained that his phys icians have been working on this with for 3 years and it is only gotten worse. I explained that in my experience with wound care and hyperbaric therapy as well as long-term acute care hospital care the patient will need an amputation at some point. I pointed out that with amputation at this time he will not lose the next 1 to 2 years struggling to try and get the foot better when it will only go to the amputation eventually. Hyperbaric oxygen therapy is not an option with the active infection. We reviewed the MRI scan showing no bony destruction of the foot as well. The patient feels that the majority of his questions are answered. I told him we will review this at the next visit. At this point I believe the amputation is the best course of therapy for this patient. He will then be able to focus on significantly improving daily his regimen for diabetes and to try and prevent or slow the progression of the right Charcot foot. 12/24/2019 The patient has had a significant amount of discussion with multiple family members including his and father. He wishes to proceed with the left below-knee amputation. Dr. Hill will revisit the patient today to initiate the process. His sugars are still poorly controlled but much better than the 400s that he was exhibiting yesterday. We will continue to slowly increase his regimen but try to avoid hypoglycemia His serum creatinine is increased again. I believe this could be related to the supratherapeutic vancomycin level. Vancomycin has been discontinued. We will continue fluids. We will check laboratory studies tomorrow. He is still hyponatremic. He is on normal saline. I will reassess postoperatively and make adjustments to his regimen. I still believe that is related to the kidney injury. The remainder of his regimen will continue unchanged. 12/25/2019 Patient is somewhat somnolent. This was a difficult decision to proceed with surgery. We did not have slept well last night. He is n.p.o. for surgery later today. His renal function continues to improve slowly. With aggressive hydration to help correct renal function I believe he may have gotten slightly fluid overloaded. We will administer a single dose of furosemide and assess the results. We will review his diabetic regimen postoperatively as the physiologic stress may cause worsening glucose levels. We will likely need to increase the Lantus tomorrow Continue to monitor electrolytes and CBC. Encourage consistent CPAP use at night. 12/26/2019 The patient's is at the bedside. He is still quite somnolent. They confirm that he is compliant with his CPAP. Left below-knee amputation surgery went well. Patient will need 5 days after surgery before completing antibiotic therapy. The patient has been in the [facility] acute rehab unit in the past. With his new amputation and his right Charcot foot this will be a significant adjustment. PT and OT have seen the patient. We will make a referral. They should initiate the process for acquiring his prosthetic. We did suggest that his let the assembler caterpillar spider know that he had the amputation since he already has an established relationship with acquiring his orthotic shoes. The orthotic for his right foot will likely need to be updated as well. Continue to monitor laboratory studies and Accu-Cheks. Continue current medication regimen 12/27/2019 Patient is status post left below-knee amputation. His hemoglobin is only 8.1 yesterday. We will check again tomorrow. We will likely need to add an oral iron supplement. This could be contributing to his somnolence however it does more resemble an obstructive sleep apnea pattern. He has no history of COPD and therefore hypercapnia is not likely. He will need aggressive rehab. He has been at the rehab facility up with [facility] in the past and will benefit greatly from returning. We are starting to get better control of his glucose. His renal function continues to improve. 01/05/2020 Renal function is now improving slowly. We will continue to monitor. The patient is still anemic with hemoglobin of 8.0. Will wait another day. If he continues to fall then consider transfusion. Supplemental iron has been started. The patient was sleeping and snoring when I entered the room. He did not have his CPAP on. He did wake up easily and was more alert than yesterday. I believe there is less compliance to his CPAP than he reports. He is awaiting surgery's visit. He had approximately 5 mL of fluid out from drainage yesterday. If this continues the surgical drain may likely be removed. He also was asking about whether they can take the knee brace off during the day so that he can begin range of motion exercises with his knee. - Time Time Spent with patient: 25-34 minutes
--- NOTE | 2019-12-31 16:31 | RADIOLOGY REPORT (SQ) ---
EXAM DESCRIPTION: CHEST SINGLE VIEW IMAGES COMPLETED DATE/TIME: 12/31/2019 4:20 pm REASON FOR STUDY: fever, dyspnea COMPARISON: 12/20/2019. EXAM PARAMETERS: NUMBER OF VIEWS: One view. TECHNIQUE: Single frontal radiographic view of the chest acquired. RADIATION DOSE: NA LIMITATIONS: None. FINDINGS: LUNGS AND PLEURA: No opacities, masses or pneumothorax. No pleural effusion. MEDIASTINUM AND HILAR STRUCTURES: No masses. Contour normal. HEART AND VASCULAR STRUCTURES: Heart normal in size. Normal vasculature. BONES: No acute findings. HARDWARE: None in the chest. OTHER: No other significant finding. IMPRESSION: NO ACUTE RADIOGRAPHIC FINDING IN THE CHEST. TECHNICAL DOCUMENTATION: JOB ID: [id number] 2010 [employer]- All Rights Reserved Reading location - IP/workstation name: [email or web address]
--- NOTE | 2019-12-31 17:39 | PDOC PROGRESS REPORT ---
Subjective Progress Note for:: 12/31/19 Subjective:: Transfusion of 2U PRBC for combination of ACD and ABLA. Patient somnolent but arousable. No significant discomfort despite severe fractures and operative repair. Reason For Visit: DIABETIC FOOT INJECTION,DIABETES MELLITUS TYPE 1, Right comminuted, intraarticular fracture of the distal tibia with comminuted fibula fracture. Physical Exam Vital Signs: Temp Pulse Resp BP Pulse Ox 101.3 F H 96 20 147/58 H 93 12/31/19 16:13 12/31/19 16:53 12/31/19 16:53 12/31/19 16:13 12/31/19 16:53 Intake & Output 12/30/19 12/31/19 01/01/20 06:59 06:59 06:59 Intake Total 970 2897 200 Output Total 2800 4500 Balance -1830 -1603 200 Weight 151.1 kg 151.1 kg Musculoskeletal exam: PRESENT: other - Right Lower Extremity: The external fixator is in place. There is normal alignment of the leg. The surgical dressing is intact. Patient able to move foot. Results Laboratory Results: 12/31/19 05:09 12/31/19 05:09 12/31/19 12/31/19 12/31/19 05:09 05:09 10:07 WBC 15.0 H RBC 2.27 L Hgb 6.6 L Hct 19.6 L MCV 86 MCH 29.3 MCHC 33.9 RDW 15.0 H Plt Count 524 H Sodium 130.2 L Potassium 5.2 H Chloride 100 Carbon Dioxide 20 L Anion Gap 10 BUN 29 H Creatinine 2.20 H Est GFR ( Amer) 40 L Glucose 367 H Calcium 8.2 L Blood Type O POSITIVE Antibody Screen NEGATIVE Impressions: Lower Extremity MRI 12/22/19 00:00 IMPRESSION: NO EVIDENCE FOR OSTEOMYELITIS. Foot X-Ray 12/29/19 00:00 IMPRESSION: 1. COMMINUTED FRACTURE OF THE DISTAL TIBIA, NOT COMPLETELY IMAGED. 2. CHRONIC DEFORMITY OF THE NAVICULAR BONE. NO ACUTE FINDINGS IN THE FOOT. Lower Extremity CT 12/29/19 00:00 IMPRESSION: Acute comminuted distal tibia and fibula fractures as above. Fluoroscopy 12/30/19 00:00 IMPRESSION: ORIF right tibia. Refer to operative note for further information. Tibia/Fibula X-Ray 12/30/19 00:00 IMPRESSION: ORIF right tibia. Refer to operative note for further information. Ankle X-Ray 12/31/19 00:00 IMPRESSION: Post ORIF with external fixator. Alignment at the ankle joint is satisfactory Chest X-Ray 12/31/19 00:00 IMPRESSION: NO ACUTE RADIOGRAPHIC FINDING IN THE CHEST. Assessment & Plan - Diagnosis (1) Charcot foot due to diabetes mellitus Is this a current diagnosis for this admission?: Yes (2) Diabetic foot infection Is this a current diagnosis for this admission?: Yes (4) Fracture of distal end of tibia Qualifiers: Encounter type: initial encounter Fracture type: closed Fracture morphology: unspecified fracture morphology Laterality: right Qualified Code(s): S82.301A - Unspecified fracture of lower end of right tibia, initial encounter for closed fracture Is this a current diagnosis for this admission?: Yes - Plan Summary Plan Summary: POD # 1 s/p ORIF right distal tibia articular fracture and placement of external fixator Patient is strict NWB on the right leg until complete fracture consolidation. The patient's lack of protective sensation will result in destruction of hardware if the patient uses the right leg for mobilization prior to fracture healing. I have discussed with the patient that if he is non compliant and bears weight on the leg, there is a high likelihood that he will require limb amputation. Will start pin site prophylaxis with keflex tomorrow.
[2019-12-31] MEDS: ATORVASTATIN CALCIUM 40 MG TABLET PO SCH (21:33)
[2019-12-31] MEDS: OXYCODONE HCL IR 5 MG TABLET PO PRN (21:44)
[2020-01-01] MEDS: IPRATROPIUM/ALBUTEROL 0.5-2.5 MG/3 ML AMPUL NEB SCH ×3 (00:12→16:21)
[2020-01-01] MEDS: CEFAZOLIN SODIUM 2 GM in DEXTROSE 5%-WATER 100 ML IV SCH ×4 (00:55→17:03)
[2020-01-01] MEDS: OXYCODONE HCL IR 5 MG TABLET PO PRN ×3 (02:47→17:03)
[2020-01-01 05:50] LABS: HEMATOCRIT 23.3 % (37.9-51.0); HEMOGLOBIN 8.1 g/dL (13.5-17.0); MEAN CORPUSCULAR HEMOGLOBIN 29.3 pg (27.0-33.4); MEAN CORPUSCULAR HGB CONC 34.7 g/dL (32.0-36.0); MEAN CORPUSCULAR VOLUME 84 fl (80-97); PLATELET COUNT 571 10^3/uL (150-450); RED BLOOD COUNT 2.76 10^6/uL (4.35-5.55); RED CELL DISTRIBUTION WIDTH 15.5 % (11.5-14.0); WHITE BLOOD COUNT 16.4 10^3/uL (4.0-10.5)
[2020-01-01 06:16] LABS: ANION GAP 12 (5-19); BLOOD UREA NITROGEN 30 mg/dL (7-20); CALCIUM 8.4 mg/dL (8.4-10.2); CARBON DIOXIDE 20 mmol/L (22-30); CHLORIDE 100 mmol/L (98-107); GLUCOSE 139 mg/dL (75-110); POTASSIUM 4.6 mmol/L (3.6-5.0)
[2020-01-01] MEDS: HEPARIN SOD (PORCINE) 5,000 UNIT/ML 1 ML VIAL SUBCUT SCH ×3 (06:21→22:18)
[2020-01-01] MEDS: HYDRALAZINE HCL 50 MG TABLET PO SCH ×3 (06:21→22:17)
[2020-01-01] MEDS: GABAPENTIN 300 MG CAPSULE PO SCH ×3 (06:21→22:17)
[2020-01-01 06:32] LABS: ABSOLUTE LYMPHOCYTES# (MANUAL) 2.1 10^3/uL (0.5-4.7); ABSOLUTE MONOCYTES # (MANUAL) 0.7 10^3/uL (0.1-1.4); BAND NEUTROPHILS % (MANUAL) 1 % (3-5); BASOPHILS % (MANUAL) 0 % (0-2); EOSINOPHILS % (MANUAL) 0 % (0-6); LYMPHOCYTES % (MANUAL) 13 % (13-45); METAMYELOCYTES % (MANUAL) 1 % (0-1); MONOCYTES % (MANUAL) 4 % (3-13); NUCLEATED RED BLOOD CELLS 1 /100 WBC (0); SEGMENTED NEUTROPHILS % (MAN) 81 % (42-78); TOTAL CELLS COUNTED 100
[2020-01-01 06:33] LABS: ANISOCYTOSIS 1+; PLATELET COMMENT INCREASED
[2020-01-01] MEDS: INSULIN LISPRO 100 UNIT/ML 3 ML VIAL SUBCUT SCH ×7 (09:31→22:18)
[2020-01-01] MEDS: DULOXETINE HCL 30 MG CAPSULE.DR PO SCH (09:32)
[2020-01-01] MEDS: INSULIN GLARGINE,HUM.REC.ANLOG 1,000 UNIT/10 ML VIAL SUBCUT SCH ×2 (09:32→22:19)
[2020-01-01] MEDS: AMLODIPINE BESYLATE 5 MG TABLET PO SCH (09:32)
[2020-01-01] MEDS: METOPROLOL TARTRATE 100 MG TABLET PO SCH ×2 (09:33→22:16)
[2020-01-01] MEDS: DOCUSATE SODIUM 100 MG CAPSULE PO SCH ×2 (09:33→17:04)
[2020-01-01] MEDS: FAMOTIDINE 20 MG TABLET PO SCH (09:33)
[2020-01-01] MEDS: ASPIRIN 81 MG TABLET, ENT COATED PO SCH (09:33)
[2020-01-01] MEDS: FERROUS SULFATE 325 MG TABLET PO SCH ×3 (09:36→17:04)
[2020-01-01] MEDS: FLUTICASONE NASAL SPRAY 50 MCG/SPRY 120 SPRAY/16 GM NASL SCH ×2 (09:40→22:17)
--- NOTE | 2020-01-01 12:42 | Progress Note ---
Provider Note Provider Note: POD # 2 s/p ORIF right distal tibia articular fracture and application of external fixator Strict NWB Wound check tomorrow.
--- NOTE | 2020-01-01 13:19 | PDOC PROGRESS REPORT ---
Subjective Progress Note for:: 01/01/20 Subjective:: No adverse events overnight. Complaints. Vital signs been stable. Patient has been afebrile. No evidence of any bleeding or exudates. He still falls asleep if he stops talking or sits still for any small length of time. Reason For Visit: DIABETIC FOOT INJECTION,DIABETES MELLITUS TYPE 1, Physical Exam Vital Signs: Temp Pulse Resp BP Pulse Ox 98.7 F 85 18 143/69 H 92 01/01/20 11:48 01/01/20 11:48 01/01/20 11:48 01/01/20 11:48 01/01/20 11:48 Intake & Output 12/31/19 01/01/20 01/02/20 06:59 06:59 06:59 Intake Total 2897 2910 480 Output Total 4500 1550 600 Balance -1603 1360 -120 Weight 151.1 kg 151.1 kg General appearance: PRESENT: no acute distress, cooperative, disheveled, morbidly obese Respiratory exam: PRESENT: clear to auscultation aleja, symmetrical, unlabored. ABSENT: accessory muscle use, chest wall tenderness, prolonged expiratory phas, rales, rhonchi, tachypnea, wheezes Cardiovascular exam: PRESENT: RRR, +S1, +S2 Pulses: PRESENT: normal carotid pulses Vascular exam: PRESENT: normal capillary refill GI/Abdominal exam: PRESENT: normal bowel sounds, soft, other - Pendulous abdominal pannus. ABSENT: distended, guarding, rebound, tenderness Extremities exam: PRESENT: pedal edema, +1 edema, other - Charcot foot on right, left BKA Musculoskeletal exam: PRESENT: deformity - Right Charcot foot, external fixator right lower extremity below the knee Neurological exam: PRESENT: awake, oriented to person, oriented to place, oriented to situation, motor sensory deficit - No sensation in his right lower extremity distal to the knee Psychiatric exam: PRESENT: appropriate affect, normal mood Skin exam: PRESENT: dry, warm Results Laboratory Results: 01/01/20 05:18 01/01/20 05:18 12/31/19 01/01/20 01/01/20 10:07 05:18 05:18 WBC 16.4 H RBC 2.76 L Hgb 8.1 L Hct 23.3 L MCV 84 MCH 29.3 MCHC 34.7 RDW 15.5 H Plt Count 571 H Seg Neutrophils % Not Reportable Sodium 131.7 L Potassium 4.6 Chloride 100 Carbon Dioxide 20 L Anion Gap 12 BUN 30 H Creatinine 2.04 H Est GFR ( Amer) 44 L Glucose 139 H Calcium 8.4 Blood Type O POSITIVE Antibody Screen NEGATIVE Impressions: Lower Extremity MRI 12/22/19 00:00 IMPRESSION: NO EVIDENCE FOR OSTEOMYELITIS. Foot X-Ray 12/29/19 00:00 IMPRESSION: 1. COMMINUTED FRACTURE OF THE DISTAL TIBIA, NOT COMPLETELY IMAGED. 2. CHRONIC DEFORMITY OF THE NAVICULAR BONE. NO ACUTE FINDINGS IN THE FOOT. Lower Extremity CT 12/29/19 00:00 IMPRESSION: Acute comminuted distal tibia and fibula fractures as above. Fluoroscopy 12/30/19 00:00 IMPRESSION: ORIF right tibia. Refer to operative note for further information. Tibia/Fibula X-Ray 12/30/19 00:00 IMPRESSION: ORIF right tibia. Refer to operative note for further information. Ankle X-Ray 12/31/19 00:00 IMPRESSION: Post ORIF with external fixator. Alignment at the ankle joint is satisfactory Chest X-Ray 12/31/19 00:00 IMPRESSION: NO ACUTE RADIOGRAPHIC FINDING IN THE CHEST. Assessment and Plan - Diagnosis (1) Fracture of distal end of tibia Qualifiers: Encounter type: initial encounter Fracture type: closed Fracture morphol ogy: unspecified fracture morphology Laterality: right Qualified Code(s): S82.301A - Unspecified fracture of lower end of right tibia, initial encounter for closed fracture Is this a current diagnosis for this admission?: Yes Plan: Status post surgical repair with placement of an external fixator. Management per orthopedics. (2) Acute kidney injury Is this a current diagnosis for this admission?: Yes Plan: Improving with IV fluids antibiotics, and removal of the infected material. Continue to monitor electrolytes and urine output. Packed red cell infusion probably help some with the improvement in his creatinine. Will likely have to back off of his fluids soon give him some gentle diuresis (3) Acute postoperative anemia due to expected blood loss Is this a current diagnosis for this admission?: Yes Plan: Hemoglobin low but stable status post transfusion, will monitor for any further loss and transfuse as needed (4) Amputation of left lower extremity below knee Is this a current diagnosis for this admission?: Yes Plan: Per surgery. He will have outpatient follow-up at their direction. (5) Charcot foot due to diabetes mellitus Is this a current diagnosis for this admission?: Yes (6) Gas gangrene Is this a current diagnosis for this admission?: Yes Plan: It is post left BKA. He was on Rocephin and Flagyl based on his cultures, but I switched him to Ancef based on final culture results. (7) Hyperglycemia due to type 1 diabetes mellitus Is this a current diagnosis for this admission?: Yes Plan: Blood sugars are well controlled (8) Hypertension Qualifiers: Hypertension type: essential hypertension Qualified Code(s): I10 - Essential (primary) hypertension Is this a current diagnosis for this admission?: Yes Plan: He will likely require continued adjustment of his medications. Norvasc increased to 10 mg a day. (9) Somnolence, daytime Is this a current diagnosis for this admission?: Yes Plan: Does have a history of sleep apnea uses CPAP. Some of this could be due to the metabolic strain from his acute illness and his surgery. (10) Type 1 diabetes mellitus with morbid obesity Is this a current diagnosis for this admission?: Yes Plan: We will strongly encourage lifestyle modification - Plan Summary Summary: Patient will be admitted to the medical floor where he received routine supportive and symptomatic cares. He will be started on IV vancomycin in addition to the IV Zosyn which he received in the emergency room. Blood and wound cultures are pending. Dr. Hill will be consulted for surgical management per his specific request. Patient will receive morphine sulfate 2 to 4 mg IV every 2 hours as needed for pain control using a sliding pain scale for dosing. Patient received Ativan 1 mg IV every 4 hours as needed for anxiety or restlessness. Before meals and at bedtime Accu-Cheks to be performed with sliding scale insulin used for hyperglycemia and a hypoglycemic protocol in place. Patient will be continued on his usual medications from home as appropriate as soon as his medication list has been verified and reconciled. 12/23/2019 The patient's glucose was greater than 400 today. And multiple changes will be made with his insulin regimen. His hemoglobin A1c was 9.8 reflecting very poor control. His white blood cell count has improved with antibiotic therapy. The culture from the foot revealed Proteus, group B strep and multiple anaerobic organisms. Infectious disease is consulting. Currently on Zosyn which will cover the current bacterial gideon. We will continue his antihypertensive medications. He has serum creatinine is elevated due to an acute kidney injury. This is most likely due to his infection. We will continue his IV fluids and monitor his renal function. Continue antihypertensive medications and monitor blood pressure I spent 60 minutes with the patient. More than half of that time was dedicated to discussion regarding his intervention options. I explained that his physicians have been working on this with for 3 years and it is only gotten worse. I explained that in my experience with wound care and hyperbaric therapy as well as long-term acute care hospital care the patient will need an amputation at some point. I pointed out that with amputation at this time he will not lose the next 1 to 2 years struggling to try and get the foot better when it will only go to the amputation eventually. Hyperbaric oxygen therapy is not an option with the active infection. We reviewed the MRI scan showing no bony destruction of the foot as well. The patient feels that the majority of his questions are answered. I told him we will review this at the next visit. At this point I believe the amputation is the best course of therapy for this patient. He will then be able to focus on significantly improving daily his regimen for diabetes and to try and prevent or slow the progression of the right Charcot foot. 12/24/2019 The patient has had a significant amount of discussion with multiple family members including his and father. He wishes to proceed with the left below-knee amputation. Dr. Hill will revisit the patient today to initiate the process. His sugars are still poorly controlled but much better than the 400s that he was exhibiting yesterday. We will continue to slowly increase his regimen but try to avoid hypoglycemia His serum creatinine is increased again. I believe this could be related to the supratherapeutic vancomycin level. Vancomycin has been discontinued. We will continue fluids. We will check laboratory studies tomorrow. He is still hyponatremic. He is on normal saline. I will reassess postoperatively and make adjustments to his regimen. I still believe that is related to the kidney injury. The remainder of his regimen will continue unchanged. 12/25/2019 Patient is somewhat somnolent. This was a difficult decision to proceed with surgery. We did not have slept well last night. He is n.p.o. for surgery later today. His renal function continues to improve slowly. With aggressive hydration to help correct renal function I believe he may have gotten slightly fluid overloaded. We will administer a single dose of furosemide and assess the results. We will review his diabetic regimen postoperatively as the physiologic stress may cause worsening glucose levels. We will likely need to increase the Lantus tomorrow Continue to monitor electrolytes and CBC. Encourage consistent CPAP use at night. 12/26/2019 The patient's is at the bedside. He is still quite somnolent. They confirm that he is compliant with his CPAP. Left below-knee amputation surgery went well. Patient will need 5 days after surgery before completing antibiotic therapy. The patient has been in the [facility] acute rehab unit in the past. With his new amputation and his right Charcot foot this will be a significant adjustment. PT and OT have seen the patient. We will make a referral. They should initiate the process for acquiring his prosthetic. We did suggest that his let the heel room supervisor know that he had the amputation since he already has an established relationship with acquiring his orthotic shoes. The orthotic for his right foot will likely need to be updated as well. Continue to monitor laboratory studies and Accu-Cheks. Continue current medication regimen 12/27/2019 Patient is status post left below-knee amputation. His hemoglobin is only 8.1 yesterday. We will check again tomorrow. We will likely need to add an oral iron supplement. This could be contributing to his somnolence however it does more resemble an obstructive sleep apnea pattern. He has no history of COPD and therefore hypercapnia is not likely. He will need aggressive rehab. He has been at the rehab facility up with [facility] in the past and will benefit greatly from returning. We are starting to get better control of his glucose. His renal function continues to improve. 01/05/2020 Renal function is now improving slowly. We will continue to monitor. The patient is still anemic with hemoglobin of 8.0. Will wait another day. If he continues to fall then consider transfusion. Supplemental iron has been started. The patient was sleeping and snoring when I entered the room. He did not have his CPAP on. He did wake up easily and was more alert than yesterday. I believe there is less compliance to his CPAP than he reports. He is awaiting surgery's visit. He had approximately 5 mL of fluid out from drainage yesterday. If this continues the surgical drain may likely be removed. He also was asking about whether they can take the knee brace off during the day so that he can begin range of motion exercises with his knee. - Time Time Spent with patient: 25-34 minutes
[2020-01-01] MEDS: ATORVASTATIN CALCIUM 40 MG TABLET PO SCH (22:17)
[2020-01-01] MEDS: PROMETHAZINE HCL INJ 25 MG/1 ML VIAL IV PRN (22:46)
[2020-01-02] MEDS: IPRATROPIUM/ALBUTEROL 0.5-2.5 MG/3 ML AMPUL NEB SCH ×2 (00:20→08:02)
[2020-01-02] MEDS: CEFAZOLIN SODIUM 2 GM in DEXTROSE 5%-WATER 100 ML IV SCH ×5 (00:29→23:43)
[2020-01-02] MEDS: MORPHINE SULFATE 10 MG/ML INJ IV PRN (05:10)
[2020-01-02] MEDS: HYDRALAZINE HCL 50 MG TABLET PO SCH ×3 (05:14→22:23)
[2020-01-02] MEDS: GABAPENTIN 300 MG CAPSULE PO SCH ×3 (05:15→22:23)
[2020-01-02] MEDS: HEPARIN SOD (PORCINE) 5,000 UNIT/ML 1 ML VIAL SUBCUT SCH ×3 (05:15→22:28)
[2020-01-02 05:26] LABS: HEMATOCRIT 22.5 % (37.9-51.0); MEAN CORPUSCULAR HEMOGLOBIN 28.9 pg (27.0-33.4); MEAN CORPUSCULAR HGB CONC 34.4 g/dL (32.0-36.0); MEAN CORPUSCULAR VOLUME 84 fl (80-97); PLATELET COUNT 566 10^3/uL (150-450); RED BLOOD COUNT 2.67 10^6/uL (4.35-5.55); RED CELL DISTRIBUTION WIDTH 15.4 % (11.5-14.0); WHITE BLOOD COUNT 14.2 10^3/uL (4.0-10.5)
[2020-01-02 05:33] LABS: HEMOGLOBIN 7.7 g/dL (13.5-17.0)
[2020-01-02 05:36] LABS: ANION GAP 8 (5-19); BLOOD UREA NITROGEN 28 mg/dL (7-20); CALCIUM 8.6 mg/dL (8.4-10.2); CARBON DIOXIDE 23 mmol/L (22-30); CHLORIDE 101 mmol/L (98-107); GLUCOSE 125 mg/dL (75-110); POTASSIUM 4.8 mmol/L (3.6-5.0)
--- NOTE | 2020-01-02 07:56 | PDOC PROGRESS REPORT ---
Subjective Progress Note for:: 01/02/20 Subjective:: Patient is awake and alert. He is not experiencing pain in his leg. Reason For Visit: DIABETIC FOOT INJECTION,DIABETES MELLITUS TYPE 1, Postoperative day #3 status post ORIF right distal tibia articular fracture and application of external fixator Physical Exam Vital Signs: Temp Pulse Resp BP Pulse Ox 98.2 F 83 19 157/62 H 95 01/02/20 04:14 01/02/20 04:14 01/02/20 04:14 01/02/20 04:14 01/02/20 04:14 Intake & Output 01/01/20 01/02/20 01/03/20 06:59 06:59 06:59 Intake Total 2910 1020 Output Total 1550 2300 Balance 1360 -1280 Weight 151.1 kg 148.1 kg General appearance: PRESENT: no acute distress, well-developed, well-nourished Head exam: PRESENT: atraumatic, normocephalic Neck exam: PRESENT: full ROM Respiratory exam: PRESENT: unlabored Musculoskeletal exam: PRESENT: other - The external fixator is intact and in good position. The surgical wound is healing. There is no erythema, drainage, or evidence of infection. There is no blistering of the skin. Patient is able to actively move the ankle and toes. Results Laboratory Results: 01/02/20 04:34 01/02/20 04:34 01/02/20 01/02/20 04:34 04:34 WBC 14.2 H RBC 2.67 L Hgb 7.7 L Hct 22.5 L MCV 84 MCH 28.9 MCHC 34.4 RDW 15.4 H Plt Count 566 H Sodium 132.2 L Potassium 4.8 Chloride 101 Carbon Dioxide 23 Anion Gap 8 BUN 28 H Creatinine 1.82 H Est GFR ( Amer) 50 L Glucose 125 H Calcium 8.6 Impressions: Lower Extremity MRI 12/22/19 00:00 IMPRESSION: NO EVIDENCE FOR OSTEOMYELITIS. Foot X-Ray 12/29/19 00:00 IMPRESSION: 1. COMMINUTED FRACTURE OF THE DISTAL TIBIA, NOT COMPLETELY IMAGED. 2. CHRONIC DEFORMITY OF THE NAVICULAR BONE. NO ACUTE FINDINGS IN THE FOOT. Lower Extremity CT 12/29/19 00:00 IMPRESSION: Acute comminuted distal tibia and fibula fractures as above. Fluoroscopy 12/30/19 00:00 IMPRESSION: ORIF right tibia. Refer to operative note for further information. Tibia/Fibula X-Ray 12/30/19 00:00 IMPRESSION: ORIF right tibia. Refer to operative note for further information. Ankle X-Ray 12/31/19 00:00 IMPRESSION: Post ORIF with external fixator. Alignment at the ankle joint is satisfactory Chest X-Ray 12/31/19 00:00 IMPRESSION: NO ACUTE RADIOGRAPHIC FINDING IN THE CHEST. Assessment & Plan - Diagnosis (1) Charcot foot due to diabetes mellitus Is this a current diagnosis for this admission?: Yes (2) Diabetic foot infection Is this a current diagnosis for this admission?: Yes (4) Fracture of distal end of tibia Qualifiers: Encounter type: initial encounter Fracture type: closed Fracture morphology: unspecified fracture morphology Laterality: right Qualified Code(s): S82.301A - Unspecified fracture of lower end of right tibia, initial encounter for closed fracture Is this a current diagnosis for this admission?: Yes - Time Time Spent: 30 to 50 Minutes Anticipated discharge: SNF - Plan Summary Plan Summary: Postoperative day #3 status post ORIF right distal tibia articular fracture and application of external fixator 1. Strict nonweightbearing right lower extremity 2. Pin care: Cleanse pins daily with dilute hydrogen peroxide solution. Prophylactic Keflex upon discharge. 3. Disposition: Patient is stable for discharge from an orthopedic standpoint. Given his mobility limitations, he will likely require discharge to a nursing facility. He should return to my office 3 weeks following surgery for suture removal.
[2020-01-02] MEDS: FERROUS SULFATE 325 MG TABLET PO SCH ×3 (08:11→18:10)
[2020-01-02] MEDS: INSULIN LISPRO 100 UNIT/ML 3 ML VIAL SUBCUT SCH ×7 (08:11→22:22)
[2020-01-02] MEDS: FAMOTIDINE 20 MG TABLET PO SCH (09:56)
[2020-01-02] MEDS: DULOXETINE HCL 30 MG CAPSULE.DR PO SCH (09:56)
[2020-01-02] MEDS: AMLODIPINE BESYLATE 5 MG TABLET PO SCH (09:56)
[2020-01-02] MEDS: DOCUSATE SODIUM 100 MG CAPSULE PO SCH ×2 (09:56→18:10)
[2020-01-02] MEDS: ASPIRIN 81 MG TABLET, ENT COATED PO SCH (09:56)
[2020-01-02] MEDS: INSULIN GLARGINE,HUM.REC.ANLOG 1,000 UNIT/10 ML VIAL SUBCUT SCH ×2 (09:57→22:46)
[2020-01-02] MEDS: METOPROLOL TARTRATE 100 MG TABLET PO SCH ×2 (09:57→22:23)
[2020-01-02] MEDS ORDERED: IPRATROPIUM/ALBUTEROL 0.5-2.5 MG/3 ML AMPUL NEB PRN (10:25)
[2020-01-02] MEDS: FLUTICASONE NASAL SPRAY 50 MCG/SPRY 120 SPRAY/16 GM NASL SCH ×2 (12:05→22:24)
--- NOTE | 2020-01-02 16:14 | PDOC PROGRESS REPORT ---
Subjective Progress Note for:: 01/02/20 Subjective:: No adverse events overnight. No new complaints. Vital signs been stable. Eating and drinking without difficulty. No signs of any external bleeding. Was wanting to have his morphine continued along with his Percocet but I am concerned about this because he falls asleep if he lays still longer than a few seconds. Reason For Visit: DIABETIC FOOT INJECTION,DIABETES MELLITUS TYPE 1, Physical Exam Vital Signs: Temp Pulse Resp BP Pulse Ox 97.9 F 99 16 149/52 H 95 01/02/20 11:00 01/02/20 11:00 01/02/20 11:00 01/02/20 11:00 01/02/20 11:00 Intake & Output 01/01/20 01/02/20 01/03/20 06:59 06:59 06:59 Intake Total 2910 1120 460 Output Total 1550 2300 850 Balance 1360 -1180 -390 Weight 151.1 kg 148.1 kg General appearance: PRESENT: no acute distress, cooperative, disheveled, morbidly obese Respiratory exam: PRESENT: clear to auscultation aleja, symmetrical, unlabored. ABSENT: accessory muscle use, chest wall tenderness, prolonged expiratory phas, rales, rhonchi, tachypnea, wheezes Cardiovascular exam: PRESENT: RRR, +S1, +S2 Pulses: PRESENT: normal carotid pulses Vascular exam: PRESENT: normal capillary refill GI/Abdominal exam: PRESENT: normal bowel sounds, soft, other - Pendulous abdominal pannus. ABSENT: distended, guarding, rebound, tenderness Extremities exam: PRESENT: pedal edema, +1 edema, other - Charcot foot on right, left BKA Musculoskeletal exam: PRESENT: deformity - Right Charcot foot, external fixator right lower extremity below the knee Neurological exam: PRESENT: awake, oriented to person, oriented to place, oriented to situation, motor sensory deficit - No sensation in his right lower extremity distal to the knee Psychiatric exam: PRESENT: appropriate affect, normal mood Skin exam: PRESENT: dry, warm Results Laboratory Results: 01/02/20 04:34 01/02/20 04:34 01/02/20 01/02/20 04:34 04:34 WBC 14.2 H RBC 2.67 L Hgb 7.7 L Hct 22.5 L MCV 84 MCH 28.9 MCHC 34.4 RDW 15.4 H Plt Count 566 H Sodium 132.2 L Potassium 4.8 Chloride 101 Carbon Dioxide 23 Anion Gap 8 BUN 28 H Creatinine 1.82 H Est GFR ( Amer) 50 L Glucose 125 H Calcium 8.6 Impressions: Lower Extremity MRI 12/22/19 00:00 IMPRESSION: NO EVIDENCE FOR OSTEOMYELITIS. Foot X-Ray 12/29/19 00:00 IMPRESSION: 1. COMMINUTED FRACTURE OF THE DISTAL TIBIA, NOT COMPLETELY IMAGED. 2. CHRONIC DEFORMITY OF THE NAVICULAR BONE. NO ACUTE FINDINGS IN THE FOOT. Lower Extremity CT 12/29/19 00:00 IMPRESSION: Acute comminuted distal tibia and fibula fractures as above. Fluoroscopy 12/30/19 00:00 IMPRESSION: ORIF right tibia. Refer to operative note for further information. Tibia/Fibula X-Ray 12/30/19 00:00 IMPRESSION: ORIF right tibia. Refer to operative note for further information. Ankle X-Ray 12/31/19 00:00 IMPRESSION: Post ORIF with external fixator. Alignment at the ankle joint is satisfactory Chest X-Ray 12/31/19 00:00 IMPRESSION: NO ACUTE RADIOGRAPHIC FINDING IN THE CHEST. Assessment and Plan - Diagnosis (1) Fracture of distal end of tibia Qualifiers: Encounter type: initial encounter Fracture type: closed Fracture morphology: unspecified fracture morphology Laterality: right Qualified Code(s): S82.301A - Unspecified fracture of lower end of right tibia, initial encounter for closed fracture Is this a current diagnosis for this admission?: Yes Plan: Status post surgical repair with placement of an external fixator. Management per orthopedics. (2) Acute kidney injury Is this a current diagnosis for this admission?: Yes Plan: Improved with IV fluids antibiotics, and removal of the infected material. Continue to monitor electrolytes and urine output. Packed red cell infusion probably help some with the improvement in his creatinine. Had to stop fluids because he appeared to be getting a little volume overloaded. Besides, his BUN to creatinine ratio is less than 20-1 so I do not know how much good or fluids are going to do him at this point. (3) Acute postoperative anemia due to expected blood loss Is this a current diagnosis for this admission?: Yes Plan: Hemoglobin low but stable status post transfusion, will monitor for any further loss and transfuse as needed (4) Amputation of left lower extremity below knee Is this a current diagnosis for this admission?: Yes Plan: Per surgery. He will have outpatient follow-up at their direction. (5) Charcot foot due to diabetes mellitus Is this a current diagnosis for this admission?: Yes (6) Gas gangrene Is this a current diagnosis for this admission?: Yes Plan: It is post left BKA. He was on Rocephin and Flagyl based on his cultures, but I switched him to Ancef based on final culture results. (7) Hyperglycemia due to type 1 diabetes mellitus Is this a current diagnosis for this admission?: Yes Plan: Blood sugars are well controlled (8) Hypertension Qualifiers: Hypertension type: essential hypertension Qualified Code(s): I10 - Essential (primary) hypertension Is this a current diagnosis for this admission?: Yes Plan: He will likely require continued adjustment of his medications. Norvasc increased to 10 mg a day. (9) Somnolence, daytime Is this a current diagnosis for this admission?: Yes Plan: Does have a history of sleep apnea uses CPAP. Some of this could be due to the metabolic strain from his acute illness and his surgery. I have continued Percocet but will not continue morphine because I am afraid of further respiratory depression. (10) Type 1 diabetes mellitus with morbid obesity Is this a current diagnosis for this admission?: Yes Plan: We will strongly encourage lifestyle modification - Plan Summary Summary: Patient will be admitted to the medical floor where he received routine supportive and symptomatic cares. He will be started on IV vancomycin in addition to the IV Zosyn which he received in the emergency room. Blood and wound cultures are pending. Dr. Hill will be consulted for surgical management per his specific request. Patient will receive morphine sulfate 2 to 4 mg IV every 2 hours as needed for pain control using a sliding pain scale for dosing. Patient received Ativan 1 mg IV every 4 hours as needed for anxiety or restlessness. Before meals and at bedtime Accu-Cheks to be performed with sliding scale insulin used for hyperglycemia and a hypoglycemic protocol in place. Patient will be continued on his usual medications from home as appropriate as soon as his medication list has been verified and reconciled. 12/23/2019 The patient's glucose was greater than 400 today. And multiple changes will be made with his insulin regimen. His hemoglobin A1c was 9.8 reflecting very poor control. His white blood cell count has improved with antibiotic therapy. The culture from the foot revealed Proteus, group B strep and multiple anaerobic organisms. Infectious disease is consulting. Currently on Zosyn which will cover the current bacterial gideon. We will continue his antihypertensive medications. He has serum creatinine is elevated due to an acute kidney injury. This is most likely due to his infection. We will continue his IV fluids and monitor his renal function. Continue antihypertensive medications and monitor blood pressure I spent 60 minutes with the patient. More than half of that time was dedicated to discussion regarding his intervention options. I explained that his physicians have been working on this with for 3 years and it is only gotten worse. I explained that in my experience with wound care and hyperbaric therapy as well as long-term acute care hospital care the patient will need an amputation at some point. I pointed out that with amputation at this time he will not lose the next 1 to 2 years struggling to try and get the foot better when it will only go to the amputation eventually. Hyperbaric oxygen therapy is not an option with the active infection. We reviewed the MRI scan showing no bony destruction of the foot as well. The patient feels that the majority of his questions are answered. I told him we will review this at the next visit. At this point I believe the amputation is the best course of therapy for this patient. He will then be able to focus on significantly improving daily his regimen for diabetes and to try and prevent or slow the progression of the right Charcot foot. 12/24/2019 The patient has had a significant amount of discussion with multiple family members including his and father. He wishes to proceed with the left be low-knee amputation. Dr. Hill will revisit the patient today to initiate the process. His sugars are still poorly controlled but much better than the 400s that he was exhibiting yesterday. We will continue to slowly increase his regimen but try to avoid hypoglycemia His serum creatinine is increased again. I believe this could be related to the supratherapeutic vancomycin level. Vancomycin has been discontinued. We will continue fluids. We will check laboratory studies tomorrow. He is still hyponatremic. He is on normal saline. I will reassess postoperatively and make adjustments to his regimen. I still believe that is related to the kidney injury. The remainder of his regimen will continue unchanged. 12/25/2019 Patient is somewhat somnolent. This was a difficult decision to proceed with surgery. We did not have slept well last night. He is n.p.o. for surgery later today. His renal function continues to improve slowly. With aggressive hydration to help correct renal function I believe he may have gotten slightly fluid overloaded. We will administer a single dose of furosemide and assess the results. We will review his diabetic regimen postoperatively as the physiologic stress may cause worsening glucose levels. We will likely need to increase the Lantus tomorrow Continue to monitor electrolytes and CBC. Encourage consistent CPAP use at night. 12/26/2019 The patient's is at the bedside. He is still quite somnolent. They confirm that he is compliant with his CPAP. Left below-knee amputation surgery went well. Patient will need 5 days after surgery before completing antibiotic therapy. The patient has been in the [facility] acute rehab unit in the past. With his new amputation and his right Charcot foot this will be a significant adjustment. PT and OT have seen the patient. We will make a referral. They should initiate the process for acquiring his prosthetic. We did suggest that his let the furniture arranger know that he had the amputation since he already has an established relationship with acquiring his orthotic shoes. The orthotic for his right foot will likely need to be updated as well. Continue to monitor laboratory studies and Accu-Cheks. Continue current medication regimen 12/27/2019 Patient is status post left below-knee amputation. His hemoglobin is only 8.1 yesterday. We will check again tomorrow. We will likely need to add an oral iron supplement. This could be contributing to his somnolence however it does more resemble an obstructive sleep apnea pattern. He has no history of COPD and therefore hypercapnia is not likely. He will need aggressive rehab. He has been at the rehab facility up with [place] in the past and will benefit greatly from returning. We are starting to get better control of his glucose. His renal function continues to improve. 01/05/2020 Renal function is now improving slowly. We will continue to monitor. The patient is still anemic with hemoglobin of 8.0. Will wait another day. If he continues to fall then consider transfusion. Supplemental iron has been started. The patient was sleeping and snoring when I entered the room. He did not have his CPAP on. He did wake up easily and was more alert than yesterday. I believe there is less compliance to his CPAP than he reports. He is awaiting surgery's visit. He had approximately 5 mL of fluid out from drainage yesterday. If this continues the surgical drain may likely be removed. He also was asking about whether they can take the knee brace off during the day so that he can begin range of motion exercises with his knee. - Time Time Spent with patient: 25-34 minutes
[2020-01-02] MEDS: OXYCODONE HCL IR 5 MG TABLET PO PRN (18:17)
[2020-01-02] MEDS: ATORVASTATIN CALCIUM 40 MG TABLET PO SCH (22:23)
[2020-01-03 05:38] LABS: HEMATOCRIT 21.9 % (37.9-51.0); MEAN CORPUSCULAR HEMOGLOBIN 29.1 pg (27.0-33.4); MEAN CORPUSCULAR HGB CONC 34.6 g/dL (32.0-36.0); MEAN CORPUSCULAR VOLUME 84 fl (80-97); PLATELET COUNT 596 10^3/uL (150-450); RED BLOOD COUNT 2.61 10^6/uL (4.35-5.55); RED CELL DISTRIBUTION WIDTH 15.6 % (11.5-14.0); WHITE BLOOD COUNT 13.2 10^3/uL (4.0-10.5)
[2020-01-03 05:43] LABS: HEMOGLOBIN 7.6 g/dL (13.5-17.0)
[2020-01-03 05:47] LABS: ANION GAP 11 (5-19); BLOOD UREA NITROGEN 28 mg/dL (7-20); CALCIUM 8.7 mg/dL (8.4-10.2); CARBON DIOXIDE 22 mmol/L (22-30); CHLORIDE 102 mmol/L (98-107); GLUCOSE 173 mg/dL (75-110); POTASSIUM 4.7 mmol/L (3.6-5.0)
[2020-01-03] MEDS: GABAPENTIN 300 MG CAPSULE PO SCH ×3 (06:04→22:51)
[2020-01-03] MEDS: HYDRALAZINE HCL 50 MG TABLET PO SCH ×3 (06:04→22:51)
[2020-01-03] MEDS: CEFAZOLIN SODIUM 2 GM in DEXTROSE 5%-WATER 100 ML IV SCH ×4 (06:05→23:03)
[2020-01-03] MEDS: HEPARIN SOD (PORCINE) 5,000 UNIT/ML 1 ML VIAL SUBCUT SCH ×3 (06:05→22:51)
[2020-01-03] MEDS: INSULIN LISPRO 100 UNIT/ML 3 ML VIAL SUBCUT SCH ×7 (08:24→23:25)
[2020-01-03] MEDS: DULOXETINE HCL 30 MG CAPSULE.DR PO SCH (10:46)
[2020-01-03] MEDS: METOPROLOL TARTRATE 100 MG TABLET PO SCH ×2 (10:46→22:51)
[2020-01-03] MEDS: ASPIRIN 81 MG TABLET, ENT COATED PO SCH (10:46)
[2020-01-03] MEDS: DOCUSATE SODIUM 100 MG CAPSULE PO SCH ×2 (10:46→17:44)
[2020-01-03] MEDS: FERROUS SULFATE 325 MG TABLET PO SCH ×3 (10:46→16:09)
[2020-01-03] MEDS: INSULIN GLARGINE,HUM.REC.ANLOG 1,000 UNIT/10 ML VIAL SUBCUT SCH ×2 (10:47→22:40)
[2020-01-03] MEDS: FAMOTIDINE 20 MG TABLET PO SCH (10:47)
[2020-01-03] MEDS: AMLODIPINE BESYLATE 5 MG TABLET PO SCH (10:47)
[2020-01-03] MEDS: FLUTICASONE NASAL SPRAY 50 MCG/SPRY 120 SPRAY/16 GM NASL SCH ×2 (12:05→22:52)
[2020-01-03] MEDS: OXYCODONE HCL IR 5 MG TABLET PO PRN (16:09)
--- NOTE | 2020-01-03 18:41 | PDOC PROGRESS REPORT ---
Subjective Progress Note for:: 01/03/20 Subjective:: No adverse events overnight. Vital signs been stable. Creatinine continues to slowly improve. He worked with physical therapy on transfers today. He was up in a wheelchair whenever I saw him today, the first time he has been out of the bed. He nodded off while he was sitting up in the chair while I was talking to him. Reason For Visit: DIABETIC FOOT INJECTION,DIABETES MELLITUS TYPE 1, Physical Exam Vital Signs: Temp Pulse Resp BP Pulse Ox 98.7 F 82 20 154/66 H 92 01/03/20 15:07 01/03/20 15:07 01/03/20 15:07 01/03/20 15:07 01/03/20 15:07 Intake & Output 01/02/20 01/03/20 01/04/20 06:59 06:59 06:59 Intake Total 1120 760 460 Output Total 2300 2100 2800 Balance -1180 -1340 -2340 Weight 148.1 kg 146.8 kg General appearance: PRESENT: no acute distress, cooperative, disheveled, morbidly obese Respiratory exam: PRESENT: clear to auscultation aleja, symmetrical, unlabored. ABSENT: accessory muscle use, chest wall tenderness, prolonged expiratory phase, rales, rhonchi, tachypnea, wheezes Cardiovascular exam: PRESENT: RRR, +S1, +S2 Pulses: PRESENT: normal carotid pulses Vascular exam: PRESENT: normal capillary refill GI/Abdominal exam: PRESENT: normal bowel sounds, soft, other - Pendulous abdominal pannus. ABSENT: distended, guarding, rebound, tenderness Extremities exam: PRESENT: pedal edema, +1 edema, other - Charcot foot on right with the right ankle in an external fixator, left BKA in a knee immobilizer Musculoskeletal exam: PRESENT: deformity - Right Charcot foot, external fixator right lower extremity below the knee Neurological exam: PRESENT: awake, oriented to person, oriented to place, oriented to situation, motor sensory deficit - No sensation in his right lower extremity distal to the knee Psychiatric exam: PRESENT: appropriate affect, normal mood Skin exam: PRESENT: dry, warm Results Laboratory Results: 01/03/20 04:47 01/03/20 04:47 01/03/20 01/03/20 04:47 04:47 WBC 13.2 H RBC 2.61 L Hgb 7.6 L Hct 21.9 L MCV 84 MCH 29.1 MCHC 34.6 RDW 15.6 H Plt Count 596 H Sodium 134.5 L Potassium 4.7 Chloride 102 Carbon Dioxide 22 Anion Gap 11 BUN 28 H Creatinine 1.64 H Est GFR ( Amer) 57 L Glucose 173 H Calcium 8.7 Impressions: Lower Extremity MRI 12/22/19 00:00 IMPRESSION: NO EVIDENCE FOR OSTEOMYELITIS. Foot X-Ray 12/29/19 00:00 IMPRESSION: 1. COMMINUTED FRACTURE OF THE DISTAL TIBIA, NOT COMPLETELY IMAGED. 2. CHRONIC DEFORMITY OF THE NAVICULAR BONE. NO ACUTE FINDINGS IN THE FOOT. Lower Extremity CT 12/29/19 00:00 IMPRESSION: Acute comminuted distal tibia and fibula fractures as above. Fluoroscopy 12/30/19 00:00 IMPRESSION: ORIF right tibia. Refer to operative note for further information. Tibia/Fibula X-Ray 12/30/19 00:00 IMPRESSION: ORIF right tibia. Refer to operative note for further information. Ankle X-Ray 12/31/19 00:00 IMPRESSION: Post ORIF with external fixator. Alignment at the ankle joint is satisfactory Chest X-Ray 12/31/19 00:00 IMPRESSION: NO ACUTE RADIOGRAPHIC FINDING IN THE CHEST. Assessment and Plan - Diagnosis (1) Fracture of distal end of tibia Qualifiers: Encounter type: initial encounter Fracture type: closed Fracture morphology: unspecified fracture morphology Laterality: right Qualified Code(s): S82.301A - Unspecified fracture of lower end of right tibia, initial encounter for closed fracture Is this a current diagnosis for this admission?: Yes Plan: Status post surgical repair with placement of an external fixator. Management per orthopedics. (2) Acute kidney injury Is this a current diagnosis for this admission?: Yes Plan: Creatinine continues to slowly improve. This is likely due to ATN. (3) Acute postoperative anemia due to expected blood loss Is this a current diagnosis for this admission?: Yes Plan: Hemoglobin low but stable status post transfusion, will monitor for any further loss and transfuse as needed (4) Amputation of left lower extremity below knee Is this a current diagnosis for this admission?: Yes Plan: Per surgery. He will have outpatient follow-up at their direction. Because he just had his left leg amputated and now has a fracture in the right lower extremity and is nonweightbearing, he was not determined to be suitable for acute rehab or SNIF. He was evaluated by an LTAC they have deemed him a suitable candidate. We will make arrangements for transfer, hopefully in the next day or 2. (5) Charcot foot due to diabetes mellitus Is this a current diagnosis for this admission?: Yes (6) Gas gangrene Is this a current diagnosis for this admission?: Yes Plan: It is post left BKA. He was on Rocephin and Flagyl based on his cultures, but I switched him to Ancef based on final culture results. He will likely not need to continue antibiotics once he leaves the hospital because he will have been on them for about 5 days after surgery. (7) Hyperglycemia due to type 1 diabetes mellitus Is this a current diagnosis for this admission?: Yes Plan: Blood sugars are well controlled (8) Hypertension Qualifiers: Hypertension type: essential hypertension Qualified Code(s): I10 - Essential (primary) hypertension Is this a current diagnosis for this admission?: Yes Plan: He will likely require continued adjustment of his medications. Norvasc increased to 10 mg a day. Systolic in the 150s. (9) Somnolence, daytime Is this a current diagnosis for this admission?: Yes Plan: Does have a history of sleep apnea uses CPAP. Some of this could be due to the metabolic strain from his acute illness and his surgery. I have continued Percocet but will not continue morphine because I am afraid of further respiratory depression. (10) Type 1 diabetes mellitus with morbid obesity Is this a current diagnosis for this admission?: Yes Plan: We will strongly encourage lifestyle modification - Plan Summary Summary: Patient will be admitted to the medical floor where he received routine supportive and symptomatic cares. He will be started on IV vancomycin in addition to the IV Zosyn which he received in the emergency room. Blood and wound cultures are pending. Dr. Hill will be consulted for surgical management per his specific request. Patient will receive morphine sulfate 2 to 4 mg IV every 2 hours as needed for pain control using a sliding pain scale for dosing. Patient received Ativan 1 mg IV every 4 hours as needed for anxiety or restlessness. Before meals and at bedtime Accu-Cheks to be performed with sliding scale insulin used for hyperglycemia and a hypoglycemic protocol in place. Patient will be continued on his usual medications from home as appropriate as soon as his medication list has been verified and reconciled. 12/23/2019 The patient's glucose was greater than 400 today. And multiple changes will be made with his insulin regimen. His hemoglobin A1c was 9.8 reflecting very poor control. His white blood cell count has improved with antibiotic therapy. The culture from the foot revealed Proteus, group B strep and multiple anaerobic organisms. Infectious disease is consulting. Currently on Zosyn which will cover the current bacterial gideon. We will continue his antihypertensive medications. He has serum creatinine is elevated due to an acute kidney injury. This is most likely due to his infection. We will continue his IV fluids and monitor his renal function. Continue antihypertensive medications and monitor blood pressure I spent 60 minutes with the patient. More than half of that time was dedicated to discussion regarding his intervention options. I explained that his p pamela have been working on this with for 3 years and it is only gotten worse. I explained that in my experience with wound care and hyperbaric therapy as well as long-term acute care hospital care the patient will need an amputation at some point. I pointed out that with amputation at this time he will not lose the next 1 to 2 years struggling to try and get the foot better when it will only go to the amputation eventually. Hyperbaric oxygen therapy is not an option with the active infection. We reviewed the MRI scan showing no bony destruction of the foot as well. The patient feels that the majority of his questions are answered. I told him we will review this at the next visit. At this point I believe the amputation is the best course of therapy for this patient. He will then be able to focus on significantly improving daily his regimen for diabetes and to try and prevent or slow the progression of the right Charcot foot. 12/24/2019 The patient has had a significant amount of discussion with multiple family members including his and father. He wishes to proceed with the left below-knee amputation. Dr. Hill will revisit the patient today to initiate the process. His sugars are still poorly controlled but much better than the 400s that he was exhibiting yesterday. We will continue to slowly increase his regimen but try to avoid hypoglycemia His serum creatinine is increased again. I believe this could be related to the supratherapeutic vancomycin level. Vancomycin has been discontinued. We will continue fluids. We will check laboratory studies tomorrow. He is still hyponatremic. He is on normal saline. I will reassess postoperatively and make adjustments to his regimen. I still believe that is related to the kidney injury. The remainder of his regimen will continue unchanged. 12/25/2019 Patient is somewhat somnolent. This was a difficult decision to proceed with surgery. We did not have slept well last night. He is n.p.o. for surgery later today. His renal function continues to improve slowly. With aggressive hydration to help correct renal function I believe he may have gotten slightly fluid overloaded. We will administer a single dose of furosemide and assess the results. We will review his diabetic regimen postoperatively as the physiologic stress may cause worsening glucose levels. We will likely need to increase the Lantus tomorrow Continue to monitor electrolytes and CBC. Encourage consistent CPAP use at night. 12/26/2019 The patient's is at the bedside. He is still quite somnolent. They confirm that he is compliant with his CPAP. Left below-knee amputation surgery went well. Patient will need 5 days after surgery before completing antibiotic therapy. The patient has been in the [facility] acute rehab unit in the past. With his new amputation and his right Charcot foot this will be a significant adjustment. PT and OT have seen the patient. We will make a referral. They should initiate the process for acquiring his prosthetic. We did suggest that his let the change coordinator know that he had the amputation since he already has an established relationship with acquiring his orthotic shoes. The orthotic for his right foot will likely need to be updated as well. Continue to monitor laboratory studies and Accu-Cheks. Continue current medication regimen 12/27/2019 Patient is status post left below-knee amputation. His hemoglobin is only 8.1 yesterday. We will check again tomorrow. We will likely need to add an oral iron supplement. This could be contributing to his somnolence however it does more resemble an obstructive sleep apnea pattern. He has no history of COPD and therefore hypercapnia is not likely. He will need aggressive rehab. He has been at the rehab facility up with [place] in the past and will benefit greatly from returning. We are starting to get better control of his glucose. His renal function continues to improve. 01/05/2020 Renal function is now improving slowly. We will continue to monitor. The patient is still anemic with hemoglobin of 8.0. Will wait another day. If he continues to fall then consider transfusion. Supplemental iron has been star sorin. The patient was sleeping and snoring when I entered the room. He did not have his CPAP on. He did wake up easily and was more alert than yesterday. I believe there is less compliance to his CPAP than he reports. He is awaiting surgery's visit. He had approximately 5 mL of fluid out from dra conner yesterday. If this continues the surgical drain may likely be removed. He also was asking about whether they can take the knee brace off during the day so that he can begin range of motion exercises with his knee. - Time Time Spent with patient: 25-34 minutes
[2020-01-03] MEDS: ATORVASTATIN CALCIUM 40 MG TABLET PO SCH (22:51)
[2020-01-04 05:06] LABS: HEMATOCRIT 22.5 % (37.9-51.0); MEAN CORPUSCULAR HEMOGLOBIN 28.5 pg (27.0-33.4); MEAN CORPUSCULAR HGB CONC 33.7 g/dL (32.0-36.0); MEAN CORPUSCULAR VOLUME 85 fl (80-97); PLATELET COUNT 581 10^3/uL (150-450); RED BLOOD COUNT 2.66 10^6/uL (4.35-5.55); RED CELL DISTRIBUTION WIDTH 15.4 % (11.5-14.0); WHITE BLOOD COUNT 12.2 10^3/uL (4.0-10.5)
[2020-01-04 05:07] LABS: HEMOGLOBIN 7.6 g/dL (13.5-17.0)
[2020-01-04 05:33] LABS: ANION GAP 10 (5-19); BLOOD UREA NITROGEN 22 mg/dL (7-20); CALCIUM 8.8 mg/dL (8.4-10.2); CARBON DIOXIDE 23 mmol/L (22-30); CHLORIDE 103 mmol/L (98-107); GLUCOSE 187 mg/dL (75-110); POTASSIUM 4.6 mmol/L (3.6-5.0)
[2020-01-04] MEDS: HYDRALAZINE HCL 50 MG TABLET PO SCH ×2 (06:21→14:13)
[2020-01-04] MEDS: GABAPENTIN 300 MG CAPSULE PO SCH ×2 (06:21→14:13)
[2020-01-04] MEDS: HEPARIN SOD (PORCINE) 5,000 UNIT/ML 1 ML VIAL SUBCUT SCH ×2 (06:21→14:14)
[2020-01-04] MEDS: CEFAZOLIN SODIUM 2 GM in DEXTROSE 5%-WATER 100 ML IV SCH ×3 (06:27→18:59)
[2020-01-04] MEDS: FERROUS SULFATE 325 MG TABLET PO SCH ×3 (08:27→18:59)
[2020-01-04] MEDS: INSULIN LISPRO 100 UNIT/ML 3 ML VIAL SUBCUT SCH ×6 (08:35→19:02)
[2020-01-04] MEDS ORDERED: ONDANSETRON HCL INJ/PF 4 MG/2 ML SDV IV PRN (10:34)
[2020-01-04] MEDS: ASPIRIN 81 MG TABLET, ENT COATED PO SCH (10:38)
[2020-01-04] MEDS: FAMOTIDINE 20 MG TABLET PO SCH (10:38)
[2020-01-04] MEDS: AMLODIPINE BESYLATE 5 MG TABLET PO SCH (10:39)
[2020-01-04] MEDS: METOPROLOL TARTRATE 100 MG TABLET PO SCH (10:39)
[2020-01-04] MEDS: DOCUSATE SODIUM 100 MG CAPSULE PO SCH ×2 (10:39→19:00)
[2020-01-04] MEDS: INSULIN GLARGINE,HUM.REC.ANLOG 1,000 UNIT/10 ML VIAL SUBCUT SCH (10:39)
[2020-01-04] MEDS: DULOXETINE HCL 30 MG CAPSULE.DR PO SCH (10:39)
[2020-01-04] MEDS: FLUTICASONE NASAL SPRAY 50 MCG/SPRY 120 SPRAY/16 GM NASL SCH (10:43)
--- NOTE | 2020-01-04 14:07 | PDOC TRANSFER SUMMARY ---
General Admission Date/PCP: 12/21/19 02:20 RADHA SALAMANCA DPM Admission Date: 12/21/19 Transfer Date: 01/04/20 Accepting Facility: Other (Comments) - [facility] Resuscitation Status: Full Code - Transfer Diagnosis (1) Fracture of distal end of tibia Is this a current diagnosis for this admission?: Yes (2) Acute kidney injury Is this a current diagnosis for this admission?: Yes (3) Acute postoperative anemia due to expected blood loss Is this a current diagnosis for this admission?: Yes (4) Amputation of left lower extremity below knee Is this a current diagnosis for this admission?: Yes (5) Charcot foot due to diabetes mellitus Is this a current diagnosis for this admission?: Yes (6) Gas gangrene Is this a current diagnosis for this admission?: Yes (7) Hyperglycemia due to type 1 diabetes mellitus Is this a current diagnosis for this admission?: Yes (8) Hypertension Is this a current diagnosis for this admission?: Yes (9) Somnolence, daytime Is this a current diagnosis for this admission?: Yes (10) Type 1 diabetes mellitus with morbid obesity Is this a current diagnosis for this admission?: Yes - Transfer Medications Home Medications: Aspirin [Adult Low Dose Aspirin EC] 81 mg PO DAILY 08/11/19 Duloxetine HCl [Cymbalta] 60 mg PO DAILY 08/11/19 Metoprolol Tartrate [Lopressor 100 mg Tablet] 100 mg PO Q12 08/11/19 Insulin Aspart [Novolog Flexpen] 16 unit SUBCUT AC 08/12/19 Famotidine [Pepcid 20 mg Tablet] 20 mg PO DAILY 12/21/19 Gabapentin [Neurontin 300 mg Capsule] 300 mg PO TID 12/21/19 Hydralazine HCl [Apresoline 50 mg Tablet] 50 mg PO TID 12/21/19 Transfer Medications: Current Medications Acetaminophen (Tylenol 325 Mg Tablet) 650 mg PO Q4HP PRN PRN Reason: FOR PAIN OR TEMP Stop: 01/30/20 09:46 Last Admin: 12/31/19 15:24 Dose: 650 mg Documented by: Al Hydrox/Mg Hydrox/Simethicone (Maalox Plus Susp 30 Udcup) 30 ml PO Q6HP PRN PRN Reason: HEARTBURN Stop: 01/20/20 03:08 Last Admin: 12/31/19 12:02 Dose: 30 ml Documented by: Albuterol/Ipratropium (Duoneb 3 Ml Ampul) 3 ml NEB RTQ8HP PRN PRN Reason: FOR WHEEZING Stop: 02/01/20 10:24 Amlodipine Besylate (Norvasc 5 Mg Tablet) 10 mg PO DAILY [facility] Stop: 01/30/20 09:59 Last Admin: 01/04/20 10:39 Dose: 10 mg Documented by: Aspirin (Ecotrin 81 Mg Ec Tablet) 81 mg PO DAILY [facility] Stop: 01/21/20 09:59 Last Admin: 01/04/20 10:38 Dose: 81 mg Documented by: Atorvastatin Calcium (Lipitor 40 Mg Tablet) 40 mg PO QHS [facility] Stop: 01/20/20 21:59 Last Admin: 01/03/20 22:51 Dose: 40 mg Documented by: Dextrose (Dextrose Inj 50% Syringe (25 Gm/50 Ml)) 12.5 gm IV PRN PRN; Protocol PRN Reason: FOR BG 50-69 IN ALERT PATIENT Stop: 01/20/20 03:14 Last Admin: 12/30/19 12:40 Dose: 12.5 gm Documented by: Dextrose (Dextrose Inj 50% Syringe (25 Gm/50 Ml)) 25 gm IV PRN PRN; Protocol PRN Reason: PER PROTOCOL Stop: 01/20/20 03:14 Docusate Sodium (Colace 100 Mg Capsule) 100 mg PO BID [facility] Stop: 01/20/20 09:59 Last Admin: 01/04/20 10:39 Dose: Not Given Documented by: Duloxetine HCl (Cymbalta 30 Mg Capsule.) 60 mg PO DAILY [facility] Stop: 01/20/20 11:59 Last Admin: 01/04/20 10:39 Dose: 60 mg Documented by: Famotidine (Pepcid 20 Mg Tablet) 20 mg PO DAILY [facility] Stop: 01/21/20 09:59 Last Admin: 01/04/20 10:38 Dose: 20 mg Documented by: Ferrous Sulfate (Feosol 325 Mg Tablet) 325 mg PO MEALS [facility] Stop: 01/27/20 07:59 Last Admin: 01/04/20 08:27 Dose: 325 mg Documented by: Fluticasone Propionate (Flonase Nasal [place] 50 Mcg/[place] 16 Gm) 2 spray NASL Q12 [facility] Stop: 01/30/20 09:59 Last Admin: 01/04/20 10:43 Dose: 2 spr Documented by: Gabapentin (Neurontin 300 Mg Capsule) 300 mg PO Q8 [facility] Stop: 01/20/20 13:59 Last Admin: 01/04/20 06:21 Dose: 300 mg Documented by: Glucagon (Glucagen Inj 1 Mg Vial) 1 mg IM PRN PRN; Protocol PRN Reason: Evaluate for BG < 70 Stop: 01/20/20 03:14 Glucose (Glutose 40% Gel 15 Gm Tube) 15 gm PO PRN PRN; Protocol PRN Reason: FOR BG 50-69 IN ALERT PATIENT Stop: 01/20/20 03:14 Glucose (Glutose 40% Gel 15 Gm Tube) 30 gm PO PRN PRN; Protocol PRN Reason: FOR BG < 50 IN ALERT PATIENT Stop: 01/20/20 03:14 Guaifenesin (Robitussin Syrup 200 Mg/10 Ml Ud Cup) 200 mg PO Q4HP PRN PRN Reason: COUGH Stop: 01/20/20 03:15 Last Admin: 01/03/20 10:48 Dose: 200 mg Documented by: Heparin Sodium (Porcine) (Heparin Inj 5,000 Units/Ml 1 Ml Vial) 5,000 unit SUBCUT Q8 [facility] Stop: 01/20/20 05:59 Last Admin: 01/04/20 06:21 Dose: 5,000 unit Documented by: Hydralazine HCl (Apresoline Inj/Pf 20 Mg/1 Ml Sdv) 20 mg IV Q4HP PRN PRN Reason: Give For Sbp > 160 / Dbp > 100 Stop: 01/20/20 03:15 Last Admin: 12/25/19 18:07 Dose: 20 mg Documented by: Hydralazine HCl (Apresoline 50 Mg Tablet) 50 mg PO Q8 [facility] Stop: 01/20/20 13:59 Last Admin: 01/04/20 06:21 Dose: 50 mg Documented by: Hydroxyzine Pamoate (Vistaril 25 Mg Capsule) 25 mg PO BIDP PRN PRN Reason: ANXIETY Stop: 01/25/20 14:35 Last Admin: 12/28/19 21:41 Dose: 25 mg Documented by: Cefazolin Sodium 2 gm/ (Dextrose) 100 mls @ 200 mls/hr IV Q6 [facility] Stop: 01/07/20 17:59 Last Infusion: 01/04/20 07:00 Dose: Infused Documented by: Insulin Glargine (Lantus Insulin 100 Unit/1 Ml 10 Ml) 60 unit SUBCUT Q12 [facility] Stop: 01/22/20 21:59 Last Admin: 01/04/20 10:39 Dose: 60 unit Documented by: Insulin Human Lispro (Humalog Insulin 100 Unit/1 Ml 3 Ml Vial) 16 unit SUBCUT AC [facility] Stop: 01/20/20 15:59 Last Admin: 01/04/20 08:35 Dose: 16 unit Documented by: Insulin Human Lispro (Humalog Insulin 100 Unit/1 Ml 3 Ml Vial) 0 - 12 unit SUBCUT [facility]; Protocol Stop: 01/22/20 07:59 Last Admin: 01/04/20 08:36 Dose: 2 unit Documented by: Magnesium Hydroxide (Milk Of Magnesia 30 Ml Udcup) 30 ml PO HSP PRN PRN Reason: FOR CONSTIPATION Stop: 01/20/20 03:08 Metoprolol Tartrate (Lopressor 100 Mg Tablet) 100 mg PO Q12 [facility] Stop: 01/20/20 21:59 Last Admin: 01/04/20 10:39 Dose: 100 mg Documented by: Ondansetron HCl (Zofran Inj/Pf 4 Mg/2 Ml Sdv) 4 mg IV Q4HP PRN PRN Reason: FOR NAUSEA/VOMITING Stop: 02/03/20 10:33 Oxycodone HCl (Oxy-Ir 5 Mg Tablet) 5 mg PO Q4HP PRN PRN Reason: FOR PAIN Stop: 01/09/20 11:58 Last Admin: 01/03/20 16:09 Dose: 5 mg Documented by: Promethazine HCl (Phenergan Inj 25 Mg/1 Ml Vial) 12.5 mg IV Q4HP PRN PRN Reason: FOR NAUSEA/VOMITING Stop: 01/20/20 03:08 Last Admin: 01/01/20 22:46 Dose: 12.5 mg Documented by: Sodium Chloride (Saline Flush 2.5 Ml Monoject Prefil Syrin) 2.5 ml IV Q8 [facility] Stop: 01/20/20 05:59 Last Admin: 01/04/20 06:22 Dose: 2.5 ml Documented by: - Allergies Allergies/Adverse Reactions: No Known Allergies Allergy (Verified 12/20/19 20:11) - Diet/Activity Discharge Diet: Cardiac, Diabetic Hospital Course Hospital Course: From the H&P: "SENG DOUGHERTY is a 39 year old male who presented to the emergency room with a 3 day history of fever. He admits a persistent low-grade fever at home for the last 3 days and being instructed by Dr. Salamanca from the wound care clinic to come the emergency room for further evaluation. His fever has been accompanied by i ntermittent moderate nausea. He further admits a chronic left foot nonpressure ulcer/wound which is being managed at the wound care clinic. He denies other associated or accompanying signs and symptoms. He has not identified any aggravating or ameliorating factors for his low-grade fever. He admits prior similar episodes related to wound infections. In the emergency room he was found to have a modestly elevated white blood count with a foot x-ray showing soft tissues of the medial aspect of the left foot with swelling and possible gas formation. Patient was started on empiric antibiotic therapy in the emergency room and the emergency room physician consulted with the general surgeon Dr. Hill who requested that the hospitalist service admit the patient and consult him for care. Patient was subsequently admitted to the hospital for further evaluation and treatment. Blood and wound cultures are pending." Initially orthopedics was consulted to see if the limb could be salvaged. Once it was determined it could not, general surgery was consulted for amputation. He underwent amputation and had some expected bleeding and received a transfusion of packed red cells. His iron levels are also chronically low, and he is on an iron supplement now. He continued to receive antibiotics with a plan to receive them for 5 days postoperatively. He also wound up having an acute kidney injury, and his creatinine has taken a long time to trend back down to normal, but is 1.64 at time of discharge, which is the best it has been in many days. While he was doing rehab after the amputation to work on his transfers with a walker, he said he fell and he heard a pop in his foot. He al ready has a Charcot foot on the right. He was not complaining of any pain. His foot and leg did not apparently appear any more deformed than previous. When I picked him up the next day, he was not complaining of any pain. He asked if he could get an x-ray of his foot because he heard a pop when this happened. As I was examining his leg, he fell asleep, which he tends to do if he sits still for more than a few seconds. It is noted that he is noncompliant with his CPAP even though he has it with him in the room and is instructed to use it. He wound up having a comminuted distal tibia-fibula fracture that involved the ankle joint space. Orthopedics was consulted and repaired the fracture operatively, including use of an external fixator. He is going to be nonweightbearing on this foot for several weeks. Initially the plan was to get him into acute rehab, but there is no way that he could participate with that level of rehabilitation at this time. He may wind up needing that in the future once his fracture heals and the external fixator is removed and he is cleared to bear nabila ght. In the meantime, he has a lot of work to do to work on transfers from the bed, to the chair or commode, and vice versa. He was evaluated by a long-term acute care facility who deems him a good candidate. His labs and examination were reassuring and he is being discharged there today in stable condition. Physical Exam Vital Signs: Temp Pulse Resp BP Pulse Ox 98.2 F 93 17 148/67 H 100 01/04/20 10:59 01/04/20 10:59 01/04/20 10:59 01/04/20 10:59 01/04/20 10:59 Intake & Output 01/03/20 01/04/20 01/05/20 06:59 06:59 06:59 Intake Total 978 185 9821 Output Total 2100 3275 500 Balance -1340 -2355 545 Weight 146.8 kg 146.8 kg General appearance: PRESENT: no acute distress, cooperative, disheveled, morbidly obese Respiratory exam: PRESENT: clear to auscultation aleja, symmetrical, unlabored. ABSENT: accessory muscle use, chest wall tenderness, prolonged expiratory phase, rales, rhonchi, tachypnea, wheezes Cardiovascular exam: PRESENT: RRR, +S1, +S2 Pulses: PRESENT: normal carotid pulses Vascular exam: PRESENT: normal capillary refill GI/Abdominal exam: PRESENT: normal bowel sounds, soft, other - Pendulous abdominal pannus. ABSENT: distended, guarding, rebound, tenderness Extremities exam: PRESENT: pedal edema, +1 edema, other - Charcot foot on right with the right ankle in an external fixator, left BKA in a knee immobilizer Musculoskeletal exam: PRESENT: deformity - Right Charcot foot, external fixator right lower extremity below the knee Neurological exam: PRESENT: awake, oriented to person, oriented to place, oriented to situation, motor sensory deficit - No sensation in his right lower extremity distal to the knee Psychiatric exam: PRESENT: appropriate affect, normal mood Skin exam: PRESENT: dry, warm Results Laboratory Results: 01/04/20 04:54 01/04/20 04:54 01/04/20 01/04/20 04:54 04:54 WBC 12.2 H RBC 2.66 L Hgb 7.6 L Hct 22.5 L MCV 85 MCH 28.5 MCHC 33.7 RDW 15.4 H Plt Count 581 H Sodium 136.2 L Potassium 4.6 Chloride 103 Carbon Dioxide 23 Anion Gap 10 BUN 22 H Creatinine 1.36 H Est GFR ( Amer) > 60 Glucose 187 H Calcium 8.8 Impressions: Lower Extremity MRI 12/22/19 00:00 IMPRESSION: NO EVIDENCE FOR OSTEOMYELITIS. Foot X-Ray 12/29/19 00:00 IMPRESSION: 1. COMMINUTED FRACTURE OF THE DISTAL TIBIA, NOT COMPLETELY IMAGED. 2. CHRONIC DEFORMITY OF THE NAVICULAR BONE. NO ACUTE FINDINGS IN THE FOOT. Lower Extremity CT 12/29/19 00:00 IMPRESSION: Acute comminuted distal tibia and fibula fractures as above. Fluoroscopy 12/30/19 00:00 IMPRESSION: ORIF right tibia. Refer to operative note for further information. Tibia/Fibula X-Ray 12/30/19 00:00 IMPRESSION: ORIF right tibia. Refer to operative note for further information. Ankle X-Ray 12/31/19 00:00 IMPRESSION: Post ORIF with external fixator. Alignment at the ankle joint is satisfactory Chest X-Ray 12/31/19 00:00 IMPRESSION: NO ACUTE RADIOGRAPHIC FINDING IN THE CHEST. Plan Time Spent: Greater than 30 Minutes
[2020-01-04] MEDS: MAG HYDROX/AL HYDROX/SIMETH SUSP 30 ML UDCUP PO PRN (19:06)
[2020-01-04 22:08] VITALS: BP 172/62
== END 2020-01-04 20:00 | DRG 239 ==
LOC: ER 19:30 → EH 12-21 02:20 → 4N 12-21 03:55
PROVIDERS: ADMIT Emergency Medicine; ATTEND Family Medicine
PROC: 0Y6J0Z2 Detachment at Left Lower Leg, Mid, Open Approach (ICD-10-PCS; principal; 2019-12-25 13:00)
PROC: 0QSG04Z Reposition Right Tibia with Internal Fixation Device, Open Approach (ICD-10-PCS; 2019-12-30)
PROC: 0QHJ34Z Insertion of Internal Fixation Device into Right Fibula, Percutaneous Approach (ICD-10-PCS; 2019-12-30)
PROC: 30233N1 Transfusion of Nonautologous Red Blood Cells into Peripheral Vein, Percutaneous Approach (ICD-10-PCS; 2019-12-31)
DX: E10.52 Type 1 diabetes mellitus with diabetic peripheral angiopathy with gangrene (principal); A48.0 Gas gangrene; D62 Acute posthemorrhagic anemia; N17.9 Acute kidney failure, unspecified; Z68.41 Body mass index [BMI] 40.0-44.9, adult; S82.871A Displaced pilon fracture of right tibia, initial encounter for closed fracture; E10.610 Type 1 diabetes mellitus with diabetic neuropathic arthropathy; E10.621 Type 1 diabetes mellitus with foot ulcer; E10.42 Type 1 diabetes mellitus with diabetic polyneuropathy; E10.22 Type 1 diabetes mellitus with diabetic chronic kidney disease; E10.65 Type 1 diabetes mellitus with hyperglycemia; I12.9 Hypertensive chronic kidney disease with stage 1 through stage 4 chronic kidney disease, or unspecified chronic kidney disease; N18.9 Chronic kidney disease, unspecified; B96.4 Proteus (mirabilis) (morganii) as the cause of diseases classified elsewhere; B95.61 Methicillin susceptible Staphylococcus aureus infection as the cause of diseases classified elsewhere; B95.1 Streptococcus, group B, as the cause of diseases classified elsewhere; L08.89 Other specified local infections of the skin and subcutaneous tissue; E78.00 Pure hypercholesterolemia, unspecified; K21.9 Gastro-esophageal reflux disease without esophagitis; E66.01 Morbid (severe) obesity due to excess calories; X58.XXXA Exposure to other specified factors, initial encounter; Y93.89 Activity, other specified; Y92.230 Patient room in hospital as the place of occurrence of the external cause; Z03.818 Encounter for observation for suspected exposure to other biological agents ruled out; Z79.84 Long term (current) use of oral hypoglycemic drugs; Z79.82 Long term (current) use of aspirin; Z79.4 Long term (current) use of insulin; Z79.891 Long term (current) use of opiate analgesic; Z79.899 Other long term (current) drug therapy; Z91.19 Patient's noncompliance with other medical treatment and regimen
CPT/HCPCS: 01480; 01482; 36415; 36430; 71045; 80048; 80053; 80069; 80202; 81001; 82962; 83036; 83605; 83735; 84443; 85025; 85027; 85652; 86140; 86850; 86900; 86901; 86920; 87040; 87070; 87077; 87186; 87205; 87635; 87804; 88307; 88311; 96365; 99285; C1713; C1769; J0131; J0330; J0360; J0690; J0696; J1644; J1815; J1940; J2060; J2250; J2270; J2405; J2543; J2550; J2704; J2765; J3010; J3370; J3480; J3490; J7030; J7050; J7060; J7120; J7620; L1830; P9016

== ENCOUNTER 2020-02-01 15:13 | Inpatient (IN) | payer MEDICARE, MEDICAID ==
[2020-02-01] MEDS ORDERED: ONDANSETRON HCL INJ/PF 4 MG/2 ML SDV IV PRN (15:36)
[2020-02-01] MEDS ORDERED: ACETAMINOPHEN 325 MG TABLET PO PRN (15:36)
[2020-02-01] MEDS ORDERED: MAG HYDROX/AL HYDROX/SIMETH SUSP 30 ML UDCUP PO PRN (15:36)
[2020-02-01] MEDS ORDERED: OXYCODONE HCL IR 5 MG TABLET PO PRN (16:25)
[2020-02-01] MEDS ORDERED: GLUCAGON,HUMAN RECOMB 1 MG INJ IM PRN (16:38)
[2020-02-01] MEDS ORDERED: DEXTROSE 40% GEL 15 GM TUBE PO PRN ×2 (16:38)
[2020-02-01] MEDS ORDERED: DEXTROSE 50%-WATER 25 GM/50 ML DISP.SYRIN IV PRN ×2 (16:38)
--- NOTE | 2020-02-01 17:07 | RADIOLOGY REPORT (SQ) ---
EXAM DESCRIPTION: TIBIA FIBULA RIGHT IMAGES COMPLETED DATE/TIME: 02/01/2020 4:50 pm REASON FOR STUDY: pain D68.9 COAGULATION DEFECT, UNSPECIFIED D50.8 OTHER IRON DEFICIENCY ANEMIAS COMPARISON: None. NUMBER OF VIEWS: Two views. TECHNIQUE: Two radiographic images acquired of the right tibia and fibula to include the knee and an kle in at least one projection. LIMITATIONS: None. FINDINGS: MINERALIZATION: Normal. BONES: Distal tibial and fibular fractures. Compression plate on the distal tibia. Screws are prese nt in the medial malleolus. External fixation device is present. SOFT TISSUES: No obvious swelling or foreign body. OTHER: No other significant finding. IMPRESSION: Fractures with ORIF as described. External fixation device is present as well. TECHNICAL DOCUMENTATION: JOB ID: [id number] [employer]- All Rights Reserved Reading location - IP/workstation name: [email or web address]
[2020-02-01 17:09] LABS: HEMATOCRIT 23.6 % (37.9-51.0); MEAN CORPUSCULAR HEMOGLOBIN 28.6 pg (27.0-33.4); MEAN CORPUSCULAR HGB CONC 33.1 g/dL (32.0-36.0); MEAN CORPUSCULAR VOLUME 87 fl (80-97); PLATELET COUNT 337 10^3/uL (150-450); RED BLOOD COUNT 2.73 10^6/uL (4.35-5.55); RED CELL DISTRIBUTION WIDTH 16.5 % (11.5-14.0); WHITE BLOOD COUNT 6.8 10^3/uL (4.0-10.5)
[2020-02-01 17:12] LABS: HEMOGLOBIN 7.8 g/dL (13.5-17.0)
[2020-02-01] MEDS ORDERED: FUROSEMIDE 20 MG TABLET PO PRN (17:15)
[2020-02-01] MEDS ORDERED: NORMAL SALINE 250 ML IV PRN ×2 (17:15)
[2020-02-01 17:22] LABS: INTERNATIONAL RATION (INR) 0.98
--- NOTE | 2020-02-01 17:25 | PDOC H&P ---
History of Present Illness Admission Date/PCP: 02/01/20 15:13 RADHA VELEZ DPM Patient complains of: loose external fixator to Rt foot History of Present Illness: EPE DOUGHERTY is a 39 year old male with a past medical hisotry significant for HTN, HLD, PVD, Ischemic CVA, Migraines, IDDM, depression and obesity who was discharged from [facility] to [facility] on 01/04/20 after admission for 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 The patient was transferred from [facility] to [facility] inpatient acute rehab for failure to progress; increased intensive therapy services. Spoke with Dr. Swain at [facility] was requesting transfer to [facility] for follow-up with Dr. Pham due to report of external fixation malfunction. Recently, patient did have a mild AK I requiring temporary hold of Lasix followed by increased peripheral edema. Lasix was resumed yesterday. Otherwise, he has had no new acute issues. Dr. Swain has agreed to accept the patient back to [facility] upon ortho evaluation and clearance. Patient is seen shortly upon arrival. He is found to be on supplemental oxygen by nasal cannula at 4 L/min. He tells me that he was recently started on oxygen due to development of atelectasis. He denies dyspnea or cough. He asks for incentive spirometer to bedside. Patient asks when to expect to see Dr. Pham and is hopeful to return to [facility] immediately upon completion of orthopedic repair to resume rehab. He has no other questions or concerns. Denies fever, chills, chest pain, palpitations, dyspnea, orthopnea, cough, abdominal pain, nausea vomiting diarrhea. Dr. Pham has been consulted and notified of patient's arrival. Past Medical History Cardiac Medical History: Reports: Hyperlipidema, Hypertension, Peripheral Vascular Disease Denies: Coronary Artery Disease, Myocardial Infarction Pulmonary Medical History: Reports: Pneumonia Denies: Asthma, Chronic Obstructive Pulmonary Disease (COPD) Neurological Medical History: Reports: Migraine Denies: Seizures Endocrine Medical History: Reports: Diabetes Mellitus Type 1, Obesity Denies: Hyperthyroidism, Hypothyroidism Renal/ Medical History: Reports: None Malignancy Medical History: Reports: None GI Medical History: Reports: Gastroesophageal Reflux Disease Denies: Cirrhosis, Crohn's Disease, Hepatitis, Hiatal Hernia, Ulcerative Colitis Musculoskeltal Medical History: Denies: Arthritis, Gout Skin Medical History: Denies: Eczema, Psoriasis Psychiatric Medical History: Reports: Depression Hematology: Denies: Anemia, Sickle Cell Disease, Bleeding Tendencies Past Surgical History Past Surgical History: Reports: Orthopedic Surgery - Left BKA, Rt ankle external fixation, Other - EGD Denies: Pacemaker Social History Information Source: Patient Lives with: Family Smoking Status: Former Smoker Electronic Cigarette use?: No Frequency of Alcohol Use: Rare Hx Recreational Drug Use: No Drugs: None Hx Prescription Drug Abuse: No - Advance Directive Resuscitation Status: Full Code Family History Family History: DM - Grandmother with type 2 diabetes, Hypertension - Father. denies: CAD, Malignancy Parental Family History Reviewed: Yes Children Family History Reviewed: Yes Sibling(s) Family History Reviewed.: Yes Medication/Allergy Home Medications: Aspirin [Adult Low Dose Aspirin EC] 81 mg PO DAILY 08/11/19 Duloxetine HCl [Cymbalta] 60 mg PO DAILY 08/11/19 Metoprolol Tartrate [Lopressor 100 mg Tablet] 100 mg PO Q12 08/11/19 Insulin Aspart [Novolog Flexpen] 16 unit SUBCUT AC 08/12/19 Atorvastatin Calcium [Lipitor 40 mg Tablet] 40 mg PO QHS tablet 08/13/19 Famotidine [Pepcid 20 mg Tablet] 20 mg PO DAILY 12/21/19 Gabapentin [Neurontin 300 mg Capsule] 300 mg PO TID 12/21/19 Hydralazine HCl [Apresoline 50 mg Tablet] 50 mg PO TID 12/21/19 Amlodipine Besylate [Norvasc 5 mg Tablet] 10 mg PO DAILY tablet 01/04/20 Docusate Sodium [Colace 100 mg Capsule] 100 mg PO BID capsule 01/04/20 Ferrous Sulfate [Feosol 325 mg Tablet] 325 mg PO MEALS tablet 01/04/20 Fluticasone Propionate [Flonase Nasal [place] 50 Mcg/[place] 16 gm] 2 spray NASL Q12 spray.pump 01/04/20 Insulin Glargine,Hum.rec.anlog [Lantus Insulin 100 Unit/1 ml 10 ml] 60 unit SUBCUT Q12 unit 01/04/20 Insulin Lispro [Humalog Insulin (Lispro) 100 unit/mL] 0 - 12 unit SUBCUT ACHS unit 01/04/20 Oxycodone HCl [Oxy-Ir 5 mg Tablet] 5 mg PO Q4HP PRN tablet 01/04/20 Allergies/Adverse Reactions: No Known Allergies Allergy (Verified 12/20/19 20:11) Review of Systems Constitutional: ABSENT: chills, fever(s), headache(s), weight gain, weight loss Eyes: ABSENT: visual disturbances Ears: ABSENT: hearing changes Cardiovascular: ABSENT: chest pain, dyspnea on exertion, edema, orthropnea, palpitations Respiratory: ABSENT: cough, hemoptysis Gastrointestinal: ABSENT: abdominal pain, constipation, diarrhea, hematemesis, hematochezia, nausea, vomiting Genitourinary: ABSENT: dysuria, hematuria Musculoskeletal: PRESENT: as per HPI, deformity Integumentary: ABSENT: rash, wounds Neurological: ABSENT: abnormal gait, abnormal speech, confusion, dizziness, focal weakness, syncope Psychiatric: ABSENT: anxiety, depression, homidical ideation, suicidal ideation Endocrine: ABSENT: cold intolerance, heat intolerance, polydipsia, polyuria Hematologic/Lymphatic: ABSENT: easy bleeding, easy bruising Physical Exam Vital Signs: Temp Pulse Resp BP Pulse Ox 97.7 F 91 18 136/57 H 98 02/01/20 15:20 02/01/20 15:20 02/01/20 15:20 02/01/20 15:20 02/01/20 15:20 General appearance: PRESENT: no acute distress, cooperative, morbidly obese, well-developed, well-nourished Head exam: PRESENT: atraumatic, normocephalic Eye exam: PRESENT: conjunctiva pink, EOMI, PERRLA. ABSENT: scleral icterus Mouth exam: PRESENT: moist, tongue midline Respiratory exam: PRESENT: clear to auscultation aleja, symmetrical, unlabored, other - supplemental oxygen via NC. ABSENT: rales, rhonchi, wheezes Cardiovascular exam: PRESENT: RRR, +S1, +S2. ABSENT: diastolic murmur, rubs, systolic murmur Vascular exam: PRESENT: normal capillary refill GI/Abdominal exam: PRESENT: normal bowel sounds, soft. ABSENT: distended, guarding, mass, organolmegaly, rebound, tenderness Rectal exam: PRESENT: deferred Gentrourinary exam: PRESENT: indwelling catheter Extremities exam: PRESENT: full ROM, pedal edema - +2 right foot, tenderness - external fixator to right ankle; serous drainage noted to gauze. ABSENT: calf tenderness, clubbing Neurological exam: PRESENT: alert, awake, oriented to person, oriented to place, oriented to time, oriented to situation, CN II-XII grossly intact. ABSENT: m otor sensory deficit Psychiatric exam: PRESENT: appropriate affect, normal mood. ABSENT: homicidal ideation, suicidal ideation Skin exam: PRESENT: dry, intact, warm. ABSENT: cyanosis, rash Assessment and Plan - Diagnosis (1) Fracture of distal end of tibia Qualifiers: Encounter type: sequela Fracture type: closed Fracture morphology: unspecified fracture morphology Laterality: right Qualified Code(s): S82.301S - Unspecified fracture of lower end of right tibia, sequela Is this a current diagnosis for this admission?: Yes Plan: Original repair by Dr. Pham with open reduction/external fixation. Returns from rehab w/ hardware malfunction. Patient reports that he is able to slide his heal "back and forth" across the distal/horizontal bar. Dr. Pham is consulted. Xray completed; report pending. NPO after midnight. (2) Fracture of lateral malleolus Qualifiers: Encounter type: sequela Fracture type: closed Laterality: right Is this a current diagnosis for this admission?: Yes Plan: As above. (3) Postoperative anemia Is this a current diagnosis for this admission?: Yes Plan: >1 month post op. Will check anemia panel Will transfuse 1 unit PRBC r/t Hgb 7.8 with planned orthopedic operative repair Continue ferrous sulfate supplementation (4) Amputation of left lower extremity below knee Is this a current diagnosis for this admission?: Yes Plan: Continue compression sleeve. PT/OT consultation. Discharge planning consulted; return to [facility] once cleared by Ortho. (5) Hypertension Qualifiers: Hypertension type: essential hypertension Qualified Code(s): I10 - Essential (primary) hypertension Is this a current diagnosis for this admission?: Yes Plan: Adequate control at present. Continue home regimen of Amlodipine, hydralazine, and metoprolol. Cardiac diet. (6) IDDM (insulin dependent diabetes mellitus) Is this a current diagnosis for this admission?: Yes Plan: A1C 10.1% Patient is placed on a consistent carb/cardiac diet. Accu-Cheks before meals and at bedtime with Humalog for sliding scale coverage. Hypoglycemia protocol in place. (7) Morbid obesity with BMI of 40.0-44.9, adult Is this a current diagnosis for this admission?: Yes Plan: Dietary discretion is advised. Consistent carb/cardiac diet. (8) Obstructive sleep apnea Is this a current diagnosis for this admission?: Yes Plan: CPAP nightly - Time Time Spent with patient: 35 or more minutes Medications reviewed and adjusted accordingly: Yes Anticipated discharge: Acute Rehab Within: within 72 hours
[2020-02-01 17:30] LABS: ANION GAP 9 (5-19); BLOOD UREA NITROGEN 26 mg/dL (7-20); CALCIUM 9.4 mg/dL (8.4-10.2); CARBON DIOXIDE 25 mmol/L (22-30); CHLORIDE 101 mmol/L (98-107); GLUCOSE 124 mg/dL (75-110); POTASSIUM 4.6 mmol/L (3.6-5.0)
[2020-02-01] MEDS: FERROUS SULFATE 325 MG TABLET PO SCH (17:30)
[2020-02-01] MEDS: DOCUSATE SODIUM 100 MG CAPSULE PO SCH (17:30)
[2020-02-01 18:40] LABS: ABSOLUTE RETICS # 0.138 10^6/uL (0.028-0.122); RETICULOCYTE COUNT (AUTO) 5.22 % (0.66-2.85)
[2020-02-01 18:49] LABS: IRON(TIBC) 35.6 ug/dL (49-181)
[2020-02-01] MEDS: HEPARIN SOD (PORCINE) 5,000 UNIT/ML 1 ML VIAL SUBCUT SCH (21:34)
[2020-02-01] MEDS: INSULIN LISPRO 100 UNIT/ML 3 ML VIAL SUBCUT SCH (21:39)
[2020-02-01] MEDS: FAMOTIDINE 20 MG TABLET PO SCH (21:44)
[2020-02-01] MEDS: METOPROLOL TARTRATE 100 MG TABLET PO SCH (21:44)
[2020-02-01] MEDS: HYDRALAZINE HCL 50 MG TABLET PO SCH (21:44)
[2020-02-01] MEDS: GABAPENTIN 300 MG CAPSULE PO SCH (21:44)
[2020-02-01] MEDS: ATORVASTATIN CALCIUM 40 MG TABLET PO SCH (21:44)
[2020-02-01] MEDS: FLUTICASONE NASAL SPRAY 50 MCG/SPRY 120 SPRAY/16 GM NASL SCH (21:56)
[2020-02-01] MEDS: NORMAL SALINE INJ/PF 0.9% 10 ML SDV IV SCH (21:57)
[2020-02-01] MEDS: NORMAL SALINE INJ/PF 0.9% 10 ML SDV IV PRN (23:36)
[2020-02-02 01:34] LABS: ABSOLUTE BASOPHILS # (AUTO) 0.1 10^3/uL (0.0-0.2); ABSOLUTE EOSINOPHILS # (AUTO) 0.4 10^3/uL (0.0-0.6); ABSOLUTE LYMPHOCYTES (AUTO) 0.9 10^3/uL (0.5-4.7); ABSOLUTE MONOCYTES (AUTO) 0.5 10^3/uL (0.1-1.4); ABSOLUTE NEUT (AUTO) 5.5 10^3/uL (1.7-8.2); EOSINOPHILS % (AUTO) 5.2 % (0-6); HEMATOCRIT 25.6 % (37.9-51.0); HEMOGLOBIN 8.7 g/dL (13.5-17.0); LYMPHOCYTES % (AUTO) 12.1 % (13-45); MEAN CORPUSCULAR HEMOGLOBIN 28.9 pg (27.0-33.4); MEAN CORPUSCULAR VOLUME 85 fl (80-97); MONOCYTES % (AUTO) 7.1 % (3-13); PLATELET COUNT 336 10^3/uL (150-450); RED CELL DISTRIBUTION WIDTH 16.5 % (11.5-14.0); SEGMENTED NEUTROPHILS % (AUTO) 74.6 % (42-78); TOTAL CELLS COUNTED % (AUTO) 100 %; WHITE BLOOD COUNT 7.4 10^3/uL (4.0-10.5)
[2020-02-02 05:25] LABS: HEMATOCRIT 23.7 % (37.9-51.0); MEAN CORPUSCULAR HGB CONC 33.9 g/dL (32.0-36.0); MEAN CORPUSCULAR VOLUME 86 fl (80-97); PLATELET COUNT 334 10^3/uL (150-450); RED BLOOD COUNT 2.77 10^6/uL (4.35-5.55); RED CELL DISTRIBUTION WIDTH 16.7 % (11.5-14.0); WHITE BLOOD COUNT 7.7 10^3/uL (4.0-10.5)
[2020-02-02] MEDS: HEPARIN SOD (PORCINE) 5,000 UNIT/ML 1 ML VIAL SUBCUT SCH ×3 (05:33→21:51)
[2020-02-02] MEDS: GABAPENTIN 300 MG CAPSULE PO SCH ×3 (05:43→21:51)
[2020-02-02] MEDS: HYDRALAZINE HCL 50 MG TABLET PO SCH ×3 (05:43→21:51)
[2020-02-02 05:47] LABS: ANION GAP 9 (5-19); BLOOD UREA NITROGEN 27 mg/dL (7-20); CALCIUM 9.1 mg/dL (8.4-10.2); CARBON DIOXIDE 24 mmol/L (22-30); CHLORIDE 101 mmol/L (98-107); GLUCOSE 295 mg/dL (75-110); POTASSIUM 4.7 mmol/L (3.6-5.0)
[2020-02-02] MEDS: FERROUS SULFATE 325 MG TABLET PO SCH ×3 (08:06→18:12)
[2020-02-02] MEDS: INSULIN LISPRO 100 UNIT/ML 3 ML VIAL SUBCUT SCH ×4 (08:06→21:50)
[2020-02-02] MEDS ORDERED: ROCURONIUM BROMIDE INJ 50 MG/5 ML VIAL IV ONE (09:35)
[2020-02-02] MEDS ORDERED: METOCLOPRAMIDE HCL INJ/PF 10 MG/2 ML SDV ONE (09:35)
[2020-02-02] MEDS ORDERED: SUCCINYLCHOLINE CHLORIDE INJ 200 MG/10 ML VIAL ONE (09:35)
[2020-02-02] MEDS ORDERED: KETOROLAC TROMETHAMINE 60 MG/2 ML SDV ONE (09:35)
[2020-02-02] MEDS ORDERED: ONDANSETRON HCL INJ/PF 4 MG/2 ML SDV ONE (09:35)
[2020-02-02] MEDS ORDERED: AMLODIPINE BESYLATE 5 MG TABLET PO SCH (10:00)
[2020-02-02] MEDS ORDERED: DOCUSATE SODIUM 100 MG CAPSULE PO SCH (10:00)
[2020-02-02] MEDS: ASPIRIN 81 MG TABLET, ENT COATED PO SCH (10:22)
[2020-02-02] MEDS: DOCUSATE SODIUM 100 MG CAPSULE PO SCH ×2 (10:24→18:12)
[2020-02-02] MEDS: METOPROLOL TARTRATE 100 MG TABLET PO SCH ×2 (10:25→21:51)
[2020-02-02] MEDS: FAMOTIDINE 20 MG TABLET PO SCH ×2 (10:25→21:51)
[2020-02-02] MEDS: AMLODIPINE BESYLATE 10 MG TABLET PO SCH (10:26)
[2020-02-02] MEDS: DULOXETINE HCL 30 MG CAPSULE.DR PO SCH (10:26)
[2020-02-02] MEDS: FLUTICASONE NASAL SPRAY 50 MCG/SPRY 120 SPRAY/16 GM NASL SCH ×2 (10:59→21:52)
[2020-02-02] MEDS: NORMAL SALINE INJ/PF 0.9% 10 ML SDV IV SCH ×2 (10:59→21:52)
--- NOTE | 2020-02-02 13:07 | PDOC CONSULTATION ---
Consultation Consult Date: 02/02/20 Attending physician:: LAVELL CRUZ Provider Consulted: DANISH JEFF Consult reason:: right tibial pilon fracture History of Present Illness Admission Date/PCP: 02/01/20 15:13 RADHA VELEZ DPM Patient complains of: loosening of right external fixator History of Present Illness: PEE DOUGHERTY is a 39 year old male with a complicated medical history including bilateral Charcot foot. The patient had undergone below-knee amputation on the left by Dr. Hill for an infected Charcot foot. While transferring in the hospital he sustained a comminuted tibial pilon fracture of the right leg. He underwent open reduction with internal fixation of the distal tibia as well as external fixation. He was transferred to a alf facility and from there transferred to the [facility]. He has not followed up in my office since the internal fixation. He was transferred back from [facility] due to loosening of the external fixator. Past Medical History Cardiac Medical History: Reports: Hyperlipidema, Hypertension, Peripheral Vascular Disease Denies: Atrial Fibrillation, Coronary Artery Disease, DVT, Myocardial Inf arction, Pulmonary Embolism Pulmonary Medical History: Reports: Pneumonia, Sleep Apnea - Patient requires CPAP Denies: Asthma, Chronic Obstructive Pulmonary Disease (COPD) Neurological Medical History: Reports: Migraine Denies: Seizures Endocrine Medical History: Reports: Diabetes Mellitus Type 1, Obesity Denies: Hyperthyroidism, Hypothyroidism Renal/ Medical History: Reports: None Malignancy Medical History: Reports: None GI Medical History: Reports: Gastroesophageal Reflux Disease Denies: Cirrhosis, Crohn's Disease, Hepatitis, Hiatal Hernia, Ulcerative Colitis Musculoskeltal Medical History: Denies: Arthritis, Gout Skin Medical History: Denies: Eczema, Psoriasis Psychiatric Medical History: Reports: Depression Hematology: Denies: Anemia, Sickle Cell Disease, Bleeding Tendencies Past Surgical History Past Surgical History: Reports: Orthopedic Surgery - Left BKA, ORIF right tibial pilon, rt ankle external fixation, Other - EGD Denies: Pacemaker Social History Lives with: Family Smoking Status: Former Smoker Electronic Cigarette use?: No Frequency of Alcohol Use: Rare Hx Recreational Drug Use: No Drugs: None Hx Prescription Drug Abuse: No - Advance Directive Resuscitation Status: Full Code Family History Family History: DM - Grandmother with type 2 diabetes, Hypertension - Father. denies: CAD, Malignancy Parental Family History Reviewed: Yes Children Family History Reviewed: No Sibling(s) Family History Reviewed.: No Medication/Allergy Home Medications: Aspirin [Adult Low Dose Aspirin EC] 81 mg PO DAILY 08/11/19 Duloxetine HCl [Cymbalta] 60 mg PO DAILY 08/11/19 Metoprolol Tartrate [Lopressor 100 mg Tablet] 100 mg PO Q12 08/11/19 Insulin Aspart [Novolog Flexpen] 16 unit SUBCUT AC 08/12/19 Atorvastatin Calcium [Lipitor 40 mg Tablet] 40 mg PO QHS tablet 08/13/19 Famotidine [Pepcid 20 mg Tablet] 20 mg PO DAILY 12/21/19 Gabapentin [Neurontin 300 mg Capsule] 300 mg PO Q8 12/21/19 Hydralazine HCl [Apresoline 50 mg Tablet] 50 mg PO Q8 12/21/19 Amlodipine Besylate [Norvasc 5 mg Tablet] 10 mg PO DAILY tablet 01/04/20 Docusate Sodium [Colace 100 mg Capsule] 100 mg PO BID capsule 01/04/20 Ferrous Sulfate [Feosol 325 mg Tablet] 325 mg PO MEALS tablet 01/04/20 Fluticasone Propionate [Flonase Nasal Lyle 50 Mcg/Lyle 16 gm] 2 spray NASL Q12 spray.pump 01/04/20 Insulin Glargine,Hum.rec.anlog [Lantus Insulin 100 Unit/1 ml 10 ml] 60 unit SUBCUT Q12 unit 01/04/20 Insulin Lispro [Humalog Insulin (Lispro) 100 unit/mL] 0 - 12 unit SUBCUT ACHS unit 01/04/20 Oxycodone HCl [Oxy-Ir 5 mg Tablet] 5 mg PO Q4HP PRN tablet 01/04/20 Scopolamine 1 each TD Q3D 02/01/20 Allergies/Adverse Reactions: No Known Allergies Allergy (Verified 12/20/19 20:11) Review of Systems All systems: reviewed and no additional remarkable complaints except as stated - As per HPI Physical Exam Vital Signs: Temp Pulse Resp BP Pulse Ox 97.7 F 86 18 131/67 H 91 L 02/02/20 12:00 02/02/20 12:00 02/02/20 12:00 02/02/20 12:00 02/02/20 12:00 Intake & Output 02/01/20 02/02/20 02/03/20 06:59 06:59 06:59 Intake Total 935 Output Total 800 Balance 135 Weight 144.5 kg General appearance: PRESENT: no acute distress, cooperative, morbidly obese Head exam: PRESENT: atraumatic, normocephalic Eye exam: PRESENT: EOMI, PERRLA Mouth exam: PRESENT: moist, neck supple Neck exam: PRESENT: full ROM Respiratory exam: PRESENT: clear to auscultation aleja. ABSENT: rales, rhonchi, wheezes Cardiovascular exam: PRESENT: RRR. ABSENT: diastolic murmur, rubs, systolic murmur Pulses: PRESENT: other - Pedal pulses are nonpalpable due to edema of the foot GI/Abdominal exam: PRESENT: soft Rectal exam: PRESENT: deferred Musculoskeletal exam: PRESENT: other - The surgical incision from prior open reduction internal fixation of the right distal tibia is healed. Sutures remain in place. The external fixator pins in the tibia are not loose. The calcaneal transfixion pin is loose allowing motion of the external fixator. There is significant edema of the foot. Results Laboratory Results: 02/02/20 04:37 02/02/20 04:37 02/01/20 02/01/20 02/01/20 16:56 16:56 17:55 WBC 6.8 RBC 2.73 L Hgb 7.8 L Hct 23.6 L MCV 87 MCH 28.6 MCHC 33.1 RDW 16.5 H Plt Count 337 Seg Neutrophils % Retic Count (auto) Sodium 134.7 L Potassium 4.6 Chloride 101 Carbon Dioxide 25 Anion Gap 9 BUN 26 H Creatinine 1.36 H Est GFR ( Amer) > 60 Glucose 124 H Calcium 9.4 Iron TIBC % Saturation Transferrin Ferritin Vitamin B12 Folate Blood Type O POSITIVE Antibody Screen NEGATIVE 02/01/20 02/01/20 02/01/20 17:55 17:55 17:55 WBC RBC Hgb Hct MCV MCH MCHC RDW Plt Count Seg Neutrophils % Retic Count (auto) 5.22 H Sodium Potassium Chloride Carbon Dioxide Anion Gap BUN Creatinine Est GFR ( Amer) Glucose Calcium Iron 35.6 L TIBC 281 % Saturation 13 Transferrin 188.40 L Ferritin 154.00 Vitamin B12 394.0 Folate 17.20 Blood Type Antibody Screen 02/02/20 02/02/20 02/02/20 01:23 04:37 04:37 WBC 7.4 7.7 RBC 3.00 L 2.77 L Hgb 8.7 L 8.0 L Hct 25.6 L 23.7 L MCV 85 86 MCH 28.9 29.0 MCHC 34.0 33.9 RDW 16.5 H 16.7 H Plt Count 336 334 Seg Neutrophils % 74.6 Retic Count (auto) Sodium 133.6 L Potassium 4.7 Chloride 101 Carbon Dioxide 24 Anion Gap 9 BUN 27 H Creatinine 1.56 H Est GFR ( Amer) > 60 Glucose 295 H Calcium 9.1 Iron TIBC % Saturation Transferrin Ferritin Vitamin B12 Folate Blood Type Antibody Screen Impressions: Tibia/Fibula X-Ray 02/01/20 00:00 IMPRESSION: Fractures with ORIF as described. External fixation device is present as well. Assessment & Plan - Diagnosis (1) Fracture of distal end of tibia Qualifiers: Encounter type: sequela Fracture type: closed Fracture morphology: pilon Laterality: right Is this a current diagnosis for this admission?: Yes - Time Time Spent: 30 to 50 Minutes Anticipated discharge: Acute Rehab Within: within 24 hours - Plan Summary Plan Summary: I have had another prolonged discussion with the patient. The patient is at a significantly high risk of amputation of this right leg. He has a Charcot foot with significant loss of sensation. One of the purposes of leaving the external fixator in place was to prevent the patient from using the right leg for weightbearing or transfers. Due to his loss of sensibility, he has clearly been using this leg and this has led to loosening of the external fixator. I have recommended removal of the external fixator. We have discussed the possibility of performing open osteosynthesis of the fibula fracture. Following removal of the external fixator, and in-depth evaluation of all wounds in the extremity will be performed under anesthesia. I have discussed with the patient that if the wounds look at all infected then we will continue with nonoperative treatment of the fibular fracture. Risks benefits, and alternatives of the procedure were discussed with the emani canas. This included the risk of with anesthesia, the risk of infection, the risk of injury to nerves and vessels, the risk of nonunion, the risk of malunion, the possible need for additional surgical procedures. The patient also understands that he is at high risk for amputation of this extremity. An opportunity for questions was provided. All questions were answered to the patient's satisfaction. The patient expressed understanding and wishes to proceed.
[2020-02-02] MEDS ORDERED: MIDAZOLAM 2 MG/2 ML INJ ONE ×2 (13:14→13:59)
[2020-02-02] MEDS ORDERED: FENTANYL CITRATE INJ/PF 100 MCG/2 ML AMPUL ONE (13:59)
[2020-02-02] MEDS ORDERED: PROPOFOL INJ 200 MG/20 ML VIAL IV ONE (14:00)
[2020-02-02] MEDS ORDERED: CEFAZOLIN INJ 1 GM VIAL ONE (14:52)
--- NOTE | 2020-02-02 14:57 | PDOC PROGRESS REPORT ---
Subjective Progress Note for:: 02/02/20 Subjective:: No adverse events overnight. No new complaints. Vital signs been stable. His biggest concern is that the surgery is later in the day and he is not been allowed to eat. Reason For Visit: RIGHT TIBIA FX,EXTERNAL FIXATION ISSUE Physical Exam Vital Signs: Temp Pulse Resp BP Pulse Ox 97.7 F 86 18 131/67 H 91 L 02/02/20 12:00 02/02/20 12:00 02/02/20 12:00 02/02/20 12:00 02/02/20 12:00 Intake & Output 02/01/20 02/02/20 02/03/20 06:59 06:59 06:59 Intake Total 935 Output Total 800 Balance 135 Weight 144.5 kg General appearance: PRESENT: no acute distress, cooperative, disheveled, morbidly obese Respiratory exam: PRESENT: decreased breath sounds, symmetrical, unlabored. A BSENT: accessory muscle use, chest wall tenderness, clear to auscultation aleja, crackles, prolonged expiratory phas, rhonchi, tachypnea, wheezes Cardiovascular exam: PRESENT: RRR, +S1, +S2 Pulses: PRESENT: normal carotid pulses Vascular exam: ABSENT: normal capillary refill - Delayed GI/Abdominal exam: PRESENT: normal bowel sounds, soft, other - Pendulous abdominal pannus. ABSENT: distended, guarding, rebound, tenderness Extremities exam: ABSENT: clubbing Musculoskeletal exam: PRESENT: deformity - Left BKA, right foot has some swelling and right leg is in an external fixator Neurological exam: PRESENT: awake, oriented to person, oriented to place, oriented to situation Psychiatric exam: PRESENT: appropriate affect, normal mood Skin exam: PRESENT: dry, warm Results Laboratory Results: 02/02/20 04:37 02/02/20 04:37 02/01/20 02/01/20 02/01/20 16:56 16:56 17:55 WBC 6.8 RBC 2.73 L Hgb 7.8 L Hct 23.6 L MCV 87 MCH 28.6 MCHC 33.1 RDW 16.5 H Plt Count 337 Seg Neutrophils % Retic Count (auto) Sodium 134.7 L Potassium 4.6 Chloride 101 Carbon Dioxide 25 Anion Gap 9 BUN 26 H Creatinine 1.36 H Est GFR ( Amer) > 60 Glucose 124 H Calcium 9.4 Iron TIBC % Saturation Transferrin Ferritin Vitamin B12 Folate Blood Type O POSITIVE Antibody Screen NEGATIVE 02/01/20 02/01/20 02/01/20 17:55 17:55 17:55 WBC RBC Hgb Hct MCV MCH MCHC RDW Plt Count Seg Neutrophils % Retic Count (auto) 5.22 H Sodium Potassium Chloride Carbon Dioxide Anion Gap BUN Creatinine Est GFR ( Amer) Glucose Calcium Iron 35.6 L TIBC 281 % Saturation 13 Transferrin 188.40 L Ferritin 154.00 Vitamin B12 394.0 Folate 17.20 Blood Type Antibody Screen 02/02/20 02/02/20 02/02/20 01:23 04:37 04:37 WBC 7.4 7.7 RBC 3.00 L 2.77 L Hgb 8.7 L 8.0 L Hct 25.6 L 23.7 L MCV 85 86 MCH 28.9 29.0 MCHC 34.0 33.9 RDW 16.5 H 16.7 H Plt Count 336 334 Seg Neutrophils % 74.6 Retic Count (auto) Sodium 133.6 L Potassium 4.7 Chloride 101 Carbon Dioxide 24 Anion Gap 9 BUN 27 H Creatinine 1.56 H Est GFR ( Amer) > 60 Glucose 295 H Calcium 9.1 Iron TIBC % Saturation Transferrin Ferritin Vitamin B12 Folate Blood Type Antibody Screen Impressions: Tibia/Fibula X-Ray 02/01/20 00:00 IMPRESSION: Fractures with ORIF as described. External fixation device is present as well. Assessment and Plan - Diagnosis (1) Fracture of distal end of tibia Qualifiers: Encounter type: sequela Fracture type: closed Fracture morphology: pilon Laterality: right Is this a current diagnosis for this admission?: Yes Plan: He was sent here from [facility] inpatient rehab because of loosening of his hardware. He is seen in consultation by Dr. Pham who is taking him to the OR today for further evaluation of his wounds and determination of definitive treatment. (2) Obesity hypoventilation syndrome Is this a current diagnosis for this admission?: Yes Plan: He is chronically been on oxygen now, saturations are good on 3 L. (3) Amputation of left lower extremity below knee Is this a current diagnosis for this admission?: Yes Plan: Done during his last admission, wound is unremarkable (4) Charcot foot due to diabetes mellitus Is this a current diagnosis for this admission?: Yes Plan: Right foot (5) Fracture of lateral malleolus Qualifiers: Encounter type: sequela Fracture type: closed Laterality: right Is this a current diagnosis for this admission?: Yes Plan: As previously noted (6) IDDM (insulin dependent diabetes mellitus) Is this a current diagnosis for this admission?: Yes Plan: Insulin coverage plus diabetic diet (7) Morbid obesity with BMI of 40.0-44.9, adult Is this a current diagnosis for this admission?: Yes Plan: Strongly urged lifestyle modification with dietary modifications - Time Time Spent with patient: 25-34 minutes
[2020-02-02] MEDS ORDERED: FENTANYL CITRATE INJ/PF 100 MCG/2 ML AMPUL IV PRN ×3 (15:05)
[2020-02-02] MEDS ORDERED: OXYCODONE-ACETAMINOPHEN 5-325 MG TABLET PO PRN (15:05)
[2020-02-02] MEDS ORDERED: ONDANSETRON HCL INJ/PF 4 MG/2 ML SDV IV PRN (15:05)
[2020-02-02] MEDS ORDERED: PROMETHAZINE HCL INJ 25 MG/1 ML VIAL IV PRN ×2 (15:05)
[2020-02-02] MEDS ORDERED: MEPERIDINE HCL/PF INJ 25 MG/1 ML DISP.SYRIN IV PRN (15:05)
[2020-02-02] MEDS ORDERED: DIPHENHYDRAMINE HCL 50 MG/ML VIAL IV PRN (15:05)
--- NOTE | 2020-02-02 16:20 | Operative Report ---
Operative Report DATE OF SURGERY: 02/02/20 PREOPERATIVE DIAGNOSIS: 1. Right tibial pilon fracture. 2. Right lateral mal leolus fracture. 3. Loosening of right external fixator POSTOPERATIVE DIAGNOSIS: Same OPERATION: 1. Removal of external fixator. 2. Open reduction with internal fixation right lateral malleolus fracture SURGEON: DANISH JEFF ANESTHESIA: GA COMPLICATIONS: None ESTIMATED BLOOD LOSS: 50 cc PROCEDURE: Indications for procedure: Patient is a 39-year-old man with diabetes and bilateral Charcot foot neuropathy. He had undergone open reduction with internal fixation of the right distal tibia with supplemental external fixation several weeks ago after sustaining a displaced, comminuted right distal tibia fracture. Despite instructions to maintain the leg with strict nonweightbearing, he has been using the leg for transfers. This has led to loosening of the external fixator. The lateral malleolus fracture is in the early stages of healing with good alignment and would have healed have the external fixator not loosened. Description of procedure: Following the induction of a general anesthetic and administration of 2 g of Ancef, the patient was positioned supine on the operating room table with all bony prominences padded. The right lower extremity was sterilely prepped with Betadine scrub and preparatory solution and draped in standard fashion. The external fixator was removed with the wrenches from the Sonya external fixator set. Of note, the calcaneal pin was just removed with the use of 2 fingers,, as it was completely loose. Next all of the holes from the external fixator pins were curetted out. We next turned our attention to the lateral malleolus fracture. Incision was performed on the lateral aspect of the ankle. Sharp incision was performed through skin with Bovie electrocautery through the subcutaneous tissues. The lateral malleolus was identified and fracture identified. The fracture remained in good alignment. A lateral locking plate from the Sonya ankle set was applied. A combination of locking, nonlocking, and distal tibiofibular screws was applied. Image intensification was brought in which determined that the construct provided anatomic taoism of the lateral malleolus. The wound was then copiously irrigated. The subcutaneous tissue was closed with 2-0 Vicryl. The skin was reapproximated with 3-0 nylon. A bulky sterile dressing was applied. A posterior splint was applied. Postoperatively the patient will remain nonweightbearing. He may be discharged back to the rehab hospital tomorrow.
--- NOTE | 2020-02-02 16:21 | Progress Note ---
Provider Note Provider Note: The patient underwent removal of the external fixator with open reduction and internal fixation of the lateral malleolus. The patient should remain strict nonweightbearing on the right leg. The patient is stable for discharge back to the rehabilitation hospital.
--- NOTE | 2020-02-02 16:47 | RADIOLOGY REPORT (SQ) ---
EXAM DESCRIPTION: NO CHG FLUORO; ANKLE RIGHT AP/LATERAL IMAGES COMPLETED DATE/TIME: 02/02/2020 4:22 pm; 02/02/2020 4:23 pm REASON FOR STUDY: ORIF RT ANKLE COMPARISON: None. FLUOROSCOPY TIME: 0.2 minutes 4 Images saved to PACS LIMITATIONS: None. PROCEDURE: ORIF right ankle FINDINGS: Images in fluoro document placement of compression plates on the distal tibia and fibula. Additional screws are present. IMPRESSION: ORIF right ankle. Refer to operative note for further information COMMENT: PQRS 6045F: Fluoroscopy time of the procedure is documented in the report. TECHNICAL DOCUMENTATION: JOB ID: [id number] 2010 [employer]- All Rights Reserved Reading location - IP/workstation name: [email or web address]
--- NOTE | 2020-02-02 16:47 | RADIOLOGY REPORT (SQ) ---
EXAM DESCRIPTION: NO CHG FLUORO; ANKLE RIGHT AP/LATERAL IMAGES COMPLETED DATE/TIME: 02/02/2020 4:22 pm; 02/02/2020 4:23 pm REASON FOR STUDY: ORIF RT ANKLE COMPARISON: None. FLUOROSCOPY TIME: 0.2 minutes 4 Images saved to PACS LIMITATIONS: None. PROCEDURE: ORIF right ankle FINDINGS: Images in fluoro document placement of compression plates on the distal tibia and fibula. Additional screws are present. IMPRESSION: ORIF right ankle. Refer to operative note for further information COMMENT: PQRS 6045F: Fluoroscopy time of the procedure is documented in the report. TECHNICAL DOCUMENTATION: JOB ID: [id number] 2010 [employer]- All Rights Reserved Reading location - IP/workstation name: [email or web address]
[2020-02-02] MEDS: CEFAZOLIN SODIUM 3 GM in DEXTROSE 5%-WATER 100 ML IV SCH (18:08)
[2020-02-02] MEDS: ATORVASTATIN CALCIUM 40 MG TABLET PO SCH (21:51)
[2020-02-03] MEDS: CEFAZOLIN SODIUM 3 GM in DEXTROSE 5%-WATER 100 ML IV SCH ×3 (01:33→17:07)
[2020-02-03] MEDS: HEPARIN SOD (PORCINE) 5,000 UNIT/ML 1 ML VIAL SUBCUT SCH ×3 (05:14→22:06)
[2020-02-03] MEDS: HYDRALAZINE HCL 50 MG TABLET PO SCH ×3 (05:14→22:07)
[2020-02-03] MEDS: GABAPENTIN 300 MG CAPSULE PO SCH ×3 (05:14→22:07)
[2020-02-03] MEDS: INSULIN LISPRO 100 UNIT/ML 3 ML VIAL SUBCUT SCH ×5 (07:43→22:06)
[2020-02-03] MEDS: FERROUS SULFATE 325 MG TABLET PO SCH ×3 (07:44→16:04)
[2020-02-03] MEDS: FAMOTIDINE 20 MG TABLET PO SCH ×2 (09:42→22:07)
[2020-02-03] MEDS: METOPROLOL TARTRATE 100 MG TABLET PO SCH ×2 (09:42→22:07)
[2020-02-03] MEDS: FLUTICASONE NASAL SPRAY 50 MCG/SPRY 120 SPRAY/16 GM NASL SCH ×2 (09:42→22:05)
[2020-02-03] MEDS: AMLODIPINE BESYLATE 10 MG TABLET PO SCH (09:42)
[2020-02-03] MEDS: DULOXETINE HCL 30 MG CAPSULE.DR PO SCH (09:43)
[2020-02-03] MEDS: ASPIRIN 81 MG TABLET, ENT COATED PO SCH (09:43)
[2020-02-03] MEDS: DOCUSATE SODIUM 100 MG CAPSULE PO SCH ×2 (09:43→17:10)
[2020-02-03] MEDS: NORMAL SALINE INJ/PF 0.9% 10 ML SDV IV SCH ×2 (10:35→22:06)
[2020-02-03] MEDS: ALBUTEROL SULFATE 0.083% NEB 2.5 MG/3 ML AMPUL NEB PRN ×2 (13:19→19:49)
--- NOTE | 2020-02-03 16:17 | PDOC PROGRESS REPORT ---
Subjective Progress Note for:: 02/03/20 Subjective:: No adverse events overnight. He had his external fixator removed yesterday. His blood sugars were elevated so we made sure that his Lantus was resumed. He was ready to go back to [facility] today but they gave away his bed in acute rehab and so now we're having to start the process over. Reason For Visit: FRACTURE OF DISTAL END OF TIBIA,FRACTURE OF LATERA Physical Exam Vital Signs: Temp Pulse Resp BP Pulse Ox 98.4 F 74 18 148/62 H 97 02/03/20 15:08 02/03/20 15:08 02/03/20 15:08 02/03/20 15:08 02/03/20 15:08 Intake & Output 02/02/20 02/03/20 02/04/20 06:59 06:59 06:59 Intake Total 935 2120 100 Output Total 800 400 Balance 135 1720 100 Weight 144.5 kg 145.1 kg General appearance: PRESENT: no acute distress, cooperative, disheveled, morbidly obese Respiratory exam: PRESENT: decreased breath sounds, symmetrical, unlabored. ABSENT: accessory muscle use, chest wall tenderness, clear to auscultation aleja, crackles, prolonged expiratory phas, rhonchi, tachypnea, wheezes Cardiovascular exam: PRESENT: RRR, +S1, +S2 Pulses: PRESENT: normal carotid pulses Vascular exam: ABSENT: normal capillary refill - Delayed GI/Abdominal exam: PRESENT: normal bowel sounds, soft, other - Pendulous abdominal pannus. ABSENT: distended, guarding, rebound, tenderness Extremities exam: ABSENT: clubbing Musculoskeletal exam: PRESENT: deformity - Left BKA, right leg and foot are splinted and covered with an Eddie bandage Neurological exam: PRESENT: awake, oriented to person, oriented to place, oriented to situation Psychiatric exam: PRESENT: appropriate affect, normal mood Skin exam: PRESENT: dry, warm Results Laboratory Results: 02/02/20 04:37 02/02/20 04:37 Impressions: Tibia/Fibula X-Ray 02/01/20 00:00 IMPRESSION: Fractures with ORIF as described. External fixation device is present as well. Ankle X-Ray 02/02/20 00:00 IMPRESSION: ORIF right ankle. Refer to operative note for further information Fluoroscopy 02/02/20 00:00 IMPRESSION: ORIF right ankle. Refer to operative note for further information Assessment and Plan - Diagnosis (1) Fracture of distal end of tibia Qualifiers: Encounter type: sequela Fracture type: closed Fracture morphology: pilon Laterality: right Is this a current diagnosis for this admission?: Yes Plan: Status post removal of the external fixator. He is nonweightbearing on the right lower extremity until cleared to do so by surgery. He is medically cleared to return to [facility] for acute rehab but they gave away his rehab bed and so we will transfer him once a bed becomes available. (2) Obesity hypoventilation syndrome Is this a current diagnosis for this admission?: Yes Plan: He is chronically been on oxygen now, saturations are good on 3 L. (3) Amputation of left lower extremity below knee Is this a current diagnosis for this admission?: Yes Plan: Done during his last admission, wound is unremarkable (4) Charcot foot due to diabetes mellitus Is this a current diagnosis for this admission?: Yes Plan: Right foot (5) Fracture of lateral malleolus Qualifiers: Encounter type: sequela Fracture type: closed Laterality: right Is this a current diagnosis for this admission?: Yes Plan: As previously noted (6) IDDM (insulin dependent diabetes mellitus) Is this a current diagnosis for this admission?: Yes Plan: We have resumed his Lantus and his pre-meal bolus of short acting insulin in addition to his sliding scale (7) Morbid obesity with BMI of 40.0-44.9, adult Is this a current diagnosis for this admission?: Yes Plan: Strongly urged lifestyle modification with dietary modifications - Time Time Spent with patient: 25-34 minutes
[2020-02-03] MEDS: FUROSEMIDE 40 MG TABLET PO SCH (17:06)
[2020-02-03] MEDS: INSULIN GLARGINE,HUM.REC.ANLOG 1,000 UNIT/10 ML VIAL SUBCUT SCH (22:07)
[2020-02-03] MEDS: ATORVASTATIN CALCIUM 40 MG TABLET PO SCH (22:07)
[2020-02-04] MEDS: CEFAZOLIN SODIUM 3 GM in DEXTROSE 5%-WATER 100 ML IV SCH ×3 (03:28→18:12)
[2020-02-04] MEDS: HYDRALAZINE HCL 50 MG TABLET PO SCH ×3 (05:44→21:55)
[2020-02-04] MEDS: GABAPENTIN 300 MG CAPSULE PO SCH ×3 (05:44→21:55)
[2020-02-04] MEDS: HEPARIN SOD (PORCINE) 5,000 UNIT/ML 1 ML VIAL SUBCUT SCH ×3 (05:45→21:56)
[2020-02-04] MEDS ORDERED: INSULIN ASPART 16 UNIT SUBCUT SCH (08:00)
[2020-02-04] MEDS: INSULIN LISPRO 100 UNIT/ML 3 ML VIAL SUBCUT SCH ×7 (08:31→21:56)
[2020-02-04] MEDS: FERROUS SULFATE 325 MG TABLET PO SCH ×4 (08:34→18:13)
[2020-02-04] MEDS: DOCUSATE SODIUM 100 MG CAPSULE PO SCH ×2 (09:47→18:13)
[2020-02-04] MEDS: DULOXETINE HCL 30 MG CAPSULE.DR PO SCH (09:47)
[2020-02-04] MEDS: ASPIRIN 81 MG TABLET, ENT COATED PO SCH (09:47)
[2020-02-04] MEDS: FUROSEMIDE 40 MG TABLET PO SCH (09:47)
[2020-02-04] MEDS: FAMOTIDINE 20 MG TABLET PO SCH ×2 (09:48→21:55)
[2020-02-04] MEDS: METOPROLOL TARTRATE 100 MG TABLET PO SCH ×2 (09:48→21:55)
[2020-02-04] MEDS: AMLODIPINE BESYLATE 10 MG TABLET PO SCH (09:49)
[2020-02-04] MEDS: INSULIN GLARGINE,HUM.REC.ANLOG 1,000 UNIT/10 ML VIAL SUBCUT SCH ×2 (09:50→21:58)
[2020-02-04] MEDS: FLUTICASONE NASAL SPRAY 50 MCG/SPRY 120 SPRAY/16 GM NASL SCH ×2 (10:13→22:05)
[2020-02-04] MEDS: NORMAL SALINE INJ/PF 0.9% 10 ML SDV IV SCH ×2 (10:13→21:56)
--- NOTE | 2020-02-04 13:00 | PDOC PROGRESS REPORT ---
Subjective Progress Note for:: 02/04/20 Subjective:: The patient is comfortable. He is not experiencing any pain. He has no complaints. Reason For Visit: FRACTURE OF DISTAL END OF TIBIA,FRACTURE OF LATERA Postop day #2 status post removal of external fixator and ORIF lateral malleolus fracture Physical Exam Vital Signs: Temp Pulse Resp BP Pulse Ox 97.7 F 72 19 139/71 H 94 02/04/20 10:52 02/04/20 10:52 02/04/20 11:36 02/04/20 10:52 02/04/20 11:36 Intake & Output 02/03/20 02/04/20 02/05/20 06:59 06:59 06:59 Intake Total 2120 300 Output Total 400 850 Balance 1720 -550 Weight 145.1 kg 144.6 kg General appearance: PRESENT: no acute distress, disheveled, morbidly obese Head exam: PRESENT: atraumatic, normocephalic Neck exam: ABSENT: carotid bruit, JVD, lymphadenopathy, thyromegaly Respiratory exam: PRESENT: clear to auscultation aleja. ABSENT: rales, rhonchi, wheezes Musculoskeletal exam: PRESENT: other - The right lower extremity is splinted. T he splint is in good condition. The patient is able to move his toes. Results Laboratory Results: 02/02/20 04:37 02/02/20 04:37 Impressions: Tibia/Fibula X-Ray 02/01/20 00:00 IMPRESSION: Fractures with ORIF as described. External fixation device is present as well. Ankle X-Ray 02/02/20 00:00 IMPRESSION: ORIF right ankle. Refer to operative note for further information Fluoroscopy 02/02/20 00:00 IMPRESSION: ORIF right ankle. Refer to operative note for further information Assessment & Plan - Diagnosis (1) Fracture of distal end of tibia Qualifiers: Encounter type: sequela Fracture type: closed Fracture morphology: pilon Laterality: right Is this a current diagnosis for this admission?: Yes - Time Critical Time spent with patient: Less than 15 minutes Anticipated discharge: Acute Rehab - Plan Summary Plan Summary: The patient is stable for discharge to acute rehab or long-term facility. The patient is awaiting a bed. He should follow-up in my office in 3 to 4 weeks for suture removal and radiographs.
--- NOTE | 2020-02-04 14:45 | PDOC PROGRESS REPORT ---
Subjective Progress Note for:: 02/04/20 Subjective:: No adverse events overnight. No new complaints. He had some nausea this morning but that is since resolved. He has no pain, but he does not really have good sensation in his leg anyway. Reason For Visit: FRACTURE OF DISTAL END OF TIBIA,FRACTURE OF LATERA Physical Exam Vital Signs: Temp Pulse Resp BP Pulse Ox 97.7 F 72 19 139/71 H 94 02/04/20 10:52 02/04/20 10:52 02/04/20 11:36 02/04/20 10:52 02/04/20 11:36 Intake & Output 02/03/20 02/04/20 02/05/20 06:59 06:59 06:59 Intake Total 2120 300 Output Total 400 850 Balance 1720 -550 Weight 145.1 kg 144.6 kg General appearance: PRESENT: no acute distress, cooperative, disheveled, morbidly obese Respiratory exam: PRESENT: decreased breath sounds, symmetrical, unlabored. ABSENT: accessory muscle use, chest wall tenderness, clear to auscultation aleja, crackles, prolonged expiratory phas, rhonchi, tachypnea, wheezes Cardiovascular exam: PRESENT: RRR, +S1, +S2 Pulses: PRESENT: normal carotid pulses Vascular exam: ABSENT: normal capillary refill - Delayed GI/Abdominal exam: PRESENT: normal bowel sounds, soft, other - Pendulous abdominal pannus. ABSENT: distended, guarding, rebound, tenderness Extremities exam: ABSENT: clubbing Musculoskeletal exam: PRESENT: deformity - Left BKA, right leg and foot are splinted and covered with an Eddie bandage Neurological exam: PRESENT: awake, oriented to person, oriented to place, oriented to situation Psychiatric exam: PRESENT: appropriate affect, normal mood Skin exam: PRESENT: dry, warm Results Laboratory Results: 02/02/20 04:37 02/02/20 04:37 Impressions: Tibia/Fibula X-Ray 02/01/20 00:00 IMPRESSION: Fractures with ORIF as described. External fixation device is present as well. Ankle X-Ray 02/02/20 00:00 IMPRESSION: ORIF right ankle. Refer to operative note for further information Fluoroscopy 02/02/20 00:00 IMPRESSION: ORIF right ankle. Refer to operative note for further information Assessment and Plan - Diagnosis (1) Fracture of distal end of tibia Qualifiers: Encounter type: sequela Fracture type: closed Fracture morphology: pilon Laterality: right Is this a current diagnosis for this admission?: Yes Plan: Status post removal of the external fixator. He is nonweightbearing on the right lower extremity until cleared to do so by surgery. He is medically cleared to return to [facility] for acute rehab but they gave away his rehab bed and so we will transfer him once a bed becomes available. (2) Obesity hypoventilation syndrome Is this a current diagnosis for this admission?: Yes Plan: He is chronically been on oxygen now, saturations are good on 3 L. (3) Amputation of left lower extremity below knee Is this a current diagnosis for this admission?: Yes Plan: Done during his last admission, wound is unremarkable (4) Charcot foot due to diabetes mellitus Is this a current diagnosis for this admission?: Yes Plan: Right foot (5) Fracture of lateral malleolus Qualifiers: Encounter type: sequela Fracture type: closed Laterality: right Is this a current diagnosis for this admission?: Yes Plan: As previously noted (6) IDDM (insulin dependent diabetes mellitus) Is this a current diagnosis for this admission?: Yes Plan: We have resumed his Lantus and his pre-meal bolus of short acting insulin in addition to his sliding scale (7) Morbid obesity with BMI of 40.0-44.9, adult Is this a current diagnosis for this admission?: Yes Plan: Strongly urged lifestyle modification with dietary modifications - Time Time Spent with patient: 15-24 minutes
[2020-02-04] MEDS: ATORVASTATIN CALCIUM 40 MG TABLET PO SCH (21:55)
[2020-02-05] MEDS: CEFAZOLIN SODIUM 3 GM in DEXTROSE 5%-WATER 100 ML IV SCH ×3 (01:18→17:02)
[2020-02-05] MEDS: GABAPENTIN 300 MG CAPSULE PO SCH ×3 (06:29→23:26)
[2020-02-05] MEDS: HYDRALAZINE HCL 50 MG TABLET PO SCH ×3 (06:29→23:26)
[2020-02-05] MEDS: HEPARIN SOD (PORCINE) 5,000 UNIT/ML 1 ML VIAL SUBCUT SCH ×3 (06:29→23:25)
[2020-02-05] MEDS: INSULIN LISPRO 100 UNIT/ML 3 ML VIAL SUBCUT SCH ×7 (09:14→23:27)
[2020-02-05] MEDS: FUROSEMIDE 40 MG TABLET PO SCH (09:19)
[2020-02-05] MEDS: FERROUS SULFATE 325 MG TABLET PO SCH ×3 (09:19→17:02)
[2020-02-05] MEDS: DULOXETINE HCL 30 MG CAPSULE.DR PO SCH (09:19)
[2020-02-05] MEDS: ASPIRIN 81 MG TABLET, ENT COATED PO SCH (09:20)
[2020-02-05] MEDS: AMLODIPINE BESYLATE 10 MG TABLET PO SCH (09:20)
[2020-02-05] MEDS: FLUTICASONE NASAL SPRAY 50 MCG/SPRY 120 SPRAY/16 GM NASL SCH ×2 (09:20→22:13)
[2020-02-05] MEDS: DOCUSATE SODIUM 100 MG CAPSULE PO SCH ×2 (09:20→17:02)
[2020-02-05] MEDS: METOPROLOL TARTRATE 100 MG TABLET PO SCH ×2 (09:20→23:25)
[2020-02-05] MEDS: FAMOTIDINE 20 MG TABLET PO SCH ×2 (09:20→23:26)
[2020-02-05] MEDS: INSULIN GLARGINE,HUM.REC.ANLOG 1,000 UNIT/10 ML VIAL SUBCUT SCH ×2 (09:33→23:25)
[2020-02-05] MEDS: NORMAL SALINE INJ/PF 0.9% 10 ML SDV IV SCH ×3 (09:34→23:26)
[2020-02-05] MEDS: ALBUTEROL SULFATE 0.083% NEB 2.5 MG/3 ML AMPUL NEB PRN (10:22)
--- NOTE | 2020-02-05 13:19 | PDOC PROGRESS REPORT ---
Subjective Progress Note for:: 02/05/20 Subjective:: The patient is comfortable. He is not experiencing any pain. He has no complaints. Reason For Visit: FRACTURE OF DISTAL END OF TIBIA,FRACTURE OF LATERA Postoperative day #3 status post removal of bridging external fixator and open reduction internal fixation of right fibula fracture. Physical Exam Vital Signs: Temp Pulse Resp BP Pulse Ox 97.9 F 70 19 143/66 H 96 02/05/20 08:00 02/05/20 10:22 02/05/20 10:22 02/05/20 08:00 02/05/20 10:22 Intake & Output 02/04/20 02/05/20 02/06/20 06:59 06:59 06:59 Intake Total 300 1020 100 Output Total 850 800 Balance -550 220 100 Weight 144.6 kg 148.6 kg General appearance: PRESENT: no acute distress Head exam: PRESENT: atraumatic Neck exam: PRESENT: full ROM Respiratory exam: PRESENT: unlabored Musculoskeletal exam: PRESENT: other - The postoperative dressing and splint are in good condition. The patient is able to move his toes. Sensation remains decreased throughout the foot consistent with his diagnosis. Results Laboratory Results: 02/02/20 04:37 02/02/20 04:37 Impressions: Tibia/Fibula X-Ray 02/01/20 00:00 IMPRESSION: Fractures with ORIF as described. External fixation device is p resent as well. Ankle X-Ray 02/02/20 00:00 IMPRESSION: ORIF right ankle. Refer to operative note for further information Fluoroscopy 02/02/20 00:00 IMPRESSION: ORIF right ankle. Refer to operative note for further information Assessment & Plan - Diagnosis (1) Fracture of distal end of tibia Qualifiers: Encounter type: sequela Fracture type: closed Fracture morphology: pilon Laterality: right Is this a current diagnosis for this admission?: Yes - Time Critical Time spent with patient: Less than 15 minutes Anticipated discharge: Acute Rehab - Plan Summary Plan Summary: The patient is stable for discharge to acute rehab or [facility] facility. The patient is awaiting a bed. He should follow-up in my office in 3 to 4 weeks for suture removal and radiographs.
--- NOTE | 2020-02-05 17:29 | PDOC PROGRESS REPORT ---
Subjective Progress Note for:: 02/05/20 Subjective:: No adverse events overnight. No new complaints. He requires a lot of encouragement to wear his BiPAP. His blood sugars were pretty well controlled this morning so we did not give him Lantus. Reason For Visit: FRACTURE OF DISTAL END OF TIBIA,FRACTURE OF LATERA Physical Exam Vital Signs: Temp Pulse Resp BP Pulse Ox 97.8 F 74 15 143/60 H 96 02/05/20 12:00 02/05/20 16:12 02/05/20 16:12 02/05/20 12:00 02/05/20 16:12 Intake & Output 02/04/20 02/05/20 02/06/20 06:59 06:59 06:59 Intake Total 300 1020 100 Output Total 850 800 Balance -550 220 100 Weight 144.6 kg 148.6 kg General appearance: PRESENT: no acute distress, cooperative, disheveled, morbidly obese Respiratory exam: PRESENT: decreased breath sounds, symmetrical, unlabored. ABSENT: accessory muscle use, chest wall tenderness, clear to auscultation aleja, crackles, prolonged expiratory phas, rhonchi, tachypnea, wheezes Cardiovascular exam: PRESENT: RRR, +S1, +S2 Pulses: PRESENT: normal carotid pulses Vascular exam: ABSENT: normal capillary refill - Delayed GI/Abdominal exam: PRESENT: normal bowel sounds, soft, other - Pendulous abdominal pannus. ABSENT: distended, guarding, rebound, tenderness Extremities exam: ABSENT: clubbing Musculoskeletal exam: PRESENT: deformity - Left BKA, right leg and foot are splinted and covered with an Eddie bandage Neurological exam: PRESENT: awake, oriented to person, oriented to place, oriented to situation Psychiatric exam: PRESENT: appropriate affect, normal mood Skin exam: PRESENT: dry, warm Results Laboratory Results: 02/02/20 04:37 02/02/20 04:37 Impressions: Tibia/Fibula X-Ray 02/01/20 00:00 IMPRESSION: Fractures with ORIF as described. External fixation device is present as well. Ankle X-Ray 02/02/20 00:00 IMPRESSION: ORIF right ankle. Refer to operative note for further information Fluoroscopy 02/02/20 00:00 IMPRESSION: ORIF right ankle. Refer to operative note for further information Assessment and Plan - Diagnosis (1) Fracture of distal end of tibia Qualifiers: Encounter type: sequela Fracture type: closed Fracture morphology: pilon Laterality: right Is this a current diagnosis for this admission?: Yes Plan: Status post removal of the external fixator. He is nonweightbearing on the right lower extremity until cleared to do so by surgery. He is medically cleared to return to [facility] for acute rehab but they gave away his rehab bed and so we will transfer him once a bed becomes available. (2) Obesity hypoventilation syndrome Is this a current diagnosis for this admission?: Yes Plan: He is chronically been on oxygen now, saturations are good on 3 L. He needs BiPAP whenever he sleeps but does not always want to wear it and requires a lot of encouragement to keep his BiPAP on. (3) Amputation of left lower extremity below knee Is this a current diagnosis for this admission?: Yes Plan: Done during his last admission, wound is unremarkable (4) Charcot foot due to diabetes mellitus Is this a current diagnosis for this admission?: Yes Plan: Right foot (5) Fracture of lateral malleolus Qualifiers: Encounter type: sequela Fracture type: closed Laterality: right Is this a current diagnosis for this admission?: Yes Plan: As previously noted (6) IDDM (insulin dependent diabetes mellitus) Is this a current diagnosis for this admission?: Yes Plan: We have resumed his Lantus and his pre-meal bolus of short acting insulin in addition to his sliding scale. His sugars were intermittently low and so were holding Lantus and insulin as needed (7) Morbid obesity with BMI of 40.0-44.9, adult Is this a current diagnosis for this admission?: Yes Plan: Strongly urged lifestyle modification with dietary modifications - Time Time Spent with patient: 25-34 minutes
[2020-02-05] MEDS ORDERED: TAMSULOSIN HCL 0.4 MG CAP.SR.24H PO ONE (23:00)
[2020-02-05] MEDS: ATORVASTATIN CALCIUM 40 MG TABLET PO SCH (23:25)
[2020-02-06] MEDS: CEFAZOLIN SODIUM 3 GM in DEXTROSE 5%-WATER 100 ML IV SCH ×3 (01:10→17:40)
[2020-02-06] MEDS: HYDRALAZINE HCL 50 MG TABLET PO SCH ×3 (05:43→21:46)
[2020-02-06] MEDS: GABAPENTIN 300 MG CAPSULE PO SCH ×3 (05:43→21:44)
[2020-02-06] MEDS: HEPARIN SOD (PORCINE) 5,000 UNIT/ML 1 ML VIAL SUBCUT SCH ×3 (05:43→21:49)
[2020-02-06] MEDS: INSULIN LISPRO 100 UNIT/ML 3 ML VIAL SUBCUT SCH ×7 (07:57→21:54)
[2020-02-06] MEDS: FERROUS SULFATE 325 MG TABLET PO SCH ×3 (07:57→17:39)
[2020-02-06 09:14] LABS: ARTERIAL BLOOD BASE EXCESS -2.8 mmol/L; ARTERIAL BLOOD HCO3 22.3 mmol/L (20-24); ARTERIAL BLOOD O2 SATURATION 97.1 % (94-98); ARTERIAL BLOOD PCO2 39.8 mmHg (35-45); ARTERIAL BLOOD PH 7.37 (7.35-7.45); ARTERIAL BLOOD PO2 95.6 mmHg (80-100); ARTERIAL BLOOD TOTAL CO2 23.5 mmol/L (23-27)
[2020-02-06 09:17] LABS: ARTERIAL BLOOD FIO2 40%
--- NOTE | 2020-02-06 09:34 | PDOC PROGRESS REPORT ---
Subjective Progress Note for:: 02/06/20 Subjective:: The patient is sleeping with CPAP in place. Reason For Visit: FRACTURE OF DISTAL END OF TIBIA,FRACTURE OF LATERA POD # 4 s/p removal external fixator and ORIF right lateral malleolus Physical Exam Vital Signs: Temp Pulse Resp BP Pulse Ox 98.0 F 77 14 156/80 H 94 02/06/20 07:57 02/06/20 07:57 02/06/20 08:46 02/06/20 07:57 02/06/20 08:46 Intake & Output 02/05/20 02/06/20 02/07/20 06:59 06:59 06:59 Intake Total 1020 1496 Output Total 800 2830 Balance 220 -1334 Weight 148.6 kg 146.6 kg Musculoskeletal exam: PRESENT: other - The surgical dressing and splint are in good condition. Results Laboratory Results: 02/02/20 04:37 02/02/20 04:37 02/06/20 08:58 Carbonic Acid 1.20 HCO3/H2CO3 Ratio 18:1 ABG pH 7.37 ABG pCO2 39.8 ABG pO2 95.6 ABG HCO3 22.3 ABG O2 Saturation 97.1 ABG Base Excess -2.8 FiO2 40% Impressions: Tibia/Fibula X-Ray 02/01/20 00:00 IMPRESSION: Fractures with ORIF as described. External fixation device is present as well. Ankle X-Ray 02/02/20 00:00 IMPRESSION: ORIF right ankle. Refer to operative note for further information Fluoroscopy 02/02/20 00:00 IMPRESSION: ORIF right ankle. Refer to operative note for further information Assessment & Plan - Diagnosis (1) Fracture of distal end of tibia Qualifiers: Encounter type: sequela Fracture type: closed Fracture morphology: pilon Laterality: right Is this a current diagnosis for this admission?: Yes - Time Critical Time spent with patient: Less than 15 minutes Anticipated discharge: Acute Rehab Within: within 24 hours - Plan Summary Plan Summary: The patient is stable for discharge to acute rehab or [facility] facility. The patient is awaiting a bed. He should follow-up in my office in 3 to 4 weeks for suture removal and radiographs.
[2020-02-06] MEDS: METOPROLOL TARTRATE 100 MG TABLET PO SCH ×2 (10:08→21:45)
[2020-02-06] MEDS: DULOXETINE HCL 30 MG CAPSULE.DR PO SCH (10:08)
[2020-02-06] MEDS: FUROSEMIDE 40 MG TABLET PO SCH (10:08)
[2020-02-06] MEDS: ASPIRIN 81 MG TABLET, ENT COATED PO SCH (10:08)
[2020-02-06] MEDS: DOCUSATE SODIUM 100 MG CAPSULE PO SCH ×2 (10:08→17:39)
[2020-02-06] MEDS: AMLODIPINE BESYLATE 10 MG TABLET PO SCH (10:08)
[2020-02-06] MEDS: FAMOTIDINE 20 MG TABLET PO SCH ×2 (10:08→21:47)
[2020-02-06] MEDS: FLUTICASONE NASAL SPRAY 50 MCG/SPRY 120 SPRAY/16 GM NASL SCH ×2 (10:10→21:46)
[2020-02-06] MEDS: NORMAL SALINE INJ/PF 0.9% 10 ML SDV IV SCH ×2 (10:10→21:48)
[2020-02-06] MEDS: NORMAL SALINE INJ/PF 0.9% 10 ML SDV IV PRN (11:23)
[2020-02-06] MEDS: INSULIN GLARGINE,HUM.REC.ANLOG 1,000 UNIT/10 ML VIAL SUBCUT SCH ×2 (11:25→21:54)
[2020-02-06 12:59] LABS: ANION GAP 6 (5-19); BLOOD UREA NITROGEN 30 mg/dL (7-20); CALCIUM 9.4 mg/dL (8.4-10.2); CARBON DIOXIDE 26 mmol/L (22-30); CHLORIDE 105 mmol/L (98-107); GLUCOSE 134 mg/dL (75-110); POTASSIUM 4.5 mmol/L (3.6-5.0)
--- NOTE | 2020-02-06 16:46 | PDOC PROGRESS REPORT ---
Subjective Progress Note for:: 02/06/20 Subjective:: No adverse events overnight. He is having trouble urinating again. He says it is "stage fright." This happened the last time he was in the hospital here. He wanted to have a Blackmon catheter put in. He was not wanting to put the BiPAP on this morning but eventually agreed and was able to sleep fairly well with it on. Reason For Visit: FRACTURE OF DISTAL END OF TIBIA,FRACTURE OF LATERA Physical Exam Vital Signs: Temp Pulse Resp BP Pulse Ox 97.9 F 76 20 139/61 H 96 02/06/20 15:08 02/06/20 16:00 02/06/20 16:00 02/06/20 15:08 02/06/20 16:00 Intake & Output 02/05/20 02/06/20 02/07/20 06:59 06:59 06:59 Intake Total 1020 1496 100 Output Total 800 2830 Balance 220 -1334 100 Weight 148.6 kg 146.6 kg General appearance: PRESENT: no acute distress, cooperative, disheveled, morbidly obese Respiratory exam: PRESENT: decreased breath sounds, symmetrical, unlabored. ABSENT: accessory muscle use, chest wall tenderness, clear to auscultation aleja, crackles, prolonged expiratory phas, rhonchi, tachypnea, wheezes Cardiovascular exam: PRESENT: RRR, +S1, +S2 Pulses: PRESENT: normal carotid pulses Vascular exam: ABSENT: normal capillary refill - Delayed GI/Abdominal exam: PRESENT: normal bowel sounds, soft, other - Pendulous abdominal pannus. ABSENT: distended, guarding, rebound, tenderness Extremities exam: ABSENT: clubbing Musculoskeletal exam: PRESENT: deformity - Left BKA, right leg and foot are splinted and covered with an Eddie bandage Neurological exam: PRESENT: awake, oriented to person, oriented to place, oriented to situation Psychiatric exam: PRESENT: appropriate affect, normal mood Skin exam: PRESENT: dry, warm Results Laboratory Results: 02/02/20 04:37 02/06/20 12:04 02/06/20 02/06/20 08:58 12:04 Carbonic Acid 1.20 HCO3/H2CO3 Ratio 18:1 ABG pH 7.37 ABG pCO2 39.8 ABG pO2 95.6 ABG HCO3 22.3 ABG O2 Saturation 97.1 ABG Base Excess -2.8 FiO2 40% Sodium 137.3 Potassium 4.5 Chloride 105 Carbon Dioxide 26 Anion Gap 6 BUN 30 H Creatinine 1.47 H Est GFR ( Amer) > 60 Glucose 134 H Calcium 9.4 Impressions: Tibia/Fibula X-Ray 02/01/20 00:00 IMPRESSION: Fractures with ORIF as described. External fixation device is present as well. Ankle X-Ray 02/02/20 00:00 IMPRESSION: ORIF right ankle. Refer to operative note for further information Fluoroscopy 02/02/20 00:00 IMPRESSION: ORIF right ankle. Refer to operative note for further information Assessment and Plan - Diagnosis (1) Fracture of distal end of tibia Qualifiers: Encounter type: sequela Fracture type: closed Fracture morphology: pilon Laterality: right Is this a current diagnosis for this admission?: Yes Plan: Status post removal of the external fixator. He is nonweightbearing on the right lower extremity until cleared to do so by surgery. He is medically cleared to return to [facility] for acute rehab but they gave away his rehab bed and so we will transfer him once a bed becomes available. (2) Obesity hypoventilation syndrome Is this a current diagnosis for this admission?: Yes Plan: He is chronically been on oxygen now, saturations are good on 3 L. He needs BiPAP whenever he sleeps but does not always want to wear it and requires a lot of encouragement to keep his BiPAP on. (3) Amputation of left lower extremity below knee Is this a current diagnosis for this admission?: Yes Plan: Done during his last admission, wound is unremarkable (4) Charcot foot due to diabetes mellitus Is this a current diagnosis for this admission?: Yes Plan: Right foot (5) Fracture of lateral malleolus Qualifiers: Encounter type: sequela Fracture type: closed Laterality: right Is this a current diagnosis for this admission?: Yes Plan: As previously noted (6) IDDM (insulin dependent diabetes mellitus) Is this a current diagnosis for this admission?: Yes Plan: We have resumed his Lantus and his pre-meal bolus of short acting insulin in addition to his sliding scale. His sugars were intermittently low and so were holding Lantus and insulin as needed (7) Morbid obesity with BMI of 40.0-44.9, adult Is this a current diagnosis for this admission?: Yes Plan: Strongly urged lifestyle modification with dietary modifications - Time Time Spent with patient: 25-34 minutes
[2020-02-06] MEDS: TAMSULOSIN HCL 0.4 MG CAP.SR.24H PO SCH (21:45)
[2020-02-06] MEDS: ATORVASTATIN CALCIUM 40 MG TABLET PO SCH (21:47)
[2020-02-07] MEDS: CEFAZOLIN SODIUM 3 GM in DEXTROSE 5%-WATER 100 ML IV SCH ×3 (02:39→17:08)
[2020-02-07] MEDS: HYDRALAZINE HCL 50 MG TABLET PO SCH ×3 (05:47→23:12)
[2020-02-07] MEDS: HEPARIN SOD (PORCINE) 5,000 UNIT/ML 1 ML VIAL SUBCUT SCH ×3 (05:48→23:12)
[2020-02-07] MEDS: GABAPENTIN 300 MG CAPSULE PO SCH ×3 (05:48→23:11)
[2020-02-07] MEDS: INSULIN LISPRO 100 UNIT/ML 3 ML VIAL SUBCUT SCH ×7 (07:50→23:13)
[2020-02-07] MEDS: FERROUS SULFATE 325 MG TABLET PO SCH ×3 (07:51→16:28)
[2020-02-07] MEDS: ASPIRIN 81 MG TABLET, ENT COATED PO SCH (09:50)
[2020-02-07] MEDS: AMLODIPINE BESYLATE 10 MG TABLET PO SCH (09:50)
[2020-02-07] MEDS: METOPROLOL TARTRATE 100 MG TABLET PO SCH ×2 (09:50→23:11)
[2020-02-07] MEDS: FAMOTIDINE 20 MG TABLET PO SCH ×2 (09:50→23:12)
[2020-02-07] MEDS: FUROSEMIDE 40 MG TABLET PO SCH (09:50)
[2020-02-07] MEDS: DULOXETINE HCL 30 MG CAPSULE.DR PO SCH (09:50)
[2020-02-07] MEDS: DOCUSATE SODIUM 100 MG CAPSULE PO SCH ×2 (09:50→17:08)
[2020-02-07] MEDS: FLUTICASONE NASAL SPRAY 50 MCG/SPRY 120 SPRAY/16 GM NASL SCH ×2 (09:51→23:12)
[2020-02-07] MEDS: INSULIN GLARGINE,HUM.REC.ANLOG 1,000 UNIT/10 ML VIAL SUBCUT SCH ×2 (09:52→23:13)
[2020-02-07] MEDS: TRIAMCINOLONE ACETONIDE 0.1% CREAM 15 GM TOP SCH ×2 (10:53→17:08)
[2020-02-07] MEDS: NORMAL SALINE INJ/PF 0.9% 10 ML SDV IV SCH ×2 (10:55→23:14)
--- NOTE | 2020-02-07 17:54 | PDOC PROGRESS REPORT ---
Subjective Progress Note for:: 02/07/20 Subjective:: No adverse events overnight. No new complaints. Vital signs been stable. Eating and drinking without difficulty. He said he has been compliant with his nonweightbearing status. Reason For Visit: FRACTURE OF DISTAL END OF TIBIA,FRACTURE OF LATERA Physical Exam Vital Signs: Temp Pulse Resp BP Pulse Ox 98.1 F 77 18 128/64 H 95 02/07/20 15:31 02/07/20 15:31 02/07/20 15:31 02/07/20 15:31 02/07/20 16:17 Intake & Output 02/06/20 02/07/20 02/08/20 06:59 06:59 06:59 Intake Total 1496 780 100 Output Total 2830 1200 Balance -1334 -420 100 Weight 146.6 kg 146.7 kg General appearance: PRESENT: no acute distress, cooperative, disheveled, morbidly obese Respiratory exam: PRESENT: decreased breath sounds, symmetrical, unlabored. ABSENT: accessory muscle use, chest wall tenderness, clear to auscultation aleja, crackles, prolonged expiratory phas, rhonchi, tachypnea, wheezes Cardiovascular exam: PRESENT: RRR, +S1, +S2 Pulses: PRESENT: normal carotid pulses Vascular exam: ABSENT: normal capillary refill - Delayed GI/Abdominal exam: PRESENT: normal bowel sounds, soft, other - Pendulous abdominal pannus. ABSENT: distended, guarding, rebound, tenderness Extremities exam: ABSENT: clubbing Musculoskeletal exam: PRESENT: deformity - Left BKA, right leg and foot are splinted and covered with an Eddie bandage Neurological exam: PRESENT: awake, oriented to person, oriented to place, oriented to situation Psychiatric exam: PRESENT: appropriate affect, normal mood Skin exam: PRESENT: dry, warm Results Laboratory Results: 02/02/20 04:37 02/06/20 12:04 Impressions: Tibia/Fibula X-Ray 02/01/20 00:00 IMPRESSION: Fractures with ORIF as described. External fixation device is present as well. Ankle X-Ray 02/02/20 00:00 IMPRESSION: ORIF right ankle. Refer to operative note for further information Fluoroscopy 02/02/20 00:00 IMPRESSION: ORIF right ankle. Refer to operative note for further information Assessment and Plan - Diagnosis (1) Fracture of distal end of tibia Qualifiers: Encounter type: sequela Fracture type: closed Fracture morphology: pilon Laterality: right Is this a current diagnosis for this admission?: Yes Plan: Status post removal of the external fixator. He is nonweightbearing on the right lower extremity until cleared to do so by surgery. He is medically cleared to return to [facility] for acute rehab but they gave away his rehab bed and so we will transfer him once a bed becomes available. (2) Obesity hypoventilation syndrome Is this a current diagnosis for this admission?: Yes Plan: He is chronically been on oxygen now, saturations are good on 3 L. He needs BiPAP whenever he sleeps but does not always want to wear it and requires a lot of encouragement to keep his BiPAP on. (3) Amputation of left lower extremity below knee Is this a current diagnosis for this admission?: Yes Plan: Done during his last admission, wound is unremarkable (4) Charcot foot due to diabetes mellitus Is this a current diagnosis for this admission?: Yes Plan: Right foot (5) Fracture of lateral malleolus Qualifiers: Encounter type: sequela Fracture type: closed Laterality: right Is this a current diagnosis for this admission?: Yes Plan: As previously noted (6) IDDM (insulin dependent diabetes mellitus) Is this a current diagnosis for this admission?: Yes Plan: We have resumed his Lantus and his pre-meal bolus of short acting insulin in addition to his sliding scale. His sugars were intermittently low and so were holding Lantus and insulin as needed (7) Morbid obesity with BMI of 40.0-44.9, adult Is this a current diagnosis for this admission?: Yes Plan: Strongly urged lifestyle modification with dietary modifications - Time Time Spent with patient: 15-24 minutes
[2020-02-07] MEDS ORDERED: TRIAMCINOLONE ACETONIDE 0.1% CREAM 15 GM TOP SCH (18:00)
[2020-02-07] MEDS: TAMSULOSIN HCL 0.4 MG CAP.SR.24H PO SCH (23:11)
[2020-02-07] MEDS: ATORVASTATIN CALCIUM 40 MG TABLET PO SCH (23:14)
[2020-02-08] MEDS: CEFAZOLIN SODIUM 3 GM in DEXTROSE 5%-WATER 100 ML IV SCH ×3 (01:14→17:36)
[2020-02-08] MEDS: HEPARIN SOD (PORCINE) 5,000 UNIT/ML 1 ML VIAL SUBCUT SCH ×3 (06:21→21:36)
[2020-02-08] MEDS: HYDRALAZINE HCL 50 MG TABLET PO SCH ×3 (06:21→21:29)
[2020-02-08] MEDS: GABAPENTIN 300 MG CAPSULE PO SCH ×3 (06:21→21:28)
[2020-02-08] MEDS: INSULIN LISPRO 100 UNIT/ML 3 ML VIAL SUBCUT SCH ×6 (08:02→17:30)
[2020-02-08] MEDS: FERROUS SULFATE 325 MG TABLET PO SCH ×3 (09:48→17:36)
[2020-02-08] MEDS: METOPROLOL TARTRATE 100 MG TABLET PO SCH ×2 (09:48→21:40)
[2020-02-08] MEDS: FAMOTIDINE 20 MG TABLET PO SCH ×2 (09:49→21:28)
[2020-02-08] MEDS: DOCUSATE SODIUM 100 MG CAPSULE PO SCH ×2 (09:49→17:36)
[2020-02-08] MEDS: AMLODIPINE BESYLATE 10 MG TABLET PO SCH (09:49)
[2020-02-08] MEDS: FLUTICASONE NASAL SPRAY 50 MCG/SPRY 120 SPRAY/16 GM NASL SCH (09:49)
[2020-02-08] MEDS: ASPIRIN 81 MG TABLET, ENT COATED PO SCH (09:49)
[2020-02-08] MEDS: FUROSEMIDE 40 MG TABLET PO SCH (09:49)
[2020-02-08] MEDS: TRIAMCINOLONE ACETONIDE 0.1% CREAM 15 GM TOP SCH ×2 (09:50→18:00)
[2020-02-08] MEDS: DULOXETINE HCL 30 MG CAPSULE.DR PO SCH (09:50)
[2020-02-08] MEDS: INSULIN GLARGINE,HUM.REC.ANLOG 1,000 UNIT/10 ML VIAL SUBCUT SCH ×2 (09:51→22:50)
[2020-02-08] MEDS: NORMAL SALINE INJ/PF 0.9% 10 ML SDV IV SCH ×2 (10:35→22:00)
--- NOTE | 2020-02-08 10:57 | PDOC PROGRESS REPORT ---
Subjective Progress Note for:: 02/08/20 Subjective:: The patient is awake and alert during this encounter. He appears to be resting comfortably. Posterior splint on the right leg. He does not appear to be in any discomfort or having any difficulty breathing. Reason For Visit: FRACTURE OF DISTAL END OF TIBIA,FRACTURE OF LATERA Physical Exam Vital Signs: Temp Pulse Resp BP Pulse Ox 97.7 F 72 20 172/74 H 92 02/08/20 05:51 02/08/20 05:51 02/08/20 05:51 02/08/20 05:51 02/08/20 07:41 Intake & Output 02/07/20 02/08/20 02/09/20 06:59 06:59 06:59 Intake Total 780 1400 Output Total 1200 2850 Balance -420 -1450 Weight 146.7 kg 146.7 kg General appearance: PRESENT: no acute distress, cooperative, morbidly obese Head exam: PRESENT: atraumatic, normocephalic Eye exam: PRESENT: conjunctiva pale. ABSENT: scleral icterus Ear exam: PRESENT: normal external ear exam. ABSENT: bleeding, drainage Mouth exam: PRESENT: moist, tongue midline Respiratory exam: PRESENT: clear to auscultation aleja, symmetrical, unlabored. ABSENT: rales, rhonchi, tachypnea, wheezes Cardiovascular exam: PRESENT: RRR, +S1, +S2. ABSENT: systolic murmur GI/Abdominal exam: PRESENT: normal bowel sounds, soft. ABSENT: guarding, tenderness Rectal exam: PRESENT: deferred Extremities exam: PRESENT: other - Left BKA, right leg in a posterior splint with Eddie wrap Musculoskeletal exam: PRESENT: deformity. ABSENT: normal inspection Neurological exam: PRESENT: alert, awake, oriented to person, oriented to place, oriented to situation, CN II-XII grossly intact. ABSENT: altered Psychiatric exam: PRESENT: flat affect. ABSENT: agitated, anxious Focused psych exam: ABSENT: delusional, paranoid, restlessness Skin exam: PRESENT: dry, warm. ABSENT: rash Results Laboratory Results: 02/02/20 04:37 02/06/20 12:04 Impressions: Tibia/Fibula X-Ray 02/01/20 00:00 IMPRESSION: Fractures with ORIF as described. External fixation device is present as well. Ankle X-Ray 02/02/20 00:00 IMPRESSION: ORIF right ankle. Refer to operative note for further information Fluoroscopy 02/02/20 00:00 IMPRESSION: ORIF right ankle. Refer to operative note for further information Assessment and Plan - Diagnosis (1) Fracture of distal end of tibia Qualifiers: Encounter type: sequela Fracture type: closed Fracture morphology: pilon Laterality: right Is this a current diagnosis for this admission?: Yes Plan: Status post removal of the external fixator. He is nonweightbearing on the right lower extremity until cleared to do so by surgery. He is medically cleared to return to [facility] for acute rehab but they gave away his rehab bed and so we will transfer him once a bed becomes available. 02/08/2020 External fixator removed from the right leg. Posterior splint with Eddie wrap. He is nonweightbearing on the right leg. Unfortunately [facility] did not hold his bed for 48 hours and he is now awaiting to go back to acute rehab. (2) Fracture of lateral malleolus Qualifiers: Encounter type: sequela Fracture type: closed Laterality: right Is this a current diagnosis for this admission?: Yes Plan: As previously noted February 08, 2020 As above (3) Obesity hypoventilation syndrome Is this a current diagnosis for this admission?: Yes Plan: He is chronically been on oxygen now, saturations are good on 3 L. He needs BiPAP whenever he sleeps but does not always want to wear it and requires a lot of encouragement to keep his BiPAP on. February 08, 2020 Just as with his previous admission the patient is not very compliant with his CPAP. We will order oxygen. Because of his obesity hypoventilation and obstructive sleep apnea he is prone to hypercapnia. Continue to educate regarding CPAP. (4) Obstructive sleep apnea Is this a current diagnosis for this admission?: Yes Plan: CPAP nightly February 08, 2020 The patient should be wearing CPAP all night and anytime he sleeps during the day. (5) Hypertension Qualifiers: Hypertension type: essential hypertension Qualified Code(s): I10 - Essential (primary) hypertension Is this a current diagnosis for this admission?: Yes Plan: Adequate control at present. Continue home regimen of Amlodipine, hydralazine, and metoprolol. Cardiac diet. February 08, 2020 Blood pressures are still quite variable. I believe this is multifactorial. We will continue current regimen continue to monitor patient with serial vital signs. (6) Charcot foot due to diabetes mellitus Is this a current diagnosis for this admission?: Yes Plan: Right foot 02/08/2020 The patient had bilateral Charcot feet. The left foot became abscessed and in fact led to the left below-knee amputation. Patient still has Charcot foot on the right. His course was recently complicated by a complex fracture in the right ankle/distal right leg. Continue to try to manage his diabetes aggressively but the patient is poorly compliant. (7) Hyperglycemia due to type 1 diabetes mellitus Is this a current diagnosis for this admission?: Yes Plan: February 08, 2020 Continue cardiac/controlled carbohydrate diet. Accu-Cheks and sliding scale coverage as well is Lantus, before meal Humalog dosing as well as sliding scale. (8) Morbid obesity with BMI of 40.0-44.9, adult Is this a current diagnosis for this admission?: Yes Plan: Strongly urged lifestyle modification with dietary modifications 02/08/2020 Significant risk addition to previous multiple comorbidities. At this point aggressive diet management will be the most likely way to lose weight. (9) Phantom pain after amputation of lower extremity Is this a current diagnosis for this admission?: Yes Plan: 02/08/2020 Continue gabapentin. Adjust based on clinical effectiveness and patient response. - Time Time Spent with patient: 15-24 minutes Medications reviewed and adjusted accordingly: Yes Anticipated discharge: Acute Rehab - Return to [facility]
[2020-02-08] MEDS: ATORVASTATIN CALCIUM 40 MG TABLET PO SCH (21:28)
[2020-02-09] MEDS: FLUTICASONE NASAL SPRAY 50 MCG/SPRY 120 SPRAY/16 GM NASL SCH ×3 (00:51→21:37)
[2020-02-09] MEDS: TAMSULOSIN HCL 0.4 MG CAP.SR.24H PO SCH ×2 (00:52→21:34)
[2020-02-09] MEDS: INSULIN LISPRO 100 UNIT/ML 3 ML VIAL SUBCUT SCH ×8 (00:53→21:46)
[2020-02-09] MEDS: CEFAZOLIN SODIUM 3 GM in DEXTROSE 5%-WATER 100 ML IV SCH ×2 (02:34→09:26)
[2020-02-09] MEDS: GABAPENTIN 300 MG CAPSULE PO SCH ×3 (05:37→21:33)
[2020-02-09] MEDS: HEPARIN SOD (PORCINE) 5,000 UNIT/ML 1 ML VIAL SUBCUT SCH ×3 (05:38→21:34)
[2020-02-09] MEDS: HYDRALAZINE HCL 50 MG TABLET PO SCH ×3 (05:38→21:34)
[2020-02-09] MEDS: DOCUSATE SODIUM 100 MG CAPSULE PO SCH ×2 (09:05→17:16)
[2020-02-09] MEDS: DULOXETINE HCL 30 MG CAPSULE.DR PO SCH (09:05)
[2020-02-09] MEDS: METOPROLOL TARTRATE 100 MG TABLET PO SCH ×2 (09:06→21:33)
[2020-02-09] MEDS: FAMOTIDINE 20 MG TABLET PO SCH ×2 (09:06→21:33)
[2020-02-09] MEDS: ASPIRIN 81 MG TABLET, ENT COATED PO SCH (09:06)
[2020-02-09] MEDS: FERROUS SULFATE 325 MG TABLET PO SCH ×3 (09:06→17:16)
[2020-02-09] MEDS: FUROSEMIDE 40 MG TABLET PO SCH (09:06)
[2020-02-09] MEDS: AMLODIPINE BESYLATE 10 MG TABLET PO SCH (09:06)
[2020-02-09] MEDS: INSULIN GLARGINE,HUM.REC.ANLOG 1,000 UNIT/10 ML VIAL SUBCUT SCH ×2 (09:07→21:47)
[2020-02-09] MEDS: NORMAL SALINE INJ/PF 0.9% 10 ML SDV IV SCH ×2 (09:08→21:48)
[2020-02-09] MEDS: TRIAMCINOLONE ACETONIDE 0.1% CREAM 15 GM TOP SCH ×2 (09:27→17:11)
--- NOTE | 2020-02-09 12:12 | PDOC PROGRESS REPORT ---
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 The patient was transferred from [facility] to [facility] inpatient acute rehab for failure to progress; increased intensive therapy services. Spoke with Dr. Swain at [facility] was requesting transfer to [facility] for follow-up with Dr. Pham due to report of external fixation malfunction. Recently, patient did have a mild AK I requiring temporary hold of Lasix followed by increased peripheral edema. Lasix was resumed yesterday. Otherwise, he has had no new acute issues. Dr. Swain has agreed to accept the patient back to [facility] Acute Rehab upon ortho evaluation and clearance. Patient is seen shortly upon arrival. He is found to be on supplemental oxygen by nasal cannula at 4 L/min. He tells me that he was recently started on oxygen due to development of atelectasis. He denies dyspnea or cough. He asks for incentive spirometer to bedside. Patient asks when to expect to see Dr. Pham and is hopeful to return to [facility] immediately upon completion of orthopedic repair to resume rehab. He has no other questions or concerns. Denies fever, chills, chest pain, palpitations, dyspnea, orthopnea, cough, abdominal pain, nausea vomiting diarrhea. Dr. Pham has been consulted and notified of patient's arrival. 02/01-No adverse events overnight. No new complaints. Vital signs been stable. His biggest concern is that the surgery is later in the day and he is not been allowed to eat. 02/02-No adverse events overnight. He had his external fixator removed yesterday. His blood sugars were elevated so we made sure that his Lantus was resumed. He was ready to go back to [facility] today but they gave away his bed in acute rehab and so now we're having to start the process over. 02/04/20-No adverse events overnight. No new complaints. He had some nausea this morning but that is since resolved. He has no pain, but he does not really have good sensation in his leg anyway. 02/05/20-No adverse events overnight. No new complaints. He requires a lot of encouragement to wear his BiPAP. His blood sugars were pretty well controlled this morning so we did not give him Lantus. 02/05-No adverse events overnight. He is having trouble urinating again. He says it is "stage fright." This happened the last time he was in the hospital here. He wanted to have a Blackmon catheter put in. He was not wanting to put the BiPAP on this morning but eventually agreed and was able to sleep fairly well with it on. 02/06-No adverse events overnight. No new complaints. Vital signs been stable. Eating and drinking without difficulty. He said he has been compliant with his nonweightbearing status. 02/07-The patient is awake and alert during this encounter. He appears to be resting comfortably. Posterior splint on the right leg. He does not appear to be in any discomfort or having any difficulty breathing. 02/09/2020-patient is in mild shortness of breath as per the nurse he requiring 2 L of oxygen via nasal cannula. Patient is waiting for transfer to [place] rehab facility. Patient has a history of left BKA and right ankle reconstruction. Because of foot Charcot joint. No acute events in the last 24 hours. Afebrile. Reason For Visit: FRACTURE OF DISTAL END OF TIBIA,FRACTURE OF LATERA Physical Exam Vital Signs: Temp Pulse Resp BP Pulse Ox 98.1 F 77 14 142/60 H 100 02/09/20 07:20 02/09/20 07:20 02/09/20 07:20 02/09/20 07:20 02/09/20 07:20 Intake & Output 02/08/20 02/09/20 02/10/20 06:59 06:59 06:59 Intake Total 1400 1410 Output Total 2850 8085 Balance -1450 -1165 Weight 146.7 kg 146.7 kg General appearance: PRESENT: no acute distress, cooperative, morbidly obese Head exam: PRESENT: atraumatic Eye exam: PRESENT: PERRLA Mouth exam: PRESENT: moist, tongue midline Teeth exam: PRESENT: poor dentation Neck exam: ABSENT: carotid bruit, JVD, lymphadenopathy, thyromegaly Respiratory exam: PRESENT: decreased breath sounds Cardiovascular exam: PRESENT: RRR. ABSENT: diastolic murmur, rubs, systolic murmur GI/Abdominal exam: PRESENT: normal bowel sounds, soft. ABSENT: distended, guarding, mass, organolmegaly, rebound, tenderness Rectal exam: PRESENT: deferred Extremities exam: PRESENT: other - Left BKA and right lower leg with a splint. Neurological exam: PRESENT: alert, awake, oriented to person, oriented to place, oriented to time, oriented to situation, CN II-XII grossly intact. ABSENT: motor sensory deficit Psychiatric exam: PRESENT: appropriate affect, normal mood. ABSENT: homicidal ideation, suicidal ideation Results Laboratory Results: 02/02/20 04:37 02/06/20 12:04 02/08/20 22:23 Magnesium 1.8 Impressions: Tibia/Fibula X-Ray 02/01/20 00:00 IMPRESSION: Fractures with ORIF as described. External fixation device is present as well. Ankle X-Ray 02/02/20 00:00 IMPRESSION: ORIF right ankle. Refer to operative note for further information Fluoroscopy 02/02/20 00:00 IMPRESSION: ORIF right ankle. Refer to operative note for further information Assessment and Plan - Diagnosis (1) Fracture of distal end of tibia Qualifiers: Encounter type: sequela Fracture type: closed Fracture morphology: pilon Laterality: right Is this a current diagnosis for this admission?: Yes Plan: Status post removal of the external fixator. He is nonweightbearing on the right lower extremity until cleared to do so by surgery. He is medically cleared to return to [facility] for acute rehab but they gave away his rehab bed and so we will transfer him once a bed becomes available. 02/08/2020 External fixator removed from the right leg. Posterior splint with Eddie wrap. He is nonweightbearing on the right leg. Unfortunately [facility] did not hold his bed for 48 hours and he is now awaiting to go back to acute rehab. 02/09/2020-right lower leg with a splint. External fixator is removed. Splint with Eddie wrap. He is need to be nonweightbearing on the right leg. For rehab placement at [facility] (2) Fracture of lateral malleolus Qualifiers: Encounter type: sequela Fracture type: closed Laterality: right Is this a current diagnosis for this admission?: Yes Plan: As previously noted February 08, 2020 As above (3) Obesity hypoventilation syndrome Is this a current diagnosis for this admission?: No Plan: He is chronically been on oxygen now, saturations are good on 3 L. He needs BiPAP whenever he sleeps but does not always want to wear it and requires a lot of encouragement to keep his BiPAP on. February 08, 2020 Just as with his previous admission the patient is not very compliant with his CPAP. We will order oxygen. Because of his obesity hypoventilation and obstructive sleep apnea he is prone to hypercapnia. Continue to educate regar ding CPAP. 02/09/2020-respiratory therapist called me to notify that patient is refusing to wear the CPAP at night. Requesting to remove it from the his room. (4) Obstructive sleep apnea Is this a current diagnosis for this admission?: No Plan: CPAP nightly February 08, 2020 The patient should be wearing CPAP all night and anytime he sleeps during the day. (5) Hypertension Qualifiers: Hypertension type: essential hypertension Qualified Code(s): I10 - Essential (primary) hypertension Is this a current diagnosis for this admission?: No Plan: Adequate control at present. Continue home regimen of Amlodipine, hydralazine, and metoprolol. Cardiac diet. February 08, 2020 Blood pressures are still quite variable. I believe this is multifactorial. We will continue current regimen continue to monitor patient with serial vital signs. 02/09/2020-blood pressure today is 130/60. Stable. Plan is to continue aml odipine, hydralazine, metoprolol at this time. (6) Charcot foot due to diabetes mellitus Is this a current diagnosis for this admission?: No Plan: Right foot 02/08/2020 The patient had bilateral Charcot feet. The left foot became abscessed and in fact led to the left below-knee amputation. Patient still has Charcot foot on the right. His course was recently complicated by a complex fracture in the right ankle/distal right leg. Continue to try to manage his diabetes aggressively but the patient is poorly compliant. 02/09/2020-patient has Charcot joint of the right ankle. Presently with a splint with Eddie wrap. External fixator is removed. (7) Hyperglycemia due to type 1 diabetes mellitus Is this a current diagnosis for this admission?: Yes Plan: February 08, 2020 Continue cardiac/controlled carbohydrate diet. Accu-Cheks and sliding scale coverage as well is Lantus, before meal Humalog dosing as well as sliding scale. 02/09/2020-patient has history of uncontrolled diabetes mellitus type 1. Noncompliant with diet. Latest blood sugar is 225. Presently on insulin sliding scale and Lantus, mealtime lispro. Diet exercise weight loss lifestyle modifications discussed with the patient. (8) Morbid obesity with BMI of 40.0-44.9, adult Is this a current diagnosis for this admission?: No Plan: Strongly urged lifestyle modification with dietary modifications 02/08/2020 Significant risk addition to previous multiple comorbidities. At this point aggressive diet management will be the most likely way to lose weight. (9) Phantom pain after amputation of lower extremity Is this a current diagnosis for this admission?: No Plan: 02/08/2020 Continue gabapentin. Adjust based on clinical effectiveness and patient res ponse.
[2020-02-09 15:02] LABS: ABSOLUTE BASOPHILS # (AUTO) 0.1 10^3/uL (0.0-0.2); ABSOLUTE EOSINOPHILS # (AUTO) 0.3 10^3/uL (0.0-0.6); ABSOLUTE LYMPHOCYTES (AUTO) 0.9 10^3/uL (0.5-4.7); ABSOLUTE MONOCYTES (AUTO) 0.5 10^3/uL (0.1-1.4); ABSOLUTE NEUT (AUTO) 8.1 10^3/uL (1.7-8.2); BASOPHILS % (AUTO) 0.6 % (0-2); EOSINOPHILS % (AUTO) 3.3 % (0-6); HEMATOCRIT 23.1 % (37.9-51.0); LYMPHOCYTES % (AUTO) 8.7 % (13-45); MEAN CORPUSCULAR HEMOGLOBIN 28.8 pg (27.0-33.4); MEAN CORPUSCULAR HGB CONC 33.7 g/dL (32.0-36.0); MEAN CORPUSCULAR VOLUME 86 fl (80-97); MONOCYTES % (AUTO) 5.3 % (3-13); PLATELET COUNT 346 10^3/uL (150-450); RED CELL DISTRIBUTION WIDTH 16.6 % (11.5-14.0); SEGMENTED NEUTROPHILS % (AUTO) 82.1 % (42-78); TOTAL CELLS COUNTED % (AUTO) 100 %; WHITE BLOOD COUNT 9.8 10^3/uL (4.0-10.5)
[2020-02-09 15:10] LABS: HEMOGLOBIN 7.8 g/dL (13.5-17.0)
[2020-02-09 15:21] LABS: ALBUMIN 3.6 g/dL (3.5-5.0); ANION GAP 8 (5-19); BLOOD UREA NITROGEN 25 mg/dL (7-20); CALCIUM 9.5 mg/dL (8.4-10.2); CARBON DIOXIDE 26 mmol/L (22-30); CHLORIDE 103 mmol/L (98-107); GLUCOSE 187 mg/dL (75-110); PHOSPHORUS 4.4 mg/dL (2.5-4.5); POTASSIUM 4.3 mmol/L (3.6-5.0)
[2020-02-09] MEDS: ATORVASTATIN CALCIUM 40 MG TABLET PO SCH (21:34)
[2020-02-10] MEDS: HYDRALAZINE HCL 50 MG TABLET PO SCH ×3 (05:57→21:06)
[2020-02-10] MEDS: HEPARIN SOD (PORCINE) 5,000 UNIT/ML 1 ML VIAL SUBCUT SCH ×3 (05:57→21:05)
[2020-02-10] MEDS: GABAPENTIN 300 MG CAPSULE PO SCH ×3 (05:57→21:06)
[2020-02-10] MEDS: INSULIN LISPRO 100 UNIT/ML 3 ML VIAL SUBCUT SCH ×7 (08:04→21:07)
[2020-02-10] MEDS: FERROUS SULFATE 325 MG TABLET PO SCH ×3 (08:05→17:06)
[2020-02-10] MEDS: TRIAMCINOLONE ACETONIDE 0.1% CREAM 15 GM TOP SCH ×2 (09:50→17:07)
[2020-02-10] MEDS: ASPIRIN 81 MG TABLET, ENT COATED PO SCH (09:56)
[2020-02-10] MEDS: METOPROLOL TARTRATE 100 MG TABLET PO SCH ×2 (09:56→21:06)
[2020-02-10] MEDS: FLUTICASONE NASAL SPRAY 50 MCG/SPRY 120 SPRAY/16 GM NASL SCH ×2 (09:56→21:15)
[2020-02-10] MEDS: FUROSEMIDE 40 MG TABLET PO SCH (09:56)
[2020-02-10] MEDS: FAMOTIDINE 20 MG TABLET PO SCH ×2 (09:56→21:13)
[2020-02-10] MEDS: DULOXETINE HCL 30 MG CAPSULE.DR PO SCH (09:56)
[2020-02-10] MEDS: AMLODIPINE BESYLATE 10 MG TABLET PO SCH (09:56)
[2020-02-10] MEDS: DOCUSATE SODIUM 100 MG CAPSULE PO SCH ×2 (09:56→17:06)
[2020-02-10] MEDS: INSULIN GLARGINE,HUM.REC.ANLOG 1,000 UNIT/10 ML VIAL SUBCUT SCH ×2 (09:57→21:08)
[2020-02-10] MEDS: NORMAL SALINE INJ/PF 0.9% 10 ML SDV IV SCH ×2 (09:57→21:16)
[2020-02-10] MEDS: TAMSULOSIN HCL 0.4 MG CAP.SR.24H PO SCH (21:06)
[2020-02-10] MEDS: ATORVASTATIN CALCIUM 40 MG TABLET PO SCH (21:06)
[2020-02-11] MEDS: HYDRALAZINE HCL 50 MG TABLET PO SCH ×3 (05:26→21:09)
[2020-02-11] MEDS: HEPARIN SOD (PORCINE) 5,000 UNIT/ML 1 ML VIAL SUBCUT SCH ×3 (05:26→21:12)
[2020-02-11] MEDS: GABAPENTIN 300 MG CAPSULE PO SCH ×3 (05:27→21:11)
--- NOTE | 2020-02-11 09:32 | PDOC PROGRESS REPORT ---
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 The patient was transferred from [facility] to [facility] inpatient acute rehab for failure to progress; increased intensive therapy services. Spoke with Dr. Swain at [facility] was requesting transfer to [facility] for follow-up with Dr. Pham due to report of external fixation malfunction. Recently, patient did have a mild AK I requiring temporary hold of Lasix followed by increased peripheral edema. Lasix was resumed yesterday. Otherwise, he has had no new acute issues. Dr. Swain has agreed to accept the patient back to [facility] Acute Rehab upon ortho evaluation and clearance. Patient is seen shortly upon arrival. He is found to be on supplemental oxygen by nasal cannula at 4 L/min. He tells me that he was recently started on oxygen due to development of atelectasis. He denies dyspnea or cough. He asks for incentive spirometer to bedside. Patient asks when to expect to see Dr. Pham and is hopeful to return to [facility] immediately upon completion of orthopedic repair to resume rehab. He has no other questions or concerns. Denies fever, chills, chest pain, palpitations, dyspnea, orthopnea, cough, abdominal pain, nausea vomiting diarrhea. Dr. Pham has been consulted and notified of patient's arrival. 02/01-No adverse events overnight. No new complaints. Vital signs been stable. His biggest concern is that the surgery is later in the day and he is not been allowed to eat. 02/02-No adverse events overnight. He had his external fixator removed yesterday. His blood sugars were elevated so we made sure that his Lantus was resumed. He was ready to go back to [facility] today but they gave away his bed in acute rehab and so now we're having to start the process over. 02/04/20-No adverse events overnight. No new complaints. He had some nausea this morning but that is since resolved. He has no pain, but he does not really have good sensation in his leg anyway. 02/05/20-No adverse events overnight. No new complaints. He requires a lot of encouragement to wear his BiPAP. His blood sugars were pretty well controlled this morning so we did not give him Lantus. 02/05-No adverse events overnight. He is having trouble urinating again. He says it is "stage fright." This happened the last time he was in the hospital here. He wanted to have a Blackmon catheter put in. He was not wanting to put the BiPAP on this morning but eventually agreed and was able to sleep fairly well with it on. 02/06-No adverse events overnight. No new complaints. Vital signs been stable. Eating and drinking without difficulty. He said he has been compliant with his nonweightbearing status. 02/07-The patient is awake and alert during this encounter. He appears to be resting comfortably. Posterior splint on the right leg. He does not appear to be in any discomfort or having any difficulty breathing. 02/09/2020-patient is in mild shortness of breath as per the nurse he requiring 2 L of oxygen via nasal cannula. Patient is waiting for transfer to [place] rehab facility. Patient has a history of left BKA and right ankle reconstruction. Because of foot Charcot joint. No acute events in the last 24 hours. Afebrile. 02/10/20-patient is in mild shortness of breath at the time of examination. No acute events in the last 24 hours afebrile. Physical therapy notes is confusing. Requested nurse to talk to the case management for implants. in my Opinion patient is to go to a acute rehab facility. Reason For Visit: FRACTURE OF DISTAL END OF TIBIA,FRACTURE OF LATERA Physical Exam Vital Signs: Temp Pulse Resp BP Pulse Ox 98.3 F 74 18 153/66 H 94 02/11/20 07:32 02/11/20 07:32 02/11/20 07:32 02/11/20 07:32 02/11/20 07:32 Intake & Output 02/10/20 02/11/20 02/12/20 06:59 06:59 06:59 Intake Total 1260 570 Output Total 9371 1300 Balance -859 -730 Weight 146.7 kg 146 kg General appearance: PRESENT: mild distress, morbidly obese Head exam: PRESENT: atraumatic Eye exam: PRESENT: PERRLA Ear exam: PRESENT: normal external ear exam Mouth exam: PRESENT: neck supple Teeth exam: PRESENT: poor dentation Neck exam: ABSENT: carotid bruit, JVD, lymphadenopathy, thyromegaly Respiratory exam: PRESENT: decreased breath sounds Cardiovascular exam: PRESENT: RRR. ABSENT: diastolic murmur, rubs, systolic murmur GI/Abdominal exam: PRESENT: normal bowel sounds, soft. ABSENT: distended, guarding, mass, organolmegaly, rebound, tenderness Rectal exam: PRESENT: deferred Extremities exam: PRESENT: other - Left BKA, right lower leg with a splint. Neurological exam: PRESENT: alert, awake, oriented to person, oriented to place, oriented to time, oriented to situation, CN II-XII grossly intact. ABSENT: motor sensory deficit Psychiatric exam: PRESENT: appropriate affect, normal mood. ABSENT: homicidal ideation, suicidal ideation Results Laboratory Results: 02/09/20 14:16 02/09/20 14:16 Impressions: Tibia/Fibula X-Ray 02/01/20 00:00 IMPRESSION: Fractures with ORIF as described. External fixation device is present as well. Ankle X-Ray 02/02/20 00:00 IMPRESSION: ORIF right ankle. Refer to operative note for further information Fluoroscopy 02/02/20 00:00 IMPRESSION: ORIF right ankle. Refer to operative note for further information Assessment and Plan - Diagnosis (1) Fracture of distal end of tibia Qualifiers: Encounter type: sequela Fracture type: closed Fracture morphology: pilon Laterality: right Is this a current diagnosis for this admission?: Yes Plan: Status post removal of the external fixator. He is nonweightbearing on the right lower extremity until cleared to do so by surgery. He is medically cleared to return to [facility] for acute rehab but they gave away his rehab bed and so we will transfer him once a bed becomes available. 02/08/2020 External fixator removed from the right leg. Posterior splint with Eddie wrap. He is nonweightbearing on the right leg. Unfortunately [facility] did not hold his bed for 48 hours and he is now awaiting to go back to acute rehab. 02/09/2020-right lower leg with a splint. External fixator is removed. Splint with Eddie wrap. He is need to be nonweightbearing on the right leg. [facility] 02/10/2020-right lower leg with a splint. Patient is advised about her nonweightbearing of the right leg. Plan is for a transfer to rehab inpatient in [place] when the bed is available. (2) Fracture of lateral malleolus Qualifiers: Encounter type: sequela Fracture type: closed Laterality: right Is this a current diagnosis for this admission?: Yes Plan: As previously noted February 08, 2020 As above (3) Obesity hypoventilation syndrome Is this a current diagnosis for this admission?: No Plan: He is chronically been on oxygen now, saturations are good on 3 L. He needs BiPAP whenever he sleeps but does not always want to wear it and requires a lot of encouragement to keep his BiPAP on. February 08, 2020 Just as with his previous admission the patient is not very compliant with his CPAP. We will order oxygen. Because of his obesity hypoventilation and obstructive sleep apnea he is prone to hypercapnia. Continue to educate regarding CPAP. 02/09/2020-respiratory therapist called me to notify that patient is refusing to wear the CPAP at night. Requesting to remove it from the his room. 02/10/2020-patient has obesity associated hypoventilation syndrome. Patient is using CPAP during sleep. (4) Obstructive sleep apnea Is this a current diagnosis for this admission?: No Plan: CPAP nightly February 08, 2020 The patient should be wearing CPAP all night and anytime he sleeps during the day. (5) Hypertension Qualifiers: Hypertension type: essential hypertension Qualified Code(s): I10 - Essential (primary) hypertension Is this a current diagnosis for this admission?: No Plan: Adequate control at present. Continue home regimen of Amlodipine, hydralazine, and metoprolol. Cardiac diet. February 08, 2020 Blood pressures are still quite variable. I believe this is multifactorial. We will continue current regimen continue to monitor patient with serial vital signs. 02/09/2020-blood pressure today is 130/60. Stable. Plan is to continue amlodipine, hydralazine, metoprolol at this time. 02/10/2020-blood pressure is stable. He is to continue amlodipine, hydralazine, metoprolol. (6) Charcot foot due to diabetes mellitus Is this a current diagnosis for this admission?: No Plan: Right foot 02/08/2020 The patient had bilateral Charcot feet. The left foot became abscessed and in fact led to the left below-knee amputation. Patient still has Charcot foot on the right. His course was recently complicated by a complex fracture in the right ankle/distal right leg. Continue to try to manage his diabetes aggressively but the patient is poorly compliant. 02/09/2020-patient has Charcot joint of the right ankle. Presently with a splint with Eddie wrap. External fixator is removed. (7) Hyperglycemia due to type 1 diabetes mellitus Is this a current diagnosis for this admission?: Yes Plan: February 08, 2020 Continue cardiac/controlled carbohydrate diet. Accu-Cheks and sliding scale coverage as well is Lantus, before meal Humalog dosing as well as sliding scale. 02/09/2020-patient has history of uncontrolled diabetes mellitus type 1. Noncompliant with diet. Latest blood sugar is 225. Presently on insulin sliding scale and Lantus, mealtime lispro. Diet exercise weight loss lifestyle modifications discussed with the patient. 02/10/2020-patient latest blood sugars are relatively stable. Latest blood sugar is 261. Needs to increase the Lantus to 65 units twice a day. He is also on lispro mealtime insulin 16 units prior to meals. He is also on insulin sliding scale. (8) Morbid obesity with BMI of 40.0-44.9, adult Is this a current diagnosis for this admission?: No Plan: Strongly urged lifestyle modification with dietary modifications 02/08/2020 Significant risk addition to previous multiple comorbidities. At this point aggressive diet management will be the most likely way to lose weight. (9) Phantom pain after amputation of lower extremity Is this a current diagnosis for this admission?: No Plan: 02/08/2020 Continue gabapentin. Adjust based on clinical effectiveness and patient response.
--- NOTE | 2020-02-11 09:36 | PDOC PROGRESS REPORT ---
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 The patient was transferred from [facility] to [facility] inpatient acute rehab for failure to progress; increased intensive therapy services. Spoke with Dr. Swain at [facility] was requesting transfer to [facility] for follow-up with Dr. Pham due to report of external fixation malfunction. Recently, patient did have a mild AK I requiring temporary hold of Lasix followed by increased peripheral edema. Lasix was resumed yesterday. Otherwise, he has had no new acute issues. Dr. Swain has agreed to accept the patient back to [facility] Acute Rehab upon ortho evaluation and clearance. Patient is seen shortly upon arrival. He is found to be on supplemental oxygen by nasal cannula at 4 L/min. He tells me that he was recently started on oxygen due to development of atelectasis. He denies dyspnea or cough. He asks for incentive spirometer to bedside. Patient asks when to expect to see Dr. Pham and is hopeful to return to [facility] immediately upon completion of orthopedic repair to resume rehab. He has no other questions or concerns. Denies fever, chills, chest pain, palpitations, dyspnea, orthopnea, cough, abdominal pain, nausea vomiting diarrhea. Dr. Pham has been consulted and notified of patient's arrival. 02/01-No adverse events overnight. No new complaints. Vital signs been stable. His biggest concern is that the surgery is later in the day and he is not been allowed to eat. 02/02-No adverse events overnight. He had his external fixator removed yesterday. His blood sugars were elevated so we made sure that his Lantus was resumed. He was ready to go back to [facility] today but they gave away his bed in acute rehab and so now we're having to start the process over. 02/04/20-No adverse events overnight. No new complaints. He had some nausea this morning but that is since resolved. He has no pain, but he does not really have good sensation in his leg anyway. 02/05/20-No adverse events overnight. No new complaints. He requires a lot of encouragement to wear his BiPAP. His blood sugars were pretty well controlled this morning so we did not give him Lantus. 02/05-No adverse events overnight. He is having trouble urinating again. He says it is "stage fright." This happened the last time he was in the hospital here. He wanted to have a Blackmon catheter put in. He was not wanting to put the BiPAP on this morning but eventually agreed and was able to sleep fairly well with it on. 02/06-No adverse events overnight. No new complaints. Vital signs been stable. Eating and drinking without difficulty. He said he has been compliant with his nonweightbearing status. 02/07-The patient is awake and alert during this encounter. He appears to be resting comfortably. Posterior splint on the right leg. He does not appear to be in any discomfort or having any difficulty breathing. 02/09/2020-patient is in mild shortness of breath as per the nurse he requiring 2 L of oxygen via nasal cannula. Patient is waiting for transfer to [place] rehab facility. Patient has a history of left BKA and right ankle reconstruction. Because of foot Charcot joint. No acute events in the last 24 hours. Afebrile. 02/10/20-patient is in mild shortness of breath at the time of examination. No acute events in the last 24 hours afebrile. Physical therapy notes is confusing. Requested nurse to talk to the case management for implants. in my Opinion patient is to go to a acute rehab facility. 02/11/2020-patient is comfortably sleeping in the bed on CPAP. Refusing to wake up. No acute events reported by the staff. Reason For Visit: FRACTURE OF DISTAL END OF TIBIA,FRACTURE OF LATERA Physical Exam Vital Signs: Temp Pulse Resp BP Pulse Ox 98.3 F 74 18 153/66 H 94 02/11/20 07:32 02/11/20 07:32 02/11/20 07:32 02/11/20 07:32 02/11/20 07:32 Intake & Output 02/10/20 02/11/20 02/12/20 06:59 06:59 06:59 Intake Total 1266 570 Output Total 2125 1300 Balance -859 -730 Weight 146.7 kg 146 kg General appearance: PRESENT: no acute distress, morbidly obese Head exam: PRESENT: atraumatic Eye exam: PRESENT: PERRLA Ear exam: PRESENT: normal external ear exam Mouth exam: PRESENT: neck supple Neck exam: ABSENT: carotid bruit, JVD, lymphadenopathy, thyromegaly Respiratory exam: PRESENT: decreased breath sounds Cardiovascular exam: PRESENT: RRR. ABSENT: diastolic murmur, rubs, systolic murmur Rectal exam: PRESENT: deferred Extremities exam: PRESENT: other - Patient has a previous left BKA and right lower extremity with the splint. Neurological exam: PRESENT: alert, awake, oriented to person, oriented to place, oriented to time, oriented to situation, CN II-XII grossly intact. ABSENT: motor sensory deficit Psychiatric exam: PRESENT: appropriate affect, normal mood. ABSENT: homicidal ideation, suicidal ideation Results Laboratory Results: 02/09/20 14:16 02/09/20 14:16 Impressions: Tibia/Fibula X-Ray 02/01/20 00:00 IMPRESSION: Fractures with ORIF as described. External fixation device is present as well. Ankle X-Ray 02/02/20 00:00 IMPRESSION: ORIF right ankle. Refer to operative note for further information Fluoroscopy 02/02/20 00:00 IMPRESSION: ORIF right ankle. Refer to operative note for further information Assessment and Plan - Diagnosis (1) Fracture of distal end of tibia Qualifiers: Encounter type: sequela Fracture type: closed Fracture morphology: pilon Laterality: right Is this a current diagnosis for this admission?: Yes Plan: Status post removal of the external fixator. He is nonweightbearing on the right lower extremity until cleared to do so by surgery. He is medically cleared to return to [facility] for acute rehab but they gave away his rehab bed and so we will transfer him once a bed becomes available. 02/08/2020 External fixator removed from the right leg. Posterior splint with Eddie wrap. He is nonweightbearing on the right leg. Unfortunately [facility] did not hold his bed for 48 hours and he is now awaiting to go back to acute rehab. 02/09/2020-right lower leg with a splint. External fixator is removed. Splint with Eddie wrap. He is need to be nonweightbearing on the right leg. For rehab placement at [facility] 02/10/2020-right lower leg with a splint. Patient is advised about her n onweightbearing of the right leg. Plan is for a transfer to rehab inpatient in [place] when the bed is available. 02/11/2020-patient with right lower leg splint with Eddie wrap. He is nonweightbearing on the right lower extremity. Plan is to transfer him to acute rehab facility in [place] when a bed is available. (2) Fracture of lateral malleolus Qualifiers: Encounter type: sequela Fracture type: closed Laterality: right Is this a current diagnosis for this admission?: Yes Plan: As previously noted February 08, 2020 As above (3) Obesity hypoventilation syndrome Is this a current diagnosis for this admission?: No Plan: He is chronically been on oxygen now, saturations are good on 3 L. He needs BiPAP whenever he sleeps but does not always want to wear it and requires a lot of encouragement to keep his BiPAP on. February 08, 2020 Just as with his previous admission the patient is not very compliant with his CPAP. We will order oxygen. Because of his obesity hypoventilation and obstructive sleep apnea he is prone to hypercapnia. Continue to educate regarding CPAP. 02/09/2020-respiratory therapist called me to notify that patient is refusing to wear the CPAP at night. Requesting to remove it from the his room. 02/10/2020-patient has obesity associated hypoventilation syndrome. Patient is using CPAP during sleep. 02/11/2020-pulse ox today's 97% on room air. Sleeping with a CPAP. (4) Obstructive sleep apnea Is this a current diagnosis for this admission?: No Plan: CPAP nightly February 08, 2020 The patient should be wearing CPAP all night and anytime he sleeps during the day. (5) Hypertension Qualifiers: Hypertension type: essential hypertension Qualified Code(s): I10 - Essential (primary) hypertension Is this a current diagnosis for this admission?: No Plan: Adequate control at present. Continue home regimen of Amlodipine, hydralazine, and metoprolol. Cardiac diet. February 08, 2020 Blood pressures are still quite variable. I believe this is multifactorial. We will continue current regimen continue to monitor patient with serial vital signs. 02/09/2020-blood pressure today is 130/60. Stable. Plan is to continue amlodipine, hydralazine, metoprolol at this time. 02/10/2020-blood pressure is stable. He is to continue amlodipine, hydralazine, metoprolol. 02/11/2020-blood pressure today is 113/70. Stable. (6) Charcot foot due to diabetes mellitus Is this a current diagnosis for this admission?: No Plan: Right foot 02/08/2020 The patient had bilateral Charcot feet. The left foot became abscessed and in fact led to the left below-knee amputation. Patient still has Charcot foot on the right. His course was recently complicated by a complex fracture in the right ankle/distal right leg. Continue to try to manage his diabetes aggressively but the patient is poorly compliant. 02/09/2020-patient has Charcot joint of the right ankle. Presently with a splint with Eddie wrap. External fixator is removed. (7) Hyperglycemia due to type 1 diabetes mellitus Is this a current diagnosis for this admission?: Yes Plan: February 08, 2020 Continue cardiac/controlled carbohydrate diet. Accu-Cheks and sliding scale coverage as well is Lantus, before meal Humalog dosing as well as sliding scale. 02/09/2020-patient has history of uncontrolled diabetes mellitus type 1. Noncompliant with diet. Latest blood sugar is 225. Presently on insulin sliding scale and Lantus, mealtime lispro. Diet exercise weight loss lifestyle modifications discussed with the patient. 02/10/2020-patient latest blood sugars are relatively stable. Latest blood sugar is 261. Needs to increase the Lantus to 65 units twice a day. He is also on lispro mealtime insulin 16 units prior to meals. He is also on insulin sliding scale. (8) Morbid obesity with BMI of 40.0-44.9, adult Is this a current diagnosis for this admission?: No Plan: Strongly urged lifestyle modification with dietary modifications 02/08/2020 Significant risk addition to previous multiple comorbidities. At this point aggressive diet management will be the most likely way to lose weight. (9) Phantom pain after amputation of lower extremity Is this a current diagnosis for this admission?: No Plan: 02/08/2020 Continue gabapentin. Adjust based on clinical effectiveness and patient response.
[2020-02-11] MEDS: FERROUS SULFATE 325 MG TABLET PO SCH ×3 (09:40→21:22)
[2020-02-11] MEDS: ASPIRIN 81 MG TABLET, ENT COATED PO SCH (09:40)
[2020-02-11] MEDS: DULOXETINE HCL 30 MG CAPSULE.DR PO SCH (09:40)
[2020-02-11] MEDS: DOCUSATE SODIUM 100 MG CAPSULE PO SCH ×2 (09:40→18:18)
[2020-02-11] MEDS: FUROSEMIDE 40 MG TABLET PO SCH (09:41)
[2020-02-11] MEDS: METOPROLOL TARTRATE 100 MG TABLET PO SCH ×2 (09:41→21:14)
[2020-02-11] MEDS: FAMOTIDINE 20 MG TABLET PO SCH ×2 (09:41→21:09)
[2020-02-11] MEDS: AMLODIPINE BESYLATE 10 MG TABLET PO SCH (09:41)
[2020-02-11] MEDS: INSULIN LISPRO 100 UNIT/ML 3 ML VIAL SUBCUT SCH ×7 (09:43→21:18)
[2020-02-11] MEDS: FLUTICASONE NASAL SPRAY 50 MCG/SPRY 120 SPRAY/16 GM NASL SCH ×2 (09:45→21:09)
[2020-02-11] MEDS: TRIAMCINOLONE ACETONIDE 0.1% CREAM 15 GM TOP SCH ×3 (09:45→18:29)
[2020-02-11] MEDS ORDERED: INSULIN GLARGINE,HUM.REC.ANLOG 1,000 UNIT/10 ML VIAL (PYX) SUBCUT ONE (10:00)
[2020-02-11] MEDS: INSULIN GLARGINE,HUM.REC.ANLOG 1,000 UNIT/10 ML VIAL SUBCUT SCH ×2 (10:49→21:10)
[2020-02-11] MEDS: NORMAL SALINE INJ/PF 0.9% 10 ML SDV IV SCH ×2 (10:51→21:19)
[2020-02-11] MEDS: ATORVASTATIN CALCIUM 40 MG TABLET PO SCH (21:09)
[2020-02-11] MEDS: TAMSULOSIN HCL 0.4 MG CAP.SR.24H PO SCH (21:09)
[2020-02-12] MEDS: HEPARIN SOD (PORCINE) 5,000 UNIT/ML 1 ML VIAL SUBCUT SCH ×3 (06:01→21:42)
[2020-02-12] MEDS: HYDRALAZINE HCL 50 MG TABLET PO SCH ×3 (06:02→21:43)
[2020-02-12] MEDS: GABAPENTIN 300 MG CAPSULE PO SCH ×3 (06:02→21:45)
[2020-02-12] MEDS: INSULIN LISPRO 100 UNIT/ML 3 ML VIAL SUBCUT SCH ×7 (07:17→21:42)
[2020-02-12] MEDS: FERROUS SULFATE 325 MG TABLET PO SCH ×3 (08:22→17:32)
--- NOTE | 2020-02-12 09:22 | PDOC PROGRESS REPORT ---
Subjective Progress Note for:: 02/12/20 Subjective:: 39 year old male with a past medical hisotry significant for HTN, HLD, PVD, Ischemic CVA, Migraines, IDDM, depression and obesity who was discharged from [facility] to 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 The patient was transferred from [facility] to [facility] inpatient acute rehab for failure to progress; increased intensive therapy services. Spoke with Dr. Swain at [facility] was requesting transfer to [facility] for follow-up with Dr. Pham due to report of external fixation malfunction. Recently, patient did have a mild AK I requiring temporary hold of Lasix followed by increased peripheral edema. Lasix was resumed yesterday. Otherwise, he has had no new acute issues. Dr. Swain has agreed to accept the patient back to [facility] Acute Rehab upon ortho evaluation and clearance. Patient is seen shortly upon arrival. He is found to be on supplemental oxygen by nasal cannula at 4 L/min. He tells me that he was recently started on oxygen due to development of atelectasis. He denies dyspnea or cough. He asks for incentive spirometer to bedside. Patient asks when to expect to see Dr. Pham and is hopeful to return to [facility] immediately upon completion of orthopedic repair to resume rehab. He has no other questions or concerns. Denies fever, chills, chest pain, palpitations, dyspnea, orthopnea, cough, abdominal pain, nausea vomiting diarrhea. Dr. Pham has been consulted and notified of patient's arrival. 02/01-No adverse events overnight. No new complaints. Vital signs been stable. His biggest concern is that the surgery is later in the day and he is not been allowed to eat. 02/02-No adverse events overnight. He had his external fixator removed yesterday. His blood sugars were elevated so we made sure that his Lantus was resumed. He was ready to go back to [facility] today but they gave away his bed in acute rehab and so now we're having to start the process over. 02/04/20-No adverse events overnight. No new complaints. He had some nausea this morning but that is since resolved. He has no pain, but he does not really have good sensation in his leg anyway. 02/05/20-No adverse events overnight. No new complaints. He requires a lot of encouragement to wear his BiPAP. His blood sugars were pretty well controlled this morning so we did not give him Lantus. 02/05-No adverse events overnight. He is having trouble urinating again. He says it is "stage fright." This happened the last time he was in the hospital here. He wanted to have a Blackmon catheter put in. He was not wanting to put the BiPAP on this morning but eventually agreed and was able to sleep fairly well with it on. 02/06-No adverse events overnight. No new complaints. Vital signs been stable. Eating and drinking without difficulty. He said he has been compliant with his nonweightbearing status. 02/07-The patient is awake and alert during this encounter. He appears to be resting comfortably. Posterior splint on the right leg. He does not appear to be in any discomfort or having any difficulty breathing. 02/09/2020-patient is in mild shortness of breath as per the nurse he requiring 2 L of oxygen via nasal cannula. Patient is waiting for transfer to [place] rehab facility. Patient has a history of left BKA and right ankle reconstruction. Because of foot Charcot joint. No acute events in the last 24 hours. Afebrile. 02/10/20-patient is in mild shortness of breath at the time of examination. No acute events in the last 24 hours afebrile. Physical therapy notes is confusing. Requested nurse to talk to the case management for implants. in my Opinion patient is to go to a acute rehab facility. 02/11/2020-patient is comfortably sleeping in the bed on CPAP. Refusing to wake up. No acute events reported by the staff. 02/12/2020-patient is requesting for nystatin topical powder for possible yeast infection in the groin. He wants to talk to Dr. Pham tomorrow about right lower leg cast. Expressing desire to stay until Thursday and are planning to go home with home health. Reason For Visit: FRACTURE OF DISTAL END OF TIBIA,FRACTURE OF LATERA Physical Exam Vital Signs: Temp Pulse Resp BP Pulse Ox 98.0 F 77 16 132/53 H 93 02/12/20 07:55 02/12/20 07:55 07/05/20 07:55 02/12/20 07:55 02/12/20 07:55 Intake & Output 02/11/20 02/12/20 02/13/20 06:59 06:59 06:59 Intake Total 570 2365 Output Total 1300 1775 Balance -730 590 Weight 146 kg 138.5 kg General appearance: PRESENT: no acute distress, morbidly obese Head exam: PRESENT: atraumatic Eye exam: PRESENT: PERRLA Ear exam: PRESENT: normal external ear exam Mouth exam: PRESENT: neck supple Neck exam: ABSENT: carotid bruit, JVD, lymphadenopathy, thyromegaly Respiratory exam: PRESENT: decreased breath sounds Cardiovascular exam: PRESENT: RRR. ABSENT: diastolic murmur, rubs, systolic murmur GI/Abdominal exam: PRESENT: normal bowel sounds, soft. ABSENT: distended, guarding, mass, organolmegaly, rebound, tenderness Rectal exam: PRESENT: deferred Extremities exam: PRESENT: other - Patient has a left BKA and right lower leg with splint wrapped in Eddie wrap. Neurological exam: PRESENT: alert, awake, oriented to person, oriented to place, oriented to time, oriented to situation, CN II-XII grossly intact. ABSENT: motor sensory deficit Psychiatric exam: PRESENT: appropriate affect, normal mood. ABSENT: homicidal ideation, suicidal ideation Results Laboratory Results: 02/09/20 14:16 02/09/20 14:16 Impressions: Tibia/Fibula X-Ray 02/01/20 00:00 IMPRESSION: Fractures with ORIF as described. External fixation device is present as well. Ankle X-Ray 02/02/20 00:00 IMPRESSION: ORIF right ankle. Refer to operative note for further information Fluoroscopy 02/02/20 00:00 IMPRESSION: ORIF right ankle. Refer to operative note for further information Assessment and Plan - Diagnosis (1) Fracture of distal end of tibia Qualifiers: Encounter type: sequela Fracture type: closed Fracture morphology: pilon Laterality: right Is this a current diagnosis for this admission?: Yes Plan: Status post removal of the external fixator. He is nonweightbearing on the r ight lower extremity until cleared to do so by surgery. He is medically cleared to return to [facility] for acute rehab but they gave away his rehab bed and so we will transfer him once a bed becomes available. 02/08/2020 External fixator removed from the right leg. Posterior splint with Eddie wrap. He is nonweightbearing on the right leg. Unfortunately [facility] did not hold his bed for 48 hours and he is now awaiting to go back to acute rehab. 02/09/2020-right lower leg with a splint. External fixator is removed. Splint with Eddie wrap. He is need to be nonweightbearing on the right leg. For rehab placement at [facility] 02/10/2020-right lower leg with a splint. Patient is advised about her nonweightbearing of the right leg. Plan is for a transfer to rehab inpatient in [place] when the bed is available. 02/11/2020-patient with right lower leg splint with Eddie wrap. He is nonw eightbearing on the right lower extremity. Plan is to transfer him to acute rehab facility in [place] when a bed is available. 02/12/20-patient is nonweightbearing on the right lower extremity. Has a splint with Eddie wrap. Requesting to talk to Dr. Pham about getting a walking cast tomorrow. (2) Fracture of lateral malleolus Qualifiers: Encounter type: sequela Fracture type: closed Laterality: right Is this a current diagnosis for this admission?: Yes Plan: As previously noted February 08, 2020 As above (3) Obesity hypoventilation syndrome Is this a current diagnosis for this admission?: No Plan: He is chronically been on oxygen now, saturations are good on 3 L. He needs BiPAP whenever he sleeps but does not always want to wear it and requires a lot of encouragement to keep his BiPAP on. February 08, 2020 Just as with his previous admission the patient is not very compliant with his CPAP. We will order oxygen. Because of his obesity hypoventilation and obstructive sleep apnea he is prone to hypercapnia. Continue to educate regarding CPAP. 02/09/2020-respiratory therapist called me to notify that patient is refusing to wear the CPAP at night. Requesting to remove it from the his room. 02/10/2020-patient has obesity associated hypoventilation syndrome. Patient is using CPAP during sleep. 02/11/2020-pulse ox today's 97% on room air. Sleeping with a CPAP. 7/25/20-pulse ox today is 96% on 3 L. Uses CPAP during sleep. (4) Obstructive sleep apnea Is this a current diagnosis for this admission?: No Plan: CPAP nightly February 08, 2020 The patient should be wearing CPAP all night and anytime he sleeps during the day. (5) Hypertension Qualifiers: Hypertension type: essential hypertension Qualified Code(s): I10 - Octaviano al (primary) hypertension Is this a current diagnosis for this admission?: No Plan: Adequate control at present. Continue home regimen of Amlodipine, hydralazine, and metoprolol. Cardiac diet. February 08, 2020 Blood pressures are still quite variable. I believe this is multifactorial. We will continue current regimen continue to monitor patient with serial vital signs. 02/09/2020-blood pressure today is 130/60. Stable. Plan is to continue amlodipine, hydralazine, metoprolol at this time. 02/10/2020-blood pressure is stable. He is to continue amlodipine, hydralazine, metoprolol. 02/11/2020-blood pressure today is 113/70. Stable. 02/12/2020-blood pressure today is 157/68. Slightly elevated. Plan is to closely monitor the blood pressures if needed to adjust her medications. (6) Charcot foot due to diabetes mellitus Is this a current diagnosis for this admission?: No Plan: Right foot 02/08/2020 The patient had bilateral Charcot feet. The left foot became abscessed and in fact led to the left below-knee amputation. Patient still has Charcot foot on the right. His course was recently complicated by a complex fracture in the right ankle/distal right leg. Continue to try to manage his diabetes aggressively but the patient is poorly compliant. 02/09/2020-patient has Charcot joint of the right ankle. Presently with a splint with Eddie wrap. External fixator is removed. 02/12/2020-external fixator is removed patient is presently with a splint with Eddie wrap. Requesting to talk to Dr. Pham tomorrow about getting a cast. Patient agreed to go home with home health on Thursday. (7) Hyperglycemia due to type 1 diabetes mellitus Is this a current diagnosis for this admission?: Yes Plan: February 08, 2020 Continue cardiac/controlled carbohydrate diet. Accu-Cheks and sliding scale coverage as well is Lantus, before meal Humalog dosing as well as sliding scale. 02/09/2020-patient has history of uncontrolled diabetes mellitus type 1. Noncompliant with diet. Latest blood sugar is 225. Presently on insulin sliding scale and Lantus, mealtime lispro. Diet exercise weight loss lifestyle modifications discussed with the patient. 02/10/2020-patient latest blood sugars are relatively stable. Latest blood sugar is 261. Needs to increase the Lantus to 65 units twice a day. He is also on lispro mealtime insulin 16 units prior to meals. He is also on insulin sliding scale. (8) Morbid obesity with BMI of 40.0-44.9, adult Is this a current diagnosis for this admission?: No Plan: Strongly urged lifestyle modification with dietary modifications 02/08/2020 Significant risk addition to previous multiple comorbidities. At this point aggressive diet management will be the most likely way to lose weight. (9) Phantom pain after amputation of lower extremity Is this a current diagnosis for this admission?: No Plan: 02/08/2020 Continue gabapentin. Adjust based on clinical effectiveness and patient response.
[2020-02-12] MEDS: FAMOTIDINE 20 MG TABLET PO SCH ×2 (09:42→21:44)
[2020-02-12] MEDS: DOCUSATE SODIUM 100 MG CAPSULE PO SCH ×2 (09:43→17:32)
[2020-02-12] MEDS: DULOXETINE HCL 30 MG CAPSULE.DR PO SCH (09:43)
[2020-02-12] MEDS: METOPROLOL TARTRATE 100 MG TABLET PO SCH ×2 (09:43→21:46)
[2020-02-12] MEDS: ASPIRIN 81 MG TABLET, ENT COATED PO SCH (09:43)
[2020-02-12] MEDS: AMLODIPINE BESYLATE 10 MG TABLET PO SCH (09:45)
[2020-02-12] MEDS: NORMAL SALINE INJ/PF 0.9% 10 ML SDV IV SCH ×2 (09:46→21:56)
[2020-02-12] MEDS: TRIAMCINOLONE ACETONIDE 0.1% CREAM 15 GM TOP SCH ×3 (09:46→17:33)
[2020-02-12] MEDS: FLUTICASONE NASAL SPRAY 50 MCG/SPRY 120 SPRAY/16 GM NASL SCH ×2 (09:47→21:48)
[2020-02-12] MEDS: FUROSEMIDE 40 MG TABLET PO SCH (09:48)
[2020-02-12] MEDS ORDERED: INSULIN GLARGINE,HUM.REC.ANLOG 1,000 UNIT/10 ML VIAL SUBCUT SCH (10:00)
[2020-02-12] MEDS: NYSTATIN CREAM 15 GM TP SCH ×3 (10:00→21:50)
[2020-02-12] MEDS: INSULIN GLARGINE,HUM.REC.ANLOG 1,000 UNIT/10 ML VIAL SUBCUT SCH (21:41)
[2020-02-12] MEDS: ATORVASTATIN CALCIUM 40 MG TABLET PO SCH (21:45)
[2020-02-12] MEDS: TAMSULOSIN HCL 0.4 MG CAP.SR.24H PO SCH (21:46)
[2020-02-13] MEDS: GABAPENTIN 300 MG CAPSULE PO SCH ×3 (06:55→22:28)
[2020-02-13] MEDS: HYDRALAZINE HCL 50 MG TABLET PO SCH ×3 (06:55→22:29)
[2020-02-13] MEDS: HEPARIN SOD (PORCINE) 5,000 UNIT/ML 1 ML VIAL SUBCUT SCH ×3 (06:55→22:30)
[2020-02-13] MEDS: INSULIN LISPRO 100 UNIT/ML 3 ML VIAL SUBCUT SCH ×7 (07:43→22:31)
[2020-02-13] MEDS: FERROUS SULFATE 325 MG TABLET PO SCH ×3 (07:56→17:33)
--- NOTE | 2020-02-13 10:07 | PDOC PROGRESS REPORT ---
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 The patient was transferred from [facility] to [facility] inpatient acute rehab for failure to progress; increased intensive therapy services. Spoke with Dr. Swain at [facility] was requesting transfer to [facility] for follow-up with Dr. Pham due to report of external fixation malfunction. Recently, patient did have a mild AK I requiring temporary hold of Lasix followed by increased peripheral edema. Lasix was resumed yesterday. Otherwise, he has had no new acute issues. Dr. Swain has agreed to accept the patient back to [facility] Acute Rehab upon ortho evaluation and clearance. Patient is seen shortly upon arrival. He is found to be on supplemental oxygen by nasal cannula at 4 L/min. He tells me that he was recently started on oxygen due to development of atelectasis. He denies dyspnea or cough. He asks for incentive spirometer to bedside. Patient asks when to expect to see Dr. Pham and is hopeful to return to [facility] immediately upon completion of orthopedic repair to resume rehab. He has no other questions or concerns. Denies fever, chills, chest pain, palpitations, dyspnea, orthopnea, cough, abdominal pain, nausea vomiting diarrhea. Dr. Pham has been consulted and notified of patient's arrival. 02/01-No adverse events overnight. No new complaints. Vital signs been stable. His biggest concern is that the surgery is later in the day and he is not been allowed to eat. 02/02-No adverse events overnight. He had his external fixator removed yesterday. His blood sugars were elevated so we made sure that his Lantus was resumed. He was ready to go back to [facility] today but they gave away his bed in acute rehab and so now we're having to start the process over. 02/04/20-No adverse events overnight. No new complaints. He had some nausea this morning but that is since resolved. He has no pain, but he does not really have good sensation in his leg anyway. 02/05/20-No adverse events overnight. No new complaints. He requires a lot of encouragement to wear his BiPAP. His blood sugars were pretty well controlled this morning so we did not give him Lantus. 02/05-No adverse events overnight. He is having trouble urinating again. He says it is "stage fright." This happened the last time he was in the hospital here. He wanted to have a Blackmon catheter put in. He was not wanting to put the BiPAP on this morning but eventually agreed and was able to sleep fairly well with it on. 02/06-No adverse events overnight. No new complaints. Vital signs been stable. Eating and drinking without difficulty. He said he has been compliant with his nonweightbearing status. 02/07-The patient is awake and alert during this encounter. He appears to be resting comfortably. Posterior splint on the right leg. He does not appear to be in any discomfort or having any difficulty breathing. 02/09/2020-patient is in mild shortness of breath as per the nurse he requiring 2 L of oxygen via nasal cannula. Patient is waiting for transfer to [place] rehab facility. Patient has a history of left BKA and right ankle reconstruction. Because of foot Charcot joint. No acute events in the last 24 hours. Afebrile. 02/10/20-patient is in mild shortness of breath at the time of examination. No acute events in the last 24 hours afebrile. Physical therapy notes is confusing. Requested nurse to talk to the case management for implants. in my Opinion patient is to go to a acute rehab facility. 02/11/2020-patient is comfortably sleeping in the bed on CPAP. Refusing to wake up. No acute events reported by the staff. 02/12/2020-patient is requesting for nystatin topical powder for possible yeast infection in the groin. He wants to talk to Dr. Pham tomorrow about right lower leg cast. Expressing desire to stay until Thursday and are planning to go home with home health. 02/13/2020-discussed the case with Dr. Pham this morning his recommendation is patient needs to see him in the office in 2 to 3 weeks for right lower leg cast. Wants to get a wheelchair, potty chair, homemade once he is discharged. He prefers to stay until tomorrow. He wants to talk to shelter case manager today to get all the supplies needed prior to discharge tomorrow. No acute events in the last 24 hours. Afebrile. Reason For Visit: FRACTURE OF DISTAL END OF TIBIA,FRACTURE OF LATERA Physical Exam Vital Signs: Temp Pulse Resp BP Pulse Ox 97.7 F 83 19 141/60 H 96 02/13/20 07:51 02/13/20 07:51 02/13/20 07:51 02/13/20 07:51 02/13/20 08:00 Intake & Output 02/12/20 02/13/20 02/14/20 06:59 06:59 06:59 Intake Total 2365 2357 Output Total 1775 850 Balance 590 1507 Weight 138.5 kg 149.4 kg General appearance: PRESENT: no acute distress, morbidly obese Head exam: PRESENT: atraumatic Eye exam: PRESENT: PERRLA Ear exam: PRESENT: normal external ear exam Mouth exam: PRESENT: neck supple Neck exam: ABSENT: carotid bruit, JVD, lymphadenopathy, thyromegaly Respiratory exam: PRESENT: decreased breath sounds Cardiovascular exam: PRESENT: RRR. ABSENT: diastolic murmur, rubs, systolic murmur GI/Abdominal exam: PRESENT: normal bowel sounds, soft. ABSENT: distended, guarding, mass, organolmegaly, rebound, tenderness Rectal exam: PRESENT: deferred Extremities exam: PRESENT: other - Right lower extremity in splint with Eddie wrap. Has a left BKA. Neurological exam: PRESENT: alert, awake, oriented to person, oriented to place, oriented to time, oriented to situation, CN II-XII grossly intact. ABSENT: motor sensory deficit Skin exam: PRESENT: dry, intact, warm. ABSENT: cyanosis, rash Results Laboratory Results: 02/09/20 14:16 02/09/20 14:16 Impressions: Tibia/Fibula X-Ray 02/01/20 00:00 IMPRESSION: Fractures with ORIF as described. External fixation device is present as well. Ankle X-Ray 02/02/20 00:00 IMPRESSION: ORIF right ankle. Refer to operative note for further information Fluoroscopy 02/02/20 00:00 IMPRESSION: ORIF right ankle. Refer to operative note for further information Assessment and Plan - Diagnosis (1) Fracture of distal end of tibia Qualifiers: Encounter type: sequela Fracture type: closed Fracture morphology: pilon Laterality: right Is this a current diagnosis for this admission?: Yes Plan: Status post removal of the external fixator. He is nonweightbearing on the right lower extremity until cleared to do so by surgery. He is medically cleared to return to [facility] for acute rehab but they gave away his rehab bed and so we will transfer him once a bed becomes available. 02/08/2020 External fixator removed from the right leg. Posterior splint with Eddie wrap. He is nonweightbearing on the right leg. Unfortunately [facility] did not hold his bed for 48 hours and he is now awaiting to go back to acute rehab. 02/09/2020-right lower leg with a splint. External fixator is removed. Splint with Eddie wrap. He is need to be nonweightbearing on the right leg. For rehab placement at [facility] 02/10/2020-right lower leg with a splint. Patient is advised about her nonweightbearing of the right leg. Plan is for a transfer to rehab inpatient in [place] when the bed is available. 02/11/2020-patient with right lower leg splint with Eddie wrap. He is nonweightbearing on the right lower extremity. Plan is to transfer him to acute rehab facility in [place] when a bed is available. 02/12/20-patient is nonweightbearing on the right lower extremity. Has a splint with Eddie wrap. Requesting to talk to Dr. Pham about getting a walking cast tomorrow. 02/13/2020-Case was discussed with Dr. Pham and his recommendation is patient is to follow-up with him in the office in 2 to 3 weeks for cast placement. (2) Fracture of lateral malleolus Qualifiers: Encounter type: sequela Fracture type: closed Laterality: right Is this a current diagnosis for this admission?: Yes Plan: As previously noted February 08, 2020 As above (3) Obesity hypoventilation syndrome Is this a current diagnosis for this admission?: No Plan: He is chronically been on oxygen now, saturations are good on 3 L. He needs BiPAP whenever he sleeps but does not always want to wear it and requires a lot of encouragement to keep his BiPAP on. February 08, 2020 Just as with his previous admission the patient is not very compliant with his CPAP. We will order oxygen. Because of his obesity hypoventilation and obstructive sleep apnea he is prone to hypercapnia. Continue to educate regarding CPAP. 02/09/2020-respiratory therapist called me to notify that patient is refusing to wear the CPAP at night. Requesting to remove it from the his room. 02/10/2020-patient has obesity associated hypoventilation syndrome. Patient is using CPAP during sleep. 02/11/2020-pulse ox today's 97% on room air. Sleeping with a CPAP. 03/03/20-pulse ox today is 96% on 3 L. Uses CPAP during sleep. (4) Obstructive sleep apnea Is this a current diagnosis for this admission?: No Plan: CPAP nightly February 08, 2020 The patient should be wearing CPAP all night and anytime he sleeps during the day. (5) Hypertension Qualifiers: Hypertension type: essential hypertension Qualified Code(s): I10 - Essential (primary) hypertension Is this a current diagnosis for this admission?: No Plan: Adequate control at present. Continue home regimen of Amlodipine, hydralazine, and metoprolol. Cardiac diet. February 08, 2020 Blood pressures are still quite variable. I believe this is multifactorial. We will continue current regimen continue to monitor patient with serial vital signs. 02/09/2020-blood pressure today is 130/60. Stable. Plan is to continue amlodipine, hydralazine, metoprolol at this time. 02/10/2020-blood pressure is stable. He is to continue amlodipine, hydralazine, metoprolol. 02/11/2020-blood pressure today is 113/70. Stable. 02/12/2020-blood pressure today is 157/68. Slightly elevated. Plan is to closely monitor the blood pressures if needed to adjust her medications. 02/13/2020-blood pressure today is 128/52. Stable. Plan is to continue amlodipine, hydralazine, metoprolol at this time. Patient is also on a Lasix 40 mg daily. (6) Charcot foot due to diabetes mellitus Is this a current diagnosis for this admission?: No Plan: Right foot 02/08/2020 The patient had bilateral Charcot feet. The left foot became abscessed and in fact led to the left below-knee amputation. Patient still has Charcot foot on the right. His course was recently complicated by a complex fracture in the right ankle/distal right leg. Continue to try to manage his diabetes aggressively but the patient is poorly compliant. 02/09/2020-patient has Charcot joint of the right ankle. Presently with a splint with Eddie wrap. External fixator is removed. 02/12/2020-external fixator is removed patient is presently with a splint with Eddie wrap. Requesting to talk to Dr. Pham tomorrow about getting a cast. Patient agreed to go home with home health on Thursday. 02/13/2020-patient has a right lower extremity Charcot joint secondary to diabetes mellitus. External fixator was removed. Patient presently with a splint and Eddie wrap. Recommendation is nonweightbearing on the right lower extremity. Discussed the plan with Dr. Pham he plans to see the patient in the office to 3 weeks time to arrange for a splint. (7) Hyperglycemia due to type 1 diabetes mellitus Is this a current diagnosis for this admission?: Yes Plan: February 08, 2020 Continue cardiac/controlled carbohydrate diet. Accu-Cheks and sliding scale coverage as well is Lantus, before meal Humalog dosing as well as sliding scale. 02/09/2020-patient has history of uncontrolled diabetes mellitus type 1. Noncompliant with diet. Latest blood sugar is 225. Presently on insulin sliding scale and Lantus, mealtime lispro. Diet exercise weight loss lifestyle modifications discussed with the patient. 02/10/2020-patient latest blood sugars are relatively stable. Latest blood sugar is 261. Needs to increase the Lantus to 65 units twice a day. He is also on lispro mealtime insulin 16 units prior to meals. He is also on insulin sliding scale. (8) Morbid obesity with BMI of 40.0-44.9, adult Is this a current diagnosis for this admission?: No Plan: Strongly urged lifestyle modification with dietary modifications 02/08/2020 Significant risk addition to previous multiple comorbidities. At this point aggressive diet management will be the most likely way to lose weight. (9) Phantom pain after amputation of lower extremity Is this a current diagnosis for this admission?: No Plan: 02/08/2020 Continue gabapentin. Adjust based on clinical effectiveness and patient response.
[2020-02-13] MEDS: TRIAMCINOLONE ACETONIDE 0.1% CREAM 15 GM TOP SCH ×2 (11:27→17:30)
[2020-02-13] MEDS: AMLODIPINE BESYLATE 10 MG TABLET PO SCH (11:27)
[2020-02-13] MEDS: DULOXETINE HCL 30 MG CAPSULE.DR PO SCH (11:27)
[2020-02-13] MEDS: METOPROLOL TARTRATE 100 MG TABLET PO SCH ×2 (11:28→22:35)
[2020-02-13] MEDS: ASPIRIN 81 MG TABLET, ENT COATED PO SCH (11:28)
[2020-02-13] MEDS: NORMAL SALINE INJ/PF 0.9% 10 ML SDV IV SCH ×2 (11:28→22:32)
[2020-02-13] MEDS: FAMOTIDINE 20 MG TABLET PO SCH ×2 (11:28→22:29)
[2020-02-13] MEDS: FUROSEMIDE 40 MG TABLET PO SCH (11:28)
[2020-02-13] MEDS: NYSTATIN CREAM 15 GM TP SCH ×2 (11:29→17:33)
[2020-02-13] MEDS: INSULIN GLARGINE,HUM.REC.ANLOG 1,000 UNIT/10 ML VIAL SUBCUT SCH ×2 (11:30→22:35)
[2020-02-13] MEDS: DOCUSATE SODIUM 100 MG CAPSULE PO SCH ×2 (11:32→17:31)
[2020-02-13] MEDS: FLUTICASONE NASAL SPRAY 50 MCG/SPRY 120 SPRAY/16 GM NASL SCH ×2 (11:32→22:29)
[2020-02-13] MEDS: TAMSULOSIN HCL 0.4 MG CAP.SR.24H PO SCH (22:29)
[2020-02-13] MEDS: ATORVASTATIN CALCIUM 40 MG TABLET PO SCH (22:29)
[2020-02-14] MEDS: HEPARIN SOD (PORCINE) 5,000 UNIT/ML 1 ML VIAL SUBCUT SCH ×3 (05:51→22:21)
[2020-02-14] MEDS: HYDRALAZINE HCL 50 MG TABLET PO SCH ×3 (05:52→22:19)
[2020-02-14] MEDS: GABAPENTIN 300 MG CAPSULE PO SCH ×3 (05:52→22:19)
[2020-02-14] MEDS: INSULIN LISPRO 100 UNIT/ML 3 ML VIAL SUBCUT SCH ×7 (09:23→22:21)
[2020-02-14] MEDS: TRIAMCINOLONE ACETONIDE 0.1% CREAM 15 GM TOP SCH ×2 (09:24→17:31)
[2020-02-14] MEDS: DOCUSATE SODIUM 100 MG CAPSULE PO SCH ×2 (09:26→17:36)
[2020-02-14] MEDS: METOPROLOL TARTRATE 100 MG TABLET PO SCH ×2 (09:36→22:18)
[2020-02-14] MEDS: FUROSEMIDE 40 MG TABLET PO SCH ×2 (09:36→19:57)
[2020-02-14] MEDS: DULOXETINE HCL 30 MG CAPSULE.DR PO SCH (09:36)
[2020-02-14] MEDS: ASPIRIN 81 MG TABLET, ENT COATED PO SCH (09:37)
[2020-02-14] MEDS: AMLODIPINE BESYLATE 10 MG TABLET PO SCH (09:37)
[2020-02-14] MEDS: FAMOTIDINE 20 MG TABLET PO SCH ×2 (09:37→22:18)
[2020-02-14] MEDS: FERROUS SULFATE 325 MG TABLET PO SCH ×3 (09:38→17:36)
[2020-02-14] MEDS: NYSTATIN CREAM 15 GM TP SCH ×2 (09:38→17:36)
[2020-02-14] MEDS: FLUTICASONE NASAL SPRAY 50 MCG/SPRY 120 SPRAY/16 GM NASL SCH ×2 (09:38→22:17)
[2020-02-14] MEDS: NORMAL SALINE INJ/PF 0.9% 10 ML SDV IV SCH ×2 (09:38→22:20)
--- NOTE | 2020-02-14 10:26 | PDOC DISCHARGE SUMMARY ---
Impression - Admit/DC Date/PCP Admission Date/Primary Care Provider: 02/01/20 15:13 RADHA VELEZ DPM Discharge Date: 02/14/20 - Discharge Diagnosis (1) Fracture of distal end of tibia Is this a current diagnosis for this admission?: Yes (2) Fracture of lateral malleolus Is this a current diagnosis for this admission?: Yes (3) Obesity hypoventilation syndrome Is this a current diagnosis for this admission?: No (4) Obstructive sleep apnea Is this a current diagnosis for this admission?: No (5) Hypertension Is this a current diagnosis for this admission?: No (6) Charcot foot due to diabetes mellitus Is this a current diagnosis for this admission?: No (7) Hyperglycemia due to type 1 diabetes mellitus Is this a current diagnosis for this admission?: Yes (8) Morbid obesity with BMI of 40.0-44.9, adult Is this a current diagnosis for this admission?: No (9) Phantom pain after amputation of lower extremity Is this a current diagnosis for this admission?: No - Assessment Summary: (1) Fracture of distal end of tibia Qualifiers: Encounter type: sequela Fracture type: closed Fracture morphology: pilon Laterality: right Is this a current diagnosis for this admission?: Yes Plan: Status post removal of the external fixator. He is nonweightbearing on the right lower extremity until cleared to do so by surgery. He is medically cleared to return to [facility] for acute rehab but they gave away his rehab bed and so we will transfer him once a bed becomes available. 02/08/2020 External fixator removed from the right leg. Posterior splint with Eddie wrap. He is nonweightbearing on the right leg. Unfortunately [facility] did not hold his bed for 48 hours and he is now awaiting to go back to acute rehab. 02/09/2020-right lower leg with a splint. External fixator is removed. Splint with Eddie wrap. He is need to be nonweightbearing on the right leg. For rehab placement at [facility] 02/10/2020-right lower leg with a splint. Patient is advised about her nonweightbearing of the right leg. Plan is for a transfer to rehab inpatient in [place] when the bed is available. 02/11/2020-patient with right lower leg splint with Eddie wrap. He is nonweightbearing on the right lower extremity. Plan is to transfer him to acute rehab facility in [place] when a bed is available. 02/12/20-patient is nonweightbearing on the right lower extremity. Has a splint with Eddie wrap. Requesting to talk to Dr. Pham about getting a walking cast tomorrow. 02/13/2020-Case was discussed with Dr. Pham and his recommendation is patient is to follow-up with him in the office in 2 to 3 weeks for cast placement. 02/14/2020 patient admitted with fracture of the distal tibia removal of the external fixator patient is on splint with Eddie wrap discussed the case with Dr. Pham is going to see the patient is not in his office and arrange for a cast. (2) Fracture of lateral malleolus Qualifiers: Encounter type: sequela Fracture type: closed Laterality: right Is this a current diagnosis for this admission?: Yes Plan: As previously noted February 08, 2020 As above (3) Obesity hypoventilation syndrome Is this a current diagnosis for this admission?: No Plan: He is chronically been on oxygen now, saturations are good on 3 L. He needs BiPAP whenever he sleeps but does not always want to wear it and requires a lot of encouragement to keep his BiPAP on. February 08, 2020 Just as with his previous admission the patient is not very compliant with his CPAP. We will order oxygen. Because of his obesity hypoventilation and obstructive sleep apnea he is prone to hypercapnia. Continue to educate regarding CPAP. 02/09/2020-respiratory therapist called me to notify that patient is refusing to wear the CPAP at night. Requesting to remove it from the his room. 02/10/2020-patient has obesity associated hypoventilation syndrome. Patient is using CPAP during sleep. 02/11/2020-pulse ox today's 97% on room air. Sleeping with a CPAP. 02/12/20-pulse ox today is 96% on 3 L. Uses CPAP during sleep. 02/14/2020-patient's pulse ox is 90 on 2 L. To check for home oxygen requirements. Patient is advised to continue to use CPAP at home. (4) Obstructive sleep apnea Is this a current diagnosis for this admission?: No Plan: CPAP nightly February 08, 2020 The patient should be wearing CPAP all night and anytime he sleeps during the day. (5) Hypertension Qualifiers: Hypertension type: essential hypertension Qualified Code(s): I10 - Essential (primary) hypertension Is this a current diagnosis for this admission?: No Plan: Adequate control at present. Continue home regimen of Amlodipine, hydralazine, and metoprolol. Cardiac diet. February 08, 2020 Blood pressures are still quite variable. I believe this is multifactorial. We will continue current regimen continue to monitor patient with serial vital signs. 02/09/2020-blood pressure today is 130/60. Stable. Plan is to continue amlodipine, hydralazine, metoprolol at this time. 02/10/2020-blood pressure is stable. He is to continue amlodipine, hydralazine, metoprolol. 02/11/2020-blood pressure today is 113/70. Stable. 02/12/2020-blood pressure today is 157/68. Slightly elevated. Plan is to closely monitor the blood pressures if needed to adjust her medications. 02/13/2020-blood pressure today is 128/52. Stable. Plan is to continue amlodipine, hydralazine, metoprolol at this time. Patient is also on a Lasix 40 mg daily. 02/14/2020-blood pressure today is 134/66. Stable. Plan is to continue the present management. (6) Charcot foot due to diabetes mellitus Is this a current diagnosis for this admission?: No Plan: Right foot 02/08/2020 The patient had bilateral Charcot feet. The left foot became abscessed and in fact led to the left below-knee amputation. Patient still has Charcot foot on the right. His course was recently complicated by a complex fracture in the right ankle/distal right leg. Continue to try to manage his diabetes aggressively but the patient is poorly compliant. 02/09/2020-patient has Charcot joint of the right ankle. Presently with a splint with Eddie wrap. External fixator is removed. 02/12/2020-external fixator is removed patient is presently with a splint with Eddie wrap. Requesting to talk to Dr. Pham tomorrow about getting a cast. Patient agreed to go home with home health on Thursday. 02/13/2020-patient has a right lower extremity Charcot joint secondary to diabetes mellitus. External fixator was removed. Patient presently with a splint and Eddie wrap. Recommendation is nonweightbearing on the right lower extremity. Discussed the plan with Dr. Pham he plans to see the patient in the office to 3 weeks time to arrange for a splint. (7) Hyperglycemia due to type 1 diabetes mellitus Is this a current diagnosis for this admission?: Yes Plan: February 08, 2020 Continue cardiac/controlled carbohydrate diet. Accu-Cheks and sliding scale coverage as well is Lantus, before meal Humalog dosing as well as sliding scale. 02/09/2020-patient has history of uncontrolled diabetes mellitus type 1. Noncompliant with diet. Latest blood sugar is 225. Presently on insulin sliding scale and Lantus, mealtime lispro. Diet exercise weight loss lifestyle modifications discussed with the patient. 02/10/2020-patient latest blood sugars are relatively stable. Latest blood sugar is 261. Needs to increase the Lantus to 65 units twice a day. He is also on lispro mealtime insulin 16 units prior to meals. He is also on insulin sliding scale. (8) Morbid obesity with BMI of 40.0-44.9, adult Is this a current diagnosis for this admission?: No Plan: Strongly urged lifestyle modification with dietary modifications 02/08/2020 Significant risk addition to previous multiple comorbidities. At this point aggressive diet management will be the most likely way to lose weight. (9) Phantom pain after amputation of lower extremity Is this a current diagnosis for this admission?: No Plan: 02/08/2020 Continue gabapentin. Adjust based on clinical effectiveness and patient response. - Additional Information Resuscitation Status: Full Code Discharge Activity: Activity As Tolerated Referrals: DANISH PHAM MD [ACTIVE PROVISIONAL STAFF] - 02/22/20 10:45 am Prescriptions: Tamsulosin HCl [Flomax 0.4 mg Cap.sr] 0.4 mg PO QHS 30 Days #30 cap.sr.24h Furosemide [Lasix 40 mg Tablet] 40 mg PO DAILY 30 Days #30 tablet Home Medications: Aspirin [Adult Low Dose Aspirin EC] 81 mg PO DAILY 08/11/19 Duloxetine HCl [Cymbalta] 60 mg PO DAILY 08/11/19 Metoprolol Tartrate [Lopressor 100 mg Tablet] 100 mg PO Q12 08/11/19 Insulin Aspart [Novolog Flexpen] 16 unit SUBCUT AC 08/12/19 Atorvastatin Calcium [Lipitor 40 mg Tablet] 40 mg PO QHS tablet 08/13/19 Famotidine [Pepcid 20 mg Tablet] 20 mg PO DAILY 12/21/19 Gabapentin [Neurontin 300 mg Capsule] 300 mg PO Q8 12/21/19 Hydralazine HCl [Apresoline 50 mg Tablet] 50 mg PO Q8 12/21/19 Amlodipine Besylate [Norvasc 5 mg Tablet] 10 mg PO DAILY tablet 01/04/20 Docusate Sodium [Colace 100 mg Capsule] 100 mg PO BID capsule 01/04/20 Ferrous Sulfate [Feosol 325 mg Tablet] 325 mg PO MEALS tablet 01/04/20 Fluticasone Propionate [Flonase Nasal Childwold 50 Mcg/Childwold 16 gm] 2 spray NASL Q12 spray.pump 01/04/20 Insulin Glargine,Hum.rec.anlog [Lantus Insulin 100 Unit/1 ml 10 ml] 60 unit SUBCUT Q12 unit 01/04/20 Insulin Lispro [Humalog Insulin (Lispro) 100 unit/mL] 0 - 12 unit SUBCUT ACHS unit 01/04/20 Oxycodone HCl [Oxy-Ir 5 mg Tablet] 5 mg PO Q4HP PRN tablet 01/04/20 Scopolamine 1 each TD Q3D 02/01/20 Furosemide [Lasix 40 mg Tablet] 40 mg PO DAILY 30 Days #30 tablet 02/14/20 Tamsulosin HCl [Flomax 0.4 mg Cap.sr] 0.4 mg PO QHS 30 Days #30 cap.sr.24h 02/14/20 History of Present Illiness History of Present Illness: PEE DOUGHERTY is a 40 year old male 39 year old male with a past medical hisotry significant for HTN, HLD, PVD, Ischemic CVA, Migraines, IDDM, depression and obesity who was discharged from [facility] to [facility] on 01/04/20 after admission for 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 The patient was transferred from [facility] to [facility] inpatient acute rehab for failure to progress; increased intensive therapy services. Spoke with Dr. Swain at [facility] was requesting transfer to [facility] for follow-up with Dr. Pham due to report of external fixation malfunction. Recently, patient did have a mild AK I requiring temporary hold of Lasix followed by increased peripheral edema. Lasix was resumed yesterday. Otherwise, he has had no new acute issues. Dr. Swain has agreed to accept the patient back to [facility] Acute Rehab upon ortho evaluation and clearance. Patient is seen shortly upon arrival. He is found to be on supplemental oxygen by nasal cannula at 4 L/min. He tells me that he was recently started on oxygen due to development of atelectasis. He denies dyspnea or cough. He asks for incentive spirometer to bedside. Patient asks when to expect to see Dr. Pham and is hopeful to return to [facility] immediately upon completion of orthopedic repair to resume rehab. He has no other questions or concerns. Denies fever, chills, chest pain, palpitations, dyspnea, orthopnea, cough, abdominal pain, nausea vomiting diarrhea. Dr. Pham has been consulted and notified of patient's arrival. 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 The patient was transferred from [facility] to [facility] inpatient acute rehab for failure to progress; increased intensive therapy services. Spoke with Dr. Swain at [facility] was requesting transfer to [facility] for follow-up with Dr. Pham due to report of external fixation malfunction. Recently, patient did have a mild AK I requiring temporary hold of Lasix followed by increased peripheral edema. Lasix was resumed yesterday. Otherwise, he has had no new acute issues. Dr. Swain has agreed to accept the patient back to [facility] Acute Rehab upon ortho evaluation and clearance. Patient is seen shortly upon arrival. He is found to be on supplemental oxygen by nasal cannula at 4 L/min. He tells me that he was recently started on oxygen due to development of atelectasis. He denies dyspnea or cough. He asks for incentive spirometer to bedside. Patient asks when to expect to see Dr. Pham and is hopeful to return to [facility] immediately upon completion of orthopedic repair to resume rehab. He has no other questions or concerns. Denies fever, chills, chest pain, palpitations, dyspnea, orthopnea, cough, abdominal pain, nausea vomiting diarrhea. Dr. Pham has been consulted and notified of patient's arrival. 02/01-No adverse events overnight. No new complaints. Vital signs been stable. His biggest concern is that the surgery is later in the day and he is not been allowed to eat. 02/02-No adverse events overnight. He had his external fixator removed yesterday. His blood sugars were elevated so we made sure that his Lantus was resumed. He was ready to go back to [facility] today but they gave away his bed in acute rehab and so now we're having to start the process over. 02/04/20-No adverse events overnight. No new complaints. He had some nausea this morning but that is since resolved. He has no pain, but he does not really have good sensation in his leg anyway. 02/05/20-No adverse events overnight. No new complaints. He requires a lot of encouragement to wear his BiPAP. His blood sugars were pretty well controlled this morning so we did not give him Lantus. 02/05-No adverse events overnight. He is having trouble urinating again. He says it is "stage fright." This happened the last time he was in the hospital here. He wanted to have a Blackmon catheter put in. He was not wanting to put the BiPAP on this morning but eventually agreed and was able to sleep fairly well with it on. 02/06-No adverse events overnight. No new complaints. Vital signs been stable. Eating and drinking without difficulty. He said he has been compliant with his nonweightbearing status. 02/07-The patient is awake and alert during this encounter. He appears to be resting comfortably. Posterior splint on the right leg. He does not appear to be in any discomfort or having any difficulty breathing. 02/09/2020-patient is in mild shortness of breath as per the nurse he requiring 2 L of oxygen via nasal cannula. Patient is [facility]. Patient has a history of left BKA and right ankle reconstruction. Because of foot Charcot joint. No acute events in the last 24 hours. Afebrile. 02/10/20-patient is in mild shortness of breath at the time of examination. No acute events in the last 24 hours afebrile. Physical therapy notes is confusing. Requested nurse to talk to the case management for implants. in my Opinion patient is to go to a acute rehab facility. 02/11/2020-patient is comfortably sleeping in the bed on CPAP. Refusing to wake up. No acute events reported by the staff. 02/12/2020-patient is requesting for nystatin topical powder for possible yeast infection in the groin. He wants to talk to Dr. Pham tomorrow about right lower leg cast. Expressing desire to stay until Thursday and are planning to go home with home health. 02/13/2020-discussed the case with Dr. Pham this morning his recommendation is patient needs to see him in the office in 2 to 3 weeks for right lower leg cast. Wants to get a wheelchair, potty chair, homemade once he is discharged. He prefers to stay until tomorrow. He wants to talk to case assistant today to get all the supplies needed prior to discharge tomorrow. No acute events in the last 24 hours. Afebrile. 02/14/2020-no acute events in the last 24 hours. Patient's condition is stable. We will check a home oxygen requirements on room air. Patient need manual whe elchair with removable side railings, potty chair. Patient is also need physical therapy at home and home health services. Physical Exam Vital Signs: Temp Pulse Resp BP Pulse Ox 97.5 F 81 20 142/65 H 92 02/14/20 07:18 02/14/20 07:18 02/14/20 07:18 02/14/20 07:18 02/14/20 07:18 Intake & Output 02/13/20 02/14/20 02/15/20 06:59 06:59 06:59 Intake Total 2357 1880 Output Total 850 150 Balance 1507 1730 Weight 149.4 kg 141 kg General appearance: PRESENT: no acute distress, well-developed Head exam: PRESENT: atraumatic Eye exam: PRESENT: PERRLA Mouth exam: PRESENT: moist, tongue midline Teeth exam: PRESENT: poor dentation Neck exam: ABSENT: carotid bruit, JVD, lymphadenopathy, thyromegaly Respiratory exam: PRESENT: decreased breath sounds Cardiovascular exam: PRESENT: RRR. ABSENT: diastolic murmur, rubs, systolic murmur GI/Abdominal exam: PRESENT: normal bowel sounds, soft. ABSENT: distended, guarding, mass, organolmegaly, rebound, tenderness Rectal exam: PRESENT: deferred Extremities exam: PRESENT: other - Patient has a left BKA, and right lower extremity with a splint and Eddie wrap. Neurological exam: PRESENT: alert Psychiatric exam: PRESENT: appropriate affect, normal mood. ABSENT: homicidal ideation, suicidal ideation Results Laboratory Results: WBC 9.8 10^3/uL (4.0-10.5) 02/09/20 14:16 RBC 2.70 10^6/uL (4.35-5.55) L 02/09/20 14:16 Hgb 7.8 g/dL (13.5-17.0) L 02/09/20 14:16 Hct 23.1 % (37.9-51.0) L 02/09/20 14:16 MCV 86 fl (80-97) 02/09/20 14:16 MCH 28.8 pg (27.0-33.4) 02/09/20 14:16 MCHC 33.7 g/dL (32.0-36.0) 02/09/20 14:16 RDW 16.6 % (11.5-14.0) H 02/09/20 14:16 Plt Count 346 10^3/uL (150-450) 02/09/20 14:16 Lymph % (Auto) 8.7 % (13-45) L 02/09/20 14:16 [place] % (Auto) 5.3 % (3-13) 02/09/20 14:16 Eos % (Auto) 3.3 % (0-6) 02/09/20 14:16 Baso % (Auto) 0.6 % (0-2) 02/09/20 14:16 Reticulocyte # 0.138 10^6/uL (0.028-0.122) H 02/01/20 17:55 Absolute Neuts (auto) 8.1 10^3/uL (1.7-8.2) 02/09/20 14:16 Absolute Lymphs (auto) 0.9 10^3/uL (0.5-4.7) 02/09/20 14:16 Absolute Monos (auto) 0.5 10^3/uL (0.1-1.4) 02/09/20 14:16 Absolute Eos (auto) 0.3 10^3/uL (0.0-0.6) 02/09/20 14:16 Absolute Basos (auto) 0.1 10^3/uL (0.0-0.2) 02/09/20 14:16 Seg Neutrophils % 82.1 % (42-78) H 02/09/20 14:16 Retic Count (auto) 5.22 % (0.66-2.85) H 02/01/20 17:55 PT 13.0 SEC (11.4-15.4) 02/01/20 16:56 INR 0.98 02/01/20 16:56 Carbonic Acid 1.20 mmol/L (1.05-1.35) 02/06/20 08:58 HCO3/H2CO3 Ratio 18:1 02/06/20 08:58 ABG pH 7.37 (7.35-7.45) 02/06/20 08:58 ABG pCO2 39.8 mmHg (35-45) 02/06/20 08:58 ABG pO2 95.6 mmHg (80-100) 02/06/20 08:58 ABG HCO3 22.3 mmol/L (20-24) 02/06/20 08:58 ABG Total CO2 23.5 mmol/L (23-27) 02/06/20 08:58 ABG O2 Saturation 97.1 % (94-98) 02/06/20 08:58 ABG Base Excess -2.8 mmol/L 02/06/20 08:58 FiO2 40% 02/06/20 08:58 Sodium 137.4 mmol/L (137-145) 02/09/20 14:16 Potassium 4.3 mmol/L (3.6-5.0) 02/09/20 14:16 Chloride 103 mmol/L (98-107) 02/09/20 14:16 Carbon Dioxide 26 mmol/L (22-30) 02/09/20 14:16 Anion Gap 8 (5-19) 02/09/20 14:16 BUN 25 mg/dL (7-20) H 02/09/20 14:16 Creatinine 1.35 mg/dL (0.52-1.25) H 02/09/20 14:16 Est GFR ( Amer) > 60 (>60) 02/09/20 14:16 Est GFR (MDRD) Non-Af 59 (>60) L 02/09/20 14:16 Glucose 187 mg/dL (75-110) H 02/09/20 14:16 POC Glucose 76 mg/dL (70-110) 02/14/20 06:16 Calcium 9.5 mg/dL (8.4-10.2) 02/09/20 14:16 Phosphorus 4.4 mg/dL (2.5-4.5) 02/09/20 14:16 Magnesium 1.8 mg/dL (1.6-2.3) 02/08/20 22:23 Iron 35.6 ug/dL (49-181) L 02/01/20 17:55 TIBC 281 ug/dL (250-450) 02/01/20 17:55 % Saturation 13 % 02/01/20 17:55 Transferrin 188.40 mg/dL (206.00-381.00) L 02/01/20 17:55 Ferritin 154.00 ng/mL (17.9-464.0) 02/01/20 17:55 Albumin 3.6 g/dL (3.5-5.0) 02/09/20 14:16 Vitamin B12 394.0 pg/mL (239-931) 02/01/20 17:55 Folate 17.20 ng/mL (>2.76) 02/01/20 17:55 SARS-CoV-2 (PCR) NEGATIVE (NEGATIVE) 02/02/20 06:40 Blood Type O POSITIVE 02/01/20 17:55 Antibody Screen NEGATIVE 02/01/20 17:55 Crossmatch See Detail 02/01/20 17:55 Impressions: Tibia/Fibula X-Ray 02/01/20 00:00 IMPRESSION: Fractures with ORIF as described. External fixation device is present as well. Ankle X-Ray 02/02/20 00:00 IMPRESSION: ORIF right ankle. Refer to operative note for further information Fluoroscopy 02/02/20 00:00 IMPRESSION: ORIF right ankle. Refer to operative note for further information Plan Plan of Treatment: Patient is going home and is going to get home health, home PT and patient need a manual wheelchair, potty chair with checking for home oxygen requirements. Time Spent: Greater than 30 Minutes Stroke Is this a Stroke Patient?: No Acute Heart Failure - Is this a Heart Failure Patient?: No
[2020-02-14] MEDS: INSULIN GLARGINE,HUM.REC.ANLOG 1,000 UNIT/10 ML VIAL SUBCUT SCH ×2 (13:16→22:19)
--- NOTE | 2020-02-14 15:09 | RADIOLOGY REPORT (SQ) ---
EXAM DESCRIPTION: CT CHEST WITHOUT IMAGES COMPLETED DATE/TIME: 02/14/2020 12:44 pm REASON FOR STUDY: asp pneumonia D68.9 COAGULATION DEFECT, UNSPECIFIED D50.8 OTHER IRON DEFICIENCY ANEMIAS D64.9 ANEMIA, UNSPECIFIED COMPARISON: CT chest 11/23/2018, 09/03/2015 AP chest 12/31/2019 TECHNIQUE: CT scan performed of the chest without intravenous contrast. Images reviewed with lung, soft tissue and bone windows. Reconstructed coronal and sagittal MPR images reviewed. All images st ored on PACS. All CT scanners at this facility use dose modulation, iterative reconstruction, and/or weight based d osing when appropriate to reduce radiation dose to as low as reasonably achievable (ALARA). [facility]: Dose Right [facility]: CareDose [facility]: Dose Right [facility]: Teradose 4D [facility]: [employer] RADIATION DOSE: CT Rad equipment meets quality standard of care and radiation dose reduction techniq ues were employed. CTDIvol: 19.6 mGy. DLP: 791 mGy-cm. mGy. LIMITATIONS: No technical limitations. FINDINGS: LUNGS AND PLEURA: There is diffuse bilateral alveolar and interstitial edema from fluid ov erload or congestive failure. Moderate freely layering bilateral pleural effusions are present. No pneumothorax. HILAR AND MEDIASTINAL STRUCTURES: Extensive mediastinal adenopathy is present. Index lesions are as follows: Right paratracheal 3 x 1.2 cm lymph node axial image 19 Prevascular 1.9 x 1.5 cm node axial image 19 Moderate size retrocardiac hiatal hernia HEART AND VASCULAR STRUCTURES: Moderate cardiomegaly. No pericardial effusion. No thoracic aortic a neurysm UPPER ABDOMEN: No significant findings. Limited exam. THYROID AND OTHER SOFT TISSUES: No masses. No adenopathy. BONES: No significant finding. HARDWARE: None in the chest. OTHER: No other significant findings. IMPRESSION: Fluid overload or congestive failure with alveolar and interstitial edema, moderate bila teral pleural effusions TECHNICAL DOCUMENTATION: JOB ID: [id number] Quality ID # [id number]: Final reports with documentation of one or more dose reduction techniques (e.g., Au tomated exposure control, adjustment of the mA and/or kV according to patient size, use of iterative reconstruction technique) 2010 [employer]- All Rights Reserved Reading location - IP/workstation name: [email or web address]
[2020-02-14] MEDS: ATORVASTATIN CALCIUM 40 MG TABLET PO SCH (22:18)
[2020-02-14] MEDS: TAMSULOSIN HCL 0.4 MG CAP.SR.24H PO SCH (22:18)
[2020-02-15] MEDS: HEPARIN SOD (PORCINE) 5,000 UNIT/ML 1 ML VIAL SUBCUT SCH ×3 (06:43→22:30)
[2020-02-15] MEDS: HYDRALAZINE HCL 50 MG TABLET PO SCH ×3 (06:44→22:28)
[2020-02-15] MEDS: GABAPENTIN 300 MG CAPSULE PO SCH ×3 (06:44→22:28)
[2020-02-15] MEDS: INSULIN LISPRO 100 UNIT/ML 3 ML VIAL SUBCUT SCH ×7 (07:34→22:28)
[2020-02-15] MEDS ORDERED: MULTIVITAMINS W-IRON TABLET, CHEWABLE PO SCH (10:00)
[2020-02-15] MEDS: AMLODIPINE BESYLATE 10 MG TABLET PO SCH (10:11)
[2020-02-15] MEDS: FAMOTIDINE 20 MG TABLET PO SCH ×2 (10:11→22:28)
[2020-02-15] MEDS: METOPROLOL TARTRATE 100 MG TABLET PO SCH ×2 (10:11→22:27)
[2020-02-15] MEDS: FUROSEMIDE 40 MG TABLET PO SCH ×2 (10:11→17:05)
[2020-02-15] MEDS: DOCUSATE SODIUM 100 MG CAPSULE PO SCH ×2 (10:11→17:05)
[2020-02-15] MEDS: ASPIRIN 81 MG TABLET, ENT COATED PO SCH (10:11)
[2020-02-15] MEDS: FERROUS SULFATE 325 MG TABLET PO SCH ×3 (10:11→16:19)
[2020-02-15] MEDS: VITAMIN B COMPLEX TABLET PO SCH (10:11)
[2020-02-15] MEDS: DULOXETINE HCL 30 MG CAPSULE.DR PO SCH (10:11)
[2020-02-15] MEDS ORDERED: TAMSULOSIN HCL 0.4 MG CAP.SR.24H PO ONE (10:12)
[2020-02-15] MEDS ORDERED: NORMAL SALINE 250 ML IV PRN ×2 (10:13)
[2020-02-15] MEDS: FLUTICASONE NASAL SPRAY 50 MCG/SPRY 120 SPRAY/16 GM NASL SCH ×2 (10:14→22:30)
[2020-02-15] MEDS: NORMAL SALINE INJ/PF 0.9% 10 ML SDV IV SCH ×2 (10:15→22:31)
[2020-02-15] MEDS: INSULIN GLARGINE,HUM.REC.ANLOG 1,000 UNIT/10 ML VIAL SUBCUT SCH ×2 (10:17→22:28)
[2020-02-15] MEDS: NYSTATIN CREAM 15 GM TP SCH ×2 (10:19→17:06)
[2020-02-15] MEDS: TRIAMCINOLONE ACETONIDE 0.1% CREAM 15 GM TOP SCH ×2 (10:21→17:01)
--- NOTE | 2020-02-15 10:25 | PDOC PROGRESS REPORT ---
Subjective Progress Note for:: 02/15/20 Subjective:: Lengthy discussion about Blackmon catheter. Patient reports some discomfort at the external urethral meatus. He feels that if he was given a longer amount of time he would have started to urinate normally. Hemoglobin has also dropped to 7.8 today. Reason For Visit: FRACTURE OF DISTAL END OF TIBIA,FRACTURE OF LATERAL Malleolus Anemia Urinary retention Physical Exam Vital Signs: Temp Pulse Resp BP Pulse Ox 98.2 F 73 16 147/65 H 99 02/15/20 07:49 02/15/20 07:49 02/15/20 07:49 02/15/20 07:49 02/15/20 07:49 Intake & Output 02/14/20 02/15/20 02/16/20 06:59 06:59 06:59 Intake Total 1880 1680 240 Output Total 150 2900 Balance 1730 -1220 240 Weight 141 kg 141 kg General appearance: PRESENT: mild distress, morbidly obese Head exam: PRESENT: atraumatic, normocephalic Eye exam: PRESENT: conjunctiva pale. ABSENT: scleral icterus Ear exam: PRESENT: normal external ear exam. ABSENT: bleeding, drainage Mouth exam: PRESENT: moist, tongue midline Teeth exam: ABSENT: poor dentation Respiratory exam: PRESENT: clear to auscultation aleja, unlabored. ABSENT: rales, rhonchi, wheezes Cardiovascular exam: PRESENT: RRR, +S1, +S2. ABSENT: diastolic murmur, irregular rhythm, systolic murmur GI/Abdominal exam: PRESENT: normal bowel sounds, soft, other - Pendulous abdomen. ABSENT: guarding, tenderness Rectal exam: PRESENT: deferred Gentrourinary exam: PRESENT: indwelling catheter Extremities exam: PRESENT: other - Left below knee amputation. Right leg and posterior splint with eddie wrap Musculoskeletal exam: PRESENT: deformity - As above. ABSENT: ambulatory Neurological exam: PRESENT: alert, awake, oriented to person, oriented to place, oriented to time, oriented to situation. ABSENT: altered Psychiatric exam: PRESENT: appropriate affect. ABSENT: agitated, anxious Focused psych exam: ABSENT: delusional, paranoid, restlessness Skin exam: PRESENT: dry, warm, other - Well-healed left BKA incision. ABSENT: rash Results Laboratory Results: 02/09/20 14:16 02/09/20 14:16 Impressions: Tibia/Fibula X-Ray 02/01/20 00:00 IMPRESSION: Fractures with ORIF as described. External fixation device is present as well. Ankle X-Ray 02/02/20 00:00 IMPRESSION: ORIF right ankle. Refer to operative note for further information Fluoroscopy 02/02/20 00:00 IMPRESSION: ORIF right ankle. Refer to operative note for further information Chest CT 02/14/20 00:00 IMPRESSION: Fluid overload or congestive failure with alveolar and interstitial edema, moderate bilateral pleural effusions Assessment and Plan - Diagnosis (1) Fracture of distal end of tibia Qualifiers: Encounter type: sequela Fracture type: closed Fracture morphology: pilon Laterality: right Is this a current diagnosis for this admission?: Yes Plan: Status post removal of the external fixator. He is nonweightbearing on the right lower extremity until cleared to do so by surgery. He is medically cleared to return to [facility] for acute rehab but they gave away his rehab bed and so we will transfer him once a bed becomes available. 02/08/2020 External fixator removed from the right leg. Posterior splint with Eddie wrap. He is nonweightbearing on the right leg. Unfortunately [facility] did not hold his bed for 48 hours and he is now awaiting to go back to acute rehab. 02/09/2020-right lower leg with a splint. External fixator is removed. Splint with Eddie wrap. He is need to be nonweightbearing on the right leg. For rehab placement at [facility] 02/10/2020-right lower leg with a splint. Patient is advised about her nonweightbearing of the right leg. Plan is for a transfer to rehab inpatient in [place] when the bed is available. 02/11/2020-patient with right lower leg splint with Eddie wrap. He is nonweightbearing on the right lower extremity. Plan is to transfer him to acute rehab facility in [place] when a bed is available. 02/12/20-patient is nonweightbearing on the right lower extremity. Has a splint with Eddie wrap. Requesting to talk to Dr. Pham about getting a walking cast tomorrow. 02/13/2020-Case was discussed with Dr. Pham and his recommendation is patient is to follow-up with him in the office in 2 to 3 weeks for cast placement. 02/15/2020 Orthopedic follow-up as above. DME equipment including wheelchair should be del ivered to the house today. The wheelchair is required because he is unable to use a walker or a cane. We will continue home health. (2) Fracture of lateral malleolus Qualifiers: Encounter type: sequela Fracture type: closed Laterality: right Is this a current diagnosis for this admission?: Yes Plan: As previously noted February 08, 2020 As above 02/15/2020 As above (3) Obesity hypoventilation syndrome Is this a current diagnosis for this admission?: No Plan: He is chronically been on oxygen now, saturations are good on 3 L. He needs BiPAP whenever he sleeps but does not always want to wear it and requires a lot of encouragement to keep his BiPAP on. February 08, 2020 Just as with his previous admission the patient is not very compliant with his CPAP. We will order oxygen. Because of his obesity hypoventilation and obstructive sleep apnea he is prone to hypercapnia. Continue to educate regarding CPAP. 02/09/2020-respiratory therapist called me to notify that patient is refusing to wear the CPAP at night. Requesting to remove it from the his room. 02/10/2020-patient has obesity associated hypoventilation syndrome. Patient is using CPAP during sleep. 02/11/2020-pulse ox today's 97% on room air. Sleeping with a CPAP. 03/03/20-pulse ox today is 96% on 3 L. Uses CPAP during sleep. 02/15/2020-continue supplemental oxygen. CPAP whenever sleeping or therapy during the night or day. (4) Obstructive sleep apnea Is this a current diagnosis for this admission?: No Plan: CPAP nightly February 08, 2020 The patient should be wearing CPAP all night and anytime he sleeps during the day. 02/15/2020 As above (5) Hypertension Qualifiers: Hypertension type: essential hypertension Qualified Code(s): I10 - Essential (primary) hypertension Is this a current diagnosis for this admission?: No Plan: Adequate control at present. Continue home regimen of Amlodipine, hydralazine, and metoprolol. Cardiac diet. February 08, 2020 Blood pressures are still quite variable. I believe this is multifactorial. We will continue current regimen continue to monitor patient with serial vital signs. 02/09/2020-blood pressure today is 130/60. Stable. Plan is to continue amlodipine, hydralazine, metoprolol at this time. 02/10/2020-blood pressure is stable. He is to continue amlodipine, hydralazine, metoprolol. 02/11/2020-blood pressure today is 113/70. Stable. 02/12/2020-blood pressure today is 157/68. Slightly elevated. Plan is to closely monitor the blood pressures if needed to adjust her medications. 02/13/2020-blood pressure today is 128/52. Stable. Plan is to continue amlodipine, hydralazine, metoprolol at this time. Patient is also on a Lasix 40 mg daily. 02/15/2020-reasonable blood pressure control. Continue current medications (6) Charcot foot due to diabetes mellitus Is this a current diagnosis for this admission?: No Plan: Right foot 02/08/2020 The patient had bilateral Charcot feet. The left foot became abscessed and in fact led to the left below-knee amputation. Patient still has Charcot foot on the right. His course was recently complicated by a complex fracture in the right ankle/distal right leg. Continue to try to manage his diabetes aggressively but the patient is poorly compliant. 02/09/2020-patient has Charcot joint of the right ankle. Presently with a splint with Eddie wrap. External fixator is removed. 02/12/2020-external fixator is removed patient is presently with a splint with Eddie wrap. Requesting to talk to Dr. Pham tomorrow about getting a cast. Patient agreed to go home with home health on Thursday. 02/13/2020-patient has a right lower extremity Charcot joint secondary to diabetes mellitus. External fixator was removed. Patient presently with a splint and Eddie wrap. Recommendation is nonweightbearing on the right lower extremity. Discussed the plan with Dr. Pham he plans to see the patient in the office to 3 weeks time to arrange for a splint. 02/15/2020 Left below-knee amputation was secondary to infection with the left Charcot foot. He is currently in a posterior splint of the right leg. Still with Charcot foot. Stable. (7) Hyperglycemia due to type 1 diabetes mellitus Is this a current diagnosis for this admission?: Yes Plan: February 08, 2020 Continue cardiac/controlled carbohydrate diet. Accu-Cheks and sliding scale coverage as well is Lantus, before meal Humalog dosing as well as sliding scale. 02/09/2020-patient has history of uncontrolled diabetes mellitus type 1. Noncompliant with diet. Latest blood sugar is 225. Presently on insulin sliding scale and Lantus, mealtime lispro. Diet exercise weight loss lifestyle modifications discussed with the patient. 02/10/2020-patient latest blood sugars are relatively stable. Latest blood sugar is 261. Needs to increase the Lantus to 65 units twice a day. He is also on lispro mealtime insulin 16 units prior to meals. He is also on insulin sliding scale. 02/15/2020 Continue current regimen (8) Morbid obesity with BMI of 40.0-44.9, adult Is this a current diagnosis for this admission?: No Plan: Strongly urged lifestyle modification with dietary modifications 02/08/2020 Significant risk addition to previous multiple comorbidities. At this point aggressive diet management will be the most likely way to lose weight. 02/15/2020 Significant risk with multiple comorbidities (9) Phantom pain after amputation of lower extremity Is this a current diagnosis for this admission?: No Plan: 02/08/2020 Continue gabapentin. Adjust based on clinical effectiveness and patient response. 02/15/2020 Continue gabapentin (10) Anemia, iron deficiency Qualifiers: Iron deficiency anemia type: unspecified iron deficiency Qualified Code(s): D50.9 - Iron deficiency anemia, unspecified Is this a current diagnosis for this admission?: Yes Plan: 02/15/2020 Likely a combination of iron deficiency and chronic illness. Hemoglobin is 7.8. We will administer 1 unit of packed red blood cells. I have also ordered a multivitamin with iron and vitamin B complex daily. Reticulocyte count is elevated which is expected and a positive sign. (11) Urinary retention Is this a current diagnosis for this admission?: Yes Plan: 02/15/2020 The patient has had a Blackmon catheter in for an extended period. I am going to increase the Flomax. I have also asked the nurse to clamp the Blackmon catheter and release it every 8 hours or if the patient feels fullness in the bladder. We will also obtain a urinalysis. - Plan Summary Summary: (1) Fracture of distal end of tibia Qualifiers: Encounter type: sequela Fracture type: closed Fracture morphology: pilon Laterality: right Is this a current diagnosis for this admission?: Yes Plan: Status post removal of the external fixator. He is nonweightbearing on the right lower extremity until cleared to do so by surgery. He is medically cleared to return to [facility] for acute rehab but they gave away his rehab bed and so we will transfer him once a bed becomes available. 02/08/2020 External fixator removed from the right leg. Posterior splint with Eddie wrap. He is nonweightbearing on the right leg. Unfortunately [facility] did not hold his bed for 48 hours and he is now awaiting to go back to acute rehab. 02/09/2020-right lower leg with a splint. External fixator is removed. Splint with Eddie wrap. He is need to be nonweightbearing on the right leg. For rehab placement at [facility] 02/10/2020-right lower leg with a splint. Patient is advised about her nonweightbearing of the right leg. Plan is for a transfer to rehab inpatient in [place] when the bed is available. 02/11/2020-patient with right lower leg splint with Eddie wrap. He is nonweightbe aring on the right lower extremity. Plan is to transfer him to acute rehab facility in [place] when a bed is available. 02/12/20-patient is nonweightbearing on the right lower extremity. Has a splint with Eddie wrap. Requesting to talk to Dr. Pham about getting a walking cast tomorrow. 02/13/2020-Case was discussed with Dr. Pham and his recommendation is patient is to follow-up with him in the office in 2 to 3 weeks for cast placement. 02/14/2020 patient admitted with fracture of the distal tibia removal of the external fixator patient is on splint with Eddie wrap discussed the case with Dr. Pham is going to see the patient is not in his office and arrange for a cast. (2) Fracture of lateral malleolus Qualifiers: Encounter type: sequela Fracture type: closed Laterality: right Is this a current diagnosis for this admission?: Yes Plan: As previously noted February 08, 2020 As above (3) Obesity hypoventilation syndrome Is this a current diagnosis for this admission?: No Plan: He is chronically been on oxygen now, saturations are good on 3 L. He needs BiPAP whenever he sleeps but does not always want to wear it and requires a lot of encouragement to keep his BiPAP on. February 08, 2020 Just as with his previous admission the patient is not very compliant with his CPAP. We will order oxygen. Because of his obesity hypoventilation and obstructive sleep apnea he is prone to hypercapnia. Continue to educate regarding CPAP. 02/09/2020-respiratory therapist called me to notify that patient is refusing to wear the CPAP at night. Requesting to remove it from the his room. 02/10/2020-patient has obesity associated hypoventilation syndrome. Patient is using CPAP during sleep. 02/11/2020-pulse ox today's 97% on room air. Sleeping with a CPAP. 02/12/20-pulse ox today is 96% on 3 L. Uses CPAP during sleep. 02/14/2020-patient's pulse ox is 90 on 2 L. To check for home oxygen requirements. Patient is advised to continue to use CPAP at home. (4) Obstructive sleep apnea Is this a current diagnosis for this admission?: No Plan: CPAP nightly February 08, 2020 The patient should be wearing CPAP all night and anytime he sleeps during the day. (5) Hypertension Qualifiers: Hypertension type: essential hypertension Qualified Code(s): I10 - Essential (primary) hypertension Is this a current diagnosis for this admission?: No Plan: Adequate control at present. Continue home regimen of Amlodipine, hydralazine, and metoprolol. Cardiac diet. February 08, 2020 Blood pressures are still quite variable. I believe this is multifactorial. We will continue current regimen continue to monitor patient with serial vital signs. 02/09/2020-blood pressure today is 130/60. Stable. Plan is to continue amlodipine, hydralazine, metoprolol at this time. 02/10/2020-blood pressure is stable. He is to continue amlodipine, hydralazine, metoprolol. 02/11/2020-blood pressure today is 113/70. Stable. 02/12/2020-blood pressure today is 157/68. Slightly elevated. Plan is to closely monitor the blood pressures if needed to adjust her medications. 02/13/2020-blood pressure today is 128/52. Stable. Plan is to continue amlodipine, hydralazine, metoprolol at this time. Patient is also on a Lasix 40 mg daily. 02/14/2020-blood pressure today is 134/66. Stable. Plan is to continue the pr esent management. (6) Charcot foot due to diabetes mellitus Is this a current diagnosis for this admission?: No Plan: Right foot 02/08/2020 The patient had bilateral Charcot feet. The left foot became abscessed and in fact led to the left below-knee amputation. Patient still has Charcot foot on the right. His course was recently complicated by a complex fracture in the right ankle/distal right leg. Continue to try to manage his diabetes aggressively but the patient is poorly compliant. 02/09/2020-patient has Charcot joint of the right ankle. Presently with a splint with Eddie wrap. External fixator is removed. 02/12/2020-external fixator is removed patient is presently with a splint with Eddie wrap. Requesting to talk to Dr. Pham tomorrow about getting a cast. Patient agreed to go home with home health on Thursday. 02/13/2020-patient has a right lower extremity Charcot joint secondary to diabetes mellitus. External fixator was removed. Patient presently with a splint and Eddie wrap. Recommendation is nonweightbearing on the right lower extremity. Discussed the plan with Dr. Pham he plans to see the patient in the office to 3 weeks time to arrange for a splint. (7) Hyperglycemia due to type 1 diabetes mellitus Is this a current diagnosis for this admission?: Yes Plan: February 08, 2020 Continue cardiac/controlled carbohydrate diet. Accu-Cheks and sliding scale coverage as well is Lantus, before meal Humalog dosing as well as sliding scale. 02/09/2020-patient has history of uncontrolled diabetes mellitus type 1. Noncompliant with diet. Latest blood sugar is 225. Presently on insulin sliding scale and Lantus, mealtime lispro. Diet exercise weight loss lifestyle modifications discussed with the patient. 02/10/2020-patient latest blood sugars are relatively stable. Latest blood sugar is 261. Needs to increase the Lantus to 65 units twice a day. He is also on lispro mealtime insulin 16 units prior to meals. He is also on insulin sliding scale. (8) Morbid obesity with BMI of 40.0-44.9, adult Is this a current diagnosis for this admission?: No Plan: Strongly urged lifestyle modification with dietary modifications 02/08/2020 Significant risk addition to previous multiple comorbidities. At this point aggressive diet management will be the most likely way to lose weight. (9) Phantom pain after amputation of lower extremity Is this a current diagnosis for this admission?: No Plan: 02/08/2020 Continue gabapentin. Adjust based on clinical effectiveness and patient response. - Time Time Spent with patient: 15-24 minutes Medications reviewed and adjusted accordingly: Yes Anticipated discharge: Home Within: within 24 hours
[2020-02-15] MEDS ORDERED: LIDOCAINE 2% JELLY 5 ML TUBE TOP ONE (11:15)
[2020-02-15 11:32] LABS: HEMATOCRIT 22.7 % (37.9-51.0); MEAN CORPUSCULAR HEMOGLOBIN 28.6 pg (27.0-33.4); MEAN CORPUSCULAR HGB CONC 33.2 g/dL (32.0-36.0); MEAN CORPUSCULAR VOLUME 86 fl (80-97); PLATELET COUNT 298 10^3/uL (150-450); RED BLOOD COUNT 2.64 10^6/uL (4.35-5.55); RED CELL DISTRIBUTION WIDTH 17.1 % (11.5-14.0); WHITE BLOOD COUNT 7.7 10^3/uL (4.0-10.5)
[2020-02-15 11:38] LABS: HEMOGLOBIN 7.5 g/dL (13.5-17.0)
[2020-02-15 14:06] LABS: APPEARANCE,URINE CLOUDY; BILIRUBIN,URINE NEGATIVE (NEGATIVE); COLOR,URINE YELLOW; GLUCOSE, URINE NEGATIVE (NEGATIVE); KETONES,URINE NEGATIVE (NEGATIVE); PROTEIN,URINE 100 mg/dL (NEGATIVE); UROBILINOGEN,URINE NEGATIVE mg/dL (<2.0)
[2020-02-15] MEDS ORDERED: LIDOCAINE 2% JELLY 5 ML TUBE EXT PRN (16:08)
[2020-02-15 19:07] LABS: HEMOGLOBIN 9.2 g/dL (13.5-17.0); MEAN CORPUSCULAR HEMOGLOBIN 29.6 pg (27.0-33.4); MEAN CORPUSCULAR HGB CONC 33.8 g/dL (32.0-36.0); MEAN CORPUSCULAR VOLUME 88 fl (80-97); PLATELET COUNT 305 10^3/uL (150-450); RED BLOOD COUNT 3.09 10^6/uL (4.35-5.55); RED CELL DISTRIBUTION WIDTH 16.9 % (11.5-14.0); WHITE BLOOD COUNT 7.8 10^3/uL (4.0-10.5)
[2020-02-15] MEDS ORDERED: TAMSULOSIN HCL 0.4 MG CAP.SR.24H PO SCH (22:00)
[2020-02-15] MEDS: ATORVASTATIN CALCIUM 40 MG TABLET PO SCH (22:27)
[2020-02-16] MEDS: HEPARIN SOD (PORCINE) 5,000 UNIT/ML 1 ML VIAL SUBCUT SCH ×2 (06:03→13:30)
[2020-02-16] MEDS: GABAPENTIN 300 MG CAPSULE PO SCH ×2 (06:09→13:32)
[2020-02-16] MEDS: HYDRALAZINE HCL 50 MG TABLET PO SCH ×2 (06:09→13:32)
[2020-02-16] MEDS: FERROUS SULFATE 325 MG TABLET PO SCH ×3 (08:17→17:13)
[2020-02-16] MEDS: INSULIN LISPRO 100 UNIT/ML 3 ML VIAL SUBCUT SCH ×6 (08:17→16:47)
[2020-02-16 09:35] LABS: HEMATOCRIT 26.1 % (37.9-51.0); HEMOGLOBIN 8.7 g/dL (13.5-17.0); MEAN CORPUSCULAR HEMOGLOBIN 29.4 pg (27.0-33.4); MEAN CORPUSCULAR HGB CONC 33.4 g/dL (32.0-36.0); MEAN CORPUSCULAR VOLUME 88 fl (80-97); PLATELET COUNT 298 10^3/uL (150-450); RED BLOOD COUNT 2.96 10^6/uL (4.35-5.55); RED CELL DISTRIBUTION WIDTH 16.9 % (11.5-14.0); WHITE BLOOD COUNT 8.2 10^3/uL (4.0-10.5)
[2020-02-16 09:54] LABS: ANION GAP 9 (5-19); BLOOD UREA NITROGEN 26 mg/dL (7-20); CALCIUM 8.8 mg/dL (8.4-10.2); CARBON DIOXIDE 25 mmol/L (22-30); CHLORIDE 103 mmol/L (98-107); GLUCOSE 289 mg/dL (75-110); POTASSIUM 3.9 mmol/L (3.6-5.0)
[2020-02-16] MEDS: TRIAMCINOLONE ACETONIDE 0.1% CREAM 15 GM TOP SCH ×2 (11:07→17:04)
[2020-02-16] MEDS: DOCUSATE SODIUM 100 MG CAPSULE PO SCH ×2 (11:07→17:05)
[2020-02-16] MEDS: FLUTICASONE NASAL SPRAY 50 MCG/SPRY 120 SPRAY/16 GM NASL SCH (11:08)
[2020-02-16] MEDS: NORMAL SALINE INJ/PF 0.9% 10 ML SDV IV SCH (11:13)
[2020-02-16] MEDS: METOPROLOL TARTRATE 100 MG TABLET PO SCH (11:14)
[2020-02-16] MEDS: FUROSEMIDE 40 MG TABLET PO SCH ×2 (11:14→17:13)
[2020-02-16] MEDS: FAMOTIDINE 20 MG TABLET PO SCH (11:14)
[2020-02-16] MEDS: VITAMIN B COMPLEX TABLET PO SCH (11:14)
[2020-02-16] MEDS: AMLODIPINE BESYLATE 10 MG TABLET PO SCH (11:14)
[2020-02-16] MEDS: DULOXETINE HCL 30 MG CAPSULE.DR PO SCH (11:15)
[2020-02-16] MEDS: ASPIRIN 81 MG TABLET, ENT COATED PO SCH (11:15)
[2020-02-16] MEDS: INSULIN GLARGINE,HUM.REC.ANLOG 1,000 UNIT/10 ML VIAL SUBCUT SCH (11:15)
[2020-02-16] MEDS: NYSTATIN CREAM 15 GM TP SCH ×2 (11:15→17:13)
--- NOTE | 2020-02-16 17:00 | PDOC DISCHARGE SUMMARY ---
Impression - Admit/DC Date/PCP Admission Date/Primary Care Provider: 02/01/20 15:13 RADHA VELEZ DPM Discharge Date: 02/16/20 - Discharge Diagnosis (1) Fracture of distal end of tibia Is this a current diagnosis for this admission?: Yes (2) Fracture of lateral malleolus Is this a current diagnosis for this admission?: Yes (3) Obesity hypoventilation syndrome Is this a current diagnosis for this admission?: Yes (4) Obstructive sleep apnea Is this a current diagnosis for this admission?: Yes (5) Hypertension Is this a current diagnosis for this admission?: Yes (6) Charcot foot due to diabetes mellitus Is this a current diagnosis for this admission?: Yes (7) Hyperglycemia due to type 1 diabetes mellitus Is this a current diagnosis for this admission?: Yes (8) Morbid obesity with BMI of 40.0-44.9, adult Is this a current diagnosis for this admission?: Yes (9) Phantom pain after amputation of lower extremity Is this a current diagnosis for this admission?: Yes (10) Anemia, iron deficiency Is this a current diagnosis for this admission?: Yes (11) Urinary retention Is this a current diagnosis for this admission?: Yes - Assessment Summary: (1) Fracture of distal end of tibia Qualifiers: Encounter type: sequela Fracture type: closed Fracture morphology: pilon Laterality: right Is this a current diagnosis for this admission?: Yes Plan: Status post removal of the external fixator. He is nonweightbearing on the right lower extremity until cleared to do so by surgery. He is medically cleared to return to [facility] for acute rehab but they gave away his rehab bed and so we will transfer him once a bed becomes available. 02/08/2020 External fixator removed from the right leg. Posterior splint with Eddie wrap. He is nonweightbearing on the right leg. Unfortunately [facility] did not hold his bed for 48 hours and he is now awaiting to go back to acute rehab. 02/09/2020-right lower leg with a splint. External fixator is removed. Splint with Eddie wrap. He is need to be nonweightbearing on the right leg. For rehab placement at [facility] 02/10/2020-right lower leg with a splint. Patient is advised about her nonweightbearing of the right leg. Plan is for a transfer to rehab inpatient in [place] when the bed is available. 02/11/2020-patient with right lower leg splint with Eddie wrap. He is nonweightbearing on the right lower extremity. Plan is to transfer him to acute rehab facility in [place] when a bed is available. 02/12/20-patient is nonweightbearing on the right lower extremity. Has a splint with Eddie wrap. Requesting to talk to Dr. Pham about getting a walking cast tomorrow. 02/13/2020-Case was discussed with Dr. Pham and his recommendation is patient is to follow-up with him in the office in 2 to 3 weeks for cast placement. 02/14/2020 patient admitted with fracture of the distal tibia removal of the external fixator patient is on splint with Eddie wrap discussed the case with Dr. Pham is going to see the patient is not in his office and arrange for a cast. (2) Fracture of lateral malleolus Qualifiers: Encounter type: sequela Fracture type: closed Laterality: right Is this a current diagnosis for this admission?: Yes Plan: As previously noted February 08, 2020 As above (3) Obesity hypoventilation syndrome Is this a current diagnosis for this admission?: No Plan: He is chronically been on oxygen now, saturations are good on 3 L. He needs BiPAP whenever he sleeps but does not always want to wear it and requires a lot of encouragement to keep his BiPAP on. February 08, 2020 Just as with his previous admission the patient is not very compliant with his CPAP. We will order oxygen. Because of his obesity hypoventilation and obstructive sleep apnea he is prone to hypercapnia. Continue to educate regmercy rding CPAP. 02/09/2020-respiratory therapist called me to notify that patient is refusing to wear the CPAP at night. Requesting to remove it from the his room. 02/10/2020-patient has obesity associated hypoventilation syndrome. Patient is using CPAP during sleep. 02/11/2020-pulse ox today's 97% on room air. Sleeping with a CPAP. 02/12/20-pulse ox today is 96% on 3 L. Uses CPAP during sleep. 02/14/2020-patient's pulse ox is 90 on 2 L. To check for home oxygen requirements. Patient is advised to continue to use CPAP at home. (4) Obstructive sleep apnea Is this a current diagnosis for this admission?: No Plan: CPAP nightly February 08, 2020 The patient should be wearing CPAP all night and anytime he sleeps during the day. (5) Hypertension Qualifiers: Hypertension type: essential hypertension Qualified Code(s): I10 - Essential (primary) hypertension Is this a current diagnosis for this admission?: No Plan: Adequate control at present. Continue home regimen of Amlodipine, hydralazine, and metoprolol. Cardiac diet. February 08, 2020 Blood pressures are still quite variable. I believe this is multifactorial. We will continue current regimen continue to monitor patient with serial vital signs. 02/09/2020-blood pressure today is 130/60. Stable. Plan is to continue amlodipine, hydralazine, metoprolol at this time. 02/10/2020-blood pressure is stable. He is to continue amlodipine, hydralazine, metoprolol. 02/11/2020-blood pressure today is 113/70. Stable. 02/12/2020-blood pressure today is 157/68. Slightly elevated. Plan is to closely monitor the blood pressures if needed to adjust her medications. 02/13/2020-blood pressure today is 128/52. Stable. Plan is to continue amlodipine, hydralazine, metoprolol at this time. Patient is also on a Lasix 40 mg daily. 02/14/2020-blood pressure today is 134/66. Stable. Plan is to continue the present management. (6) Charcot foot due to diabetes mellitus Is this a current diagnosis for this admission?: No Plan: Right foot 02/08/2020 The patient had bilateral Charcot feet. The left foot became abscessed and in fact led to the left below-knee amputation. Patient still has Charcot foot on the right. His course was recently complicated by a complex fracture in the right ankle/distal right leg. Continue to try to manage his diabetes aggressively but the patient is poorly compliant. 02/09/2020-patient has Charcot joint of the right ankle. Presently with a splint with Eddie wrap. External fixator is removed. 02/12/2020-external fixator is removed patient is presently with a splint with Eddie wrap. Requesting to talk to Dr. Pham tomorrow about getting a cast. Patient agreed to go home with home health on Thursday. 02/13/2020-patient has a right lower extremity Charcot joint secondary to diabetes mellitus. External fixator was removed. Patient presently with a splint and Eddie wrap. Recommendation is nonweightbearing on the right lower extremity. Discussed the plan with Dr. Pham he plans to see the patient in the office to 3 weeks time to arrange for a splint. (7) Hyperglycemia due to type 1 diabetes mellitus Is this a current diagnosis for this admission?: Yes Plan: February 08, 2020 Continue cardiac/controlled carbohydrate diet. Accu-Cheks and sliding scale coverage as well is Lantus, before meal Humalog dosing as well as sliding scale. 02/09/2020-patient has history of uncontrolled diabetes mellitus type 1. Noncompliant with diet. Latest blood sugar is 225. Presently on insulin sliding scale and Lantus, mealtime lispro. Diet exercise weight loss lifestyle modifications discussed with the patient. 02/10/2020-patient latest blood sugars are relatively stable. Latest blood sugar is 261. Needs to increase the Lantus to 65 units twice a day. He is also on lispro mealtime insulin 16 units prior to meals. He is also on insulin sliding scale. (8) Morbid obesity with BMI of 40.0-44.9, adult Is this a current diagnosis for this admission?: No Plan: Strongly urged lifestyle modification with dietary modifications 02/08/2020 Significant risk addition to previous multiple comorbidities. At this point aggressive diet management will be the most likely way to lose weight. (9) Phantom pain after amputation of lower extremity Is this a current diagnosis for this admission?: No Plan: 02/08/2020 Continue gabapentin. Adjust based on clinical effectiveness and patient response. - Additional Information Resuscitation Status: Full Code Discharge Diet: Cardiac, Diabetic Discharge Activity: Activity As Tolerated Referrals: DANISH PHAM MD [ACTIVE PROVISIONAL STAFF] - 02/22/20 10:45 am Prescriptions: Tamsulosin HCl [Flomax 0.4 mg Cap.sr] 0.4 mg PO QHS 30 Days #30 cap.sr.24h Tamsulosin HCl [Flomax 0.4 mg Cap.sr] 0.8 mg PO QHS #60 cap.sr.24h Furosemide [Lasix 40 mg Tablet] 40 mg PO DAILY 30 Days #30 tablet Furosemide [Lasix 40 mg Tablet] 40 mg PO BID #60 tablet Home Medications: Aspirin [Adult Low Dose Aspirin EC] 81 mg PO DAILY 08/11/19 Duloxetine HCl [Cymbalta] 60 mg PO DAILY 08/11/19 Metoprolol Tartrate [Lopressor 100 mg Tablet] 100 mg PO Q12 08/11/19 Insulin Aspart [Novolog Flexpen] 16 unit SUBCUT AC 08/12/19 Atorvastatin Calcium [Lipitor 40 mg Tablet] 40 mg PO QHS tablet 08/13/19 Famotidine [Pepcid 20 mg Tablet] 20 mg PO DAILY 12/21/19 Gabapentin [Neurontin 300 mg Capsule] 300 mg PO Q8 12/21/19 Hydralazine HCl [Apresoline 50 mg Tablet] 50 mg PO Q8 12/21/19 Amlodipine Besylate [Norvasc 5 mg Tablet] 10 mg PO DAILY tablet 01/04/20 Docusate Sodium [Colace 100 mg Capsule] 100 mg PO BID capsule 01/04/20 Ferrous Sulfate [Feosol 325 mg Tablet] 325 mg PO MEALS tablet 01/04/20 Fluticasone Propionate [Flonase Nasal Dinosaur 50 Mcg/Dinosaur 16 gm] 2 spray NASL Q12 spray.pump 01/04/20 Insulin Glargine,Hum.rec.anlog [Lantus Insulin 100 Unit/1 ml 10 ml] 60 unit SUBCUT Q12 unit 01/04/20 Insulin Lispro [Humalog Insulin (Lispro) 100 unit/mL] 0 - 12 unit SUBCUT ACHS unit 01/04/20 Oxycodone HCl [Oxy-Ir 5 mg Tablet] 5 mg PO Q4HP PRN tablet 01/04/20 Scopolamine 1 each TD Q3D 02/01/20 Furosemide [Lasix 40 mg Tablet] 40 mg PO DAILY 30 Days #30 tablet 02/14/20 Tamsulosin HCl [Flomax 0.4 mg Cap.sr] 0.4 mg PO QHS 30 Days #30 cap.sr.24h 02/26 Furosemide [Lasix 40 mg Tablet] 40 mg PO BID #60 tablet 02/16/20 Lidocaine HCl [Xylocaine 2% Jelly 5 ml Tube] 5 ml EXT Q4HP PRN jel 02/16/20 Multivitamins W-Iron [Flintstones Chewable Multivit W/Fe Tab] 1 tab PO DAILY tab.chew 02/16/20 Tamsulosin HCl [Flomax 0.4 mg Cap.sr] 0.8 mg PO QHS #60 cap.sr.24h 02/16/20 Vitamin B Complex [Vitamin B Complex Tablet] 1 tab PO DAILY tablet 02/16/20 History of Present Illiness History of Present Illness: PEE DOUGHERTY is a 40 year old male with a past medical hisotry significant for HTN, HLD, PVD, Ischemic CVA, Migraines, IDDM, depression and obesity who was discharged from [facility] to [facility] on 01/04/20 after admission for 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 The patient was transferred from [facility] to [facility] inpatient acute rehab for failure to progress; increased intensive therapy services. Spoke with Dr. Swain at [facility] was requesting transfer to [facility] for follow-up with Dr. Pham due to report of external fixation malfunction. Recently, patient did have a mild AK I requiring temporary hold of Lasix followed by increased peripheral edema. Lasix was resumed yesterday. Otherwise, he has had no new acute issues. Dr. Swain has agreed to accept the patient back to [facility] upon ortho evaluation and clearance. Patient is seen shortly upon arrival. He is found to be on supplemental oxygen by nasal cannula at 4 L/min. He tells me that he was recently started on oxygen due to development of atelectasis. He denies dyspnea or cough. He asks for incentive spirometer to bedside. Patient asks when to expect to see Dr. Pham and is hopeful to return to [facility] immediately upon completion of orthopedic repair to resume rehab. He has no other questions or concerns. 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 The patient was transferred from [facility] to [facility] inpatient acute rehab for failure to progress; increased intensive therapy services. Spoke with Dr. Swain at [facility] was requesting transfer to [facility] for follow-up with Dr. Pham due to report of external fixation malfunction. Recently, patient did have a mild AK I requiring temporary hold of Lasix followed by increased peripheral edema. Lasix was resumed yesterday. Otherwise, he has had no new acute issues. Dr. Swain has agreed to accept the patient back to [facility] upon ortho evaluation and clearance. Patient is seen shortly upon arrival. He is found to be on supplemental oxygen by nasal cannula at 4 L/min. He tells me that he was recently started on oxygen due to development of atelectasis. He denies dyspnea or cough. He asks for incentive spirometer to bedside. Patient asks when to expect to see Dr. Pham and is hopeful to return to [facility] immediately upon completion of orthopedic repair to resume rehab. He has no other questions or concerns. Denies fever, chills, chest pain, palpitations, dyspnea, orthopnea, cough, abdominal pain, nausea vomiting diarrhea. Dr. Pham has been consulted and notified of patient's arrival. 02/01-No adverse events overnight. No new complaints. Vital signs been stable. His biggest concern is that the surgery is later in the day and he is not been allowed to eat. 02/02-No adverse events overnight. He had his external fixator removed yesterday. His blood sugars were elevated so we made sure that his Lantus was resumed. He was ready to go back to [facility] today but they gave away his bed in acute rehab and so now we're having to start the process over. 02/04/20-No adverse events overnight. No new complaints. He had some nausea this morning but that is since resolved. He has no pain, but he does not really have good sensation in his leg anyway. 02/05/20-No adverse events overnight. No new complaints. He requires a lot of encouragement to wear his BiPAP. His blood sugars were pretty well controlled this morning so we did not give him Lantus. 02/05-No adverse events overnight. He is having trouble urinating again. He says it is "stage fright." This happened the last time he was in the hospital here. He wanted to have a Blackmon catheter put in. He was not wanting to put the BiPAP on this morning but eventually agreed and was able to sleep fairly well with it on. 02/06-No adverse events overnight. No new complaints. Vital signs been stable. Eating and drinking without difficulty. He said he has been compliant with his nonweightbearing status. 02/07-The patient is awake and alert during this encounter. He appears to be resting comfortably. Posterior splint on the right leg. He does not appear to be in any discomfort or having any difficulty breathing. 02/09/2020-patient is in mild shortness of breath as per the nurse he requiring 2 L of oxygen via nasal cannula. Patient is waiting for transfer to [place] rehab facility. Patient has a history of left BKA and right ankle reconstruction. Because of foot Charcot joint. No acute events in the last 24 hours. Afebrile. 02/10/20-patient is in mild shortness of breath at the time of examination. No acute events in the last 24 hours afebrile. Physical therapy notes is confusing. Requested nurse to talk to the case management for implants. in my Opinion patient is to go to a acute rehab facility. 02/11/2020-patient is comfortably sleeping in the bed on CPAP. Refusing to wake up. No acute events reported by the staff. 02/12/2020-patient is requesting for nystatin topical powder for possible yeast infection in the groin. He wants to talk to Dr. Pham tomorrow about right lower leg cast. Expressing desire to stay until Thursday and are planning to go home with home health. 02/13/2020-discussed the case with Dr. Pham this morning his recommendation is patient needs to see him in the office in 2 to 3 weeks for right lower leg cast. Wants to get a wheelchair, potty chair, homemade once he is discharged. He prefers to stay until tomorrow. He wants to talk to dependency case manager today to get all the supplies needed prior to discharge tomorrow. No acute events in the last 24 hours. Afebrile. 02/14/2020-no acute events in the last 24 hours. Patient's condition is stable. We will check a home oxygen requirements on room air. Patient need manual wheelchair with removable side railings, potty chair. Patient is also need physical therapy at home and home health services. 02/16/2020 The patient's hemoglobin did drop to 7.5 and he received a unit of packed red blood cells yesterday. We are going to remove his Blackmon catheter on the increased dose of Flomax prior to discharge. Physical Exam Vital Signs: Temp Pulse Resp BP Pulse Ox 98.1 F 75 19 134/57 H 91 L 02/16/20 15:42 02/16/20 15:42 02/16/20 15:42 02/16/20 15:42 02/16/20 15:42 Intake & Output 02/15/20 02/16/20 02/17/20 06:59 06:59 06:59 Intake Total 1680 2792 240 Output Total 2900 2050 Balance -1220 742 240 Weight 141 kg 141 kg 141 kg General appearance: PRESENT: mild distress, morbidly obese Respiratory exam: PRESENT: clear to auscultation aleja, unlabored. ABSENT: rales, rhonchi, tachypnea, wheezes Cardiovascular exam: PRESENT: RRR, +S1, +S2 GI/Abdominal exam: PRESENT: distended, normal bowel sounds, soft. ABSENT: guarding, tenderness Gentrourinary exam: PRESENT: indwelling catheter Musculoskeletal exam: PRESENT: other - Left BKA. ABSENT: ambulatory Neurological exam: PRESENT: alert, awake, oriented to person, oriented to place, oriented to time, oriented to situation, CN II-XII grossly intact Psychiatric exam: ABSENT: agitated, anxious Focused psych exam: ABSENT: delusional, paranoid, restlessness Results Laboratory Results: WBC 8.2 10^3/uL (4.0-10.5) 02/16/20 09:20 RBC 2.96 10^6/uL (4.35-5.55) L 02/16/20 09:20 Hgb 8.7 g/dL (13.5-17.0) L 02/16/20 09:20 Hct 26.1 % (37.9-51.0) L 02/16/20 09:20 MCV 88 fl (80-97) 02/16/20 09:20 MCH 29.4 pg (27.0-33.4) 02/16/20 09:20 MCHC 33.4 g/dL (32.0-36.0) 02/16/20 09:20 RDW 16.9 % (11.5-14.0) H 02/16/20 09:20 Plt Count 298 10^3/uL (150-450) 02/16/20 09:20 Lymph % (Auto) 8.7 % (13-45) L 02/09/20 14:16 [place] % (Auto) 5.3 % (3-13) 02/09/20 14:16 Eos % (Auto) 3.3 % (0-6) 02/09/20 14:16 Baso % (Auto) 0.6 % (0-2) 02/09/20 14:16 Reticulocyte # 0.138 10^6/uL (0.028-0.122) H 02/01/20 17:55 Absolute Neuts (auto) 8.1 10^3/uL (1.7-8.2) 02/09/20 14:16 Absolute Lymphs (auto) 0.9 10^3/uL (0.5-4.7) 02/09/20 14:16 Absolute Monos (auto) 0.5 10^3/uL (0.1-1.4) 02/09/20 14:16 Absolute Eos (auto) 0.3 10^3/uL (0.0-0.6) 02/09/20 14:16 Absolute Basos (auto) 0.1 10^3/uL (0.0-0.2) 02/09/20 14:16 Seg Neutrophils % 82.1 % (42-78) H 02/09/20 14:16 Retic Count (auto) 5.22 % (0.66-2.85) H 02/01/20 17:55 PT 13.0 SEC (11.4-15.4) 02/01/20 16:56 INR 0.98 02/01/20 16:56 Carbonic Acid 1.20 mmol/L (1.05-1.35) 02/06/20 08:58 HCO3/H2CO3 Ratio 18:1 02/06/20 08:58 ABG pH 7.37 (7.35-7.45) 02/06/20 08:58 ABG pCO2 39.8 mmHg (35-45) 02/06/20 08:58 ABG pO2 95.6 mmHg (80-100) 02/06/20 08:58 ABG HCO3 22.3 mmol/L (20-24) 02/06/20 08:58 ABG Total CO2 23.5 mmol/L (23-27) 02/06/20 08:58 ABG O2 Saturation 97.1 % (94-98) 02/06/20 08:58 ABG Base Excess -2.8 mmol/L 02/06/20 08:58 FiO2 40% 02/06/20 08:58 Sodium 136.6 mmol/L (137-145) L 02/16/20 09:20 Potassium 3.9 mmol/L (3.6-5.0) 02/16/20 09:20 Chloride 103 mmol/L (98-107) 02/16/20 09:20 Carbon Dioxide 25 mmol/L (22-30) 02/16/20 09:20 Anion Gap 9 (5-19) 02/16/20 09:20 BUN 26 mg/dL (7-20) H 02/16/20 09:20 Creatinine 1.28 mg/dL (0.52-1.25) H 02/16/20 09:20 Est GFR ( Amer) > 60 (>60) 02/16/20 09:20 Est GFR (MDRD) Non-Af > 60 (>60) 02/16/20 09:20 Glucose 289 mg/dL (75-110) H 02/16/20 09:20 POC Glucose 84 mg/dL (70-110) 02/16/20 16:30 Calcium 8.8 mg/dL (8.4-10.2) 02/16/20 09:20 Phosphorus 4.4 mg/dL (2.5-4.5) 02/09/20 14:16 Magnesium 1.8 mg/dL (1.6-2.3) 02/08/20 22:23 Iron 35.6 ug/dL (49-181) L 02/01/20 17:55 TIBC 281 ug/dL (250-450) 02/01/20 17:55 % Saturation 13 % 02/01/20 17:55 Transferrin 188.40 mg/dL (206.00-381.00) L 02/01/20 17:55 Ferritin 154.00 ng/mL (17.9-464.0) 02/01/20 17:55 Albumin 3.6 g/dL (3.5-5.0) 02/09/20 14:16 Vitamin B12 394.0 pg/mL (239-931) 02/01/20 17:55 Folate 17.20 ng/mL (>2.76) 02/01/20 17:55 Urine Color YELLOW 02/15/20 13:45 Urine Appearance CLOUDY 02/15/20 13:45 Urine pH 6.0 (5.0-9.0) 02/15/20 13:45 Ur Specific [place] 1.010 02/15/20 13:45 Urine Protein 100 mg/dL (NEGATIVE) H 02/15/20 13:45 Urine Glucose (UA) NEGATIVE mg/dL (NEGATIVE) 02/15/20 13:45 Urine Ketones NEGATIVE mg/dL (NEGATIVE) 02/15/20 13:45 Urine Blood SMALL (NEGATIVE) H 02/15/20 13:45 Urine Nitrite (Reflex) NEGATIVE (NEGATIVE) 02/15/20 13:45 Urine Bilirubin NEGATIVE (NEGATIVE) 02/15/20 13:45 Urine Urobilinogen NEGATIVE mg/dL (<2.0) 02/15/20 13:45 Leukocyte Esterase Rfl NEGATIVE (NEGATIVE) 02/15/20 13:45 Urine RBC (Auto) 16 /HPF 02/15/20 13:45 U Hyaline Cast (Auto) 8 /LPF 02/15/20 13:45 Urine Bacteria (Auto) TRACE /HPF 02/15/20 13:45 Urine WBC (Reflex) 1 /HPF 02/15/20 13:45 Urine Mucus (Auto) RARE /LPF 02/15/20 13:45 Urine Ascorbic Acid NEGATIVE (NEGATIVE) 02/15/20 13:45 SARS-CoV-2 (PCR) NEGATIVE (NEGATIVE) 02/02/20 06:40 Blood Type O POSITIVE 02/15/20 11:01 Antibody Screen NEGATIVE 02/15/20 11:01 Crossmatch See Detail 02/15/20 11:01 Impressions: Tibia/Fibula X-Ray 02/01/20 00:00 IMPRESSION: Fractures with ORIF as described. External fixation device is pre sent as well. Ankle X-Ray 02/02/20 00:00 IMPRESSION: ORIF right ankle. Refer to operative note for further information Fluoroscopy 02/02/20 00:00 IMPRESSION: ORIF right ankle. Refer to operative note for further information Chest CT 02/14/20 00:00 IMPRESSION: Fluid overload or congestive failure with alveolar and interstitial edema, moderate bilateral pleural effusions Plan Health Concerns: Urinary retention, poor balance complete healing of the right leg fractures Plan of Treatment: Patient is going home and is going to get home health, home PT and patient need a manual wheelchair, potty chair with checking for home oxygen requirements. Goals: Complete healing of fracture with subsequent successful use of left leg orthotic Time Spent: Greater than 30 Minutes Stroke Is this a Stroke Patient?: No Acute Heart Failure - Is this a Heart Failure Patient?: No
[2020-02-16 19:31] VITALS: BP 150/65
== END 2020-02-16 20:20 | disposition home health service (06) | DRG 493 ==
LOC: 4N 15:13 → OBSVTOIN 15:13 → INTOOBSV 15:13
PROVIDERS: ADMIT Internal Medicine; ATTEND Hospitalist
PROC: 30233N1 Transfusion of Nonautologous Red Blood Cells into Peripheral Vein, Percutaneous Approach (ICD-10-PCS; 2020-02-01)
PROC: 5A09557 Assistance with Respiratory Ventilation, Greater than 96 Consecutive Hours, Continuous Positive Airway Pressure (ICD-10-PCS; 2020-02-02)
PROC: 0QPGX5Z Removal of External Fixation Device from Right Tibia, External Approach (ICD-10-PCS; 2020-02-02)
PROC: 0QSJ04Z Reposition Right Fibula with Internal Fixation Device, Open Approach (ICD-10-PCS; principal; 2020-02-02 14:00)
DX: S82.871S Displaced pilon fracture of right tibia, sequela (principal); E66.2 Morbid (severe) obesity with alveolar hypoventilation; Z68.41 Body mass index [BMI] 40.0-44.9, adult; D62 Acute posthemorrhagic anemia; X58.XXXA Exposure to other specified factors, initial encounter; S82.61XS Displaced fracture of lateral malleolus of right fibula, sequela; Z20.828 Contact with and (suspected) exposure to other viral communicable diseases; I10 Essential (primary) hypertension; E10.65 Type 1 diabetes mellitus with hyperglycemia; E10.610 Type 1 diabetes mellitus with diabetic neuropathic arthropathy; G54.6 Phantom limb syndrome with pain; E78.5 Hyperlipidemia, unspecified; F32.9 Major depressive disorder, single episode, unspecified; R11.10 Vomiting, unspecified; E10.51 Type 1 diabetes mellitus with diabetic peripheral angiopathy without gangrene; R33.9 Retention of urine, unspecified; K21.9 Gastro-esophageal reflux disease without esophagitis; Z91.11 Patient's noncompliance with dietary regimen; Z79.82 Long term (current) use of aspirin; Z79.899 Other long term (current) drug therapy; Z79.4 Long term (current) use of insulin; Z86.73 Personal history of transient ischemic attack (TIA), and cerebral infarction without residual deficits; Z87.891 Personal history of nicotine dependence; Z83.3 Family history of diabetes mellitus
CPT/HCPCS: 01480; 36415; 36430; 36600; 71250; 80048; 80069; 81001; 82607; 82728; 82746; 82803; 82962; 83540; 83550; 83735; 84466; 85025; 85027; 85045; 85610; 86850; 86900; 86901; 86920; 87635; 94640; 94660; 94799; C1713; C9803; G0378; G0379; J0330; J0690; J1642; J1644; J1815; J1885; J2250; J2405; J2704; J2765; J3010; J3490; J7060; P9016

== ENCOUNTER 2020-02-17 08:40 | Emergency (ER) | payer MEDICARE, MEDICAID ==
--- NOTE | 2020-02-17 08:55 | ER Document Report ---
ED GI/ - General Chief Complaint: Trouble Voiding Stated Complaint: URINATION PROBLEM/BLADDER PAIN Time Seen by Provider: 02/17/20 08:47 Primary Care Provider: RADHA VELEZ DPM [ACTIVE STAFF] - Follow up as needed Notes: CHIEF COMPLAINT: Unable to urinate HPI: 40-year-old male presenting for urinary retention. Patient states he was just released from the hospital yesterday where he had been admitted for surgery on the right lower extremity. Patient with a history of type 1 diabetes also with Charcot foot, had an external fixator removed. States he did have a Blackmon catheter in while in the hospital and they did remove it prior to discharge. States he was able to void slightly before leaving but has not been able to void overnight and now presenting with significant pelvic pressure and discomfort. No fever ROS: See HPI - all other systems were reviewed and are otherwise negative Constitutional: no fever GI: no vomiting, no diarrhea, + abdominal pain : no dysuria, positive urinary retention Integumentary: no rash Allergy: no hives MEDICATIONS: I agree with the patient medications as charted by the RN. ALLERGIES: I agree with the allergies as charted by the RN. PAST MEDICAL HISTORY/PAST SURGICAL HISTORY: Reviewed and agree as charted by RN. SOCIAL HISTORY: Reviewed and agree as charted by RN. FAMILY HISTORY: No significant familial comorbid conditions directly related to patient complaint EXAM: Reviewed vital signs as charted by RN. CONSTITUTIONAL: Alert and oriented and responds appropriately to questions. Well-appearing; well-nourished HEAD: Normocephalic; atraumatic EYES: Conjunctivae clear, sclerae non-icteric ENT: normal nose; no rhinorrhea; moist mucous membranes NECK: Supple without meningismus; non-tender; no cervical lymphadenopathy, no masses CARD: Mild tachycardia; no murmurs, no clicks, no rubs, no gallops; symmetric distal pulses RESP: Normal chest excursion without splinting or tachypnea; breath sounds clear and equal bilaterally; no wheezes, no rhonchi, no rales, pulse oximetry 98% on room air not hypoxic ABD/GI: Morbidly obese, normal bowel sounds; non-distended; soft, moderate tenderness over the suprapubic region on palpation, no rebound, no guarding; no palpable organomegaly or masses. BACK: The back appears normal and is non-tender to palpation, there is no CVA tenderness EXT: Left BKA noted. Right lower leg in splint currently SKIN: Normal color for age and race; warm; dry; good turgor; no acute lesions noted NEURO: Motor and sensory function intact PSYCH: The patient's mood and manner are appropriate. Grooming and personal hygi jeremy are appropriate. MDM: 40-year-old male presenting for acute urinary retention. Will place Blackmon catheter and reassess TRAVEL OUTSIDE OF THE [place] IN LAST 30 DAYS: No - Related Data Allergies/Adverse Reactions: No Known Allergies Allergy (Verified 12/20/19 20:11) Past Medical History - Social History Smoking Status: Unknown if Ever Smoked Family History: DM - Grandmother with type 2 diabetes, Hypertension - Father. denies: CAD, Malignancy - Past Medical History Cardiac Medical History: Reports: Hx Hypercholesterolemia, Hx Hypertension, Hx Peripheral Vascular Disease Denies: Hx Atrial Fibrillation, Hx Coronary Artery Disease, Hx DVT, Hx Heart Attack, Hx Pulmonary Embolism Pulmonary Medical History: Reports: Hx Pneumonia, Hx Sleep Apnea - Patient requires CPAP Denies: Hx Asthma, Hx COPD Neurological Medical History: Reports: Hx Migraine. Denies: Hx Cerebrovascular Accident, Hx Seizures Endocrine Medical History: Reports: Hx Diabetes Mellitus Type 1. Denies: Hx Hyperthyroidism, Hx Hypothyroidism Renal/ Medical History: Denies: Hx Peritoneal Dialysis GI Medical History: Reports: Hx Gastroesophageal Reflux Disease. Denies: Hx Cirrhosis, Hx Crohn's Disease, Hx Hepatitis, Hx Hiatal Hernia, Hx Ulcer, Hx Ulcerative Colitis Musculoskeletal Medical History: Denies Hx Arthritis, Denies Hx Gout Skin Medical History: Denies Hx Eczema, Denies Hx Psoriasis Psychiatric Medical History: Reports: Hx Depression Infectious Medical History: Denies: Hx Hepatitis Past Surgical History: Reports: Hx Orthopedic Surgery - Left BKA, ORIF right tibial pilon, rt ankle external fixation, Other - EGD. Denies: Hx Open Heart Surgery, Hx Pacemaker - Immunizations Hx Diphtheria, Pertussis, Tetanus Vaccination: Yes - 2006 Course - Re-evaluation Re-evalutation: 02/17/20 09:25 Patient put out approximately 2200 mL of urine with the Blackmon catheter. Acute urinary retention. He indicates he follows with urology at [facility]. Patient will keep the catheter in, switched to leg bag, Blackmon instructions, follow-up with his urologist. Accu-Chek 148 - Laboratory Laboratory results interpreted by me: 02/17/20 09:10 Urine Protein 100 H Urine Blood SMALL H Discharge - Discharge Clinical Impression: Acute urinary retention Condition: Stable Disposition: HOME, SELF-CARE Instructions: Blackmon Catheter Care ([facility]) Additional Instructions: Follow-up with your urologist by phone today regarding Blackmon management and appointment in the office to have the catheter removed Referrals: RADHA VELEZ DPM [ACTIVE STAFF] - Follow up as needed
[2020-02-17 09:39] LABS: APPEARANCE,URINE CLEAR; BILIRUBIN,URINE NEGATIVE (NEGATIVE); COLOR,URINE YELLOW; GLUCOSE, URINE NEGATIVE (NEGATIVE); KETONES,URINE NEGATIVE (NEGATIVE); LEUKOCYTE ESTERASE,URINE NEGATIVE (NEGATIVE); NITRITE,URINE NEGATIVE (NEGATIVE); PROTEIN,URINE 100 mg/dL (NEGATIVE); URINE SPECIFIC GRAVITY 1.009; UROBILINOGEN,URINE NEGATIVE mg/dL (<2.0)
[2020-02-17 12:50] VITALS: BP 140/74
== END 2020-02-17 12:50 | disposition home or self-care (01) ==
LOC: ER 08:40
DX: R33.8 Other retention of urine (principal); R10.9 Unspecified abdominal pain; E10.9 Type 1 diabetes mellitus without complications; E78.00 Pure hypercholesterolemia, unspecified; I10 Essential (primary) hypertension; Z89.512 Acquired absence of left leg below knee
CPT/HCPCS: 51702; 81001; 82962; 99283